=== PATIENT | male | born 1990 | race Caucasian/White ===

== ENCOUNTER 2016-12-05 10:37 | Inpatient (IN) | payer BC, MEDICAID ==
--- NOTE | 2016-12-05 11:00 | ED ---
General Adult HPI - General Chief complaint: Psychiatric Symptoms Stated complaint: Mental Health Time Seen by Provider: 12/05/16 10:57 Source: patient, RN notes reviewed, old records reviewed Mode of arrival: ambulatory Limitations: no limitations - History of Present Illness Initial comments: This is a 26-year-old male ER for evaluation. Patient's MCR for evaluation of psychiatric disease. Patient presents voluntarily as he was having some anger control issues at a snf earlier today. Patient states he's been having difficulty controlling his aggression, at times he does feel like he wants to fight he has a history of endometrial fighting. He is recently been trying to not go down that road. He felt like he needed to leave the situation. Patient had been off his medication as of late secondary to noncompliance - Related Data Home Medications Medication Instructions Recorded Confirmed Albuterol Inhaler [Ventolin Hfa 1 - 2 puff INHALATION RT-Q6H PRN 12/05/16 Inhaler] QUEtiapine XR [SEROquel XR] 200 mg PO HS 12/05/16 12/05/16 Allergies Allergy/AdvReac Type Severity Reaction Status Date / Time dextromethorphan AdvReac Hallucinati Verified 12/05/16 12:53 ons guaifenesin AdvReac Hallucinati Verified 12/05/16 12:53 ons lurasidone [From Latuda] AdvReac Suicidal Verified 12/05/16 12:53 Ideation Review of Systems ROS Statement: Those systems with pertinent positive or pertinent negative responses have been documented in the HPI. ROS Other: All systems not noted in ROS Statement are negative. Past Medical History Additional Past Medical History / Comment(s): aspergers, delusional disorder History of Any Multi-Drug Resistant Organisms: None Reported Past Surgical History: No Surgical Hx Reported Past Psychological History: Anxiety Smoking Status: Current every day smoker Past Alcohol Use History: None Reported Past Drug Use History: None Reported General Exam Limitations: no limitations General appearance: alert, in no apparent distress Head exam: Present: atraumatic, normocephalic, normal inspection Eye exam: Present: normal appearance, PERRL, EOMI. Absent: scleral icterus, conjunctival injection, periorbital swelling ENT exam: Present: normal exam, mucous membranes moist Neck exam: Present: normal inspection. Absent: tenderness, meningismus, lymphadenopathy Respiratory exam: Present: normal lung sounds bilaterally. Absent: respiratory distress, wheezes, rales, rhonchi, stridor Cardiovascular Exam: Present: regular rate, normal rhythm, normal heart sounds. Absent: systolic murmur, diastolic murmur, rubs, gallop, clicks GI/Abdominal exam: Present: soft, normal bowel sounds. Absent: distended, tenderness, guarding, rebound, rigid Extremities exam: Present: normal inspection, full ROM, normal capillary refill. Absent: tenderness, pedal edema, joint swelling, calf tenderness Back exam: Present: normal inspection Neurological exam: Present: alert, oriented X3, CN II-XII intact Psychiatric exam: Present: normal affect, normal mood Skin exam: Present: warm, dry, intact, normal color. Absent: rash Course Vital Signs 12/05/16 10:49 Temperature 98.1 F Pulse Rate 108 H Respiratory 20 Rate Blood Pressure 136/94 O2 Sat by Pulse 99 Oximetry - Reevaluation(s) Reevaluation #1: 12/05/16 14:43 Patient's medically clear for psychiatric evaluation Medical Decision Making - Medical Decision Making 26 male seen and evaluated with the [place], patient is needing psychiatric evaluation and treatment, patient will be admitted - Lab Data Lab Results 12/05/16 Range/Units 11:50 Urine Opiates Screen Not Detected (NotDetected) Ur Oxycodone Screen Not Detected (NotDetected) Urine Methadone Screen Not Detected (NotDetected) Ur Propoxyphene Screen Not Detected (NotDetected) Ur Barbiturates Screen Not Detected (NotDetected) U Tricyclic Antidepress Not Detected (NotDetected) Ur Phencyclidine Scrn Not Detected (NotDetected) Ur Amphetamines Screen Not Detected (NotDetected) U Methamphetamines Scrn Not Detected (NotDetected) U Benzodiazepines Scrn Not Detected (NotDetected) Urine Cocaine Screen Not Detected (NotDetected) U Marijuana (THC) Screen Not Detected (NotDetected) Disposition Clinical Impression: Acute psychosis Disposition: TRANSFER TO PSYCH HOSP/UNIT Condition: Fair Referrals: Linda Rogers MD [Primary Care Provider] - 1-2 days
[2016-12-05] MEDS ORDERED: ZIPRASIDONE 20 MG VIAL IM PRN (15:08)
[2016-12-05] MEDS ORDERED: ACETAMINOPHEN TAB 325 MG TAB PO PRN (15:08)
[2016-12-05] MEDS ORDERED: ALBUTEROL INHALER 60 PUFF/8 GM INHALER INHALATION PRN (15:21)
[2016-12-05] MEDS ORDERED: hydrOXYzine PAMOATE 25 MG CAP PO PRN (15:23)
[2016-12-05 15:40] LABS: Appearance,Urine Clear (Clear); Bilirubin,Urine Negative (Negative); Glucose,Urine (UA) Negative (Negative); Ketones,Urine Negative (Negative); Leukocyte Esterase,Urine Negative (Negative); Nitrite,Urine Negative (Negative); Protein,Urine Negative (Negative); Specific Gravity,Urine 1.006 (1.001-1.035); UA Billing (MACRO vs. MICRO) CHEM; Urobilinogen,Urine <2.0 mg/dL (<2.0)
[2016-12-05 16:08] VITALS: BMI 24.4
[2016-12-06 08:40] LABS: Basophils % (A) 1 %; CH 30.5; CHCM 36.9; Eosinophils # (A) 0.2 k/uL (0-0.7); Eosinophils % (A) 4 %; HCT 41.8 % (39.0-53.0); HGB 15.1 gm/dL (13.0-17.5); Luc # (Auto) 0.14; Luc % (Auto) 3; Lymphocytes # (A) 1.7 k/uL (1.0-4.8); Lymphocytes % (A) 35 %; MCH 29.9 pg (25.0-35.0); Mean Platelet Volume 7.7; Monocytes # (A) 0.4 k/uL (0-1.0); Monocytes % (A) 8 %; Neutrophils # (A) 2.4 k/uL (1.3-7.7); Neutrophils % (A) 49 %; RBC 5.04 m/uL (4.30-5.90); WBC 4.9 k/uL (3.8-10.6); WBC (Perox) 4.98
[2016-12-06 08:51] LABS: ALT 30 U/L (21-72); AST 28 U/L (17-59); Alkaline Phosphatase 56 U/L (38-126); Anion Gap 12 mmol/L; Blood Urea Nitrogen 15 mg/dL (9-20); Calcium 9.9 mg/dL (8.4-10.2); Carbon Dioxide 30 mmol/L (22-30); Chloride 105 mmol/L (98-107); Glucose 86 mg/dL (74-99); Non-African American GFR(MDRD) >60 (>60 ml/min/1.73 sqM); Potassium 4.6 mmol/L (3.5-5.1); Sodium 147 mmol/L (137-145); Total Bilirubin 2.7 mg/dL (0.2-1.3); Total Protein 7.6 g/dL (6.3-8.2)
--- NOTE | 2016-12-06 09:45 | P.HP ---
Psychiatric H&P - . H&P Date: 12/06/16 History & Physical: DATE OF SERVICE: 12/06/2016 IDENTIFYING DATA: This patient is a 26 a -year-old single male who was admitted to the mental health unit through . HISTORY OF PRESENT ILLNESS: The patient presents with report he his transitions from shelter is hard, happended before in [facility], went to a placement that was rough. Now at [facility] after 2 weeks in shelter, reports problems with authority , but coming out of shelter is rough. Says he went w/o his medication, did not sleep had lots of energy. Says he does not blame the people being "agitated spirits", says he does not do well leaving shelter, difficulty with teachers, says he was not not special ed, but always treated differently but did not realize until he knew his brother, and father all have autism spectrum disorder. Since 2010- he has gotten worse as have his brother and father. States he is with [facility]. Says he asked to come here, wants to complete his probation. Says he always just throws his hands up. 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 PAST PSYCHIATRIC HISTORY: says if he talks about it he feels like he is going to . PAST MEDICAL HISTORY: denies. ALLERGIES: per record dextromethorphan guaifenesin, lurasidone. CHEMICAL DEPENDENCY HISTORY: growing up using all drugs, never got in to one, now only marijuana, . FAMILY PSYCHIATRIC HISTORY: father and brother with autism spectrum disorder. FAMILY CHEMICAL DEPENDENCY HISTORY:both parents are etohic. LEGAL HISTORY: Just in shelter for 2 weeks for probation violation. No assault cases. SOCIAL HISTORY: [Born and raised in [place], mother raised from , parents since age 2. Brother raised by father. Had normal [employer] classes. Poor academic performance. GED. never, no children, no relationship, heterosexual. 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 MENTAL STATUS EXAM: Patient alert and oriented 3, poor eye contact, fair groomed in street clothing. Speech low volume, monotone increased rate and increased production. Coherent, logical and circumstantial tangential thought process. +IZA, no FOI. No TB/TW/TI Denied auditory and visual hallucinations. + paranoid ideation, + delusions and IOR.Religiously preoccupied Memory grossly intact Cognition below average Mood dysphoric, irritable, tearful, affect constricted, congruent with mood. Denies suicidal ideation, denies homicidal ideation. Insight and limited; Judgement plan intact for treatment purposes . STRENGTHS: Requesting help. WEAKNESSES: Poor coping skills. IMPRESSIONS: 26-year-old single male brought to the emergency room by police detention attendant who did not make a petition. Patient had been released from shelter and court ordered to the [facility], he did not receive his Seroquel meds did not sleep and had an altercation with one of the staff members who also did not write a petition. When assessed in the emergency room he was noted to have taoism preoccupation, but there was not a clear picture of psychosis. Today patient's thought process is rambling, disorganized,pressure to his speech , at times tangential, with occasional IZA. No auditory or visual hallucinations reported, delusional, paranoid . No evidence of suicidal ideation , but patient is irritable labile and angry with his sense of being a victim of the system. At the moment he is not reporting suicidal ideation but there is risk with his sense of hopelessness. Patient needs to remain inpatient for further assessment and treatment of his psychosis and mood. Psychosis, unspecified Rule out autism spectrum disorder Cannabis use disorder, in remission History of polysubstance use PLAN: Continue inpatient psychiatric admission, for safety purposes and diagnostic clarity and treatment. Will increase Seroquel to 300 mg at bedtime, and titrate up depending upon therapeutic/clinical response. Continue suicide precautions every 15 minutes. Treatment history from [facility] including medication trials. Need to have court consider a different placement then [facility] on discharge. Milieu therapy. Allergies Allergy/AdvReac Type Severity Reaction Status Date / Time dextromethorphan AdvReac Hallucinati Verified 12/05/16 15:41 ons guaifenesin AdvReac Hallucinati Verified 12/05/16 15:41 ons lurasidone From Latuda AdvReac Suicidal Verified 12/05/16 15:41 Ideation Vital Signs Temp 98.0 F 12/06/16 06:54 Pulse 73 12/06/16 06:54 Resp 16 12/06/16 06:54 BP 134/61 12/06/16 06:54 Pulse Ox 98 12/05/16 15:57 Intake & Output 12/05/16 12/06/16 12/06/16 18:59 06:59 18:59 Weight 79.5 kg Laboratory Last Values WBC 4.9 k/uL (3.8-10.6) 12/06/16 08:08 RBC 5.04 m/uL (4.30-5.90) 12/06/16 08:08 Hgb 15.1 gm/dL (13.0-17.5) 12/06/16 08:08 Hct 41.8 % (39.0-53.0) 12/06/16 08:08 MCV 83.0 fL (80.0-100.0) 12/06/16 08:08 MCH 29.9 pg (25.0-35.0) 12/06/16 08:08 MCHC 36.0 g/dL (31.0-37.0) 12/06/16 08:08 RDW 12.0 % (11.5-15.5) 12/06/16 08:08 Plt Count 149 k/uL (150-450) L 12/06/16 08:08 Neutrophils % 49 % 12/06/16 08:08 Lymphocytes % 35 % 12/06/16 08:08 Monocytes % 8 % 12/06/16 08:08 Eosinophils % 4 % 12/06/16 08:08 Basophils % 1 % 12/06/16 08:08 Neutrophils # 2.4 k/uL (1.3-7.7) 12/06/16 08:08 Lymphocytes # 1.7 k/uL (1.0-4.8) 12/06/16 08:08 Monocytes # 0.4 k/uL (0-1.0) 12/06/16 08:08 Eosinophils # 0.2 k/uL (0-0.7) 12/06/16 08:08 Basophils # 0.0 k/uL (0-0.2) 12/06/16 08:08 Urine Color Light Yellow 12/05/16 11:50 Urine Appearance Clear (Clear) 12/05/16 11:50 Urine pH 6.0 (5.0-8.0) 12/05/16 11:50 Ur Specific [place] 1.006 (1.001-1.035) 12/05/16 11:50 Urine Protein Negative (Negative) 12/05/16 11:50 Urine Glucose (UA) Negative (Negative) 12/05/16 11:50 Urine Ketones Negative (Negative) 12/05/16 11:50 Urine Blood Negative (Negative) 12/05/16 11:50 Urine Nitrite Negative (Negative) 12/05/16 11:50 Urine Bilirubin Negative (Negative) 12/05/16 11:50 Urine Urobilinogen <2.0 mg/dL (<2.0) 12/05/16 11:50 Ur Leukocyte Esterase Negative (Negative) 12/05/16 11:50 Urine Opiates Screen Not Detected (NotDetected) 12/05/16 11:50 Ur Oxycodone Screen Not Detected (NotDetected) 12/05/16 11:50 Urine Methadone Screen Not Detected (NotDetected) 12/05/16 11:50 Ur Propoxyphene Screen Not Detected (NotDetected) 12/05/16 11:50 Ur Barbiturates Screen Not Detected (NotDetected) 12/05/16 11:50 U Tricyclic Antidepress Not Detected (NotDetected) 12/05/16 11:50 Ur Phencyclidine Scrn Not Detected (NotDetected) 12/05/16 11:50 Ur Amphetamines Screen Not Detected (NotDetected) 12/05/16 11:50 U Methamphetamines Scrn Not Detected (NotDetected) 12/05/16 11:50 U Benzodiazepines Scrn Not Detected (NotDetected) 12/05/16 11:50 Urine Cocaine Screen Not Detected (NotDetected) 12/05/16 11:50 U Marijuana (THC) Screen Not Detected (NotDetected) 12/05/16 11:50 12/06/16 09:15
--- NOTE | 2016-12-07 05:39 | CONS ---
DATE OF CONSULTATION: REASON FOR CONSULTATION: Medical clearance. A 26-year-old admitted due to acute psychosis. Patient denied any fever, chills. Patient denied any nausea, vomiting, abdominal pain. Patient had history of IV drug abuse in the past. Patient was tested for hepatitis C, which was negative. Patient was not sexually active nor used any IV drugs since then. REVIEW OF SYSTEMS: CONSTITUTIONAL: No fever, no malaise, no fatigue. HEENT: No recent visual problems or hearing problems. Denied any sore throat. CARDIOVASCULAR: No chest pain, orthopnea, PND, no palpitations, no syncope. PULMONARY: No shortness of breath, no cough, no hemoptysis. GASTROINTESTINAL: No diarrhea, no nausea, no vomiting, no abdominal pain. Normoactive bowel sounds. NEUROLOGICAL: No headaches, no weakness, no numbness. HEMATOLOGICAL: Denies any bleeding or petechiae. GENITOURINARY: Denies any burning micturition, frequency, or urgency. MUSCULOSKELETAL/RHEUMATOLOGICAL: Denies any joint pain, swelling, or any muscle pain. ENDOCRINE: Denies any polyuria or polydipsia. The rest of the 14 point review of systems is negative. PAST MEDICAL HISTORY: None. Psychiatric history is significant for bipolar disorder. ALLERGIES: Allergic to ( ), GUAIFENESIN. LURASIDONE. SOCIAL HISTORY: The patient does smoke, trying to quit and trying to switch to E cigarettes. Denied any alcohol abuse or any drug abuse. FAMILY HISTORY: Both parents have alcohol abuse history and father and brother had autism spectrum disorder. PHYSICAL EXAMINATION: VITAL SIGNS: Temperature 98.0, pulse of 96, respiratory rate of 16, blood pressure is 144/86, saturating at 98% on room air. GENERAL: The patient is alert and oriented x3, not in any acute distress. Well developed, well nourished. HEENT: Pupils are round and equally reacting to light. EOMI. No scleral icterus. No conjunctival pallor. Normocephalic, atraumatic. No pharyngeal erythema. No thyromegaly. CARDIOVASCULAR: S1 and S2 present. No murmurs, rubs, or gallops. PULMONARY: Chest is clear to auscultation, no wheezing or crackles. ABDOMEN: Soft, nontender, nondistended, normoactive bowel sounds. No palpable organomegaly. MUSCULOSKELETAL: No joint swelling or deformity. EXTREMITIES: No cyanosis, clubbing, or pedal edema. NEUROLOGICAL: Gross neurological examination did not reveal any focal deficits. SKIN: No rashes. LABORATORY DATA: CBC, CMP no significant abnormality. ASSESSMENT AND PLAN: 1. Acute psychosis. Management as per primary service. 2. Ruled out hepatitis C in the past. No further intervention at this point of time. 3. Nicotine abuse counseling was provided. Will sign off at this point of time. Please call us back if needed. Patient does not have any significant medical needs.
--- NOTE | 2016-12-07 14:04 | P.PN ---
Progress Note - Text INTERVERAL HISTORY: Patient in the hallway and asked if we could meet came to office. Patient reports that he is feeling better he has adjusted to the medication, now recognizes that he was psychotic. Unable to give any examples of what he meant by psychotic. Patient states that he met with Shanel from the act team and that [facility] [place] [facility]. Patient requesting to be discharged tonight, this was not discussed in team meeting explained to him that the act team has not spoken with me. Informed him that I would talk with social media content manager Marielena and see if the plan is for him to be discharged tonight. Patient slightly irritable when discharged was not agreed to patient asked to sign out. MENTAL STATUS EXAM:Patient alert and oriented 3, fair eye contact, fair groomed in hospital street clothing. Speech normal volume, rate and production. Coherent, logical and goal directed thought process. No IZA, no FOI. [No TB/TW/ TI] Denied auditory and visual hallucinations. Denied paranoid ideation, delusions or IOR. Memory [grossly intact] Cognition average Mood irritable, affect constricted, congruent with mood. Denies suicidal ideation, denies homicidal ideation. Insight limited; Judgement grossly intact for treatment purposes Psychosis, R/O Schizoaffective DO R/O Autistic Spectrum DO PLAN: Continue psychiatric inpatient hospitalization for safety purposes and continued treatment of psychosis. Continue safety checks every 15 minutes. Continue Seroquel 300 mg daily at bedtime Have not been approached by the act team/[facility]. early childhood education worker contacted [facility] hospital liaison Drea who said there is been no contact with the patient from the act team, there is no plan for discharge and only the court can agree to that. Patient will remain hospitalized. Milieu therapy
--- NOTE | 2016-12-08 13:14 | P.PN ---
Progress Note - Text INTERVERAL HISTORY: Patient called to desk, followed me to office. Patient stated he is fine. Reviewed treatment planning with him, that he was seen by ACT team yesterday and discharge was not recommended by anyone. Informed SW spoke to and [facility] is the only option. Patient stated "I have to recognize I'm not in charge" Patient sullen, not wanting to participate, agreeing to anything recommended. Denies suicidal ideation. MENTAL STATUS EXAM:Patient alert and oriented 3, poor eye contact, fair groomed in hospital street clothing. Speech normal volume, rate, decreased production, yes no and one word answers. Coherent, logical and goal directed thought process. No IZA, no FOI. [No TB/TW/ TI] Denied auditory and visual hallucinations. Denied paranoid ideation, delusions or IOR. Memory [grossly intact] Cognition average Mood irritable, affect constricted, congruent with mood. Denies suicidal ideation, denies homicidal ideation. Insight limited; Judgement grossly intact for treatment purposes Psychosis, R/O Schizoaffective DO R/O Autistic Spectrum DO PLAN: Continue psychiatric inpatient hospitalization for safety purposes and continued treatment of psychosis. Continue safety checks every 15 minutes. Increase Seroquel 400 mg daily at bedtime residential worker contacted PO, patient had court date today but it can be rescheduled anytinme. Patient will be picked up by [facility] staff when discharged. Milieu therapy
[2016-12-08] MEDS: MAGNESIUM HYDROXIDE 2,400 MG/10 ML CUP PO PRN (14:30)
[2016-12-08] MEDS: QUEtiapine 400 MG TAB PO SCH (21:35)
[2016-12-09] MEDS ORDERED: MAGNESIUM CITRATE 296 ML BOTTLE PO ONE (16:00)
--- NOTE | 2016-12-09 16:09 | P.PN ---
Progress Note - Text INTERVERAL HISTORY: Patient discussed in treatment meeting, reviewed chart, met with patient. Patient called to office, he did not come instead he was found in hallway discussion with another patient. Patient stated he is fine. Asked about what happened yesterday, he did not know. REport of patient standing up in group, tearful stating "only God can save us" Patient asked what is wrong with that? Asked him about the emotional distress, "you want to get into that?" Patient reported his only reason for living is for [place], says he helps people by speaking about God, reports at [facility], he helped someone there but that he got "elevated" and he did not manage himself well. Asked if god speaks thru him, he did not answer, but then stated the computer flickered which was a sign from God. Patient asked about the medication i gave last night, told him no XR in 400mg dose and did not want to double his dose w/o speaking to him. Says the regular one wears off too soon, states he gets a lot of energy, says it feels good but knows he gets in trouble with it. Says his mother told he is sounding more like the real Clive. He is willing to take higher. C/O constipation, MOM not helping. Denies suicidal ideation. MENTAL STATUS EXAM:Patient alert and oriented 3, poor eye contact, fair groomed in hospital street clothing. Speech low volume, monotone, normal rate, decreased production. Coherent, logical and goal directed thought process. No IZA, no FOI. [No TB/TW/ TI] Denied auditory and visual hallucinations. Denied paranoid ideation, +delusions or IOR. Memory [grossly intact] Cognition average Mood irritable, affect constricted, congruent with mood. Denies suicidal ideation, denies homicidal ideation. Insight limited; Judgement grossly intact for treatment purposes Schizoaffective DO, bipolar type R/O Autistic Spectrum DO PLAN: Continue psychiatric inpatient hospitalization for safety purposes and continued treatment of psychosis. Continue safety checks every 15 minutes. Increase Seroquel XR 600 mg daily at bedtime utilities ground worker contacted PO, patient had court date today but it can be rescheduled anytinme. Patient will be picked up by [facility] staff when discharged. Milieu therapy
[2016-12-09] MEDS: MAG HYDROX/AL HYDROX/SIMETH 30 ML CUP PO PRN (16:26)
[2016-12-09] MEDS: DOCUSATE 100 MG CAP PO SCH (22:06)
[2016-12-09] MEDS: QUEtiapine 400 MG TAB PO SCH (22:08)
[2016-12-10] MEDS: DOCUSATE 100 MG CAP PO SCH ×2 (10:00→20:31)
--- NOTE | 2016-12-10 15:08 | P.PN ---
Progress Note - Text INTERVERAL HISTORY: Patient discussed in treatment meeting, reviewed chart, met with patient. Patient called to and came from his room. Reports he is more sedated with increase of medication. Initially seemed to be more open, with good eye contact but at some point became guarded, looking around office, stopped speaking. When asked if he was having any "psychotic" (his term) symptoms he said no, asked if he would tell us, he said no and he would tell others to not tell us what is really going on. Denies suicidal ideation. MENTAL STATUS EXAM:Patient alert and oriented 3, fair to poor eye contact, fair groomed in hospital street clothing. Speech low volume, monotone, normal rate, decreased production. Coherent, logical and goal directed thought process. No IZA, no FOI. +TB noTW/ TI] Denied auditory and visual hallucinations. +paranoid ideation, +delusions + guarded. Memory [grossly intact] Cognition average Mood irritable, affect constricted, congruent with mood. Denies suicidal ideation, denies homicidal ideation. Insight limited; Judgement grossly intact for treatment purposes Schizoaffective DO, bipolar type R/O Autistic Spectrum DO PLAN: Continue psychiatric inpatient hospitalization for safety purposes and continued treatment of psychosis. Continue safety checks every 15 minutes. Increase Seroquel XR 600 mg daily at bedtime Will see if he will allow me or SW to speak to mother. Milieu therapy
[2016-12-10] MEDS: MAGNESIUM HYDROXIDE 2,400 MG/10 ML CUP PO PRN (17:06)
[2016-12-10] MEDS: QUEtiapine 400 MG TAB PO SCH (20:30)
[2016-12-11] MEDS: DOCUSATE 100 MG CAP PO SCH ×2 (09:33→20:53)
--- NOTE | 2016-12-11 14:49 | P.PN ---
Progress Note - Text INTERVERAL HISTORY: Patient discussed in treatment meeting, reviewed chart, met with patient. Regular seroquel had not been d/c'd Patient in group but came out. Reports he is still sedated with increase of medication. He says he expects it to get better with time. Patient agreed that it is best to make sure he not having problems before going back to [facility]. Today not as guarded. Attending groups more often. Denies suicidal ideation. MENTAL STATUS EXAM:Patient alert and oriented 3, fair to poor eye contact, fair groomed in hospital street clothing. Speech low volume, monotone, normal rate, decreased production. Coherent, logical and goal directed thought process. No IZA, no FOI. +TB noTW/ TI] Denied auditory and visual hallucinations. +paranoid ideation, +delusions less guarded today. Memory grossly intact Cognition average Mood irritable, affect constricted, congruent with mood. Denies suicidal ideation, denies homicidal ideation. Insight limited; Judgment grossly intact for treatment purposes Schizoaffective DO, bipolar type R/O Autistic Spectrum DO PLAN: Continue psychiatric inpatient hospitalization for safety purposes and continued treatment of psychosis. Continue safety checks every 15 minutes. Continue Seroquel XR 600 mg daily at bedtime Will see if he will allow me or SW to speak to mother. Milieu therapy
[2016-12-11] MEDS: MAG HYDROX/AL HYDROX/SIMETH 30 ML CUP PO PRN (20:55)
[2016-12-12] MEDS: DOCUSATE 100 MG CAP PO SCH ×2 (08:48→21:18)
--- NOTE | 2016-12-12 15:48 | P.PN ---
Progress Note - Text Interval history: Patient seen in cross coverage today for Dr. Fuentes. He reports that he is doing well with the Seroquel XR. He seems to relay that with regular Seroquel he was having some issues with tachycardia. Over the last few days his pulse has been within normal range. His mood appears to be improved. He does not seem to voice any adverse psychotropic medication side effects. Mental status exam: He is alert and cooperative with the interview. His mood overall seems to be improved. He does not verbalize any thoughts of harm to self or others. He does not verbalize any hallucinations. He does not make any nagi delusional statements. Thought processes overall seem organized. Plan: Patient will be maintained on current dose of Seroquel XR. We will monitor for any medication side effects monitor his ongoing response. We'll continue to cover this patient for Dr. Fuentes through the weekend.
[2016-12-13] MEDS: DOCUSATE 100 MG CAP PO SCH ×2 (08:46→21:00)
--- NOTE | 2016-12-13 17:15 | P.PN ---
Progress Note - Text Interval history: Patient seen in cross coverage today for Dr. Fuentes. He reports that he does feel some tiredness in the morning which he thinks may be related to the Seroquel XR. We did discuss the potential for this to continue to get better as he adjusts to the medication. He feels like his mood has been pretty stable. Mental status exam: He is alert and cooperative with the interview. His speech is fluent, not rapid or pressured. Thought processes organized. His mood he describes his pretty stable. He denies any thoughts of harm to self or others. He does not verbalize any hallucinations or nagi delusions. He does not show any agitation. His affect overall is restricted. Plan: Patient will be maintained on current psychotropic medication regimen. Dr. Fuentes to resume care this patient starting tomorrow.
[2016-12-14] MEDS: DOCUSATE 100 MG CAP PO SCH ×2 (09:29→21:32)
--- NOTE | 2016-12-14 09:43 | P.PN ---
Progress Note - Text INTERVERAL HISTORY: Patient discussed in treatment meeting, reviewed chart, met with patient. Patient at [facility], came to office. REports feeling tired but knows it will get better. Discussed [facility], still anxious, worried about the people there. A bit more open about not trusting people in general. Continues to have yazidi themes, irritated when asked. Patient agreed that it is best to make sure he not having problems before going back to [facility], believes he can convince well tester to let him go to the mission. Today not as guarded. Attending groups more often. Denies suicidal ideation. MENTAL STATUS EXAM:Patient alert and oriented 3, better eye contact, fair groomed in hospital street clothing. Speech low volume, monotone, normal rate, decreased production. Coherent, logical and goal directed thought process. No IZA, no FOI. +TB noTW/ TI] Denied auditory and visual hallucinations. +paranoid ideation, +delusions less guarded today. Memory grossly intact Cognition average Mood neutral to irritable, affect constricted, congruent with mood. Denies suicidal ideation, denies homicidal ideation. Insight limited; Judgment grossly intact for treatment purposes Schizoaffective DO, bipolar type R/O Autistic Spectrum DO PLAN: Continue psychiatric inpatient hospitalization for safety purposes and continued treatment of psychosis. Continue safety checks every 15 minutes. Continue Seroquel XR 600 mg daily at bedtime Recommended mood stabilizer but patient declined Will see if he will allow me or SW to speak to mother. Milieu therapy
[2016-12-14] MEDS: MAG HYDROX/AL HYDROX/SIMETH 30 ML CUP PO PRN (12:34)
--- NOTE | 2016-12-14 15:52 | P.DS ---
Providers Date of admission: 12/05/16 14:51 Expected date of discharge: 12/15/16 Attending physician: Phyllis Fuentes MD Consults: 12/05/16 15:08 Consult Physician Routine Consulting Provider: Carmelina Kincaid Consult Reason/Comments: follow up H & P Do you want consulting provider notified?: Yes Primary care physician: Linda [facility] Hospital Course: HOSPITAL ADMISSION HISTORY: Patient was admitted to the unit after he had been at [facility] through the court system Patient reported that he always had a difficult time from senior care to outpatient. Patient had been at [facility] for one evening after 2 weeks in senior care. Although [facility] staff would not petition him, the police who brought him to the emergency room would also not, petition him. Patient has history of psychosis. Patient apparently had been angry and upset with the staff at [place] and it was not clear whether he was religiously preoccupied or not. On the unit patient was guarded avoided people, poor eye contact. In one group the patient stood up weeping saying only god saves. At that point patient was a bit more open with what was going on and that he has been religiously preoccupied. He accepted an increased dose of Seroquel. Patient reported that he also found that if he did not have X our that he frequently would find himself with increased energy. His dose of Seroquel XR was increased to 600 mg and he became less paranoid and less guarded. He is still religiously preoccupied but he does not preach. Patient is not suicidal patient is not homicidal Offered patient and mood stabilizer in addition to Seroquel he declined. MENTAL STATUS EXAM:Patient alert and oriented 3, better eye contact, fair groomed in hospital street clothing. Speech low volume, monotone, normal rate, decreased production. Coherent, logical and goal directed thought process. No IZA, no FOI. +TB noTW/ TI] Denied auditory and visual hallucinations. +paranoid ideation, +delusions less guarded today. Memory grossly intact Cognition average Mood neutral to irritable, affect constricted, congruent with mood. Denies suicidal ideation, denies homicidal ideation. Insight limited; Judgment grossly intact for treatment purposes Schizoaffective DO, bipolar type R/O Autistic Spectrum DO PLAN: Discharge tomorrow morning needs to get out early so that the [employer] people can take him to court. Continue psychiatric inpatient hospitalization for safety purposes and continued treatment of psychosis. Scrips written for Seroquel XR 600 mg daily at bedtime Recommended mood stabilizer but patient declined Patient Condition at Discharge: Fair Plan - Discharge Summary New Discharge Prescriptions: Continue Albuterol Inhaler [Ventolin Hfa Inhaler] 1 - 2 puff INHALATION RT-Q6H PRN PRN Reason: Shortness Of Breath Discontinued QUEtiapine XR [SEROquel XR] 200 mg PO HS Discharge Medication List Albuterol Inhaler [Ventolin Hfa Inhaler] 1 - 2 puff INHALATION RT-Q6H PRN [History] Follow up Appointment(s)/Referral(s): [facility] [Other] - 02/03/17 8:00 am (Trista Davis and on cancellation list for earlier appointment) [facility] [Outside] - 12/16/16 11:00 am ([facility] team to follow) Linda Rogers MD [Primary Care Provider] - 1-2 days Discharge Disposition: HOME SELF-CARE
[2016-12-14] MEDS: MAGNESIUM HYDROXIDE 2,400 MG/10 ML CUP PO PRN (21:32)
[2016-12-15 06:49] VITALS: BP 117/58; PULSE 69; RESP 16; TEMP 97.6
[2016-12-15] MEDS: DOCUSATE 100 MG CAP PO SCH (08:28)
== END 2016-12-15 14:03 | disposition home or self-care (01) | DRG 885 ==
LOC: EC 10:37 → 3MHU 14:51
PROVIDERS: ADMIT Psychiatry & Neurology Addiction Medicine; ATTEND Psychiatry & Neurology Addiction Medicine
DX: F25.0 Schizoaffective disorder, bipolar type (principal); F84.0 Autistic disorder; F17.200 Nicotine dependence, unspecified, uncomplicated; K59.00 Constipation, unspecified; Z81.1 Family history of alcohol abuse and dependence; F12.21 Cannabis dependence, in remission
CPT/HCPCS: 80053; 80306; 81003; 82075; 84443; 85025; 99285

== ENCOUNTER 2018-08-28 11:43 | Emergency (ER) | payer BC, MEDICAID, OTHER ==
[2018-08-28 12:39] VITALS: RESP 18
[2018-08-28] MEDS ORDERED: SODIUM CHLORIDE 0.9% 1,000 ML IV STA (12:39)
[2018-08-28] MEDS ORDERED: LORazepam 2 MG/ML INJ IV STA (12:41)
[2018-08-28 13:20] LABS: Basophils % (A) 0 %; Eosinophils # (A) 0.1 k/uL (0-0.7); Eosinophils % (A) 1 %; HCT 44.7 % (39.0-53.0); HGB 15.4 gm/dL (13.0-17.5); Lymphocytes # (A) 1.1 k/uL (1.0-4.8); Lymphocytes % (A) 13 %; MCH 29.6 pg (25.0-35.0); MCHC 34.5 g/dL (31.0-37.0); MCV 85.8 fL (80.0-100.0); Mean Platelet Volume 7.3; Monocytes # (A) 0.5 k/uL (0-1.0); Monocytes % (A) 6 %; Neutrophils # (A) 6.6 k/uL (1.3-7.7); Neutrophils % (A) 80 %; Platelet Count 210 k/uL (150-450); RBC 5.22 m/uL (4.30-5.90); RDW 12.2 % (11.5-15.5); WBC 8.3 k/uL (3.8-10.6)
--- NOTE | 2018-08-28 13:30 | ED ---
Psych HPI - General Chief Complaint: Psychiatric Symptoms Stated Complaint: Psych eval/halfway clearance Time Seen by Provider: 08/28/18 12:04 Source: patient, RN notes reviewed, old records reviewed Mode of arrival: ambulatory - History of Present Illness Initial Comments: This is a 20-year-old male to the ER for evaluation patient coming in for evaluation of altered mental status. Patient was found pickup by PD secondary to a standing weren't. Patient was brought to halfway was fitted to need medical clearance for halfway is patient is directable but having frequent questioning frequently talking. Patient's well-known to PD someone who did he is to have a history of going to [employer] is speaking in front of [employer] is speaking in front of the conversation and then skipping to a different uatsdin. Patient himself currently denies homicidal or suicidal thoughts, denies drug or alcohol abuse, is not taking any medication MD Complaint: altered mental status -: unknown Associated Psychiatric Symptoms: racing thoughts, auditory hallucinations History of same: Yes Quality: constant Improves With: none Worsens With: none Associated Symptoms: denies other symptoms Treatments Prior to Arrival: none - Related Data Home Medications Medication Instructions Recorded Confirmed Albuterol Inhaler [Ventolin Hfa 1 - 2 puff INHALATION RT-Q6H PRN 12/05/16 Inhaler] QUEtiapine XR [SEROquel XR] 600 mg PO HS 12/15/16 12/15/16 Allergies Allergy/AdvReac Type Severity Reaction Status Date / Time dextromethorphan AdvReac Hallucinati Verified 08/28/18 12:12 ons guaifenesin AdvReac Hallucinati Verified 08/28/18 12:12 ons lurasidone [From Latuda] AdvReac Suicidal Verified 08/28/18 12:12 Ideation Review of Systems ROS Statement: Those systems with pertinent positive or pertinent negative responses have been documented in the HPI. ROS Other: All systems not noted in ROS Statement are negative. Past Medical History Past Medical History: Asthma Additional Past Medical History / Comment(s): aspergers, delusional disorder History of Any Multi-Drug Resistant Organisms: None Reported Past Surgical History: No Surgical Hx Reported Past Anesthesia/Blood Transfusion Reactions: No Reported Reaction Past Psychological History: Anxiety Smoking Status: Light tobacco smoker Past Alcohol Use History: None Reported Past Drug Use History: None Reported General Exam Limitations: no limitations, altered mental status General appearance: alert, appears intoxicated, anxious, in distress Head exam: Present: atraumatic, normocephalic, normal inspection Eye exam: Present: normal appearance, PERRL, EOMI. Absent: scleral icterus, conjunctival injection, periorbital swelling ENT exam: Present: normal exam, mucous membranes moist Neck exam: Present: normal inspection. Absent: tenderness, meningismus, lymphadenopathy Respiratory exam: Present: normal lung sounds bilaterally. Absent: respiratory distress, wheezes, rales, rhonchi, stridor Cardiovascular Exam: Present: normal rhythm, tachycardia, normal heart sounds. Absent: systolic murmur, diastolic murmur, rubs, gallop, clicks GI/Abdominal exam: Present: soft, normal bowel sounds. Absent: distended, tenderness, guarding, rebound, rigid Extremities exam: Present: normal inspection, full ROM, normal capillary refill. Absent: tenderness, pedal edema, joint swelling, calf tenderness Back exam: Present: normal inspection Neurological exam: Present: alert, oriented X3, CN II-XII intact Psychiatric exam: Present: normal affect, normal mood Skin exam: Present: warm, dry, intact, normal color. Absent: rash Course Vital Signs 08/28/18 08/28/18 11:58 12:38 Temperature 99.2 F Pulse Rate 131 H 105 H Respiratory 20 18 Rate Blood Pressure 151/77 140/100 O2 Sat by Pulse 98 98 Oximetry - Reevaluation(s) Reevaluation #1: 08/28/18 13:30 Medical record is reviewed and noncontributory no prior ER visit here at this facility Reevaluation #2: 08/28/18 13:30 heart rate is improved, medical clear for halfway clearance 08/28/18 13:40 paytient with no compklaints Medical Decision Making - Medical Decision Making 28 male to ED for halfway clearance, ok for discharge. - Lab Data Result diagrams: 08/28/18 13:03 08/28/18 13:03 Lab Results 08/28/18 08/28/18 08/28/18 Range/Units 13:03 13:03 13:03 WBC 8.3 (3.8-10.6) k/uL RBC 5.22 (4.30-5.90) m/uL Hgb 15.4 (13.0-17.5) gm/dL Hct 44.7 (39.0-53.0) % MCV 85.8 (80.0-100.0) fL MCH 29.6 (25.0-35.0) pg MCHC 34.5 (31.0-37.0) g/dL RDW 12.2 (11.5-15.5) % Plt Count 210 (150-450) k/uL Neutrophils % 80 % Lymphocytes % 13 % Monocytes % 6 % Eosinophils % 1 % Basophils % 0 % Neutrophils # 6.6 (1.3-7.7) k/uL Lymphocytes # 1.1 (1.0-4.8) k/uL Monocytes # 0.5 (0-1.0) k/uL Eosinophils # 0.1 (0-0.7) k/uL Basophils # 0.0 (0-0.2) k/uL Sodium 143 (137-145) mmol/L Potassium 4.1 (3.5-5.1) mmol/L Chloride 110 H (98-107) mmol/L Carbon Dioxide 22 (22-30) mmol/L Anion Gap 11 mmol/L BUN 15 (9-20) mg/dL Creatinine 0.81 (0.66-1.25) mg/dL Est GFR (CKD-EPI)AfAm >90 (>60 ml/min/1.73 sqM) Est GFR (CKD-EPI)NonAf >90 (>60 ml/min/1.73 sqM) Glucose 97 (74-99) mg/dL Calcium 10.3 H (8.4-10.2) mg/dL Phosphorus 2.6 (2.5-4.5) mg/dL Magnesium 2.1 (1.6-2.3) mg/dL Total Bilirubin 2.2 H (0.2-1.3) mg/dL AST 40 (17-59) U/L ALT 39 (21-72) U/L Alkaline Phosphatase 59 (38-126) U/L Ammonia 17 (<30) umol/L Total Protein 7.8 (6.3-8.2) g/dL Albumin 5.1 H (3.5-5.0) g/dL Salicylates <1.0 mg/dL Acetaminophen <10.0 ug/mL Serum Alcohol <10 mg/dL - EKG Data -: EKG Interpreted by Me (EKG shows sinus rhythm rate of 96, NV 126, QRS 92, QTc 434) Disposition Clinical Impression: Acute psychosis, Medical clearance for incarceration Disposition: HOME SELF-CARE Condition: Good Instructions (If sedation given, give patient instructions): Psychotic Disorder (ED) Is patient prescribed a controlled substance at d/c from ED?: No Referrals: None,Stated [Primary Care Provider] - 1-2 days
[2018-08-28 13:32] LABS: ALT 39 U/L (21-72); AST 40 U/L (17-59); Acetaminophen <10.0 ug/mL; Albumin 5.1 g/dL (3.5-5.0); Alcohol <10 mg/dL; Alkaline Phosphatase 59 U/L (38-126); Anion Gap 11 mmol/L; Blood Urea Nitrogen 15 mg/dL (9-20); Calcium 10.3 mg/dL (8.4-10.2); Carbon Dioxide 22 mmol/L (22-30); Chloride 110 mmol/L (98-107); Glucose 97 mg/dL (74-99); Magnesium 2.1 mg/dL (1.6-2.3); Phosphorus 2.6 mg/dL (2.5-4.5); Potassium 4.1 mmol/L (3.5-5.1); Salicylate <1.0 mg/dL; Sodium 143 mmol/L (137-145); Total Bilirubin 2.2 mg/dL (0.2-1.3); Total Protein 7.8 g/dL (6.3-8.2)
[2018-08-28 13:57] LABS: Amphetamine Screen,Urine Not Detected (NotDetected); Barbiturate Screen,Urine Not Detected (NotDetected); Benzodiazepines Screen,Urine Not Detected (NotDetected); Cocaine Screen,Urine Not Detected (NotDetected); Methadone Screen, Urine Not Detected (NotDetected); Opiate Screen,Urine Not Detected (NotDetected); Oxycodone Screen, Urine Not Detected (NotDetected); Phencyclidine Screen,Urine Not Detected (NotDetected); Tricyclic Antidepressant,Urine Not Detected (NotDetected); Urn Cannabinoid Scrn Detected (NotDetected)
[2018-08-28 14:00] LABS: Appearance,Urine Clear (Clear); Bilirubin,Urine Negative (Negative); Blood,Urine Negative (Negative); Calcium Oxalate Crystals,Urine Occasional /hpf; Color,Urine Yellow; Glucose,Urine (UA) Negative (Negative); Hyaline Casts,Urine 23 /lpf (0-2); Ketones,Urine Trace (Negative); Leukocyte Esterase,Urine Negative (Negative); Mucus,Urine Many /hpf; Nitrite,Urine Negative (Negative); PH, Urine 6.5 (5.0-8.0); Protein,Urine 1+ (Negative); RBC,Urine 2 /hpf (0-5); Specific Gravity,Urine 1.025 (1.001-1.035)
[2018-08-28 14:54] VITALS: BP 118/87; PULSE 85; TEMP 98.1
== END 2018-08-28 15:02 | disposition home or self-care (01) ==
LOC: EC 11:43
DX: F23 Brief psychotic disorder (principal); F22 Delusional disorders; J45.909 Unspecified asthma, uncomplicated; F17.200 Nicotine dependence, unspecified, uncomplicated; Z79.899 Other long term (current) drug therapy; Z88.8 Allergy status to other drugs, medicaments and biological substances
CPT/HCPCS: 36415; 93005; 80053; 82140; 83735; 84100; 85025; 81001; 80306; 83520 ×2; 99284; 96374; 96361; G0480; J2060; 80320; 82075

== ENCOUNTER 2018-08-28 21:07 | Inpatient (IN) | payer MEDICAID, OTHER ==
--- NOTE | 2018-08-28 21:37 | ED ---
General Adult HPI - General Source: patient, police, RN notes reviewed, old records reviewed Mode of arrival: ambulatory Limitations: no limitations <David Ayala - Last Filed: 08/29/18 06:07> <Bandar San - Last Filed: 08/29/18 11:51> - General Chief complaint: Psychiatric Symptoms Stated complaint: Mental Health Time Seen by Provider: 08/28/18 21:22 - History of Present Illness Initial comments: 20-year-old male presents for psychiatric evaluation. Patient has history of schizophrenia, bipolar disorder. He was evaluated earlier today for correction clearance. He was taken to correction and is brought back by local police for psychiatric evaluation. Patient has no association, he is singing in the triage luev[place]. He refused to take his clothes off for further evaluation. Patient is not logical, not able to answer questions appropriately. Patient is hyperreligious. (David Ayala) - Related Data Home Medications Medication Instructions Recorded Confirmed No Known Home Medications 08/28/18 08/28/18 Allergies Allergy/AdvReac Type Severity Reaction Status Date / Time dextromethorphan AdvReac Hallucinati Verified 08/28/18 22:49 ons guaifenesin AdvReac Hallucinati Verified 08/28/18 22:49 ons lurasidone [From Latuda] AdvReac Suicidal Verified 08/28/18 22:49 Ideation Review of Systems ROS Other: All systems not noted in ROS Statement are negative. <David Ayala - Last Filed: 08/29/18 06:07> ROS Other: All systems not noted in ROS Statement are negative. <Bandar San - Last Filed: 08/29/18 11:51> ROS Statement: Those systems with pertinent positive or pertinent negative responses have been documented in the HPI. Past Medical History Past Medical History: Asthma Additional Past Medical History / Comment(s): aspergers, delusional disorder History of Any Multi-Drug Resistant Organisms: None Reported Past Surgical History: No Surgical Hx Reported Past Anesthesia/Blood Transfusion Reactions: No Reported Reaction Past Psychological History: Anxiety Smoking Status: Light tobacco smoker Past Alcohol Use History: None Reported Past Drug Use History: None Reported <David Ayala - Last Filed: 08/29/18 06:07> General Exam Limitations: no limitations General appearance: alert, anxious Head exam: Present: atraumatic, normocephalic Eye exam: Present: normal appearance, PERRL ENT exam: Present: normal exam Neck exam: Present: normal inspection. Absent: tenderness, meningismus Respiratory exam: Present: normal lung sounds bilaterally. Absent: respiratory distress, wheezes Cardiovascular Exam: Present: regular rate, normal rhythm GI/Abdominal exam: Present: soft. Absent: distended, tenderness Extremities exam: Present: normal inspection, normal capillary refill Neurological exam: Present: alert, CN II-XII intact, normal gait. Absent: oriented X3, motor sensory deficit Psychiatric exam: Present: agitated, manic Skin exam: Present: warm, dry, intact. Absent: cyanosis, diaphoretic <David Ayala - Last Filed: 08/29/18 06:07> Course <David Ayala - Last Filed: 08/29/18 06:07> <Bandar San - Last Filed: 08/29/18 11:51> Vital Signs 08/28/18 08/28/18 08/28/18 21:14 22:19 23:00 Temperature 98.1 F Pulse Rate 102 H Respiratory 18 16 16 Rate Blood Pressure 146/84 O2 Sat by Pulse 97 Oximetry 08/29/18 08/29/18 00:00 08:23 Temperature 98.2 F Pulse Rate 97 Respiratory 16 18 Rate Blood Pressure 148/88 O2 Sat by Pulse 98 Oximetry - Reevaluation(s) Reevaluation #1: 08/29/18 0700 Patient's care is signed out at shift change awaiting EPS disposition. ( David Ayala) Medical Decision Making <David Ayala - Last Filed: 08/29/18 06:07> <Bandar San - Last Filed: 08/29/18 11:51> - Medical Decision Making Patient was seen by mental health services with plan for psychiatric admission. Patient reevaluated by myself, Dr. San. Patient deeply sleeping but easily arousable. Patient does admit to having a lot of thoughts recently regarding his personal Civil War that he is trying to control. Patient refers to himself as "Avery" at this time. Patient does need to pray several times prior to being able to have a discussion. Positive clinical certificate completed. (Bandar San ) - Lab Data Lab Results 08/29/18 Range/Units 04:30 Urine Opiates Screen Not Detected (NotDetected) Ur Oxycodone Screen Not Detected (NotDetected) Urine Methadone Screen Not Detected (NotDetected) Ur Propoxyphene Screen Not Detected (NotDetected) Ur Barbiturates Screen Not Detected (NotDetected) U Tricyclic Antidepress Not Detected (NotDetected) Ur Phencyclidine Scrn Not Detected (NotDetected) Ur Amphetamines Screen Not Detected (NotDetected) U Methamphetamines Scrn Not Detected (NotDetected) U Benzodiazepines Scrn Detected H (NotDetected) Urine Cocaine Screen Not Detected (NotDetected) U Marijuana (THC) Screen Detected H (NotDetected) Disposition <David Ayala - Last Filed: 08/29/18 06:07> Is patient prescribed a controlled substance at d/c from ED?: No Decision Time: 11:51 <Bandar San - Last Filed: 08/29/18 11:51> Clinical Impression: Acute psychosis Disposition: TRANSFER TO PSYCH HOSP/UNIT Referrals: None,Stated [Primary Care Provider] - 1-2 days
[2018-08-29 04:56] LABS: Amphetamine Screen,Urine Not Detected (NotDetected); Barbiturate Screen,Urine Not Detected (NotDetected); Benzodiazepines Screen,Urine Detected (NotDetected); Cocaine Screen,Urine Not Detected (NotDetected); Methadone Screen, Urine Not Detected (NotDetected); Opiate Screen,Urine Not Detected (NotDetected); Oxycodone Screen, Urine Not Detected (NotDetected); Phencyclidine Screen,Urine Not Detected (NotDetected); Tricyclic Antidepressant,Urine Not Detected (NotDetected); Urn Cannabinoid Scrn Detected (NotDetected)
[2018-08-29] MEDS ORDERED: LORazepam 1 MG TAB PO STA (08:36)
[2018-08-29] MEDS ORDERED: MAGNESIUM HYDROXIDE 2,400 MG/10 ML CUP PO PRN (16:19)
[2018-08-29] MEDS ORDERED: LORazepam 2 MG/ML INJ IM PRN (16:24)
--- NOTE | 2018-08-29 18:42 | P.HPMEDMHU ---
History of Present Illness H&P Date: 08/29/18 (Requesting provider Dr. Keyes) Chief Complaint: Consult for MHU HPI The patient is a 28-year-old male with a past medical history of asthma and schizoaffective disorder that is admitted to the mental health unit after being petitioned by local Police Department. Apparently the patient had charges dropped against him for destruction of property at a local [facility]. 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 The patient reports that he has not used his asthma rescue inhaler for very long time, he denies any cough shortness of breath or wheezes. He denies any chest pain or any other physical complaints. Review of Systems Pertinent positives per HPI all other review of systems otherwise negative Past Medical History Past Medical History: Asthma Additional Past Medical History / Comment(s): aspergers, delusional disorder History of Any Multi-Drug Resistant Organisms: None Reported Past Surgical History: No Surgical Hx Reported Past Anesthesia/Blood Transfusion Reactions: No Reported Reaction Past Psychological History: Anxiety Smoking Status: Current some day smoker Past Alcohol Use History: None Reported Past Drug Use History: None Reported Medications and Allergies Home Medications Medication Instructions Recorded Confirmed Type No Known Home Medications 08/28/18 08/28/18 History Allergies Allergy/AdvReac Type Severity Reaction Status Date / Time dextromethorphan AdvReac Hallucinati Verified 08/28/18 22:49 ons guaifenesin AdvReac Hallucinati Verified 08/28/18 22:49 ons lurasidone [From Latuda] AdvReac Suicidal Verified 08/28/18 22:49 Ideation Physical Exam Vitals: Vital Signs Temp Pulse Resp BP Pulse Ox 08/29/18 08:23 98.2 F 97 18 148/88 98 08/29/18 00:00 16 08/28/18 23:00 16 08/28/18 22:19 16 08/28/18 21:14 98.1 F 102 H 18 146/84 97 Constitutional: No acute distress, conversant, pleasant Eyes: Anicteric sclerae, moist conjunctiva, no lid-lag, PERRLA ENMT: NC/AT,Oropharynx clear, no erythema, exudates Neck:Supple, FROM, no masses, or JVD, No carotid bruits; No thyromegaly Lungs: Clear to auscultation, Clear to percussion, Normal respiratory effort, no accessory muscle use Cardiovascular: Heart regular in rate and rhythm, No murmurs, gallops, or rubs no peripheral edema Abdominal: Soft Nontender, nom distended, no guarding, no rebound or rigidity, Normoactive bowel sounds No hepatomegaly, No splenomegaly, No palpable mass No abdominal wall hernia noted Skin: Normal temperature, tone, texture, turgor, No induration No subcutaneous nodules, No rash, lesions, No ulcers Extremities:No digital cyanosis No clubbing, Pedal pulses intact and symmetrical Radial pulses intact and symmetrical Normal gait and station, No calf tenderness Psychiatric: Alert and oriented to person, place and time, poor insight, delusions of grandeur/schizotypal tendendies Neuro: Muscles Strength 5/5 in all 4 extremities, Sensation to light touch grossly present throughout, Cranial nerves II-XII grossly intact. No focal sensory deficits Cranial Nerve Examination - Cranial Nerves Cranial Nerve II- Optic: Intact Cranial Nerve III- Oculomotor: Intact Cranial Nerve IV- Trochlear: Intact Cranial Nerve V- Trigeminal: Intact Cranial Nerve - Abducens: Intact Cranial Nerve VII- Facial: Intact Cranial Nerve VIII- Auditory: Intact Cranial Nerve IX- Glossopharyngeal: Intact Cranial Nerve X- Vagus: Intact Cranial Nerve XI- Accessory: Intact Cranial Nerve XII- Hypoglossal: Intact Results Labs: Abnormal Lab Results - Last 24 Hours (Table) 08/29/18 Range/Units 04:30 U Benzodiazepines Scrn Detected H (NotDetected) U Marijuana (THC) Screen Detected H (NotDetected) Assessment and Plan (1) Acute psychosis Current Visit: Yes Status: Acute Code(s): F23 - BRIEF PSYCHOTIC DISORDER SNOMED Code(s): 67109306 (2) Schizoaffective disorder Current Visit: Yes Status: Acute Code(s): F25.9 - SCHIZOAFFECTIVE DISORDER, UNSPECIFIED SNOMED Code(s): 85121037 (3) Asthma Current Visit: Yes Status: Acute Code(s): J45.909 - UNSPECIFIED ASTHMA, UNCOMPLICATED SNOMED Code(s): 396265673 Plan: The patient is noted to the acute inpatient psychiatric treatment with acute psychosis patient is a history of schizoaffective disorder and has schizotypal delusions, will defer to the acute inpatient psychiatry team regarding ongoing psychotropic therapy and coordination with cognitive behavioral therapy. Medically speaking the patient seen and medically stable and has no physical complaints, hence we'll plan to sign off on the patient pending his admission labs. I appreciate the opportunity to be involved in the ongoing care of this patient. For any further questions please not hesitate to contact the sound inpatient team Time with Patient: Less than 30
[2018-08-29] MEDS: MAG HYDROX/AL HYDROX/SIMETH 30 ML CUP PO PRN (21:25)
[2018-08-30] MEDS ORDERED: NICOTINE 7MG/24HR PATCH TRANSDERM SCH (09:00)
[2018-08-30 10:25] LABS: ALT 38 U/L (21-72); AST 27 U/L (17-59); Albumin 4.6 g/dL (3.5-5.0); Alkaline Phosphatase 46 U/L (38-126); Anion Gap 8 mmol/L; Blood Urea Nitrogen 19 mg/dL (9-20); Calcium 9.7 mg/dL (8.4-10.2); Carbon Dioxide 30 mmol/L (22-30); Chloride 105 mmol/L (98-107); Cholesterol 130 mg/dL (<200); Glucose 90 mg/dL (74-99); HDL Cholesterol 43 mg/dL (40-60); LDL Cholesterol,Calculated 73 mg/dL (0-99); Potassium 4.3 mmol/L (3.5-5.1); Sodium 143 mmol/L (137-145); Total Bilirubin 2.1 mg/dL (0.2-1.3); Total Protein 7.2 g/dL (6.3-8.2); Triglycerides 71 mg/dL (<150)
[2018-08-30 10:26] LABS: Basophils # (A) 0.1 k/uL (0-0.2); Basophils % (A) 1 %; Eosinophils # (A) 0.2 k/uL (0-0.7); Eosinophils % (A) 3 %; HCT 40.5 % (39.0-53.0); HGB 14.5 gm/dL (13.0-17.5); Lymphocytes # (A) 1.2 k/uL (1.0-4.8); Lymphocytes % (A) 24 %; MCH 30.9 pg (25.0-35.0); MCV 85.9 fL (80.0-100.0); Mean Platelet Volume 7.5; Monocytes # (A) 0.3 k/uL (0-1.0); Monocytes % (A) 7 %; Neutrophils # (A) 3.1 k/uL (1.3-7.7); Neutrophils % (A) 63 %; Platelet Count 184 k/uL (150-450); RBC 4.71 m/uL (4.30-5.90); RDW 12.3 % (11.5-15.5)
--- NOTE | 2018-08-30 11:34 | P.HP ---
Psychiatric H&P - . H&P Date: 08/30/18 History & Physical: Allergies Allergy/AdvReac Type Severity Reaction Status Date / Time dextromethorphan AdvReac Hallucinati Verified 08/28/18 22:49 ons guaifenesin AdvReac Hallucinati Verified 08/28/18 22:49 ons lurasidone [From Latuda] AdvReac Suicidal Verified 08/28/18 22:49 Ideation Vital Signs Temp 98.6 F 08/30/18 06:18 Pulse 88 08/30/18 06:18 Resp 14 08/30/18 06:18 BP 130/67 08/30/18 06:18 Pulse Ox 98 08/29/18 08:23 Laboratory Last Values Urine Opiates Screen Not Detected (NotDetected) 08/29/18 04:30 Ur Oxycodone Screen Not Detected (NotDetected) 08/29/18 04:30 Urine Methadone Screen Not Detected (NotDetected) 08/29/18 04:30 Ur Propoxyphene Screen Not Detected (NotDetected) 08/29/18 04:30 Ur Barbiturates Screen Not Detected (NotDetected) 08/29/18 04:30 U Tricyclic Antidepress Not Detected (NotDetected) 08/29/18 04:30 Ur Phencyclidine Scrn Not Detected (NotDetected) 08/29/18 04:30 Ur Amphetamines Screen Not Detected (NotDetected) 08/29/18 04:30 U Methamphetamines Scrn Not Detected (NotDetected) 08/29/18 04:30 U Benzodiazepines Scrn Detected (NotDetected) H 08/29/18 04:30 Urine Cocaine Screen Not Detected (NotDetected) 08/29/18 04:30 U Marijuana (THC) Screen Detected (NotDetected) H 08/29/18 04:30 Assessment and Plan Assessment: 28-year-old male presents for psychiatric evaluation. Patient has history of schizophrenia, bipolar disorder. He was evaluated earlier today for correction clearance. He was taken to correction and is brought back by local police for psychiatric evaluation. Patient has loose association, he is singing in the triage [place]. He refused to take his clothes off for further evaluation. Patient is not logical, not able to answer questions appropriately. Patient is hyperreligious. Pt. presents as alert and oriented to person, place, and time with clear speech. Pt. reports that the police brought him to the after releasing him from correction without being charged. Denies knowing why he was brought to the hospital. Pt. then started speaking about God and how he must have been sent here because he is the disciple of Daniel Zuluaga. Pt. then repeatly stated, "Satan, may the Lord rebuke you." Pt. referred to himself in the third person (Avery) when talking and refused to go by the name Clive. When questioned his he hears the voice of God he stated, "I will not answer that question, if you don't know what a disciple of Daniel Zuluaga is then go read it in the bible. There is an active war going on in hell right now." Per [facility] hospital liasion, the pt. is currently scheduled for a jury trial in December for non-compliance with his outpatient treatment. Lilo from mobile crisis returned this writers call. Over the weekend the pt. was assessed at the correction by ACT team supervisior Brook who petitioned him for hospitalization. - Related Data Home Medications Medication Instructions Recorded Confirmed No Known Home Medications 08/28/18 08/28/18 Allergies Allergy/AdvReac Type Severity Reaction Status Date / Time dextromethorphan AdvReac Hallucinati Verified 08/28/18 22:49 ons guaifenesin AdvReac Hallucinati Verified 08/28/18 22:49 ons lurasidone [From Latuda] AdvReac Suicidal Verified 08/28/18 22:49 Ideation Past Medical History Past Medical History: Asthma Additional Past Medical History / Comment(s): aspergers, delusional disorder History of Any Multi-Drug Resistant Organisms: None Reported Past Surgical History: No Surgical Hx Reported Past Anesthesia/Blood Transfusion Reactions: No Reported Reaction Past Psychological History: Anxiety Smoking Status: Light tobacco smoker Past Alcohol Use History: None Reported Past Drug Use History: None Reported CHEMICAL DEPENDENCY HISTORY: growing up using all drugs, never got in to one, now only marijuana, . FAMILY PSYCHIATRIC HISTORY: father and brother with autism spectrum disorder. FAMILY CHEMICAL DEPENDENCY HISTORY:both parents are alcoholic LEGAL HISTORY: Just in correction for 2 weeks for probation violation. He has a case coming up in December SOCIAL HISTORY: [Born and raised in [place], mother raised from , parents since age 2. Brother raised by father. Had normal main stream classes. Poor academic performance. GED. never, no children, states he was but now they're , heterosexual. 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 Musculoskeletal Examination - Abnormal/Involuntary Movements: [tics] Strength: [greater than antigravity (greater than/equal to 3/5) in all extremities] Muscle Tone: [no impairment Gait: [grossly normal Station: [grossly normal Mental Status Examination - General Appearance: [casual, bizarre, appears stated age, Speech/Language: [ rapid, rambled, hesitant, halting, expressive, soft, other utterances] Attitude/Behavior: [ guarded, irritable, withdrawn, indifferent, other] Mood: [ euphoric, anxious, elated, irritable Affect: [lively, incongruent, labile, Orientation: [time, person, place situation] Thought Content: [wnl, delusionsI am disciple of Daniel Zuluaga to do his preaching Risk Factors: [Denies suicidal (ideations, plan), and/or Homicidal (ideations, plan), other] Perception: [wnl, responding to hallucinations (auditory, visual, tactile) Thought Processes: [ concrete, circumstantial, tangential, other] Concentration/Attention Span: [ impaired] [Per observation and interview with the patient] Recent Memory: [ impaired] Remote Memory: [wnl] [past events, as related history] Intelligence: [average] [based on history, based on vocabulary, syntax, grammar , and content] Judgement: [ poor] [per patient's behavior/history of present illness] Insight: [poor] [understanding severity of illness/history of present illness] Admitting Diagnosis: [Bipolar affective disorder acute psychosis; marijuana use disorder Doubt Autistic Spectrum DO] Patient Strengths - Able to vocalize needs: [x] Values and traditions: [x] Patient Limitations: [medication, non-compliance, pathological/unsupported environment, no interests, intellectual impairment, legal issues, lack of social supports] Initial Plan of Care: [He is on a involuntary basis admitted to the hospital after he was picked up and assessed at the correction whereby the act team did a petition for involuntary stay in a psychiatric hospital. The first clinical certification for involuntary stay was done in the emergency room. I performed on second clinical certification for involuntary hospitalization [address] [facility] due to the fact that he is delusional psychotic and non- redirectable. He'll be placed on 15 minute checks for safety of himself and others usual protocol for the unit. He'll be evaluated by medicine, psychiatry , nursing staff, social work and occupational therapy for integration within the lundberg milieu therapeutic environment. This client is unwilling to take any medications and thinks he had a go home.] Estimated Length of Stay: [14 days] Initial Discharge Plan: [[place], [facility] Prognosis: [ guarded] Justification for Inpatient Hospitalization - [Hallucinations, delusions, agitation, anxiety, resulting in significant loss of functioning.] [Dangerous to self, others, or property with need for controlled environment.] [Emotional or behavioral conditions and complications requiring 24 hour medical and nursing care.] [Need for special drug therapy, or other therapeutic program requiring continuous hospitalization.] [Failure of social or occupational functioning.] [Inability to meet basic life and health needs.] [Legally mandated admission.] (1) Bipolar affective disorder, current episode manic with psychotic symptoms Current Visit: Yes Status: Acute Priority: High Code(s): F31.2 - BIPOLAR DISORD, CRNT EPISODE MANIC SEVERE W PSYCH FEATURES SNOMED Code(s): 961137650 Time with Patient: Less than 30
[2018-08-30 17:48] LABS: Hemoglobin A1C 5.3 % (4.0-6.0)
--- NOTE | 2018-08-31 11:45 | P.PN ---
Subjective Progress Note Date: 08/31/18 Principal diagnosis: Schizoaffective Chart reviewed, discussed with nursing staff and was discussed in team this morning regarding diagnosis and prognosis. Patient was interviewed and discussed the willingness to take medications for his hyperreligiosity he states that he's not that is just a disciple of Daniel Zan and magical and peace. He then gets up and walks away. Objective - Vital Signs Vital signs: Vital Signs Temp 97.7 F 08/31/18 04:38 Pulse 86 08/31/18 04:38 Resp 15 08/31/18 04:38 BP 102/57 08/31/18 04:38 Pulse Ox 98 08/29/18 08:23 - Labs CBC & Chem 7: 08/30/18 10:00 08/30/18 10:00 Assessment and Plan Assessment: 28-year-old male presents for psychiatric evaluation. Patient has history of schizophrenia, bipolar disorder. He was evaluated earlier today for prison clearance. He was taken to prison and is brought back by local police for psychiatric evaluation. Patient has loose association, he is singing in the triage [place]. He refused to take his clothes off for further evaluation. Patient is not logical, not able to answer questions appropriately. Patient is hyperreligious. Pt. presents as alert and oriented to person, place, and time with clear speech. Pt. reports that the police brought him to the after releasing him from prison without being charged. Denies knowing why he was brought to the hospital. Pt. then started speaking about God and how he must have been sent here because he is the disciple of Daniel Zan. Pt. then repeatly stated, "[place]ez, may the Lord rebuke you." Pt. referred to himself in the third person (Avery) when talking and refused to go by the name Clive. When questioned his he hears the voice of God he stated, "I will not answer that question, if you don't know what a disciple of Daniel Zan is then go read it in the bible. There is an active war going on in hell right now." Per [facility] hospital liasion, the pt. is currently scheduled for a jury trial in December for non-compliance with his outpatient treatment. Lilo from mobile crisis returned this writers call. Over the weekend the pt. was assessed at the prison by ACT team supervisior Brook who petitioned him for hospitalization. - Related Data Home Medications Medication Instructions Recorded Confirmed No Known Home Medications 08/28/18 08/28/18 Allergies Allergy/AdvReac Type Severity Reaction Status Date / Time dextromethorphan AdvReac Hallucinati Verified 08/28/18 22:49 ons guaifenesin AdvReac Hallucinati Verified 08/28/18 22:49 ons lurasidone [From Latuda] AdvReac Suicidal Verified 08/28/18 22:49 Ideation Past Medical History Past Medical History: Asthma Additional Past Medical History / Comment(s): aspergers, delusional disorder History of Any Multi-Drug Resistant Organisms: None Reported Past Surgical History: No Surgical Hx Reported Past Anesthesia/Blood Transfusion Reactions: No Reported Reaction Past Psychological History: Anxiety Smoking Status: Light tobacco smoker Past Alcohol Use History: None Reported Past Drug Use History: None Reported CHEMICAL DEPENDENCY HISTORY: growing up using all drugs, never got in to one, now only marijuana, . FAMILY PSYCHIATRIC HISTORY: father and brother with autism spectrum disorder. FAMILY CHEMICAL DEPENDENCY HISTORY:both parents are alcoholic LEGAL HISTORY: Just in prison for 2 weeks for probation violation. He has a case coming up in December SOCIAL HISTORY: [Born and raised in [place], mother raised from , parents since age 2. Brother raised by father. Had normal main stream classes. Poor academic performance. GED. never, no children, states he was but now they're , heterosexual. 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 Musculoskeletal Examination - Abnormal/Involuntary Movements: [tics] Strength: [greater than antigravity (greater than/equal to 3/5) in all extremities] Muscle Tone: [no impairment Gait: [grossly normal Station: [grossly normal Mental Status Examination - General Appearance: [casual, bizarre, appears stated age, Speech/Language: [ rapid, rambled, hesitant, halting, expressive, soft, other utterances] Attitude/Behavior: [ guarded, irritable, withdrawn, indifferent, other] Mood: [ euphoric, anxious, elated, irritable Affect: [lively, incongruent, labile, Orientation: [time, person, place situation] Thought Content: [wnl, delusionsI am disciple of Daniel Zuluaga to do his preaching Risk Factors: [Denies suicidal (ideations, plan), and/or Homicidal (ideations, plan), other] Perception: [wnl, responding to hallucinations (auditory, visual, tactile) Thought Processes: [ concrete, circumstantial, tangential, other] Concentration/Attention Span: [ impaired] [Per observation and interview with the patient] Recent Memory: [ impaired] Remote Memory: [wnl] [past events, as related history] Intelligence: [average] [based on history, based on vocabulary, syntax, grammar , and content] Judgement: [ poor] [per patient's behavior/history of present illness] Insight: [poor] [understanding severity of illness/history of present illness] Admitting Diagnosis: [Bipolar affective disorder acute psychosis; marijuana use disorder Doubt Autistic Spectrum DO] Patient Strengths - Able to vocalize needs: [x] Values and traditions: [x] Patient Limitations: [medication, non-compliance, pathological/unsupported environment, no interests, intellectual impairment, legal issues, lack of social supports] Initial Plan of Care: [He is on a involuntary basis admitted to the hospital after he was picked up and assessed at the prison whereby the act team did a petition for involuntary stay in a psychiatric hospital. The first clinical certification for involuntary stay was done in the emergency room. I performed on second clinical certification for involuntary hospitalization 3 to [facility] due to the fact that he is delusional psychotic and non- redirectable. He'll be placed on 15 minute checks for safety of himself and others usual protocol for the unit. He'll be evaluated by medicine, psychiatry , nursing staff, social work and occupational therapy for integration within the lundberg milieu therapeutic environment. This client is unwilling to take any medications and thinks he had a go home. 08/31/2018: He is refusing medication because he does not want to strengthen her case that he is abnormal. He says he'll wait for court hearing on the Bless the proctologist] (1) Bipolar affective disorder, current episode manic with psychotic symptoms Current Visit: Yes Status: Acute Priority: High Code(s): F31.2 - BIPOLAR DISORD, CRNT EPISODE MANIC SEVERE W PSYCH FEATURES SNOMED Code(s): 812408659 Time with Patient: Less than 30
--- NOTE | 2018-09-01 11:17 | P.PN ---
Subjective Progress Note Date: 09/01/18 Principal diagnosis: Schizoaffective Chart reviewed, discussed with nursing staff and was discussed in team this morning regarding diagnosis and prognosis. Patient was interviewed and discussed the willingness to take medications for his hyperreligiosity he states that he's not that is just a disciple of Daniel Zan and magical and peace. He then gets up and walks away. 09/01/2018: Chart reviewed and discussed with nursing staff reviewed vitals and interviewed patient. Discussed medication with him for his thought disorder and he is dates he'll wait until he goes to court. Objective - Vital Signs Vital signs: Vital Signs Temp 98 F 09/01/18 06:48 Pulse 100 09/01/18 06:48 Resp 18 09/01/18 06:48 BP 138/83 09/01/18 06:48 Pulse Ox 98 08/29/18 08:23 - Labs CBC & Chem 7: 08/30/18 10:00 08/30/18 10:00 Assessment and Plan Assessment: 28-year-old male presents for psychiatric evaluation. Patient has history of schizophrenia, bipolar disorder. He was evaluated earlier today for [facility] clearance. He was taken to [facility] and is brought back by local police for psychiatric evaluation. Patient has loose association, he is singing in the triage [place]. He refused to take his clothes off for further evaluation. Patient is not logical, not able to answer questions appropriately. Patient is hyperreligious. Pt. presents as alert and oriented to person, place, and time with clear speech. Pt. reports that the police brought him to the after releasing him from [facility] without being charged. Denies knowing why he was brought to the hospital. Pt. then started speaking about God and how he must have been sent here because he is the disciple of Daniel Zan. Pt. then repeatly stated, "Satan, may the Lord rebuke you." Pt. referred to himself in the third person (Avery) when talking and refused to go by the name Clive. When questioned his he hears the voice of God he stated, "I will not answer that question, if you don't know what a disciple of Daniel Zan is then go read it in the bible. There is an active war going on in hell right now." Per [facility] hospital liasion, the pt. is currently scheduled for a jury trial in December for non-compliance with his outpatient treatment. Lilo from mobile crisis returned this writers call. Over the weekend the pt. was assessed at the [facility] by ACT team supervisior Brook who petitioned him for hospitalization. CHEMICAL DEPENDENCY HISTORY: growing up using all drugs, never got in to one, now only marijuana, . FAMILY PSYCHIATRIC HISTORY: father and brother with autism spectrum disorder. FAMILY CHEMICAL DEPENDENCY HISTORY:both parents are alcoholic LEGAL HISTORY: Just in [facility] for 2 weeks for probation violation. He has a case coming up in December SOCIAL HISTORY: [Born and raised in [place], mother raised from , parents since age 2. Brother raised by father. Had normal main stream classes. Poor academic performance. GED. never, no children, states he was but now they're , heterosexual. 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 Mental Status Examination - General Appearance: [casual, bizarre, appears stated age, Speech/Language: [ rapid, rambled, hesitant, halting, expressive, soft, other utterances] Attitude/Behavior: [ guarded, irritable, withdrawn, indifferent, other] Mood: [ euphoric, anxious, elated, irritable Affect: [lively, incongruent, labile, Orientation: [time, person, place situation] Thought Content: [wnl, delusionsI am disciple of Danielsaundra Zuluaga to do his preaching Risk Factors: [Denies suicidal (ideations, plan), and/or Homicidal (ideations, plan), other] Perception: [wnl, responding to hallucinations (auditory, visual, tactile) Thought Processes: [ concrete, circumstantial, tangential, other] Concentration/Attention Span: [ impaired] [Per observation and interview with the patient] Recent Memory: [ impaired] Remote Memory: [wnl] [past events, as related history] Intelligence: [average] [based on history, based on vocabulary, syntax, grammar , and content] Judgement: [ poor] [per patient's behavior/history of present illness] Insight: [poor] [understanding severity of illness/history of present illness] Admitting Diagnosis: [Bipolar affective disorder acute psychosis; marijuana use disorder Doubt Autistic Spectrum DO] Initial Plan of Care: [He is on a involuntary basis admitted to the hospital after he was picked up and assessed at the [facility] whereby the act team did a petition for involuntary stay in a psychiatric hospital. The first clinical certification for involuntary stay was done in the emergency room. I performed on second clinical certification for involuntary hospitalization 3 to [facility] unit due to the fact that he is delusional psychotic and non- redirectable. He'll be placed on 15 minute checks for safety of himself and others usual protocol for the unit. He'll be evaluated by medicine, psychiatry , nursing staff, social work and occupational therapy for integration within the lundberg milieu therapeutic environment. This client is unwilling to take any medications and thinks he had a go home. 08/31/2018: He is refusing medication because he does not want to strengthen her case that he is abnormal. He says he'll wait for court hearing on the Bless the manufacturing engineer 09/01/2018: Discussed again medication of Seroquel and he states that he'll see after next Wednesday is waiting to see the manufacturing engineer because he is refusing any treatment. He occasionally goes to group but becomes hyper christian.] (1) Bipolar affective disorder, current episode manic with psychotic symptoms Current Visit: Yes Status: Acute Priority: High Code(s): F31.2 - BIPOLAR DISORD, CRNT EPISODE MANIC SEVERE W PSYCH FEATURES SNOMED Code(s): 768988774
--- NOTE | 2018-09-02 10:00 | P.PN ---
Subjective Progress Note Date: 09/02/18 Principal diagnosis: Schizoaffective Chart reviewed, discussed with nursing staff and was discussed in team this morning regarding diagnosis and prognosis. Patient was interviewed and discussed the willingness to take medications for his hyperreligiosity he states that he's not that is just a disciple of Daniel Zan and magical and peace. He then gets up and walks away. 09/01/2018: Chart reviewed and discussed with nursing staff reviewed vitals and interviewed patient. Discussed medication with him for his thought disorder and he is dates he'll wait until he goes to court. 09/02/2018: Chart reviewed and discussed with nursing staff. In interview patient and he wants a [employer]un Bible which we don't have. He is refusing any medication and awaiting court. He is attending groups on occasion. Objective - Vital Signs Vital signs: Vital Signs Temp 98 F 09/01/18 06:48 Pulse 100 09/01/18 06:48 Resp 18 09/01/18 06:48 BP 138/83 09/01/18 06:48 Pulse Ox 98 08/29/18 08:23 - Labs CBC & Chem 7: 08/30/18 10:00 08/30/18 10:00 Assessment and Plan Assessment: 28-year-old male presents for psychiatric evaluation. Patient has history of schizophrenia, bipolar disorder. He was evaluated earlier today for [facility]p clearance. He was taken to [facility]p and is brought back by local police for psychiatric evaluation. Patient has loose association, he is singing in the triage luevano. He refused to take his clothes off for further evaluation. Patient is not logical, not able to answer questions appropriately. Patient is hyperreligious. Pt. presents as alert and oriented to person, place, and time with clear speech. Pt. reports that the police brought him to the after releasing him from [facility]p without being charged. Denies knowing why he was brought to the hospital. Pt. then started speaking about God and how he must have been sent here because he is the disciple of Daniel Zan. Pt. then repeatly stated, "Cortez, may the Lord rebuke you." Pt. referred to himself in the third person (Avery) when talking and refused to go by the name Clive. When questioned his he hears the voice of God he stated, "I will not answer that question, if you don't know what a disciple of Daniel Zuluaga is then go read it in the bible. There is an active war going on in hell right now." Per Ian [facility] hospital liasion, the pt. is currently scheduled for a jury trial in December for non-compliance with his outpatient treatment. Lilo from [employer] returned this writers call. Over the weekend the pt. was assessed at the [facility]p by ACT team supervisior Brook who petitioned him for hospitalization. CHEMICAL DEPENDENCY HISTORY: growing up using all drugs, never got in to one, now only marijuana, . FAMILY PSYCHIATRIC HISTORY: father and brother with autism spectrum disorder. FAMILY CHEMICAL DEPENDENCY HISTORY:both parents are alcoholic LEGAL HISTORY: Just in [facility]p for 2 weeks for probation violation. He has a case coming up in December SOCIAL HISTORY: [Born and raised in [place], mother raised from , parents since age 2. Brother raised by father. Had normal main stream classes. Poor academic performance. GED. never, no children, states he was but now they're , heterosexual. 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 Mental Status Examination - General Appearance: [casual, bizarre, appears stated age, Speech/Language: [ rapid, rambled, hesitant, halting, expressive, soft, other utterances] Attitude/Behavior: [ guarded, irritable, withdrawn, indifferent, other] Mood: [ euphoric, anxious, elated, irritable Affect: [lively, incongruent, labile, Orientation: [time, person, place situation] Thought Content: [wnl, delusionsI am disciple of Daniel Zuluaga to do his preaching Risk Factors: [Denies suicidal (ideations, plan), and/or Homicidal (ideations, plan), other] Perception: [wnl, responding to hallucinations (auditory, visual, tactile) Thought Processes: [ concrete, circumstantial, tangential, other] Concentration/Attention Span: [ impaired] [Per observation and interview with the patient] Recent Memory: [ impaired] Remote Memory: [wnl] [past events, as related history] Intelligence: [average] [based on history, based on vocabulary, syntax, grammar , and content] Judgement: [ poor] [per patient's behavior/history of present illness] Insight: [poor] [understanding severity of illness/history of present illness] Admitting Diagnosis: [Bipolar affective disorder acute psychosis; marijuana use disorder Doubt Autistic Spectrum DO] Initial Plan of Care: [He is on a involuntary basis admitted to the hospital after he was picked up and assessed at the usp whereby the act team did a petition for involuntary stay in a psychiatric hospital. The first clinical certification for involuntary stay was done in the emergency room. I performed on second clinical certification for involuntary hospitalization 3 to [facility] due to the fact that he is delusional psychotic and non- redirectable. He'll be placed on 15 minute checks for safety of himself and others usual protocol for the unit. He'll be evaluated by medicine, psychiatry , nursing staff, social work and occupational therapy for integration within the [facility] milieu therapeutic environment. This client is unwilling to take any medications and thinks he had a go home. 08/31/2018: He is refusing medication because he does not want to strengthen her case that he is abnormal. He says he'll wait for court hearing on the Bless the lance crewmember 09/01/2018: Discussed again medication of Seroquel and he states that he'll see after next Wednesday is waiting to see the lance crewmember because he is refusing any treatment. He occasionally goes to group but becomes hyper bahai. 09/02/2018 discussed again with patient the use of medication and Seroquel which responded before to and again he is refusing until court date. He remains on 15 minute checks and usual protocol for the mental health] (1) Bipolar affective disorder, current episode manic with psychotic symptoms Current Visit: Yes Status: Acute Priority: High Code(s): F31.2 - BIPOLAR DISORD, CRNT EPISODE MANIC SEVERE W PSYCH FEATURES SNOMED Code(s): 533618624 Time with Patient: Less than 30
--- NOTE | 2018-09-03 09:15 | P.PN ---
Progress Note - Text Interval history: The patient is observed in the hallway walking throughout the morning. Upon approach and asking him to speak in an interview room he declines. He states he is waiting for the Christians to take away the cell phones so we will be saved. He then walks away. It appears he was admitted for bipolar jero with psychosis. He is not taking any medication at this time. Status exam: The patient is an alert male appearing his stated age. He is dressed in his own clothing. Eye contact is adequate but very brief. He refuses to meet with me in an interview room or answer any questions. He makes the statement noted above and walks away. He is observed throughout the morning demonstrating bizarre affect smiling laughing and then suddenly making random movements with his upper extremities. He was not observed demonstrating any aggressive behavior. Insight and judgment appear impaired. He appears to be in no physical distress. Plan: The patient is awaiting a court hearing. He appears to be experiencing symptoms of jero and psychosis. We will monitor him for safety. Vital signs reviewed. He requires continued psychiatric hospitalization.
--- NOTE | 2018-09-04 11:08 | P.PN ---
Progress Note - Text Interval history: The patient is found in the hallway again he was often opportunity to me in an interview room and he refuses. He states that he has court on Wednesday and will speak to me after then. Later in the hallway he approaches me and states he will not speak to me until I throw away my smart phone. Mental status exam: The patient is alert he appears his stated age she is dressed in the same clothing is yesterday. He continues to angrily the hallways throughout the morning. He is speaking out loud to himself he is demonstrative with arm gestures as he speaks. He demonstrates odd laughter and smiling. He did not comply with an interview. He appears to be in no physical distress. Insight and judgment are impaired. Objectively he appears to be experiencing symptoms of jero and psychosis. Plan: The patient's is refusing medication. He is awaiting his court date which he states is Wednesday. We will attempt to provide reality orientation when possible. We will continue to monitor him for safety.
--- NOTE | 2018-09-05 11:42 | P.PN ---
Subjective Progress Note Date: 09/05/18 Principal diagnosis: Schizoaffective Chart reviewed, discussed with nursing staff and was discussed in team this morning regarding diagnosis and prognosis. Patient was interviewed and discussed the willingness to take medications for his hyperreligiosity he states that he's not that is just a disciple of Daniel Zan and magical and peace. He then gets up and walks away. 09/01/2018: Chart reviewed and discussed with nursing staff reviewed vitals and interviewed patient. Discussed medication with him for his thought disorder and he is dates he'll wait until he goes to court. 09/02/2018: Chart reviewed and discussed with nursing staff. In interview patient and he wants a Ivan Shaun Bible which we don't have. He is refusing any medication and awaiting court. He is attending groups on occasion. 09/05/2018: Chart reviewed and discussed with nursing staff and discussed in team. In interviewing the patient he is not answering questions angrily looking at the interviewer and denies any suicidal homicidal threats however he does not answer these questions he just stares at. Objective - Vital Signs Vital signs: Vital Signs Temp 98 F 09/01/18 06:48 Pulse 100 09/01/18 06:48 Resp 18 09/01/18 06:48 BP 138/83 09/01/18 06:48 Pulse Ox 98 08/29/18 08:23 Intake & Output 09/04/18 09/05/18 09/05/18 18:59 06:59 18:59 Weight 75.1 kg - Labs CBC & Chem 7: 08/30/18 10:00 08/30/18 10:00 Assessment and Plan Assessment: 28-year-old male presents for psychiatric evaluation. Patient has history of schizophrenia, bipolar disorder. He was evaluated earlier today for correction clearance. He was taken to correction and is brought back by local police for psychiatric evaluation. Patient has loose association, he is singing in the triage luevano. He refused to take his clothes off for further evaluation. Patient is not logical, not able to answer questions appropriately. Patient is hyperreligious. Pt. presents as alert and oriented to person, place, and time with clear speech. Pt. reports that the police brought him to the after releasing him from correction without being charged. Denies knowing why he was brought to the hospital. Pt. then started speaking about God and how he must have been sent here because he is the disciple of Daniel Zuluaga. Pt. then repeatly stated, "Satan, may the Lord rebuke you." Pt. referred to himself in the third person (Avery) when talking and refused to go by the name Clive. When questioned his he hears the voice of God he stated, "I will not answer that question, if you don't know what a disciple of Daniel Zuluaga is then go read it in the bible. There is an active war going on in hell right now." Per Ian [facility] hospital liasion, the pt. is currently scheduled for a jury trial in December for non-compliance with his outpatient treatment. Lilo from mobile crisis returned this writers call. Over the weekend the pt. was assessed at the correction by ACT team supervisior Brook who petitioned him for hospitalization. CHEMICAL DEPENDENCY HISTORY: growing up using all drugs, never got in to one, now only marijuana, . FAMILY PSYCHIATRIC HISTORY: father and brother with autism spectrum disorder. FAMILY CHEMICAL DEPENDENCY HISTORY:both parents are alcoholic LEGAL HISTORY: Just in correction for 2 weeks for probation violation. He has a case coming up in December SOCIAL HISTORY: [Born and raised in [place], mother raised from , parents since age 2. Brother raised by father. Had normal main stream classes. Poor academic performance. GED. never, no children, states he was but now they're , heterosexual. 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 Mental Status Examination - General Appearance: [casual, bizarre, appears stated age, Speech/Language: [ rapid, rambled, hesitant, halting, expressive, soft, other utterances] Attitude/Behavior: [ guarded, irritable, withdrawn, indifferent, other] Mood: [ euphoric, anxious, elated, irritable Affect: [lively, incongruent, labile, Orientation: [time, person, place situation] Thought Content: [wnl, delusionsI am disciple of Daniel Zuluaga to do his preaching Risk Factors: [Denies suicidal (ideations, plan), and/or Homicidal (ideations, plan), other] Perception: [wnl, responding to hallucinations (auditory, visual, tactile) Thought Processes: [ concrete, circumstantial, tangential, other] Concentration/Attention Span: [ impaired] [Per observation and interview with the patient] Recent Memory: [ impaired] Remote Memory: [wnl] [past events, as related history] Intelligence: [average] [based on history, based on vocabulary, syntax, grammar , and content] Judgement: [ poor] [per patient's behavior/history of present illness] Insight: [poor] [understanding severity of illness/history of present illness] Admitting Diagnosis: [Bipolar affective disorder acute psychosis; marijuana use disorder Doubt Autistic Spectrum DO] Initial Plan of Care: [He is on a involuntary basis admitted to the hospital after he was picked up and assessed at the correction whereby the act team did a petition for involuntary stay in a psychiatric hospital. The first clinical certification for involuntary stay was done in the emergency room. I performed on second clinical certification for involuntary hospitalization 3 to [facility] due to the fact that he is delusional psychotic and non- redirectable. He'll be placed on 15 minute checks for safety of himself and others usual protocol for the unit. He'll be evaluated by medicine, psychiatry , nursing staff, social work and occupational therapy for integration within the [facility] milieu therapeutic environment. This client is unwilling to take any medications and thinks he had a go home. 08/31/2018: He is refusing medication because he does not want to strengthen her case that he is abnormal. He says he'll wait for court hearing on the Bless the scribing machine operator 09/01/2018: Discussed again medication of Seroquel and he states that he'll see after next Wednesday is waiting to see the scribing machine operator because he is refusing any treatment. He occasionally goes to group but becomes hyper sikhism. 09/02/2018 discussed again with patient the use of medication and Seroquel which responded before to and again he is refusing until court date. He remains on 15 minute checks and usual protocol for the mental health] 09/05/2018: Discussed again with the patient the use of medication Seroquel. He denies being any medications and he is waiting to go to court. He is not participating in any treatment and an denial of any mental illness. (1) Bipolar affective disorder, current episode manic with psychotic symptoms Current Visit: Yes Status: Acute Priority: High Code(s): F31.2 - BIPOLAR DISORD, CRNT EPISODE MANIC SEVERE W PSYCH FEATURES SNOMED Code(s): 856223424 Time with Patient: Less than 30
--- NOTE | 2018-09-06 11:26 | P.PN ---
Progress Note - Text Interval history: The patient is found in the hallway ambulating. An attempt was made to interview him but he refuses. He provided no verbal responses to my request. The patient has an irritable affect. He was observed ambulating throughout the unit throughout the morning. He was also heard speaking quite loudly to himself in his room for an extended period of time. He continues to refuse any medication. Vital signs reviewed. Mental status exam: The patient is alert he is uncooperative. Grossly he appears to be experiencing symptoms of jero and he is verbalizing content that appears to be psychotic in nature. He provides no verbal responses to questions asked. Insight and judgment appear to be impaired. Plan: The patient appears to be manic with psychosis he has been uncooperative with treatment and uncooperative with my efforts to interview him over the weekend and today. Vital signs reviewed. We will continue to monitor him for safety. He does have a court hearing scheduled for tomorrow.
--- NOTE | 2018-09-07 13:30 | P.PN ---
Progress Note - Text Interval history: The patient is found in the hallway. Again he refuses to speak with me. In an irritable tone he directs me not to talk to him again unless I have stopped using a smart phone. Staff report that he did attend group today but he made a statement that he was the antichrist. He continues to pace around the hallway. He is observed talking to himself and demonstrating odd gestures. Staff reported that he slept only 3 hours last night and appeared to be restless. Mental status exam: The patient is alert he is uncooperative. He is observed throughout the day ambulating in the hallway. He is making statements that are hyper mosque in nature. He continues to appear manic with symptoms of psychosis. Insight and judgment are poor. Plan: The patient refuses any medication intervention at this time. He does have a full court hearing scheduled for this afternoon. If we obtain a treatment order we will initiate an antipsychotic mood stabilizing medication. Vital signs reviewed. We will continue to monitor him for safety.
[2018-09-07] MEDS: PALIPERIDONE 6 MG TAB.ER.24 PO SCH (20:42)
[2018-09-07] MEDS: ZIPRASIDONE 20 MG VIAL IM PRN (21:58)
--- NOTE | 2018-09-08 12:57 | P.PN ---
Progress Note - Text Interval history: The patient is found in the hallway as he walks by me he states "do not talk to me". He is unwilling to meet with me for an interview. Staff report that last evening he did demonstrate some agitation and did receive an injection of Geodon. Mental status exam: The patient continues to ambulate in the hallway throughout the day. He makes no eye contact. He is unwilling to speak with me and an interview room. He continues to make statements that are bizarre nature and he continues to appear to be religiously preoccupied. His behavior overall continues to appear to be manic. Insight and judgment are poor. Plan: I have prescribed Invega 6 mg at bedtime. We now have a court order in place. If he refuses that medication he will receive an injection of Geodon. We will continue to monitor him for safety. We will encourage appropriate participation in the milieu. Vital signs reviewed.
[2018-09-08] MEDS: ZIPRASIDONE 20 MG VIAL IM PRN (20:38)
[2018-09-08] MEDS ORDERED: ZIPRASIDONE 20 MG VIAL IM ONE (20:38)
[2018-09-08] MEDS: PALIPERIDONE 6 MG TAB.ER.24 PO SCH (22:18)
--- NOTE | 2018-09-09 10:00 | P.PN ---
Progress Note - Text Interval history: The patient is found in the hallway. An attempt was made to interview him. Once again he refused. It appears he refused the oral invega last night but did receive another injection of Geodon as ordered if he refused oral medication. Mental status exam: The patient is alert he is ambulating in the hallway. He has a bizarre smiling affect. Earlier this morning he was observed talking to himself out loud while ambulating. He continues to demonstrate symptoms of jero and psychosis. He continues to demonstrate impaired insight and judgment. He appears to be in no physical distress. He is dressed in the same clothing that he is worn each day. He demonstrates no repetitive involuntary movements. Plan: The patient will continue being prescribed the oral invega. He will be given the Geodon injection if he refuses. We will monitor him for safety. Vital signs reviewed. The patient requires continued psychiatric treatment on the mental health unit.
[2018-09-09] MEDS ORDERED: WATER FOR INJECTION, STERILE 10 ML IV ONE (20:26)
[2018-09-09] MEDS: PALIPERIDONE 6 MG TAB.ER.24 PO SCH (20:27)
[2018-09-09] MEDS: ZIPRASIDONE 20 MG VIAL IM PRN (20:30)
[2018-09-09] MEDS: LORazepam 1 MG TAB PO PRN (21:29)
--- NOTE | 2018-09-09 21:33 | P.MHFACE ---
Face to Face Eval of Restraint - Evaluation Patient's Immediate Situation: Endangers others' safety, Endangers staff safety, Violent behavior Patient's Reaction to the Intervention: Uncooperative, Angry, Hostile, Belligerent, Anxious, Aggressive, Combative, Restless, Resistive to care Patient's Medical & Behavioral Condition: Awake, Alert, Anxious, Agitated Need to Continue or Terminate Restraint or Seclusion: Continue
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
[2018-09-10] MEDS ORDERED: PALIPERIDONE 6 MG TAB.ER.24 PO SCH (18:00)
--- NOTE | 2018-09-11 14:29 | P.PN ---
Progress Note - Text Progress Note Date: 09/11/18 Interval history: Patient is seen in the group session, when inquired with patient regarding coming to meet with me he does not come for the interview. He is noted to make a repetitive sound. Mental status exam: Patient is seen in the group room. He does not come to the interview room when inquired with patient regarding meeting with me. He is noted to make a repetitive type sound. Plan: Continue current psychotropic medication regimen and monitor regarding patient compliance and monitor regarding any side effects.
[2018-09-11] MEDS: PALIPERIDONE 6 MG TAB.ER.24 PO SCH ×2 (18:47→18:51)
[2018-09-12] MEDS ORDERED: PALIPERIDONE IM 234 MG/1.5 ML SYG IM STA (11:02)
--- NOTE | 2018-09-12 11:07 | P.PN ---
Subjective Progress Note Date: 09/12/18 Principal diagnosis: Schizoaffective Chart reviewed, discussed with nursing staff and was discussed in team this morning regarding diagnosis and prognosis. Patient was interviewed and discussed the willingness to take medications for his hyperreligiosity he states that he's not that is just a disciple of Daniel Zan and magical and peace. He then gets up and walks away. 09/01/2018: Chart reviewed and discussed with nursing staff reviewed vitals and interviewed patient. Discussed medication with him for his thought disorder and he is dates he'll wait until he goes to court. 09/02/2018: Chart reviewed and discussed with nursing staff. In interview patient and he wants a Ivan Shaun Bible which we don't have. He is refusing any medication and awaiting court. He is attending groups on occasion. 09/05/2018: Chart reviewed and discussed with nursing staff and discussed in team. In interviewing the patient he is not answering questions angrily looking at the interviewer and denies any suicidal homicidal threats however he does not answer these questions he just stares at. 09/12/2018: Chart reviewed and discussed with [facility] but is on a order for treatment, discussed with nursing staff and team this morning regarding long-term medication as an injectable form. Patient is very resistant to this and said that Jozef goes to sitting outside the door and when my goes to not get back together he'll my goes to Me That I Should Give Him Pills. Remains Delusional Psychotic Manipulative. Objective - Vital Signs Vital signs: Vital Signs Temp 97.4 F L 09/09/18 05:26 Pulse 90 09/09/18 20:50 Resp 16 09/09/18 20:50 BP 137/77 09/09/18 20:50 Pulse Ox 98 08/29/18 08:23 Intake & Output 09/11/18 09/12/18 09/12/18 18:59 06:59 18:59 Weight 74.8 kg - Labs CBC & Chem 7: 08/30/18 10:00 08/30/18 10:00 Assessment and Plan Assessment: 28-year-old male presents for psychiatric evaluation. Patient has history of schizophrenia, bipolar disorder. He was evaluated earlier today for long term clearance. He was taken to long term and is brought back by local police for psychiatric evaluation. Patient has loose association, he is singing in the triage [place]. He refused to take his clothes off for further evaluation. Patient is not logical, not able to answer questions appropriately. Patient is hyperreligious. Pt. presents as alert and oriented to person, place, and time with clear speech. Pt. reports that the police brought him to the after releasing him from long term without being charged. Denies knowing why he was brought to the hospital. Pt. then started speaking about God and how he must have been sent here because he is the disciple of Daniel Zuluaga. Pt. then repeatly stated, "Satan, may the Lord rebuke you." Pt. referred to himself in the third person (Avery) when talking and refused to go by the name Clive. When questioned his he hears the voice of God he stated, "I will not answer that question, if you don't know what a disciple of Daniel Zuluaga is then go read it in the bible. There is an active war going on in [place] right now." Per Ian [facility] hospital liasion, the pt. is currently scheduled for a jury trial in December for non-compliance with his outpatient treatment. Lilo from mobile crisis returned this writers call. Over the weekend the pt. was assessed at the long term by ACT team supervisior Brook who petitioned him for hospitalization. CHEMICAL DEPENDENCY HISTORY: growing up using all drugs, never got in to one, now only marijuana, . FAMILY PSYCHIATRIC HISTORY: father and brother with autism spectrum disorder. FAMILY CHEMICAL DEPENDENCY HISTORY:both parents are alcoholic LEGAL HISTORY: Just in long term for 2 weeks for probation violation. He has a case coming up in December SOCIAL HISTORY: [Born and raised in [place], mother raised from , parents since age 2. Brother raised by father. Had normal main stream classes. Poor academic performance. GED. never, no children, states he was but now they're , heterosexual. 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 Mental Status Examination - General Appearance: [casual, bizarre, appears stated age, Speech/Language: [ rapid, rambled, hesitant, halting, expressive, soft, other utterances] Attitude/Behavior: [ guarded, irritable, withdrawn, indifferent, other] Mood: [ euphoric, anxious, elated, irritable Affect: [lively, incongruent, labile, Orientation: [time, person, place situation] Thought Content: [wnl, delusionsI am disciple of Daniel Zuluaga to do his preaching Risk Factors: [Denies suicidal (ideations, plan), and/or Homicidal (ideations, plan), other] Perception: [wnl, responding to hallucinations (auditory, visual, tactile) Thought Processes: [ concrete, circumstantial, tangential, other] Concentration/Attention Span: [ impaired] [Per observation and interview with the patient] Recent Memory: [ impaired] Remote Memory: [wnl] [past events, as related history] Intelligence: [average] [based on history, based on vocabulary, syntax, grammar, and content] Judgement: [ poor] [per patient's behavior/history of present illness] Insight: [poor] [understanding severity of illness/history of present illness] Admitting Diagnosis: [Bipolar affective disorder acute psychosis; marijuana use disorder Doubt Autistic Spectrum DO] Initial Plan of Care: [He is on a involuntary basis admitted to the hospital after he was picked up and assessed at the long term whereby the act team did a petition for involuntary stay in a psychiatric hospital. The first clinical certification for involuntary stay was done in the emergency room. I performed on second clinical certification for involuntary hospitalization 3 to [facility] due to the fact that he is delusional psychotic and non- redirectable. He'll be placed on 15 minute checks for safety of himself and others usual protocol for the unit. He'll be evaluated by medicine, psychiatry, nursing staff, social work and occupational therapy for integration within the [facility] milieu therapeutic environment. This client is unwilling to take any medications and thinks he had a go home. 08/31/2018: He is refusing medication because he does not want to strengthen her case that he is abnormal. He says he'll wait for court hearing on the Bless the retail client manager 09/01/2018: Discussed again medication of Seroquel and he states that he'll see after next Wednesday is waiting to see the retail client manager because he is refusing any treatment. He occasionally goes to group but becomes hyper lutheran. 09/02/2018 discussed again with patient the use of medication and Seroquel which responded before to and again he is refusing until court date. He remains on 15 minute checks and usual protocol for the mental health] 09/05/2018: Discussed again with the patient the use of medication Seroquel. He denies being any medications and he is waiting to go to court. He is not participating in any treatment and an denial of any mental illness. 09/12/2018: Discussed with the patient the fact that he did not go to court it does not mean that he doesn't get treatment. He still has fair amount of psychotic behavior and fixed delusions don't call me Clive call Avery. Plan is today to give a Invega 234 mg injectable long-acting and watch for any major side effects. (1) Bipolar affective disorder, current episode manic with psychotic symptoms Current Visit: Yes Status: Acute Priority: High Code(s): F31.2 - BIPOLAR DISORD, CRNT EPISODE MANIC SEVERE W PSYCH FEATURES SNOMED Code(s): 964590238 Time with Patient: Less than 30
--- NOTE | 2018-09-13 11:08 | P.PN ---
Subjective Progress Note Date: 09/13/18 Principal diagnosis: Schizoaffective Chart reviewed, discussed with nursing staff and was discussed in team this morning regarding diagnosis and prognosis. Patient was interviewed and discussed the willingness to take medications for his hyperreligiosity he states that he's not that is just a disciple of Daniel Zan and magical and peace. He then gets up and walks away. 09/01/2018: Chart reviewed and discussed with nursing staff reviewed vitals and interviewed patient. Discussed medication with him for his thought disorder and he is dates he'll wait until he goes to court. 09/02/2018: Chart reviewed and discussed with nursing staff. In interview patient and he wants a Ivan Shaun Bible which we don't have. He is refusing any medication and awaiting court. He is attending groups on occasion. 09/05/2018: Chart reviewed and discussed with nursing staff and discussed in team. In interviewing the patient he is not answering questions angrily looking at the interviewer and denies any suicidal homicidal threats however he does not answer these questions he just stares at. 09/12/2018: Chart reviewed and discussed with [facility] but is on a order for treatment, discussed with nursing staff and team this morning regarding long-term medication as an injectable form. Patient is very resistant to this and said that Jozef goes to sitting outside the door and when my goes to not get back together he'll my goes to Me That I Should Give Him Pills. Remains Delusional Psychotic Manipulative. 09/13/2018 chart review and discussed with nursing staff, and treatment team including with [facility]. Patient is more pleasant today and ap pears that he is engaging not going to groups. He tends to walk the [place]. He is informed that he must go to groups before he can leave. No christian was mentioned today. Denies suicidal or homicidal ideation Objective - Vital Signs Vital signs: Vital Signs Temp 97.9 F 09/13/18 06:47 Pulse 85 09/13/18 06:47 Resp 18 09/13/18 06:47 BP 121/68 09/13/18 06:47 Pulse Ox 98 08/29/18 08:23 Intake & Output 09/12/18 09/13/18 09/13/18 18:59 06:59 18:59 Weight 74.8 kg - Labs CBC & Chem 7: 08/30/18 10:00 02/26/19 10:00 Assessment and Plan Assessment: 28-year-old male presents for psychiatric evaluation. Patient has history of schizophrenia, bipolar disorder. He was evaluated earlier today for fdc clearance. He was taken to fdc and is brought back by local police for psychiatric evaluation. Patient has loose association, he is singing in the triage [place]. He refused to take his clothes off for further evaluation. Patient is not logical, not able to answer questions appropriately. Patient is hyperreligious. Pt. presents as alert and oriented to person, place, and time with clear speech. Pt. reports that the police brought him to the after releasing him from fdc without being charged. Denies knowing why he was brought to the hospital. Pt. then started speaking about God and how he must have been sent here because he is the disciple of Daniel Zuluaga. Pt. then repeatly stated, "Satan, may the Lord rebuke you." Pt. referred to himself in the third person (Avery) when talking and refused to go by the name Clive. When questioned his he hears the voice of God he stated, "I will not answer that question, if you don't know what a disciple of Daniel Zuluaga is then go read it in the bible. There is an active war going on in [place] right now." Per Ian [facility] hospital liasion, the pt. is currently scheduled for a jury trial in December for non-compliance with his outpatient treatment. Lilo from mobile crisis returned this writers call. Over the weekend the pt. was assessed at the fdc by ACT team supervisior Brook who petitioned him for hospitalization. CHEMICAL DEPENDENCY HISTORY: growing up using all drugs, never got in to one, now only marijuana, . FAMILY PSYCHIATRIC HISTORY: father and brother with autism spectrum disorder. FAMILY CHEMICAL DEPENDENCY HISTORY:both parents are alcoholic LEGAL HISTORY: Just in fdc for 2 weeks for probation violation. He has a case coming up in December SOCIAL HISTORY: [Born and raised in [place], mother raised from , parents since age 2. Brother raised by father. Had normal main stream classes. Poor academic performance. GED. never, no children, states he was but now they're , heterosexual. 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 Mental Status Examination - General Appearance: [casual, bizarre, appears stated age, Speech/Language: [ rapid, rambled, hesitant, halting, expressive, soft, other utterances] Attitude/Behavior: [ guarded, irritable, withdrawn, indifferent, other] Mood: [ euphoric, anxious, elated, irritable Affect: [lively, incongruent, labile, Orientation: [time, person, place situation] Thought Content: [wnl, delusionsI am disciple of Daniel Zuluaga to do his preaching Risk Factors: [Denies suicidal (ideations, plan), and/or Homicidal (ideations, plan), other] Perception: [wnl, responding to hallucinations (auditory, visual, tactile) Thought Processes: [ concrete, circumstantial, tangential, other] Concentration/Attention Span: [ impaired] [Per observation and interview with the patient] Recent Memory: [ impaired] Remote Memory: [wnl] [past events, as related history] Intelligence: [average] [based on history, based on vocabulary, syntax, grammar, and content] Judgement: [ poor] [per patient's behavior/history of present illness] Insight: [poor] [understanding severity of illness/history of present illness] Admitting Diagnosis: [Bipolar affective disorder acute psychosis; marijuana use disorder Doubt Autistic Spectrum DO] Initial Plan of Care: [He is on a involuntary basis admitted to the hospital after he was picked up and assessed at the fdc whereby the act team did a petit ion for involuntary stay in a psychiatric hospital. The first clinical certification for involuntary stay was done in the emergency room. I performed on second clinical certification for involuntary hospitalization 3 to [facility] due to the fact that he is delusional psychotic and non- redirectable. He'll be placed on 15 minute checks for safety of himself and others usual protocol for the unit. He'll be evaluated by medicine, psychiatry, nursing staff, social work and occupational therapy for integration within the [facility] milieu therapeutic environment. This client is unwilling to take any medications and thinks he had a go home. 08/31/2018: He is refusing medication because he does not want to strengthen her case that he is abnormal. He says he'll wait for court hearing on the Bless the coiled tubing supervisor 09/01/2018: Discussed again medication of Seroquel and he states that he'll see after next Wednesday is waiting to see the coiled tubing supervisor because he is refusing any treatment. He occasionally goes to group but becomes hyper baptism. 09/02/2018 discussed again with patient the use of medication and Seroquel which responded before to and again he is refusing until court date. He remains on 15 minute checks and usual protocol for the mental health] 09/05/2018: Discussed again with the patient the use of medication Seroquel. He denies being any medications and he is waiting to go to court. He is not participating in any treatment and an denial of any mental illness. 09/12/2018: Discussed with the patient the fact that he did not go to court it does not mean that he doesn't get treatment. He still has fair amount of psychotic behavior and fixed delusions don't call me Clive call Avery. Plan is today to give a Invega 234 mg injectable long-acting and watch for any major side effects. 09/13/2018: Discussed with the patient about the Invega. Also discussed that he would like some vitamins which I wrote for a 6 B-12 vitamin A. Encouraged to participate in groups for side effects of requirement for him to leaving the hospital. (1) Bipolar affective disorder, current episode manic with psychotic symptoms Current Visit: Yes Status: Acute Priority: High Code(s): F31.2 - BIPOLAR DISORD, CRNT EPISODE MANIC SEVERE W PSYCH FEATURES SNOMED Code(s): 268469696 Time with Patient: Less than 30
[2018-09-13] MEDS: CYANOCOBALAMIN 500 MCG TAB PO SCH (11:53)
[2018-09-13] MEDS: CHOLECALCIFEROL 1,000 UNIT TAB PO SCH (11:53)
[2018-09-13] MEDS: PYRIDOXINE 50 MG TAB PO SCH (21:13)
[2018-09-13] MEDS: ASCORBIC ACID 500 MG TAB PO SCH (21:13)
[2018-09-14] MEDS: PYRIDOXINE 50 MG TAB PO SCH ×2 (08:20→21:41)
[2018-09-14] MEDS: ASCORBIC ACID 500 MG TAB PO SCH ×2 (08:20→21:40)
--- NOTE | 2018-09-14 11:50 | P.PN ---
Subjective Progress Note Date: 09/14/18 Principal diagnosis: Schizoaffective Chart reviewed, discussed with nursing staff and was discussed in team this morning regarding diagnosis and prognosis. Patient was interviewed and discussed the willingness to take medications for his hyperreligiosity he states that he's not that is just a disciple of Daniel Zan and magical and peace. He then gets up and walks away. 09/01/2018: Chart reviewed and discussed with nursing staff reviewed vitals and interviewed patient. Discussed medication with him for his thought disorder and he is dates he'll wait until he goes to court. 09/02/2018: Chart reviewed and discussed with nursing staff. In interview patient and he wants a Ivan Shaun Bible which we don't have. He is refusing any medication and awaiting court. He is attending groups on occasion. 09/05/2018: Chart reviewed and discussed with nursing staff and discussed in team. In interviewing the patient he is not answering questions angrily looking at the interviewer and denies any suicidal homicidal threats however he does not answer these questions he just stares at. 09/12/2018: Chart reviewed and discussed with [facility] but is on a order for treatment, discussed with nursing staff and team this morning regarding long-term medication as an injectable form. Patient is very resistant to this and said that Jozef goes to sitting outside the door and when my goes to not get back together he'll my goes to Me That I Should Give Him Pills. Remains Delusional Psychotic Manipulative. 09/13/2018 chart review and discussed with nursing staff, and treatment team including with [facility]. Patient is more pleasant today and ap pears that he is engaging not going to groups. He tends to walk the atkinson. He is informed that he must go to groups before he can leave. No congregation was mentioned today. Denies suicidal or homicidal ideation 09/14/2018 chart reviewed, discussed with nursing staff in detail, discussed with [facility] and meeting this morning for prognosis and current disposition. Patient still remains isolative wanted to have some vitamins which were written for him, otherwise he still remains distant is suggestive reactive affect and some manipulation. Objective - Vital Signs Vital signs: Vital Signs Temp 97.9 F 09/13/18 06:47 Pulse 85 09/13/18 06:47 Resp 18 09/13/18 06:47 BP 121/68 09/13/18 06:47 Pulse Ox 98 08/29/18 08:23 - Labs CBC & Chem 7: 08/30/18 10:00 08/30/18 10:00 Assessment and Plan Assessment: 28-year-old male presents for psychiatric evaluation. Patient has history of schizophrenia, bipolar disorder. He was evaluated earlier today for halfway clearance. He was taken to halfway and is brought back by local police for psychiatric evaluation. Patient has loose association, he is singing in the triage [place]. He refused to take his clothes off for further evaluation. Patient is not logical, not able to answer questions appropriately. Patient is hyperreligious. Pt. presents as alert and oriented to person, place, and time with clear speech. Pt. reports that the police brought him to the after releasing him from halfway without being charged. Denies knowing why he was brought to the hospital. Pt. then started speaking about God and how he must have been sent here because he is the disciple of Daniel Zuluaga. Pt. then repeatly stated, "Satan, may the Lord rebuke you." Pt. referred to himself in the third person (Avery) when talking and refused to go by the name Clive. When questioned his he hears the voice of God he stated, "I will not answer that question, if you don't know what a disciple of Daniel Zuluaga is then go read it in the bible. There is an active war going on in hell right now." Per [facility] hospital liasion, the pt. is currently scheduled for a jury trial in December for non-compliance with his outpatient treatment. Lilo from [employer] returned this writers call. Over the weekend the pt. was assessed at the halfway by ACT team supervisior Brook who petitioned him for hospitalization. CHEMICAL DEPENDENCY HISTORY: growing up using all drugs, never got in to one, now only marijuana, . FAMILY PSYCHIATRIC HISTORY: father and brother with autism spectrum disorder. FAMILY CHEMICAL DEPENDENCY HISTORY:both parents are alcoholic LEGAL HISTORY: Just in halfway for 2 weeks for probation violation. He has a case coming up in December SOCIAL HISTORY: [Born and raised in [place], mother raised from , parents since age 2. Brother raised by father. Had normal main stream classes. Poor academic performance. GED. never, no children, states he was but now they're , heterosexual. 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 Mental Status Examination - General Appearance: [casual, bizarre, appears stated age, Speech/Language: [ rapid, rambled, hesitant, halting, expressive, soft, other utterances] Attitude/Behavior: [ guarded, irritable, withdrawn, indifferent, other] Mood: [ euphoric, anxious, elated, irritable Affect: [lively, incongruent, labile, Orientation: [time, person, place situation] Thought Content: [wnl, delusionsI am disciple of Daniel Zuluaga to do his preaching Risk Factors: [Denies suicidal (ideations, plan), and/or Homicidal (ideations, plan), other] Perception: [wnl, responding to hallucinations (auditory, visual, tactile) Thought Processes: [ concrete, circumstantial, tangential, other] Concentration/Attention Span: [ impaired] [Per observation and interview with the patient] Recent Memory: [ impaired] Remote Memory: [wnl] [past events, as related history] Intelligence: [average] [based on history, based on vocabulary, syntax, grammar, and content] Judgement: [ poor] [per patient's behavior/history of present illness] Insight: [poor] [understanding severity of illness/history of present illness] Admitting Diagnosis: [Bipolar affective disorder acute psychosis; marijuana use disorder Doubt Autistic Spectrum DO] Initial Plan of Care: [He is on a involuntary basis admitted to the hospital after he was picked up and assessed at the halfway whereby the act team did a petition for involuntary stay in a psychiatric hospital. The first clinical certification for involuntary stay was done in the emergency room. I performed on second clinical certification for involuntary hospitalization 3 to [facility] due to the fact that he is delusional psychotic and non- redirectable. He'll be placed on 15 minute checks for safety of himself and others usual protocol for the unit. He'll be evaluated by medicine, psychiatry, nursing staff, social work and occupational therapy for integration within the [place] milieu therapeutic environment. This client is unwilling to take any medications and thinks he had a go home. 08/31/2018: He is refusing medication because he does not want to strengthen her case that he is abnormal. He says he'll wait for court hearing on the Bless the cold type composing machine operator 09/01/2018: Discussed again medication of Seroquel and he states that he'll see after next Wednesday is waiting to see the cold type composing machine operator because he is refusing any treatment. He occasionally goes to group but becomes hyper voodoo. 09/02/2018 discussed again with patient the use of medication and Seroquel which responded before to and again he is refusing until court date. He remains on 15 minute checks and usual protocol for the mental health] 09/05/2018: Discussed again with the patient the use of medication Seroquel. He denies being any medications and he is waiting to go to court. He is not part icipating in any treatment and an denial of any mental illness. 09/12/2018: Discussed with the patient the fact that he did not go to court it does not mean that he doesn't get treatment. He still has fair amount of psychotic behavior and fixed delusions don't call me Clive call Avery. Plan is today to give a Invega 234 mg injectable long-acting and watch for any major side effects. 09/13/2018: Discussed with the patient about the Invega. Also discussed that he would like some vitamins which I wrote for a 6 B-12 vitamin A. Encouraged to participate in groups for side effects of requirement for him to leaving the hospital. 09/14/2018: Patient states it is reported as and I am taking the medication. He still remains isolative and discuss that with him and he will attempt to make more groups for he needs to do that before he leaves the hospital. He will remain on 15 minute checks as usual and attempt to have them integrate into lundberg milieu and milieu therapeutic environment (1) Bipolar affective disorder, current episode manic with psychotic symptoms Current Visit: Yes Status: Acute Priority: High Code(s): F31.2 - BIPOLAR DISORD, CRNT EPISODE MANIC SEVERE W PSYCH FEATURES SNOMED Code(s): 457619694 Time with Patient: Less than 30
[2018-09-14] MEDS: CHOLECALCIFEROL 1,000 UNIT TAB PO SCH (12:06)
[2018-09-14] MEDS: CYANOCOBALAMIN 500 MCG TAB PO SCH (12:06)
[2018-09-15] MEDS: ASCORBIC ACID 500 MG TAB PO SCH ×2 (09:11→20:28)
[2018-09-15] MEDS: PYRIDOXINE 50 MG TAB PO SCH ×2 (09:11→20:28)
[2018-09-15] MEDS: CYANOCOBALAMIN 500 MCG TAB PO SCH (12:31)
[2018-09-15] MEDS: CHOLECALCIFEROL 1,000 UNIT TAB PO SCH (12:31)
--- NOTE | 2018-09-15 12:42 | P.PN ---
Subjective Progress Note Date: 09/15/18 Principal diagnosis: Schizoaffective Chart reviewed, discussed with nursing staff and was discussed in team this morning regarding diagnosis and prognosis. Patient was interviewed and discussed the willingness to take medications for his hyperreligiosity he states that he's not that is just a disciple of Daniel Zan and magical and peace. He then gets up and walks away. 09/01/2018: Chart reviewed and discussed with nursing staff reviewed vitals and interviewed patient. Discussed medication with him for his thought disorder and he is dates he'll wait until he goes to court. 09/02/2018: Chart reviewed and discussed with nursing staff. In interview patient and he wants a Ivan Shaun Bible which we don't have. He is refusing any medication and awaiting court. He is attending groups on occasion. 09/05/2018: Chart reviewed and discussed with nursing staff and discussed in team. In interviewing the patient he is not answering questions angrily looking at the interviewer and denies any suicidal homicidal threats however he does not answer these questions he just stares at. 09/12/2018: Chart reviewed and discussed with [facility] but is on a order for treatment, discussed with nursing staff and team this morning regarding long-term medication as an injectable form. Patient is very resistant to this and said that Jozef goes to sitting outside the door and when my goes to not get back together he'll my goes to Me That I Should Give Him Pills. Remains Delusional Psychotic Manipulative. 09/13/2018 chart review and discussed with nursing staff, and treatment team including with [facility]. Patient is more pleasant today and ap pears that he is engaging not going to groups. He tends to walk the [place]kinson. He is informed that he must go to groups before he can leave. No worship was mentioned today. Denies suicidal or homicidal ideation 09/14/2018 chart reviewed, discussed with nursing staff in detail, discussed with community mental health and team and meeting this morning for prognosis and current disposition. Patient still remains isolative wanted to have some vitamins which were written for him, otherwise he still remains distant is suggestive reactive affect and some manipulation. 09/15/2018: Chart reviewed and discussed with nursing staff and social work regarding his participation in groups. Patient is now starting to talk to peers and other and is able to come out of his room and communicate. He still states that there is nothing wrong with him and he is less sabianism in nature. He was grateful for the vitamins that was per provided to him yesterday on a daily basis. Discussed with him what he needs to do so that he may be released from the psychiatric unit. Objective - Vital Signs Vital signs: Vital Signs Temp 97.9 F 09/13/18 06:47 Pulse 85 09/13/18 06:47 Resp 18 09/13/18 06:47 BP 121/68 09/13/18 06:47 Pulse Ox 98 08/29/18 08:23 - Labs CBC & Chem 7: 08/30/18 10:00 08/30/18 10:00 Assessment and Plan Assessment: 28-year-old male presents for psychiatric evaluation. Patient has history of schizophrenia, bipolar disorder. He was evaluated earlier today for [facility] clearance. He was taken to [facility] and is brought back by local police for psychiatric evaluation. Patient has loose association, he is singing in the triage [place]. He refused to take his clothes off for further evaluation. Patient is not logical, not able to answer questions appropriately. Patient is hyperreligious. Pt. presents as alert and oriented to person, place, and time with clear speech. Pt. reports that the police brought him to the after releasing him from [facility] without being charged. Denies knowing why he was brought to the hospital. Pt. then started speaking about God and how he must have been sent here because he is the disciple of Daniel Zuluaga. Pt. then repeatly stated, "Satan, may the Lord rebuke you." Pt. referred to himself in the third person (Avery) when talking and refused to go by the name Clive. When questioned his he hears the voice of God he stated, "I will not answer that question, if you don't know what a disciple of Daniel Zan is then go read it in the bible. There is an active war going on in hell right now." Per [facility] hospital liasion, the pt. is currently scheduled for a jury trial in December for non-compliance with his outpatient treatment. Lilo from [employer] returned this writers call. Over the weekend the pt. was assessed at the [facility] by ACT team supervisior Brook who petitioned him for hospitalization. CHEMICAL DEPENDENCY HISTORY: growing up using all drugs, never got in to one, now only marijuana, . FAMILY PSYCHIATRIC HISTORY: father and brother with autism spectrum disorder. FAMILY CHEMICAL DEPENDENCY HISTORY:both parents are alcoholic LEGAL HISTORY: Just in [facility] for 2 weeks for probation violation. He has a case coming up in December SOCIAL HISTORY: [Born and raised in [place], mother raised from , parents since age 2. Brother raised by father. Had normal main stream classes. Poor academic performance. GED. never, no children, states he was but now they're , heterosexual. 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 Mental Status Examination - General Appearance: [casual, bizarre, appears stated age, Speech/Language: [ rapid, rambled, hesitant, halting, expressive, soft, other utterances] Attitude/Behavior: [ guarded, irritable, withdrawn, indifferent, other] Mood: [ euphoric, anxious, elated, irritable Affect: [lively, incongruent, labile, Orientation: [time, person, place situation] Thought Content: [wnl, delusionsI am disciple of Daniel Zuluaga to do his preaching Risk Factors: [Denies suicidal (ideations, plan), and/or Homicidal (ideations, plan), other] Perception: [wnl, responding to hallucinations (auditory, visual, tactile) Thought Processes: [ concrete, circumstantial, tangential, other] Concentration/Attention Span: [ impaired] [Per observation and interview with the patient] Recent Memory: [ impaired] Remote Memory: [wnl] [past events, as related history] Intelligence: [average] [based on history, based on vocabulary, syntax, grammar, and content] Judgement: [ poor] [per patient's behavior/history of present illness] Insight: [poor] [understanding severity of illness/history of present illness] Admitting Diagnosis: [Bipolar affective disorder acute psychosis; marijuana use disorder Doubt Autistic Spectrum DO] Initial Plan of Care: [He is on a involuntary basis admitted to the hospital after he was picked up and assessed at the [facility] whereby the act team did a petition for involuntary stay in a psychiatric hospital. The first clinical certification for involuntary stay was done in the emergency room. I performed on second clinical certification for involuntary hospitalization 3 to unit due to the fact that he is delusional psychotic and non- redirectable. He'll be placed on 15 minute checks for safety of himself and others usual protocol for the unit. He'll be evaluated by medicine, psychiatry, nursing staff, social work and occupational therapy for integration within the [place] milieu therapeutic environment. This client is unwilling to take any medications and thinks he had a go home. 08/31/2018: He is refusing medication because he does not want to strengthen her case that he is abnormal. He says he'll wait for court hearing on the Bless the candle wrapping machine operator 09/01/2018: Discussed again medication of Seroquel and he states that he'll see after next Wednesday is waiting to see the candle wrapping machine operator because he is refusing any treatment. He occasionally goes to group but becomes hyper sabianism. 09/02/2018 discussed again with patient the use of medication and Seroquel which responded before to and again he is refusing until court date. He remains on 15 minute checks and usual protocol for the mental health] 09/05/2018: Discussed again with the patient the use of medication Seroquel. He denies being any medications and he is waiting to go to court. He is not participating in any treatment and an denial of any mental illness. 09/12/2018: Discussed with the patient the fact that he did not go to court it does not mean that he doesn't get treatment. He still has fair amount of psychotic behavior and fixed delusions don't call me Clive call Avery. Plan is today to give a Invega 234 mg injectable long-acting and watch for any major side effects. 09/13/2018: Discussed with the patient about the Invega. Also discussed that he would like some vitamins which I wrote for a 6 B-12 vitamin A. Encouraged to participate in groups for side effects of requirement for him to leaving the hospital. 09/14/2018: Patient states it is reported as and I am taking the medication. He still remains isolative and discuss that with him and he will attempt to make more groups for he needs to do that before he leaves the hospital. He will remain on 15 minute checks as usual and attempt to have them integrate into [place] milieu and milieu therapeutic environment 09/15/2018: He will remain on 15 minute checks and encourage him to be integrated in the [place] milieu therapeutic environment. He had his Invega to 34 mg injection on 09/12/2018 and will have to have a again on 10/11/2018. (1) Bipolar affective disorder, current episode manic with psychotic symptoms Current Visit: Yes Status: Acute Priority: High Code(s): F31.2 - BIPOLAR DISORD, CRNT EPISODE MANIC SEVERE W PSYCH FEATURES SNOMED Code(s): 273199341
[2018-09-16] MEDS: ASCORBIC ACID 500 MG TAB PO SCH ×2 (09:12→20:45)
[2018-09-16] MEDS: PYRIDOXINE 50 MG TAB PO SCH ×2 (09:12→20:45)
[2018-09-16] MEDS: CHOLECALCIFEROL 1,000 UNIT TAB PO SCH (13:11)
[2018-09-16] MEDS: CYANOCOBALAMIN 500 MCG TAB PO SCH (13:11)
--- NOTE | 2018-09-16 14:12 | P.PN ---
Subjective Progress Note Date: 09/16/18 Principal diagnosis: Schizoaffective Chart reviewed, discussed with nursing staff and was discussed in team this morning regarding diagnosis and prognosis. Patient was interviewed and discussed the willingness to take medications for his hyperreligiosity he states that he's not that is just a disciple of Daniel Zan and magical and peace. He then gets up and walks away. 09/01/2018: Chart reviewed and discussed with nursing staff reviewed vitals and interviewed patient. Discussed medication with him for his thought disorder and he is dates he'll wait until he goes to court. 09/02/2018: Chart reviewed and discussed with nursing staff. In interview patient and he wants a Ivan Shaun Bible which we don't have. He is refusing any medication and awaiting court. He is attending groups on occasion. 09/05/2018: Chart reviewed and discussed with nursing staff and discussed in team. In interviewing the patient he is not answering questions angrily looking at the interviewer and denies any suicidal homicidal threats however he does not answer these questions he just stares at. 09/12/2018: Chart reviewed and discussed with [facility] mental health but is on a order for treatment, discussed with nursing staff and team this morning regarding long-term medication as an injectable form. Patient is very resistant to this and said that Jozef goes to sitting outside the door and when my goes to not get back together he'll my goes to Me That I Should Give Him Pills. Remains Delusional Psychotic Manipulative. 09/13/2018 chart review and discussed with nursing staff, and treatment team including with [facility] mental health. Patient is more pleasant today and ap pears that he is engaging not going to groups. He tends to walk the atkinson. He is informed that he must go to groups before he can leave. No scientologist was mentioned today. Denies suicidal or homicidal ideation 09/14/2018 chart reviewed, discussed with nursing staff in detail, discussed with community mental health and team and meeting this morning for prognosis and current disposition. Patient still remains isolative wanted to have some vitamins which were written for him, otherwise he still remains distant is suggestive reactive affect and some manipulation. 09/15/2018: Chart reviewed and discussed with nursing staff and social work regarding his participation in groups. Patient is now starting to talk to peers and other and is able to come out of his room and communicate. He still states that there is nothing wrong with him and he is less cheondoism in nature. He was grateful for the vitamins that was per provided to him yesterday on a daily basis. Discussed with him what he needs to do so that he may be released from the psychiatric unit. 09/16/2018: chart reviewed and discussed in team; inappropriate with another peer. Denies si/hi but states her is here by word of god to take cell phones away. Objective - Vital Signs Vital signs: Vital Signs Temp 98.3 F 09/16/18 06:53 Pulse 84 09/16/18 06:53 Resp 16 09/16/18 06:53 BP 129/68 09/16/18 06:53 Pulse Ox 98 08/29/18 08:23 - Labs CBC & Chem 7: 08/30/18 10:00 08/30/18 10:00 Assessment and Plan Assessment: 28-year-old male presents for psychiatric evaluation. Patient has history of schizophrenia, bipolar disorder. He was evaluated earlier today for [facility]p clearance. He was taken to [facility]p and is brought back by local police for psychiatric evaluation. Patient has loose association, he is singing in the triage luevano. He refused to take his clothes off for further evaluation. Patient is not logical, not able to answer questions appropriately. Patient is hyperreligious. Pt. presents as alert and oriented to person, place, and time with clear speech. Pt. reports that the police brought him to the after releasing him from usp without being charged. Denies knowing why he was brought to the hospital. Pt. then started speaking about God and how he must have been sent here because he is the disciple of Daniel Zuluaga. Pt. then repeatly stated, "Cortez, may the Lord rebuke you." Pt. referred to himself in the third person (Avery) when talking and refused to go by the name Clive. When questioned his he hears the voice of God he stated, "I will not answer that question, if you don't know what a disciple of Daniel Zan is then go read it in the bible. There is an active war going on in hell right now." Per [facility] hospital liasion, the pt. is currently scheduled for a jury trial in December for non-compliance with his outpatient treatment. Lilo from [employer] returned this writers call. Over the weekend the pt. was assessed at the usp by ACT team supervisior Brook who petitioned him for hospitalization. CHEMICAL DEPENDENCY HISTORY: growing up using all drugs, never got in to one, now only marijuana, . FAMILY PSYCHIATRIC HISTORY: father and brother with autism spectrum disorder. FAMILY CHEMICAL DEPENDENCY HISTORY:both parents are alcoholic LEGAL HISTORY: Just in [facility]p for 2 weeks for probation violation. He has a case coming up in December SOCIAL HISTORY: [Born and raised in [place], mother raised from , parents since age 2. Brother raised by father. Had normal main stream classes. Poor academic performance. GED. never, no children, states he was but now they're , h eterosexual. 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 Mental Status Examination - General Appearance: [casual, bizarre, appears stated age, Speech/Language: [ rapid, rambled, hesitant, halting, expressive, soft, other utterances] Attitude/Behavior: [ guarded, irritable, withdrawn, indifferent, other] Mood: [ euphoric, anxious, elated, irritable Affect: [lively, incongruent, labile, Orientation: [time, person, place situation] Thought Content: [wnl, delusionsI am disciple of Daniel Zuluaga to do his preaching Risk Factors: [Denies suicidal (ideations, plan), and/or Homicidal (ideations, plan), other] Perception: [wnl, responding to hallucinations (auditory, visual, tactile) Thought Processes: [ concrete, circumstantial, tangential, other] Concentration/Attention Span: [ impaired] [Per observation and interview with the patient] Recent Memory: [ impaired] Remote Memory: [wnl] [past events, as related history] Intelligence: [average] [based on history, based on vocabulary, syntax, grammar, and content] Judgement: [ poor] [per patient's behavior/history of present illness] Insight: [poor] [understanding severity of illness/history of present illness] Admitting Diagnosis: [Bipolar affective disorder acute psychosis; marijuana use disorder Doubt Autistic Spectrum DO] Initial Plan of Care: [He is on a involuntary basis admitted to the hospital after he was picked up and assessed at the usp whereby the act team did a petition for involuntary stay in a psychiatric hospital. The first clinical cer tification for involuntary stay was done in the emergency room. I performed on second clinical certification for involuntary hospitalization 3 to [facility] unit due to the fact that he is delusional psychotic and non- redirectable. He'll be placed on 15 minute checks for safety of himself and others usual protocol for the unit. He'll be evaluated by medicine, psychiatry, nursing staff, social work and occupational therapy for integration within the [place] milieu therapeutic environment. This client is unwilling to take any medications and thinks he had a go home. 08/31/2018: He is refusing medication because he does not want to strengthen her case that he is abnormal. He says he'll wait for court hearing on the Bless the manager process 09/01/2018: Discussed again medication of Seroquel and he states that he'll see after next Wednesday is waiting to see the manager process because he is refusing any treatment. He occasionally goes to group but becomes hyper cheondoism. 09/02/2018 discussed again with patient the use of medication and Seroquel which responded before to and again he is refusing until court date. He remains on 15 minute checks and usual protocol for the mental health] 09/05/2018: Discussed again with the patient the use of medication Seroquel. He denies being any medications and he is waiting to go to court. He is not participating in any treatment and an denial of any mental illness. 09/12/2018: Discussed with the patient the fact that he did not go to court it does not mean that he doesn't get treatment. He still has fair amount of psychotic behavior and fixed delusions don't call me Clive call Avery. Plan is today to give a Invega 234 mg injectable long-acting and watch for any major side effects. 09/13/2018: Discussed with the patient about the Invega. Also discussed that he would like some vitamins which I wrote for a 6 B-12 vitamin A. Encouraged to participate in groups for side effects of requirement for him to leaving the hospital. 09/14/2018: Patient states it is reported as and I am taking the medication. He still remains isolative and discuss that with him and he will attempt to make more groups for he needs to do that before he leaves the hospital. He will remain on 15 minute checks as usual and attempt to have them integrate into [facility] milieu and milieu therapeutic environment 09/15/2018: He will remain on 15 minute checks and encourage him to be integrated in the [place] milieu therapeutic environment. He had his Invega to 234 mg injection on 09/12/2018 and will have to have a again on 10/11/2018. 09/16/2018: He will remain on 15 minute checks and encourage him to be integrated in the [place] milieu therapeutic environment. He had his Invega to 234 mg injection on 09/12/2018 and will add 3 mg Invega tonight. (1) Bipolar affective disorder, current episode manic with psychotic symptoms Current Visit: Yes Status: Acute Priority: High Code(s): F31.2 - BIPOLAR DISORD, CRNT EPISODE MANIC SEVERE W PSYCH FEATURES SNOMED Code(s): 109090791 Time with Patient: Less than 30
[2018-09-16] MEDS: PALIPERIDONE 3 MG TAB.ER.24 PO SCH (20:44)
[2018-09-17] MEDS: ASCORBIC ACID 500 MG TAB PO SCH ×2 (08:21→21:17)
[2018-09-17] MEDS: PYRIDOXINE 50 MG TAB PO SCH ×2 (08:21→21:17)
[2018-09-17] MEDS: CYANOCOBALAMIN 500 MCG TAB PO SCH (12:05)
[2018-09-17] MEDS: CHOLECALCIFEROL 1,000 UNIT TAB PO SCH (12:05)
--- NOTE | 2018-09-17 15:46 | P.PN ---
Subjective Progress Note Date: 09/17/18 Principal diagnosis: Schizoaffective Chart reviewed, discussed with nursing staff and was discussed in team this morning regarding diagnosis and prognosis. Patient was interviewed and discussed the willingness to take medications for his hyperreligiosity he states that he's not that is just a disciple of Daniel Zan and magical and peace. He then gets up and walks away. 09/01/2018: Chart reviewed and discussed with nursing staff reviewed vitals and interviewed patient. Discussed medication with him for his thought disorder and he is dates he'll wait until he goes to court. 09/02/2018: Chart reviewed and discussed with nursing staff. In interview patient and he wants a Ivan Shaun Bible which we don't have. He is refusing any medication and awaiting court. He is attending groups on occasion. 09/05/2018: Chart reviewed and discussed with nursing staff and discussed in team. In interviewing the patient he is not answering questions angrily looking at the interviewer and denies any suicidal homicidal threats however he does not answer these questions he just stares at. 09/12/2018: Chart reviewed and discussed with [facility] mental health but is on a order for treatment, discussed with nursing staff and team this morning regarding long-term medication as an injectable form. Patient is very resistant to this and said that Jozef goes to sitting outside the door and when my goes to not get back together he'll my goes to Me That I Should Give Him Pills. Remains Delusional Psychotic Manipulative. 09/13/2018 chart review and discussed with nursing staff, and treatment team including with [facility] mental health. Patient is more pleasant today and ap pears that he is engaging not going to groups. He tends to walk the atkinson. He is informed that he must go to groups before he can leave. No rastafari was mentioned today. Denies suicidal or homicidal ideation 09/14/2018 chart reviewed, discussed with nursing staff in detail, discussed with community mental health and team and meeting this morning for prognosis and current disposition. Patient still remains isolative wanted to have some vitamins which were written for him, otherwise he still remains distant is suggestive reactive affect and some manipulation. 09/15/2018: Chart reviewed and discussed with nursing staff and social work regarding his participation in groups. Patient is now starting to talk to peers and other and is able to come out of his room and communicate. He still states that there is nothing wrong with him and he is less rastafarian in nature. He was grateful for the vitamins that was per provided to him yesterday on a daily basis. Discussed with him what he needs to do so that he may be released from the psychiatric unit. 09/16/2018: chart reviewed and discussed in team; inappropriate with another peer. Denies si/hi but states her is here by word of god to take cell phones away. 09/17/2018: Chart reviewed and discussed with nursing staff today. He has been hyperreligious with myself today and argumentative at times. He was redirectable. He asked about another patient that the peer should be transferred to another floor was inappropriate to be here and redirected him again. Objective - Vital Signs Vital signs: Vital Signs Temp 98.3 F 09/16/18 06:53 Pulse 84 09/16/18 06:53 Resp 16 09/16/18 06:53 BP 129/68 09/16/18 06:53 Pulse Ox 98 08/29/18 08:23 - Labs CBC & Chem 7: 08/30/18 10:00 08/30/18 10:00 Assessment and Plan Assessment: 28-year-old male presents for psychiatric evaluation. Patient has history of schizophrenia, bipolar disorder. He was evaluated earlier today for halfway clearance. He was taken to halfway and is brought back by local police for psychiatric evaluation. Patient has loose association, he is singing in the triage [place]. He refused to take his clothes off for further evaluation. Patient is not logical, not able to answer questions appropriately. Patient is hyperreligious. Pt. presents as alert and oriented to person, place, and time with clear speech. Pt. reports that the police brought him to the after releasing him from halfway without being charged. Denies knowing why he was brought to the hospital. Pt. then started speaking about God and how he must have been sent here because he is the disciple of Daniel Zuluaga. Pt. then repeatly stated, "marielos Toro the Lord rebuke you." Pt. referred to himself in the third person (Avery) when talking and refused to go by the name Clive. When questioned his he hears the voice of God he stated, "I will not answer that question, if you don't know what a disciple of Daniel Zan is then go read it in the bible. There is an active war going on in hell right now." Per [facility] hospital liasion, the pt. is currently scheduled for a jury trial in December for non-compliance with his outpatient treatment. Lilo from [employer] returned this writers call. Over the weekend the pt. was assessed at the halfway by ACT team supervisior Brook who petitioned him for hospitalization. CHEMICAL DEPENDENCY HISTORY: growing up using all drugs, never got in to one, now only marijuana, . FAMILY PSYCHIATRIC HISTORY: father and brother with autism spectrum disorder. FAMILY CHEMICAL DEPENDENCY HISTORY:both parents are alcoholic LEGAL HISTORY: Just in halfway for 2 weeks for probation violation. He has a case coming up in December SOCIAL HISTORY: [Born and raised in [place], mother raised from , parents since age 2. Brother raised by father. Had normal main stream classes. Poor academic performance. GED. never, no children, states he was but now they're , heterosexual. 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 Mental Status Examination - General Appearance: [casual, bizarre, appears stated age, Speech/Language: [ rapid, rambled, hesitant, halting, expressive, soft, other utterances] Attitude/Behavior: [ guarded, irritable, withdrawn, indifferent, other] Mood: [ euphoric, anxious, elated, irritable Affect: [lively, incongruent, labile, Orientation: [time, person, place situation] Thought Content: [wnl, delusionsI am disciple of Daniel Zuluaga to do his preaching Risk Factors: [Denies suicidal (ideations, plan), and/or Homicidal (ideations, plan), other] Perception: [wnl, responding to hallucinations (auditory, visual, tactile) Thought Processes: [ concrete, circumstantial, tangential, other] Concentration/Attention Span: [ impaired] [Per observation and interview with the patient] Recent Memory: [ impaired] Remote Memory: [wnl] [past events, as related history] Intelligence: [average] [based on history, based on vocabulary, syntax, grammar, and content] Judgement: [ poor] [per patient's behavior/history of present illness] Insight: [poor] [understanding severity of illness/history of present illness] Admitting Diagnosis: [Bipolar affective disorder acute psychosis; marijuana use disorder Doubt Autistic Spectrum DO] Initial Plan of Care: [He is on a involuntary basis admitted to the hospital after he was picked up and assessed at the halfway whereby the act team did a petition for involuntary stay in a psychiatric hospital. The first clinical certification for involuntary stay was done in the emergency room. I performed on second clinical certification for involuntary hospitalization 3 to [facility] due to the fact that he is delusional psychotic and non- redirectable. He'll be placed on 15 minute checks for safety of himself and others usual protocol for the unit. He'll be evaluated by medicine, psychiatry, nursing staff, social work and occupational therapy for integration within the [place] milieu therapeutic environment. This client is unwilling to take any medications and thinks he had a go home. 08/31/2018: He is refusing medication because he does not want to strengthen her case that he is abnormal. He says he'll wait for court hearing on the Bless the credit officer 09/01/2018: Discussed again medication of Seroquel and he states that he'll see after next Wednesday is waiting to see the credit officer because he is refusing any treatment. He occasionally goes to group but becomes hyper rastafarian. 09/02/2018 discussed again with patient the use of medication and Seroquel which responded before to and again he is refusing until court date. He remains on 15 minute checks and usual protocol for the mental health] 09/05/2018: Discussed again with the patient the use of medication Seroquel. He denies being any medications and he is waiting to go to court. He is not participating in any treatment and an denial of any mental illness. 09/12/2018: Discussed with the patient the fact that he did not go to court it does not mean that he doesn't get treatment. He still has fair amount of psychotic behavior and fixed delusions don't call me Clive call Avery. Plan is today to give a Invega 234 mg injectable long-acting and watch for any major side effects. 09/13/2018: Discussed with the patient about the Invega. Also discussed that he would like some vitamins which I wrote for a 6 B-12 vitamin A. Encouraged to participate in groups for side effects of requirement for him to leaving the hospital. 09/14/2018: Patient states it is reported as and I am taking the medication. He still remains isolative and discuss that with him and he will attempt to make more groups for he needs to do that before he leaves the hospital. He will remain on 15 minute checks as usual and attempt to have them integrate into [facility] milieu and milieu therapeutic environment 09/15/2018: He will remain on 15 minute checks and encourage him to be integrated in the [place] milieu therapeutic environment. He had his Invega to 234 mg injection on 09/12/2018 and will have to have a again on 10/11/2018. 09/16/2018: He will remain on 15 minute checks and encourage him to be integrated in the [place] milieu therapeutic environment. He had his Invega to 234 mg injection on 09/12/2018 and will add 3 mg Invega tonight. 09/17/2018: He will remain on 15 minute checks and encourage him to the integrated in [place] milieu therapeutic environment. He continues to be hyperreligious and intrusive at times. Will consider using a mood stabilizer next sentence he appears to be fluctuating and his mood. We'll continue his Invega 3 mg by mouth daily at bedtime as well as the injection that he received (1) Bipolar affective disorder, current episode manic with psychotic symptoms Current Visit: Yes Status: Acute Priority: High Code(s): F31.2 - BIPOLAR DISORD, CRNT EPISODE MANIC SEVERE W PSYCH FEATURES SNOMED Code(s): 840811689 Time with Patient: Less than 30
[2018-09-17] MEDS: ACETAMINOPHEN TAB 325 MG TAB PO PRN (21:15)
[2018-09-17] MEDS: PALIPERIDONE 3 MG TAB.ER.24 PO SCH (21:16)
[2018-09-18] MEDS: PYRIDOXINE 50 MG TAB PO SCH ×2 (08:04→21:30)
[2018-09-18] MEDS: ASCORBIC ACID 500 MG TAB PO SCH ×2 (08:04→21:30)
--- NOTE | 2018-09-18 12:04 | P.PN ---
Subjective Progress Note Date: 09/18/18 Principal diagnosis: Schizoaffective Chart reviewed, discussed with nursing staff and was discussed in team this morning regarding diagnosis and prognosis. Patient was interviewed and discussed the willingness to take medications for his hyperreligiosity he states that he's not that is just a disciple of Daniel Zan and magical and peace. He then gets up and walks away. 09/01/2018: Chart reviewed and discussed with nursing staff reviewed vitals and interviewed patient. Discussed medication with him for his thought disorder and he is dates he'll wait until he goes to court. 09/02/2018: Chart reviewed and discussed with nursing staff. In interview patient and he wants a Ivan Shaun Bible which we don't have. He is refusing any medication and awaiting court. He is attending groups on occasion. 09/05/2018: Chart reviewed and discussed with nursing staff and discussed in team. In interviewing the patient he is not answering questions angrily looking at the interviewer and denies any suicidal homicidal threats however he does not answer these questions he just stares at. 09/12/2018: Chart reviewed and discussed with [facility] but is on a order for treatment, discussed with nursing staff and team this morning regarding long-term medication as an injectable form. Patient is very resistant to this and said that Jozef goes to sitting outside the door and when my goes to not get back together he'll my goes to Me That I Should Give Him Pills. Remains Delusional Psychotic Manipulative. 09/13/2018 chart review and discussed with nursing staff, and treatment team including with [facility]. Patient is more pleasant today and ap pears that he is engaging not going to groups. He tends to walk the atkinson. He is informed that he must go to groups before he can leave. No restoration was mentioned today. Denies suicidal or homicidal ideation 09/14/2018 chart reviewed, discussed with nursing staff in detail, discussed with community mental health and team and meeting this morning for prognosis and current disposition. Patient still remains isolative wanted to have some vitamins which were written for him, otherwise he still remains distant is suggestive reactive affect and some manipulation. 09/15/2018: Chart reviewed and discussed with nursing staff and social work regarding his participation in groups. Patient is now starting to talk to peers and other and is able to come out of his room and communicate. He still states that there is nothing wrong with him and he is less oriental orthodox in nature. He was grateful for the vitamins that was per provided to him yesterday on a daily basis. Discussed with him what he needs to do so that he may be released from the psychiatric unit. 09/16/2018: chart reviewed and discussed in team; inappropriate with another peer. Denies si/hi but states her is here by word of god to take cell phones away. 09/17/2018: Chart reviewed and discussed with nursing staff today. He has been hyperreligious with myself today and argumentative at times. He was redirectable. He asked about another patient that the peer should be transferred to another floor was inappropriate to be here and redirected him again. 09/18/2018:Chart reviewed and discussed with nursing staff today. He has been hyperreligious with myself today and argumentative at times. He was redirectable. He asked about another patient that the peer should be transferred to another floor was inappropriate to be here and redirected him again. Objective - Vital Signs Vital signs: Vital Signs Temp 98.3 F 09/16/18 06:53 Pulse 84 09/16/18 06:53 Resp 16 09/16/18 06:53 BP 129/68 09/16/18 06:53 Pulse Ox 98 08/29/18 08:23 Intake & Output 09/17/18 09/18/18 09/18/18 18:59 06:59 18:59 Weight 77.136 kg - Labs CBC & Chem 7: 08/30/18 10:00 08/30/18 10:00 Assessment and Plan Assessment: 28-year-old male presents for psychiatric evaluation. Patient has history of schizophrenia, bipolar disorder. He was evaluated earlier today for senior care clearance. He was taken to senior care and is brought back by local police for psychiatric evaluation. Patient has loose association, he is singing in the triage luevano. He refused to take his clothes off for further evaluation. Patient is not logical, not able to answer questions appropriately. Patient is hyperreligious. Pt. presents as alert and oriented to person, place, and time with clear speech. Pt. reports that the police brought him to the after releasing him from senior care without being charged. Denies knowing why he was brought to the hospital. Pt. then started speaking about God and how he must have been sent here because he is the disciple of Daniel Zuluaga. Pt. then repeatly stated, "Satan, may the Lord rebuke you." Pt. referred to himself in the third person (Avery) when talking and refused to go by the name Clive. When questioned his he hears the voice of God he stated, "I will not answer that question, if you don't know what a disciple of Daniel Zuluaga is then go read it in the bible. There is an active war going on in hell right now." Per [facility] hospital liasion, the pt. is currently scheduled for a jury trial in December for non-compliance with his outpatient treatment. Lilo from [employer] returned this writers call. Over the weekend the pt. was assessed at the senior care by ACT team supervisior Brook who petitioned him for hospitalization. CHEMICAL DEPENDENCY HISTORY: growing up using all drugs, never got in to one, now only marijuana, . FAMILY PSYCHIATRIC HISTORY: father and brother with autism spectrum disorder. FAMILY CHEMICAL DEPENDENCY HISTORY:both parents are alcoholic LEGAL HISTORY: Just in senior care for 2 weeks for probation violation. He has a case coming up in December SOCIAL HISTORY: [Born and raised in [place], mother raised from , parents since age 2. Brother raised by father. Had normal main stream classes. Poor academic performance. GED. never, no children, states he was but now they're , heterosexual. 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 Mental Status Examination - General Appearance: [casual, bizarre, appears stated age, Speech/Language: [ rapid, rambled, hesitant, halting, expressive, soft, other utterances] Attitude/Behavior: [ guarded, irritable, withdrawn, indifferent, other] Mood: [ euphoric, anxious, elated, irritable Affect: [lively, incongruent, labile, Orientation: [time, person, place situation] Thought Content: [wnl, delusionsI am disciple of Daniel Zuluaga to do his preaching Risk Factors: [Denies suicidal (ideations, plan), and/or Homicidal (ideations, plan), other] Perception: [wnl, responding to hallucinations (auditory, visual, tactile) Thought Processes: [ concrete, circumstantial, tangential, other] Concentration/Attention Span: [ impaired] [Per observation and interview with the patient] Recent Memory: [ impaired] Remote Memory: [wnl] [past events, as related history] Intelligence: [average] [based on history, based on vocabulary, syntax, grammar, and content] Judgement: [ poor] [per patient's behavior/history of present illness] Insight: [poor] [understanding severity of illness/history of present illness] Admitting Diagnosis: [Bipolar affective disorder acute psychosis; marijuana use disorder Doubt Autistic Spectrum DO] Initial Plan of Care: [He is on a involuntary basis admitted to the hospital after he was picked up and assessed at the senior care whereby the act team did a petition for involuntary stay in a psychiatric hospital. The first clinical certification for involuntary stay was done in the emergency room. I performed on second clinical certification for involuntary hospitalization 3 to [facility] due to the fact that he is delusional psychotic and non- redirectable. He'll be placed on 15 minute checks for safety of himself and others usual protocol for the unit. He'll be evaluated by medicine, psychiatry, nursing staff, social work and occupational therapy for integration within the [place] milieu therapeutic environment. This client is unwilling to take any medications and thinks he had a go home. 08/31/2018: He is refusing medication because he does not want to strengthen her case that he is abnormal. He says he'll wait for court hearing on the Bless the machine operator 09/01/2018: Discussed again medication of Seroquel and he states that he'll see after next Wednesday is waiting to see the machine operator because he is refusing any treatment. He occasionally goes to group but becomes hyper oriental orthodox. 09/02/2018 discussed again with patient the use of medication and Seroquel which responded before to and again he is refusing until court date. He remains on 15 minute checks and usual protocol for the mental health] 09/05/2018: Discussed again with the patient the use of medication Seroquel. He denies being any medications and he is waiting to go to court. He is not participating in any treatment and an denial of any mental illness. 09/12/2018: Discussed with the patient the fact that he did not go to court it does not mean that he doesn't get treatment. He still has fair amount of psychotic behavior and fixed delusions don't call me Clive call Avery. Plan is today to give a Invega 234 mg injectable long-acting and watch for any major side effects. 09/13/2018: Discussed with the patient about the Invega. Also discussed that he would like some vitamins which I wrote for a 6 B-12 vitamin A. Encouraged to participate in groups for side effects of requirement for him to leaving the hospital. 09/14/2018: Patient states it is reported as and I am taking the medication. He still remains isolative and discuss that with him and he will attempt to make more groups for he needs to do that before he leaves the hospital. He will remain on 15 minute checks as usual and attempt to have them integrate into l[place] milieu and milieu therapeutic environment 09/15/2018: He will remain on 15 minute checks and encourage him to be integrated in the [place] milieu therapeutic environment. He had his Invega to 234 mg injection on 09/12/2018 and will have to have a again on 10/11/2018. 09/16/2018: He will remain on 15 minute checks and encourage him to be integrated in the [place] milieu therapeutic environment. He had his Invega to 234 mg injection on 09/12/2018 and will add 3 mg Invega tonight. 09/17/2018: He will remain on 15 minute checks and encourage him to the integrated in [place] milieu therapeutic environment. He continues to be hyperreligious and intrusive at times. Will consider using a mood stabilizer next sentence he appears to be fluctuating and his mood. We'll continue his Invega 3 mg by mouth daily at bedtime as well as the injection that he received (1) Bipolar affective disorder, current episode manic with psychotic symptoms Current Visit: Yes Status: Acute Priority: High Code(s): F31.2 - BIPOLAR DISORD, CRNT EPISODE MANIC SEVERE W PSYCH FEATURES SNOMED Code(s): 458589922 Time with Patient: Less than 30
[2018-09-18] MEDS: CHOLECALCIFEROL 1,000 UNIT TAB PO SCH (12:21)
[2018-09-18] MEDS: CYANOCOBALAMIN 500 MCG TAB PO SCH (12:22)
[2018-09-18 13:53] LABS: Appearance,Urine Clear (Clear); Bilirubin,Urine Negative (Negative); Blood,Urine Negative (Negative); Color,Urine Yellow; Glucose,Urine (UA) Negative (Negative); Ketones,Urine Negative (Negative); Leukocyte Esterase,Urine Negative (Negative); Nitrite,Urine Negative (Negative); Protein,Urine Negative (Negative); Specific Gravity,Urine 1.013 (1.001-1.035); Urobilinogen,Urine <2.0 mg/dL (<2.0)
[2018-09-18] MEDS: ACETAMINOPHEN TAB 325 MG TAB PO PRN (20:55)
[2018-09-18] MEDS: PALIPERIDONE 3 MG TAB.ER.24 PO SCH (20:56)
[2018-09-19] MEDS: PYRIDOXINE 50 MG TAB PO SCH ×2 (08:01→21:04)
[2018-09-19] MEDS: ASCORBIC ACID 500 MG TAB PO SCH ×2 (08:01→21:04)
[2018-09-19] MEDS: CHOLECALCIFEROL 1,000 UNIT TAB PO SCH (11:41)
[2018-09-19] MEDS: CYANOCOBALAMIN 500 MCG TAB PO SCH (11:42)
--- NOTE | 2018-09-19 14:05 | P.PN ---
Subjective Progress Note Date: 09/19/18 Principal diagnosis: Schizoaffective Chart reviewed, discussed with nursing staff and was discussed in team this morning regarding diagnosis and prognosis. Patient was interviewed and discussed the willingness to take medications for his hyperreligiosity he states that he's not that is just a disciple of Daniel Zan and magical and peace. He then gets up and walks away. 09/01/2018: Chart reviewed and discussed with nursing staff reviewed vitals and interviewed patient. Discussed medication with him for his thought disorder and he is dates he'll wait until he goes to court. 09/02/2018: Chart reviewed and discussed with nursing staff. In interview patient and he wants a Ivan Shaun Bible which we don't have. He is refusing any medication and awaiting court. He is attending groups on occasion. 09/05/2018: Chart reviewed and discussed with nursing staff and discussed in team. In interviewing the patient he is not answering questions angrily looking at the interviewer and denies any suicidal homicidal threats however he does not answer these questions he just stares at. 09/12/2018: Chart reviewed and discussed with [facility] but is on a order for treatment, discussed with nursing staff and team this morning regarding long-term medication as an injectable form. Patient is very resistant to this and said that Jozef goes to sitting outside the door and when my goes to not get back together he'll my goes to Me That I Should Give Him Pills. Remains Delusional Psychotic Manipulative. 09/13/2018 chart review and discussed with nursing staff, and treatment team including with [facility]. Patient is more pleasant today and ap pears that he is engaging not going to groups. He tends to walk the atkinson. He is informed that he must go to groups before he can leave. No oriental orthodox was mentioned today. Denies suicidal or homicidal ideation 09/14/2018 chart reviewed, discussed with nursing staff in detail, discussed with community mental health and team and meeting this morning for prognosis and current disposition. Patient still remains isolative wanted to have some vitamins which were written for him, otherwise he still remains distant is suggestive reactive affect and some manipulation. 09/15/2018: Chart reviewed and discussed with nursing staff and social work regarding his participation in groups. Patient is now starting to talk to peers and other and is able to come out of his room and communicate. He still states that there is nothing wrong with him and he is less baptist in nature. He was grateful for the vitamins that was per provided to him yesterday on a daily basis. Discussed with him what he needs to do so that he may be released from the psychiatric unit. 09/16/2018: chart reviewed and discussed in team; inappropriate with another peer. Denies si/hi but states her is here by word of god to take cell phones away. 09/17/2018: Chart reviewed and discussed with nursing staff today. He has been hyperreligious with myself today and argumentative at times. He was redirectable. He asked about another patient that the peer should be transferred to another floor was inappropriate to be here and redirected him again. 09/18/2018:Chart reviewed and discussed with nursing staff today. He has been hyperreligious with myself today and argumentative at times. He was redirectable. He asked about another patient that the peer should be transferred to another floor was inappropriate to be here and redirected him again. 09/19/2018 chart reviewed and discussed in detail with nursing staff, discussed in team meeting today and interviewed the patient. He and not mention any oriental orthodox today which is a first. He did not argue with me which is a first. We talked about discharge planning and how he'll have to stay on his medications or he'll be returned to the hospital for continued psychiatric treatment. Objective - Vital Signs Vital signs: Vital Signs Temp 98.3 F 09/16/18 06:53 Pulse 84 09/16/18 06:53 Resp 16 09/16/18 06:53 BP 129/68 09/16/18 06:53 Pulse Ox 98 08/29/18 08:23 Intake & Output 09/18/18 09/19/18 09/19/18 18:59 06:59 18:59 Weight 77.136 kg - Labs CBC & Chem 7: 08/30/18 10:00 08/30/18 10:00 Assessment and Plan Assessment: 28-year-old male presents for psychiatric evaluation. Patient has history of schizophrenia, bipolar disorder. He was evaluated earlier today for nursing home clearance. He was taken to nursing home and is brought back by local police for psychiatric evaluation. Patient has loose association, he is singing in the triage [place]. He refused to take his clothes off for further evaluation. Patient is not logical, not able to answer questions appropriately. Patient is hyperreligious. Pt. presents as alert and oriented to person, place, and time with clear speech. Pt. reports that the police brought him to the after releasing him from nursing home without being charged. Denies knowing why he was brought to the hospital. Pt. then started speaking about God and how he must have been sent here because he is the disciple of Danielsaundra Zuluaga. Pt. then repeatly stated, "Satan, may the Lord rebuke you." Pt. referred to himself in the third person (Avery) when talking and refused to go by the name Clive. When questioned his he hears the voice of God he stated, "I will not answer that question, if you don't know what a disciple of Daniel Zuluaga is then go read it in the bible. There is an active war going on in hell right now." Per [facility] hospital liasion, the pt. is currently scheduled for a jury trial in December for non-compliance with his outpatient treatment. Lilo from [employer] returned this writers call. Over the weekend the pt. was assessed at the nursing home by ACT team supervisior Brook who petitioned him for hospitalization. CHEMICAL DEPENDENCY HISTORY: growing up using all drugs, never got in to one, now only marijuana, . FAMILY PSYCHIATRIC HISTORY: father and brother with autism spectrum disorder. FAMILY CHEMICAL DEPENDENCY HISTORY:both parents are alcoholic LEGAL HISTORY: Just in nursing home for 2 weeks for probation violation. He has a case coming up in December SOCIAL HISTORY: [Born and raised in [place], mother raised from , parents since age 2. Brother raised by father. Had normal main stream classes. Poor academic performance. GED. never, no children, states he was but now they're , heterosexual. 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 Mental Status Examination - General Appearance: [casual, bizarre, appears stated age, Speech/Language: [ rapid, rambled, hesitant, halting, expressive, soft, other utterances] Attitude/Behavior: [ guarded, irritable, withdrawn, indifferent, other] Mood: [ euphoric, anxious, elated, irritable Affect: [lively, incongruent, labile, Orientation: [time, person, place situation] Thought Content: [wnl, delusionsI am disciple of Daniel Zuluaga to do his preaching Risk Factors: [Denies suicidal (ideations, plan), and/or Homicidal (ideations, plan), other] Perception: [wnl, responding to hallucinations (auditory, visual, tactile) Thought Processes: [ concrete, circumstantial, tangential, other] Concentration/Attention Span: [ impaired] [Per observation and interview with the patient] Recent Memory: [ impaired] Remote Memory: [wnl] [past events, as related history] Intelligence: [average] [based on history, based on vocabulary, syntax, grammar, and content] Judgement: [ poor] [per patient's behavior/history of present illness] Insight: [poor] [understanding severity of illness/history of present illness] Admitting Diagnosis: [Bipolar affective disorder acute psychosis; marijuana use disorder Doubt Autistic Spectrum DO] Initial Plan of Care: [He is on a involuntary basis admitted to the hospital after he was picked up and assessed at the nursing home whereby the act team did a petition for involuntary stay in a psychiatric hospital. The first clinical certification for involuntary stay was done in the emergency room. I performed on second clinical certification for involuntary hospitalization 3 to [facility] due to the fact that he is delusional psychotic and non- redirectable. He'll be placed on 15 minute checks for safety of himself and others usual protocol for the unit. He'll be evaluated by medicine, psychiatry, nursing staff, social work and occupational therapy for integration within the [place] milieu therapeutic environment. This client is unwilling to take any medications and thinks he had a go home. 08/31/2018: He is refusing medication because he does not want to strengthen her case that he is abnormal. He says he'll wait for court hearing on the Bless the central office technician 09/01/2018: Discussed again medication of Seroquel and he states that he'll see after next Wednesday is waiting to see the central office technician because he is refusing any pete atment. He occasionally goes to group but becomes hyper baptist. 09/02/2018 discussed again with patient the use of medication and Seroquel which responded before to and again he is refusing until court date. He remains on 15 minute checks and usual protocol for the mental health] 09/05/2018: Discussed again with the patient the use of medication Seroquel. He denies being any medications and he is waiting to go to court. He is not participating in any treatment and an denial of any mental illness. 09/12/2018: Discussed with the patient the fact that he did not go to court it does not mean that he doesn't get treatment. He still has fair amount of psychotic behavior and fixed delusions don't call me Clive call Avery. Plan is today to give a Invega 234 mg injectable long-acting and watch for any major side effects. 09/13/2018: Discussed with the patient about the Invega. Also discussed that he would like some vitamins which I wrote for a 6 B-12 vitamin A. Encouraged to participate in groups for side effects of requirement for him to leaving the hospital. 09/14/2018: Patient states it is reported as and I am taking the medication. He still remains isolative and discuss that with him and he will attempt to make more groups for he needs to do that before he leaves the hospital. He will remain on 15 minute checks as usual and attempt to have them integrate into [place] milieu and milieu therapeutic environment 09/15/2018: He will remain on 15 minute checks and encourage him to be integrated in the [place] milieu therapeutic environment. He had his Invega to 234 mg injection on 09/12/2018 and will have to have a again on 10/11/2018. 09/16/2018: He will remain on 15 minute checks and encourage him to be integrated in the [place] milieu therapeutic environment. He had his Invega to 234 mg injection on 09/12/2018 and will add 3 mg Invega tonight. 09/17/2018: He will remain on 15 minute checks and encourage him to the integrated in [place] milieu therapeutic environment. He continues to be hyperreligious and intrusive at times. Will consider using a mood stabilizer next sentence he appears to be fluctuating and his mood. We'll continue his Invega 3 mg by mouth daily at bedtime as well as the injection that he received 09/18/2018: Remains on 15 minute checks and usual work protocol. 09/19/2018: He remains on 15 minute checks, taking his Invega 3 mg at bedtime, interacting in [place] milieu therapeutic environment sometimes inappropriate with other patients. Discussing disposition at 09/20/2018 and his follow-up care after taking meeting. (1) Bipolar affective disorder, current episode manic with psychotic symptoms Current Visit: Yes Status: Acute Priority: High Code(s): F31.2 - BIPOLAR DISORD, CRNT EPISODE MANIC SEVERE W PSYCH FEATURES SNOMED Code(s): 049813979 Time with Patient: Less than 30
[2018-09-19] MEDS: PALIPERIDONE 3 MG TAB.ER.24 PO SCH (21:02)
[2018-09-19] MEDS: ACETAMINOPHEN TAB 325 MG TAB PO PRN (21:03)
[2018-09-20] MEDS: ACETAMINOPHEN TAB 325 MG TAB PO PRN ×2 (08:25→20:36)
[2018-09-20] MEDS: PYRIDOXINE 50 MG TAB PO SCH ×2 (08:27→20:37)
[2018-09-20] MEDS: ASCORBIC ACID 500 MG TAB PO SCH ×2 (08:27→20:37)
[2018-09-20] MEDS ORDERED: PALIPERIDONE IM 156 MG/ML SYG IM STA (11:11)
--- NOTE | 2018-09-20 11:30 | P.PN ---
Subjective Progress Note Date: 09/20/18 Principal diagnosis: Schizoaffective Chart reviewed, discussed with nursing staff and was discussed in team this morning regarding diagnosis and prognosis. Patient was interviewed and discussed the willingness to take medications for his hyperreligiosity he states that he's not that is just a disciple of Daniel Zan and magical and peace. He then gets up and walks away. 09/01/2018: Chart reviewed and discussed with nursing staff reviewed vitals and interviewed patient. Discussed medication with him for his thought disorder and he is dates he'll wait until he goes to court. 09/02/2018: Chart reviewed and discussed with nursing staff. In interview patient and he wants a Ivan Shaun Bible which we don't have. He is refusing any medication and awaiting court. He is attending groups on occasion. 09/05/2018: Chart reviewed and discussed with nursing staff and discussed in team. In interviewing the patient he is not answering questions angrily looking at the interviewer and denies any suicidal homicidal threats however he does not answer these questions he just stares at. 09/12/2018: Chart reviewed and discussed with [facility] but is on a order for treatment, discussed with nursing staff and team this morning regarding long-term medication as an injectable form. Patient is very resistant to this and said that Jozef goes to sitting outside the door and when my goes to not get back together he'll my goes to Me That I Should Give Him Pills. Remains Delusional Psychotic Manipulative. 09/13/2018 chart review and discussed with nursing staff, and treatment team including with [facility]. Patient is more pleasant today and ap pears that he is engaging not going to groups. He tends to walk the [place]. He is informed that he must go to groups before he can leave. No taoist was mentioned today. Denies suicidal or homicidal ideation 09/14/2018 chart reviewed, discussed with nursing staff in detail, discussed with community mental health and team and meeting this morning for prognosis and current disposition. Patient still remains isolative wanted to have some vitamins which were written for him, otherwise he still remains distant is suggestive reactive affect and some manipulation. 09/15/2018: Chart reviewed and discussed with nursing staff and social work regarding his participation in groups. Patient is now starting to talk to peers and other and is able to come out of his room and communicate. He still states that there is nothing wrong with him and he is less rastafarian in nature. He was grateful for the vitamins that was per provided to him yesterday on a daily basis. Discussed with him what he needs to do so that he may be released from the psychiatric unit. 09/16/2018: chart reviewed and discussed in team; inappropriate with another peer. Denies si/hi but states her is here by word of god to take cell phones away. 09/17/2018: Chart reviewed and discussed with nursing staff today. He has been hyperreligious with myself today and argumentative at times. He was redirectable. He asked about another patient that the peer should be transferred to another floor was inappropriate to be here and redirected him again. 09/18/2018:Chart reviewed and discussed with nursing staff today. He has been hyperreligious with myself today and argumentative at times. He was redirectable. He asked about another patient that the peer should be transferred to another floor was inappropriate to be here and redirected him again. 09/19/2018 chart reviewed and discussed in detail with nursing staff, discussed in team meeting today and interviewed the patient. He and not mention any taoist today which is a first. He did not argue with me which is a first. We talked about discharge planning and how he'll have to stay on his medications or he'll be returned to the hospital for continued psychiatric treatment. 09/20/2018: Chart reviewed and discussed with nursing staff and decided to bring patient into team meeting today to discuss his discharge and disposition placement and aftercare. He became irate isolative stating that if the physician does not call Avery that he will define me. He then curled up in a ball chanting and had to be taken out of the room by staff and security. Objective - Vital Signs Vital signs: Vital Signs Temp 98.5 F 09/20/18 06:40 Pulse 63 09/20/18 06:40 Resp 18 09/20/18 06:40 BP 116/62 09/20/18 06:40 Pulse Ox 98 08/29/18 08:23 - Labs CBC & Chem 7: 08/30/18 10:00 08/30/18 10:00 Assessment and Plan Assessment: 28-year-old male presents for psychiatric evaluation. Patient has history of schizophrenia, bipolar disorder. He was evaluated earlier today for retirement clearance. He was taken to retirement and is brought back by local police for psychiatric evaluation. Patient has loose association, he is singing in the triage l[place]. He refused to take his clothes off for further evaluation. Patient is not logical, not able to answer questions appropriately. Patient is hyperreligious. Pt. presents as alert and oriented to person, place, and time with clear speech. Pt. reports that the police brought him to the after releasing him from retirement without being charged. Denies knowing why he was brought to the hospital. Pt. then started speaking about God and how he must have been sent here because he is the disciple of Daniel Zan. Pt. then repeatly stated, "Satan, may the Lord rebuke you." Pt. referred to himself in the third person (Avery) when talking and refused to go by the name Clive. When questioned his he hears the voice of God he stated, "I will not answer that question, if you don't know what a disciple of Daniel Zuluaga is then go read it in the bible. There is an active war going on in hell right now." Per [facility] hospital liasion, the pt. is currently scheduled for a jury trial in December for non-compliance with his outpatient treatment. Lilo from [facility] returned this writers call. Over the weekend the pt. was assessed at the retirement by ACT team supervisior Brook who petitioned him for hospitalization. CHEMICAL DEPENDENCY HISTORY: growing up using all drugs, never got in to one, now only marijuana, . FAMILY PSYCHIATRIC HISTORY: father and brother with autism spectrum disorder. FAMILY CHEMICAL DEPENDENCY HISTORY:both parents are alcoholic LEGAL HISTORY: Just in retirement for 2 weeks for probation violation. He has a case coming up in December SOCIAL HISTORY: [Born and raised in [place], mother raised from , parents since age 2. Brother raised by father. Had normal main stream classes. Poor academic performance. GED. never, no children, states he was but now they're , heterosexual. 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 Mental Status Examination - General Appearance: [casual, bizarre, appears stated age, Speech/Language: [ rapid, rambled, hesitant, halting, expressive, soft, other utterances] Attitude/Behavior: [ guarded, irritable, withdrawn, indifferent, other] Mood: [ euphoric, anxious, elated, irritable Affect: [lively, incongruent, labile, Orientation: [time, person, place situation] Thought Content: [wnl, delusionsI am disciple of Daniel Zuluaga to do his preaching Risk Factors: [Denies suicidal (ideations, plan), and/or Homicidal (ideations, plan), other] Perception: [wnl, responding to hallucinations (auditory, visual, tactile) Thought Processes: [ concrete, circumstantial, tangential, other] Concentration/Attention Span: [ impaired] [Per observation and interview with the patient] Recent Memory: [ impaired] Remote Memory: [wnl] [past events, as related history] Intelligence: [average] [based on history, based on vocabulary, syntax, grammar, and content] Judgement: [ poor] [per patient's behavior/history of present illness] Insight: [poor] [understanding severity of illness/history of present illness] Admitting Diagnosis: [Bipolar affective disorder acute psychosis; marijuana use disorder Doubt Autistic Spectrum DO] Initial Plan of Care: [He is on a involuntary basis admitted to the hospital after he was picked up and assessed at the retirement whereby the act team did a pet ition for involuntary stay in a psychiatric hospital. The first clinical certification for involuntary stay was done in the emergency room. I performed on second clinical certification for involuntary hospitalization 3 to [facility] due to the fact that he is delusional psychotic and non- redirectable. He'll be placed on 15 minute checks for safety of himself and others usual protocol for the unit. He'll be evaluated by medicine, psychiatry, nursing staff, social work and occupational therapy for integration within the [facility] milieu therapeutic environment. This client is unwilling to take any medications and thinks he had a go home. 08/31/2018: He is refusing medication because he does not want to strengthen her case that he is abnormal. He says he'll wait for court hearing on the Bless the dope mixer 09/01/2018: Discussed again medication of Seroquel and he states that he'll see after next Wednesday is waiting to see the dope mixer because he is refusing any treatment. He occasionally goes to group but becomes hyper rastafarian. 09/02/2018 discussed again with patient the use of medication and Seroquel which responded before to and again he is refusing until court date. He remains on 15 minute checks and usual protocol for the mental health] 09/05/2018: Discussed again with the patient the use of medication Seroquel. He denies being any medications and he is waiting to go to court. He is not participating in any treatment and an denial of any mental illness. 09/12/2018: Discussed with the patient the fact that he did not go to court it does not mean that he doesn't get treatment. He still has fair amount of psychotic behavior and fixed delusions don't call me Clive call Avery. Plan is today to give a Invega 234 mg injectable long-acting and watch for any major side effects. 09/13/2018: Discussed with the patient about the Invega. Also discussed that he would like some vitamins which I wrote for a 6 B-12 vitamin A. Encouraged to participate in groups for side effects of requirement for him to leaving the hospital. 09/14/2018: Patient states it is reported as and I am taking the medication. He still remains isolative and discuss that with him and he will attempt to make more groups for he needs to do that before he leaves the hospital. He will remain on 15 minute checks as usual and attempt to have them integrate into [facility] milieu and milieu therapeutic environment 09/15/2018: He will remain on 15 minute checks and encourage him to be i ntegrated in the [facility] milieu therapeutic environment. He had his Invega to 234 mg injection on 09/12/2018 and will have to have a again on 10/11/2018. 09/16/2018: He will remain on 15 minute checks and encourage him to be integrated in the [facility] milieu therapeutic environment. He had his Invega to 234 mg injection on 09/12/2018 and will add 3 mg Invega tonight. 09/17/2018: He will remain on 15 minute checks and encourage him to the integrated in [facility] milieu therapeutic environment. He continues to be hyperreligious and intrusive at times. Will consider using a mood stabilizer next sentence he appears to be fluctuating and his mood. We'll continue his Invega 3 mg by mouth daily at bedtime as well as the injection that he received 09/18/2018: Remains on 15 minute checks and usual work protocol. 09/19/2018: He remains on 15 minute checks, taking his Invega 3 mg at bedtime, interacting in [facility] milieu therapeutic environment sometimes inappropriate with other patients. Discussing disposition at 09/20/2018 and his follow-up care after taking meeting. 09/20/2018: He remains on 15 minute checks, and additional 156 mg of Invega IM and add Depakote 250 mg extended release at bedtime. He has still delusional a nd agitated and demanding. He has been invasive to other peers projecting his religiosity. (1) Bipolar affective disorder, current episode manic with psychotic symptoms Current Visit: Yes Status: Acute Priority: High Code(s): F31.2 - BIPOLAR DISORD, CRNT EPISODE MANIC SEVERE W PSYCH FEATURES SNOMED Code(s): 921160881 Time with Patient: Less than 30
[2018-09-20] MEDS: CYANOCOBALAMIN 500 MCG TAB PO SCH (12:30)
[2018-09-20] MEDS: CHOLECALCIFEROL 1,000 UNIT TAB PO SCH (12:30)
[2018-09-20] MEDS: PALIPERIDONE 3 MG TAB.ER.24 PO SCH (20:36)
[2018-09-20] MEDS: DIVALPROEX ER 250 MG TAB.ER.24H PO SCH (20:36)
[2018-09-21] MEDS: PYRIDOXINE 50 MG TAB PO SCH (08:42)
[2018-09-21] MEDS: ASCORBIC ACID 500 MG TAB PO SCH (08:42)
--- NOTE | 2018-09-21 12:23 | P.PN ---
Subjective Progress Note Date: 09/21/18 Principal diagnosis: Schizoaffective Chart reviewed, discussed with nursing staff and was discussed in team this morning regarding diagnosis and prognosis. Patient was interviewed and discussed the willingness to take medications for his hyperreligiosity he states that he's not that is just a disciple of Daniel Zan and magical and peace. He then gets up and walks away. 09/01/2018: Chart reviewed and discussed with nursing staff reviewed vitals and interviewed patient. Discussed medication with him for his thought disorder and he is dates he'll wait until he goes to court. 09/02/2018: Chart reviewed and discussed with nursing staff. In interview patient and he wants a Ivan Shaun Bible which we don't have. He is refusing any medication and awaiting court. He is attending groups on occasion. 09/05/2018: Chart reviewed and discussed with nursing staff and discussed in team. In interviewing the patient he is not answering questions angrily looking at the interviewer and denies any suicidal homicidal threats however he does not answer these questions he just stares at. 09/12/2018: Chart reviewed and discussed with [facility] but is on a order for treatment, discussed with nursing staff and team this morning regarding long-term medication as an injectable form. Patient is very resistant to this and said that Jozef goes to sitting outside the door and when my goes to not get back together he'll my goes to Me That I Should Give Him Pills. Remains Delusional Psychotic Manipulative. 09/13/2018 chart review and discussed with nursing staff, and treatment team including with [facility]. Patient is more pleasant today and ap pears that he is engaging not going to groups. He tends to walk the [place]. He is informed that he must go to groups before he can leave. No rastafari was mentioned today. Denies suicidal or homicidal ideation 09/14/2018 chart reviewed, discussed with nursing staff in detail, discussed with community mental health and team and meeting this morning for prognosis and current disposition. Patient still remains isolative wanted to have some vitamins which were written for him, otherwise he still remains distant is suggestive reactive affect and some manipulation. 09/15/2018: Chart reviewed and discussed with nursing staff and social work regarding his participation in groups. Patient is now starting to talk to peers and other and is able to come out of his room and communicate. He still states that there is nothing wrong with him and he is less oriental orthodox in nature. He was grateful for the vitamins that was per provided to him yesterday on a daily basis. Discussed with him what he needs to do so that he may be released from the psychiatric unit. 09/16/2018: chart reviewed and discussed in team; inappropriate with another peer. Denies si/hi but states her is here by word of god to take cell phones away. 09/17/2018: Chart reviewed and discussed with nursing staff today. He has been hyperreligious with myself today and argumentative at times. He was redirectable. He asked about another patient that the peer should be transferred to another floor was inappropriate to be here and redirected him again. 09/18/2018:Chart reviewed and discussed with nursing staff today. He has been hyperreligious with myself today and argumentative at times. He was redirectable. He asked about another patient that the peer should be transferred to another floor was inappropriate to be here and redirected him again. 09/19/2018 chart reviewed and discussed in detail with nursing staff, discussed in team meeting today and interviewed the patient. He and not mention any rastafari today which is a first. He did not argue with me which is a first. We talked about discharge planning and how he'll have to stay on his medications or he'll be returned to the hospital for continued psychiatric treatment. 09/20/2018: Chart reviewed and discussed with nursing staff and decided to bring patient into team meeting today to discuss his discharge and disposition placement and aftercare. He became irate isolative stating that if the physician does not call Avery that he will define me. He then curled up in a ball chanting and had to be taken out of the room by staff and security. Objective - Vital Signs Vital signs: Vital Signs Temp 98.5 F 09/20/18 06:40 Pulse 63 09/20/18 06:40 Resp 18 09/20/18 06:40 BP 116/62 09/20/18 06:40 Pulse Ox 98 08/29/18 08:23 - Labs CBC & Chem 7: 08/30/18 10:00 08/30/18 10:00 Assessment and Plan Assessment: 28-year-old male presents for psychiatric evaluation. Patient has history of schizophrenia, bipolar disorder. He was evaluated earlier today for long-term clearance. He was taken to long-term and is brought back by local police for psychiatric evaluation. Patient has loose association, he is singing in the triage [place]. He refused to take his clothes off for further evaluation. Patient is not logical, not able to answer questions appropriately. Patient is hyperreligious. Pt. presents as alert and oriented to person, place, and time with clear speech. Pt. reports that the police brought him to the after releasing him from long-term without being charged. Denies knowing why he was brought to the hospital. Pt. then started speaking about God and how he must have been sent here because he is the disciple of Daniel Zan. Pt. then repeatly stated, "Satan, may the Lord rebuke you." Pt. referred to himself in the third person (Avery) when talking and refused to go by the name Clive. When questioned his he hears the voice of God he stated, "I will not answer that question, if you don't know what a disciple of Daniel Zuluaga is then go read it in the bible. There is an active war going on in hell right now." Per [facility] hospital liasion, the pt. is currently scheduled for a jury trial in December for non-compliance with his outpatient treatment. Lilo from [facility] returned this writers call. Over the weekend the pt. was assessed at the long-term by ACT team supervisior Brook who petitioned him for hospitalization. CHEMICAL DEPENDENCY HISTORY: growing up using all drugs, never got in to one, now only marijuana, . FAMILY PSYCHIATRIC HISTORY: father and brother with autism spectrum disorder. FAMILY CHEMICAL DEPENDENCY HISTORY:both parents are alcoholic LEGAL HISTORY: Just in long-term for 2 weeks for probation violation. He has a case coming up in December SOCIAL HISTORY: [Born and raised in [place], mother raised from , parents since age 2. Brother raised by father. Had normal main stream classes. Poor academic performance. GED. never, no children, states he was but now they're , heterosexual. 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 Mental Status Examination - General Appearance: [casual, bizarre, appears stated age, Speech/Language: [ rapid, rambled, hesitant, halting, expressive, soft, other utterances] Attitude/Behavior: [ guarded, irritable, withdrawn, indifferent, other] Mood: [ euphoric, anxious, elated, irritable Affect: [lively, incongruent, labile, Orientation: [time, person, place situation] Thought Content: [wnl, delusionsI am disciple of Daniel Zuluaga to do his preaching Risk Factors: [Denies suicidal (ideations, plan), and/or Homicidal (ideations, plan), other] Perception: [wnl, responding to hallucinations (auditory, visual, tactile) Thought Processes: [ concrete, circumstantial, tangential, other] Concentration/Attention Span: [ impaired] [Per observation and interview with the patient] Recent Memory: [ impaired] Remote Memory: [wnl] [past events, as related history] Intelligence: [average] [based on history, based on vocabulary, syntax, grammar, and content] Judgement: [ poor] [per patient's behavior/history of present illness] Insight: [poor] [understanding severity of illness/history of present illness] Admitting Diagnosis: [Bipolar affective disorder acute psychosis; marijuana use disorder Doubt Autistic Spectrum DO] Initial Plan of Care: [He is on a involuntary basis admitted to the hospital after he was picked up and assessed at the long-term whereby the act team did a pet ition for involuntary stay in a psychiatric hospital. The first clinical certification for involuntary stay was done in the emergency room. I performed on second clinical certification for involuntary hospitalization 3 to [facility] due to the fact that he is delusional psychotic and non- redirectable. He'll be placed on 15 minute checks for safety of himself and others usual protocol for the unit. He'll be evaluated by medicine, psychiatry, nursing staff, social work and occupational therapy for integration within the [facility] milieu therapeutic environment. This client is unwilling to take any medications and thinks he had a go home. 08/31/2018: He is refusing medication because he does not want to strengthen her case that he is abnormal. He says he'll wait for court hearing on the Bless the welcome wagon hostess 09/01/2018: Discussed again medication of Seroquel and he states that he'll see after next Wednesday is waiting to see the welcome wagon hostess because he is refusing any treatment. He occasionally goes to group but becomes hyper oriental orthodox. 09/02/2018 discussed again with patient the use of medication and Seroquel which responded before to and again he is refusing until court date. He remains on 15 minute checks and usual protocol for the mental health] 09/05/2018: Discussed again with the patient the use of medication Seroquel. He denies being any medications and he is waiting to go to court. He is not participating in any treatment and an denial of any mental illness. 09/12/2018: Discussed with the patient the fact that he did not go to court it does not mean that he doesn't get treatment. He still has fair amount of psychotic behavior and fixed delusions don't call me Clive call Avery. Plan is today to give a Invega 234 mg injectable long-acting and watch for any major side effects. 09/13/2018: Discussed with the patient about the Invega. Also discussed that he would like some vitamins which I wrote for a 6 B-12 vitamin A. Encouraged to participate in groups for side effects of requirement for him to leaving the hospital. 09/14/2018: Patient states it is reported as and I am taking the medication. He still remains isolative and discuss that with him and he will attempt to make more groups for he needs to do that before he leaves the hospital. He will remain on 15 minute checks as usual and attempt to have them integrate into [facility] milieu and milieu therapeutic environment 09/15/2018: He will remain on 15 minute checks and encourage him to be i ntegrated in the [place] milieu therapeutic environment. He had his Invega to 234 mg injection on 09/12/2018 and will have to have a again on 10/11/2018. 09/16/2018: He will remain on 15 minute checks and encourage him to be integrated in the [place] milieu therapeutic environment. He had his Invega to 234 mg injection on 09/12/2018 and will add 3 mg Invega tonight. 09/17/2018: He will remain on 15 minute checks and encourage him to the integrated in [place] milieu therapeutic environment. He continues to be hyperreligious and intrusive at times. Will consider using a mood stabilizer next sentence he appears to be fluctuating and his mood. We'll continue his Invega 3 mg by mouth daily at bedtime as well as the injection that he received 09/18/2018: Remains on 15 minute checks and usual work protocol. 09/19/2018: He remains on 15 minute checks, taking his Invega 3 mg at bedtime, interacting in [facility] milieu therapeutic environment sometimes inappropriate with other patients. Discussing disposition at 09/20/2018 and his follow-up care after taking meeting. 09/20/2018: He remains on 15 minute checks, and additional 156 mg of Invega IM and add Depakote 250 mg extended release at bedtime. He has still delusional a nd agitated and demanding. He has been invasive to other peers projecting his religiosity. (1) Bipolar affective disorder, current episode manic with psychotic symptoms Current Visit: Yes Status: Acute Priority: High Code(s): F31.2 - BIPOLAR DISORD, CRNT EPISODE MANIC SEVERE W PSYCH FEATURES SNOMED Code(s): 114851735 Time with Patient: Greater than 30
[2018-09-21] MEDS: CYANOCOBALAMIN 500 MCG TAB PO SCH (13:10)
[2018-09-21] MEDS: CHOLECALCIFEROL 1,000 UNIT TAB PO SCH (13:10)
[2018-09-21] MEDS: ACETAMINOPHEN TAB 325 MG TAB PO PRN ×2 (13:25→21:04)
[2018-09-21] MEDS: DIVALPROEX ER 250 MG TAB.ER.24H PO SCH (21:03)
[2018-09-21] MEDS: PALIPERIDONE 3 MG TAB.ER.24 PO SCH (21:03)
--- NOTE | 2018-09-22 10:18 | P.PN ---
Subjective Progress Note Date: 09/22/18 Principal diagnosis: Schizoaffective Chart reviewed, discussed with nursing staff and was discussed in team this morning regarding diagnosis and prognosis. Patient was interviewed and discussed the willingness to take medications for his hyperreligiosity he states that he's not that is just a disciple of Daniel Zan and magical and peace. He then gets up and walks away. 09/01/2018: Chart reviewed and discussed with nursing staff reviewed vitals and interviewed patient. Discussed medication with him for his thought disorder and he is dates he'll wait until he goes to court. 09/02/2018: Chart reviewed and discussed with nursing staff. In interview patient and he wants a Ivan Shaun Bible which we don't have. He is refusing any medication and awaiting court. He is attending groups on occasion. 09/05/2018: Chart reviewed and discussed with nursing staff and discussed in team. In interviewing the patient he is not answering questions angrily looking at the interviewer and denies any suicidal homicidal threats however he does not answer these questions he just stares at. 09/12/2018: Chart reviewed and discussed with [facility] mental health but is on a order for treatment, discussed with nursing staff and team this morning regarding long-term medication as an injectable form. Patient is very resistant to this and said that Jozef goes to sitting outside the door and when my goes to not get back together he'll my goes to Me That I Should Give Him Pills. Remains Delusional Psychotic Manipulative. 09/13/2018 chart review and discussed with nursing staff, and treatment team including with [facility] mental health. Patient is more pleasant today and ap pears that he is engaging not going to groups. He tends to walk the [place]. He is informed that he must go to groups before he can leave. No jewish was mentioned today. Denies suicidal or homicidal ideation 09/14/2018 chart reviewed, discussed with nursing staff in detail, discussed with community mental health and team and meeting this morning for prognosis and current disposition. Patient still remains isolative wanted to have some vitamins which were written for him, otherwise he still remains distant is suggestive reactive affect and some manipulation. 09/15/2018: Chart reviewed and discussed with nursing staff and social work regarding his participation in groups. Patient is now starting to talk to peers and other and is able to come out of his room and communicate. He still states that there is nothing wrong with him and he is less quaker in nature. He was grateful for the vitamins that was per provided to him yesterday on a daily basis. Discussed with him what he needs to do so that he may be released from the psychiatric unit. 09/16/2018: chart reviewed and discussed in team; inappropriate with another peer. Denies si/hi but states her is here by word of god to take cell phones away. 09/17/2018: Chart reviewed and discussed with nursing staff today. He has been hyperreligious with myself today and argumentative at times. He was redirectable. He asked about another patient that the peer should be transferred to another floor was inappropriate to be here and redirected him again. 09/18/2018:Chart reviewed and discussed with nursing staff today. He has been hyperreligious with myself today and argumentative at times. He was redirectable. He asked about another patient that the peer should be transferred to another floor was inappropriate to be here and redirected him again. 09/19/2018 chart reviewed and discussed in detail with nursing staff, discussed in team meeting today and interviewed the patient. He and not mention any jewish today which is a first. He did not argue with me which is a first. We talked about discharge planning and how he'll have to stay on his medications or he'll be returned to the hospital for continued psychiatric treatment. 09/20/2018: Chart reviewed and discussed with nursing staff and decided to bring patient into team meeting today to discuss his discharge and disposition placement and aftercare. He became irate isolative stating that if the physician does not call Avery that he will define me. He then curled up in a ball chanting and had to be taken out of the room by staff and security. Objective - Vital Signs Vital signs: Vital Signs Temp 98.5 F 09/20/18 06:40 Pulse 63 09/20/18 06:40 Resp 18 09/20/18 06:40 BP 116/62 09/20/18 06:40 Pulse Ox 98 08/29/18 08:23 - Labs CBC & Chem 7: 08/30/18 10:00 08/30/18 10:00 Assessment and Plan Assessment: 28-year-old male presents for psychiatric evaluation. Patient has history of schizophrenia, bipolar disorder. He was evaluated earlier today for intermediate clearance. He was taken to intermediate and is brought back by local police for psychiatric evaluation. Patient has loose association, he is singing in the triage [place]. He refused to take his clothes off for further evaluation. Patient is not logical, not able to answer questions appropriately. Patient is hyperreligious. Pt. presents as alert and oriented to person, place, and time with clear speech. Pt. reports that the police brought him to the after releasing him from intermediate without being charged. Denies knowing why he was brought to the hospital. Pt. then started speaking about God and how he must have been sent here because he is the disciple of Daniel Zan. Pt. then repeatly stated, "Satan, may the Lord rebuke you." Pt. referred to himself in the third person (Avery) when talking and refused to go by the name Clive. When questioned his he hears the voice of God he stated, "I will not answer that question, if you don't know what a disciple of Daniel Zuluaga is then go read it in the bible. There is an active war going on in hell right now." Per [facility] hospital liasion, the pt. is currently scheduled for a jury trial in December for non-compliance with his outpatient treatment. Lilo from [facility] returned this writers call. Over the weekend the pt. was assessed at the intermediate by ACT team supervisior Brook who petitioned him for hospitalization. CHEMICAL DEPENDENCY HISTORY: growing up using all drugs, never got in to one, now only marijuana, . FAMILY PSYCHIATRIC HISTORY: father and brother with autism spectrum disorder. FAMILY CHEMICAL DEPENDENCY HISTORY:both parents are alcoholic LEGAL HISTORY: Just in intermediate for 2 weeks for probation violation. He has a case coming up in December SOCIAL HISTORY: [Born and raised in [place], mother raised from , parents since age 2. Brother raised by father. Had normal main stream classes. Poor academic performance. GED. never, no children, states he was but now they're , heterosexual. 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 Mental Status Examination - General Appearance: [casual, bizarre, appears stated age, Speech/Language: [ rapid, rambled, hesitant, halting, expressive, soft, other utterances] Attitude/Behavior: [ guarded, irritable, withdrawn, indifferent, other] Mood: [ euphoric, anxious, elated, irritable Affect: [lively, incongruent, labile, Orientation: [time, person, place situation] Thought Content: [wnl, delusionsI am disciple of Daniel Zuluaga to do his preaching Risk Factors: [Denies suicidal (ideations, plan), and/or Homicidal (ideations, plan), other] Perception: [wnl, responding to hallucinations (auditory, visual, tactile) Thought Processes: [ concrete, circumstantial, tangential, other] Concentration/Attention Span: [ impaired] [Per observation and interview with the patient] Recent Memory: [ impaired] Remote Memory: [wnl] [past events, as related history] Intelligence: [average] [based on history, based on vocabulary, syntax, grammar, and content] Judgement: [ poor] [per patient's behavior/history of present illness] Insight: [poor] [understanding severity of illness/history of present illness] Admitting Diagnosis: [Bipolar affective disorder acute psychosis; marijuana use disorder Doubt Autistic Spectrum DO] Initial Plan of Care: [He is on a involuntary basis admitted to the hospital after he was picked up and assessed at the intermediate whereby the act team did a pet ition for involuntary stay in a psychiatric hospital. The first clinical certification for involuntary stay was done in the emergency room. I performed on second clinical certification for involuntary hospitalization 3 to [facility] due to the fact that he is delusional psychotic and non- redirectable. He'll be placed on 15 minute checks for safety of himself and others usual protocol for the unit. He'll be evaluated by medicine, psychiatry, nursing staff, social work and occupational therapy for integration within the [facility] milieu therapeutic environment. This client is unwilling to take any medications and thinks he had a go home. 08/31/2018: He is refusing medication because he does not want to strengthen her case that he is abnormal. He says he'll wait for court hearing on the Bless the kennel technician 09/01/2018: Discussed again medication of Seroquel and he states that he'll see after next Wednesday is waiting to see the kennel technician because he is refusing any treatment. He occasionally goes to group but becomes hyper quaker. 09/02/2018 discussed again with patient the use of medication and Seroquel which responded before to and again he is refusing until court date. He remains on 15 minute checks and usual protocol for the mental health] 09/05/2018: Discussed again with the patient the use of medication Seroquel. He denies being any medications and he is waiting to go to court. He is not participating in any treatment and an denial of any mental illness. 09/12/2018: Discussed with the patient the fact that he did not go to court it does not mean that he doesn't get treatment. He still has fair amount of psychotic behavior and fixed delusions don't call me Clive call Avery. Plan is today to give a Invega 234 mg injectable long-acting and watch for any major side effects. 09/13/2018: Discussed with the patient about the Invega. Also discussed that he would like some vitamins which I wrote for a 6 B-12 vitamin A. Encouraged to participate in groups for side effects of requirement for him to leaving the hospital. 09/14/2018: Patient states it is reported as and I am taking the medication. He still remains isolative and discuss that with him and he will attempt to make more groups for he needs to do that before he leaves the hospital. He will remain on 15 minute checks as usual and attempt to have them integrate into [facility] milieu and milieu therapeutic environment 09/15/2018: He will remain on 15 minute checks and encourage him to be i ntegrated in the [place] milieu therapeutic environment. He had his Invega to 234 mg injection on 09/12/2018 and will have to have a again on 10/11/2018. 09/16/2018: He will remain on 15 minute checks and encourage him to be integrated in the [place] milieu therapeutic environment. He had his Invega to 234 mg injection on 09/12/2018 and will add 3 mg Invega tonight. 09/17/2018: He will remain on 15 minute checks and encourage him to the integrated in [place] milieu therapeutic environment. He continues to be hyperreligious and intrusive at times. Will consider using a mood stabilizer next sentence he appears to be fluctuating and his mood. We'll continue his Invega 3 mg by mouth daily at bedtime as well as the injection that he received 09/18/2018: Remains on 15 minute checks and usual work protocol. 09/19/2018: He remains on 15 minute checks, taking his Invega 3 mg at bedtime, interacting in [facility] milieu therapeutic environment sometimes inappropriate with other patients. Discussing disposition at 09/20/2018 and his follow-up care after taking meeting. 09/20/2018: He remains on 15 minute checks, and additional 156 mg of Invega IM and add Depakote 250 mg extended release at bedtime. He has still delusional a nd agitated and demanding. He has been invasive to other peers projecting his religiosity. (1) Bipolar affective disorder, current episode manic with psychotic symptoms Current Visit: Yes Status: Acute Priority: High Code(s): F31.2 - BIPOLAR DISORD, CRNT EPISODE MANIC SEVERE W PSYCH FEATURES SNOMED Code(s): 830482573 Time with Patient: Less than 30
[2018-09-22] MEDS: LORazepam 1 MG TAB PO PRN (15:55)
[2018-09-22] MEDS: PALIPERIDONE 3 MG TAB.ER.24 PO SCH (21:58)
[2018-09-22] MEDS: DIVALPROEX ER 250 MG TAB.ER.24H PO SCH (21:58)
--- NOTE | 2018-09-23 09:05 | P.PN ---
Subjective Progress Note Date: 09/23/18 Principal diagnosis: Schizoaffective Chart reviewed, discussed with nursing staff and was discussed in team this morning regarding diagnosis and prognosis. Patient was interviewed and discussed the willingness to take medications for his hyperreligiosity he states that he's not that is just a disciple of Daniel Zan and magical and peace. He then gets up and walks away. 09/01/2018: Chart reviewed and discussed with nursing staff reviewed vitals and interviewed patient. Discussed medication with him for his thought disorder and he is dates he'll wait until he goes to court. 09/02/2018: Chart reviewed and discussed with nursing staff. In interview patient and he wants a Ivan Shaun Bible which we don't have. He is refusing any medication and awaiting court. He is attending groups on occasion. 09/05/2018: Chart reviewed and discussed with nursing staff and discussed in team. In interviewing the patient he is not answering questions angrily looking at the interviewer and denies any suicidal homicidal threats however he does not answer these questions he just stares at. 09/12/2018: Chart reviewed and discussed with [facility] but is on a order for treatment, discussed with nursing staff and team this morning regarding long-term medication as an injectable form. Patient is very resistant to this and said that Jozef goes to sitting outside the door and when my goes to not get back together he'll my goes to Me That I Should Give Him Pills. Remains Delusional Psychotic Manipulative. 09/13/2018 chart review and discussed with nursing staff, and treatment team including with [facility]. Patient is more pleasant today and ap pears that he is engaging not going to groups. He tends to walk the [place]. He is informed that he must go to groups before he can leave. No religious was mentioned today. Denies suicidal or homicidal ideation 09/14/2018 chart reviewed, discussed with nursing staff in detail, discussed with community mental [facility] and team and meeting this morning for prognosis and current disposition. Patient still remains isolative wanted to have some vitamins which were written for him, otherwise he still remains distant is suggestive reactive affect and some manipulation. 09/15/2018: Chart reviewed and discussed with nursing staff and social work regarding his participation in groups. Patient is now starting to talk to peers and other and is able to come out of his room and communicate. He still states that there is nothing wrong with him and he is less hinduism in nature. He was grateful for the vitamins that was per provided to him yesterday on a daily basis. Discussed with him what he needs to do so that he may be released from the psychiatric unit. 09/16/2018: chart reviewed and discussed in team; inappropriate with another peer. Denies si/hi but states her is here by word of god to take cell phones away. 09/17/2018: Chart reviewed and discussed with nursing staff today. He has been hyperreligious with myself today and argumentative at times. He was redirectable. He asked about another patient that the peer should be transferred to another floor was inappropriate to be here and redirected him again. 09/18/2018:Chart reviewed and discussed with nursing staff today. He has been hyperreligious with myself today and argumentative at times. He was redirectable. He asked about another patient that the peer should be transferred to another floor was inappropriate to be here and redirected him again. 09/19/2018 chart reviewed and discussed in detail with nursing staff, discussed in team meeting today and interviewed the patient. He and not mention any religious today which is a first. He did not argue with me which is a first. We talked about discharge planning and how he'll have to stay on his medications or he'll be returned to the hospital for continued psychiatric treatment. 09/20/2018: Chart reviewed and discussed with nursing staff and decided to bring patient into team meeting today to discuss his discharge and disposition placement and aftercare. He became irate isolative stating that if the physician does not call Avery that he will define me. He then curled up in a ball chanting and had to be taken out of the room by staff and security. 09/22/2018 chart reviewed and discussed the patient describes side effects from Invega. He is intermittently staying to himself and is not tense and irritable agitating denies any suicidal or homicidal ideation Objective - Vital Signs Vital signs: Vital Signs Temp 98.4 F 09/23/18 06:46 Pulse 70 09/23/18 06:46 Resp 18 09/23/18 06:46 BP 94/50 09/23/18 06:46 Pulse Ox 98 08/29/18 08:23 - Labs CBC & Chem 7: 08/30/18 10:00 08/30/18 10:00 Assessment and Plan Assessment: 28-year-old male presents for psychiatric evaluation. Patient has history of schizophrenia, bipolar disorder. He was evaluated earlier today for [facility]. [facility] was [facility] to [facility] and is brought back by local police for psychiatric evaluation. Patient has loose association, he is singing in the triage l[place]. He refused to take his clothes off for further evaluation. Patient is not logical, not able to answer questions appropriately. Patient is hyperreligious. Pt. presents as alert and oriented to person, place, and time with clear speech. Pt. reports that the police brought him to the after [facility] him from [facility] without being charged. Denies knowing why he was brought to the hospital. Pt. then started speaking about God and how he must have been sent here because he is the disciple of Daniel Zuluaga. Pt. then repeatly stated, "Satan, may the Lord rebuke you." Pt. referred to himself in the third person (Avery) when talking and refused to go by the name Clive. When questioned his he hears the voice of God he stated, "I will not answer that question, if you don't know what a disciple of Daniel Zuluaga is then go read it in the bible. There is an active war going on in hell right now." Per [facility] hospital liasion, the pt. is currently scheduled for a jury trial in December for non-compliance with his outpatient treatment. Lilo from [facility] returned this writers call. Over the weekend the pt. was assessed at the [facility] by ACT team supervisior Brook who petitioned him for hospitalization. CHEMICAL DEPENDENCY HISTORY: growing up using all drugs, never got in to one, now only marijuana, . FAMILY PSYCHIATRIC HISTORY: father and brother with autism spectrum disorder. FAMILY CHEMICAL DEPENDENCY HISTORY:both parents are alcoholic LEGAL HISTORY: Just in [facility] for 2 weeks for probation violation. He has a case coming up in December SOCIAL HISTORY: [Born and raised in [place], mother raised from , parents d ivorced since age 2. Brother raised by father. Had normal main stream classes. Poor academic performance. GED. never, no children, states he was but now they're , heterosexual. 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 Mental Status Examination - General Appearance: [casual, bizarre, appears stated age, Speech/Language: [ rapid, rambled, hesitant, halting, expressive, soft, other utterances] Attitude/Behavior: [ guarded, irritable, withdrawn, indifferent, other] Mood: [ euphoric, anxious, elated, irritable Affect: [lively, incongruent, labile, Orientation: [time, person, place situation] Thought Content: [wnl, delusionsI am disciple of Daniel Zuluaga to do his preaching Risk Factors: [Denies suicidal (ideations, plan), and/or Homicidal (ideations, plan), other] Perception: [wnl, responding to hallucinations (auditory, visual, tactile) Thought Processes: [ concrete, circumstantial, tangential, other] Concentration/Attention Span: [ impaired] [Per observation and interview with the patient] Recent Memory: [ impaired] Remote Memory: [wnl] [past events, as related history] Intelligence: [average] [based on history, based on vocabulary, syntax, grammar, and content] Judgement: [ poor] [per patient's behavior/history of present illness] Insight: [poor] [understanding severity of illness/history of present illness] Admitting Diagnosis: [Bipolar affective disorder acute psychosis; marijuana use disorder Doubt Autistic Spectrum DO] Initial Plan of Care: [He is on a involuntary basis admitted to the hospital after he was picked up and assessed at the [facility] whereby the act team did a petition for involuntary stay in a psychiatric hospital. The first clinical certification for involuntary stay was done in the emergency room. I performed on second clinical certification for involuntary hospitalization 3 to [facility] unit due to the fact that he is delusional psychotic and non- redirectable. He'll be placed on 15 minute checks for safety of himself and others usual protocol for the unit. He'll be evaluated by medicine, psychiatry, nursing staff, social work and occupational therapy for integration within the [facility] milieu therapeutic environment. This client is unwilling to take any medications and thinks he had a go home. 08/31/2018: He is refusing medication because he does not want to strengthen her case that he is abnormal. He says he'll wait for court hearing on the [facility] the business services tech 09/01/2018: Discussed again medication of Seroquel and he states that he'll see after next Wednesday is waiting to see the business services tech because he is refusing any treatment. He occasionally goes to group but becomes hyper hinduism. 09/02/2018 discussed again with patient the use of medication and Seroquel which responded before to and again he is refusing until court date. He remains on 15 minute checks and usual protocol for the mental health] 09/05/2018: Discussed again with the patient the use of medication Seroquel. He denies being any medications and he is waiting to go to court. He is not participating in any treatment and an denial of any mental illness. 09/12/2018: Discussed with the patient the fact that he did not go to court it does not mean that he doesn't get treatment. He still has fair amount of psychotic behavior and fixed delusions don't call me Clive call Avery. Plan is today to give a Invega 234 mg injectable long-acting and watch for any major side effects. 09/13/2018: Discussed with the patient about the Invega. Also discussed that he would like some vitamins which I wrote for a 6 B-12 vitamin A. Encouraged to participate in groups for side effects of requirement for him to leaving the hospital. 09/14/2018: Patient states it is reported as and I am taking the medication. He still remains isolative and discuss that with him and he will attempt to make more groups for he needs to do that before he leaves the hospital. He will remain on 15 minute checks as usual and attempt to have them integrate into [facility] milieu and milieu therapeutic environment 09/15/2018: He will remain on 15 minute checks and encourage him to be integrated in the [facility] milieu therapeutic environment. He had his Invega to 234 mg injection on 09/12/2018 and will have to have a again on 10/11/2018. 09/16/2018: He will remain on 15 minute checks and encourage him to be integrated in the [place] milieu therapeutic environment. He had his Invega to 234 mg injection on 09/12/2018 and will add 3 mg Invega tonight. 09/17/2018: He will remain on 15 minute checks and encourage him to the in tegrated in [facility] milieu therapeutic environment. He continues to be hyperreligious and intrusive at times. Will consider using a mood stabilizer next sentence he appears to be fluctuating and his mood. We'll continue his Invega 3 mg by mouth daily at bedtime as well as the injection that he received 09/18/2018: Remains on 15 minute checks and usual work protocol. 09/19/2018: He remains on 15 minute checks, taking his Invega 3 mg at bedtime, interacting in [facility] milieu therapeutic environment sometimes inappropriate with other patients. Discussing disposition at 09/20/2018 and his follow-up care after taking meeting. 09/20/2018: He remains on 15 minute checks, and additional 156 mg of Invega IM and add Depakote 250 mg extended release at bedtime. He has still delusional and agitated and demanding. He has been invasive to other peers projecting his religiosity. 09/22/2018 remains on 15 minute checks and he will be placed on Cogentin 2 mg by mouth twice a day and maintain a Invega 3 mg by mouth daily at bedtime and Depakote 250 mg (1) Bipolar affective disorder, current episode manic with psychotic symptoms Current Visit: Yes Status: Acute Priority: High Code(s): F31.2 - BIPOLAR DISORD, CRNT EPISODE MANIC SEVERE W PSYCH FEATURES SNOMED Code(s): 710246120 Time with Patient: Less than 30
[2018-09-23 11:02] LABS: Basophils % (A) 0 %; Eosinophils # (A) 0.1 k/uL (0-0.7); Eosinophils % (A) 1 %; HCT 44.2 % (39.0-53.0); HGB 14.6 gm/dL (13.0-17.5); Lymphocytes # (A) 0.8 k/uL (1.0-4.8); Lymphocytes % (A) 11 %; MCH 28.5 pg (25.0-35.0); MCHC 33.1 g/dL (31.0-37.0); MCV 86.2 fL (80.0-100.0); Monocytes # (A) 0.4 k/uL (0-1.0); Monocytes % (A) 5 %; Neutrophils # (A) 6.3 k/uL (1.3-7.7); Neutrophils % (A) 82 %; Platelet Count 182 k/uL (150-450); RBC 5.12 m/uL (4.30-5.90); RDW 12.8 % (11.5-15.5); WBC 7.7 k/uL (3.8-10.6)
[2018-09-23 11:10] LABS: ALT 43 U/L (21-72); AST 28 U/L (17-59); Albumin 4.7 g/dL (3.5-5.0); Alkaline Phosphatase 69 U/L (38-126); Anion Gap 9 mmol/L; Blood Urea Nitrogen 16 mg/dL (9-20); Carbon Dioxide 27 mmol/L (22-30); Chloride 106 mmol/L (98-107); Glucose 97 mg/dL (74-99); Potassium 4.3 mmol/L (3.5-5.1); Sodium 142 mmol/L (137-145); Total Bilirubin 1.2 mg/dL (0.2-1.3); Total Protein 7.3 g/dL (6.3-8.2)
[2018-09-23 11:16] LABS: Valproic Acid (Depakene) 20.7 ug/mL
[2018-09-23] MEDS: ACETAMINOPHEN TAB 325 MG TAB PO PRN (17:00)
[2018-09-23] MEDS: LORazepam 1 MG TAB PO PRN (20:26)
[2018-09-23] MEDS: DIVALPROEX ER 250 MG TAB.ER.24H PO SCH (20:26)
[2018-09-23] MEDS: BENZTROPINE MESYLATE 1 MG TAB PO SCH (20:26)
[2018-09-23] MEDS: PALIPERIDONE 3 MG TAB.ER.24 PO SCH (20:27)
[2018-09-24] MEDS: BENZTROPINE MESYLATE 1 MG TAB PO SCH ×2 (09:09→20:29)
--- NOTE | 2018-09-24 14:34 | P.PN ---
Progress Note - Text IDENTIFICATION DATA: 28-year-old male with history of schizophrenia, bipolar disorder ,petitioned by the ACT team due to being non compliant with treatment, religiously preoccupied, delusional with illogical thought process. INTERVAL HISTORY: He reports he was going through an internal cox, stopped taking his medications, his dad became concerned about him and needed to come to the hospital. Since being in here he reports taking all his medications. He claims being started on cogentin yesterday seems to have leveled off the effects of all other medications. He currently reports feeling better. He reports to have slept well yesterday after taking cogentin. He reports good appetite. He denies current symptoms of depression. he reports feeling protected being in the hospital. He claims he goes to the groups he likes. He reports getting along well with other patients. No violent or aggressive behaviors reported. MENTAL STATUS EXAMINATION: He APPEARED HIS STATED AGE IN FAIR GROOMING AND HYGINE. He is pleasant and cooperative. He maintains good eye contact. His speech and thought process are linear and goal directed. His mood is euthymic and affect appropriate. The patient is alert and oriented 4 and in no apparent distress. denies current auditory or visual halluciantions. denies suicidal or homicidal ideation. insight and judgment are are improving. He is alert and oriented X 4. ASSESSMENT AND PLAN Bipolar disorder Cannabis abuse Continue current treatment
[2018-09-24] MEDS: DIVALPROEX ER 250 MG TAB.ER.24H PO SCH (20:29)
[2018-09-24] MEDS: PALIPERIDONE 3 MG TAB.ER.24 PO SCH (20:29)
[2018-09-25] MEDS: MAG HYDROX/AL HYDROX/SIMETH 30 ML CUP PO PRN (01:18)
[2018-09-25] MEDS: BENZTROPINE MESYLATE 1 MG TAB PO SCH ×2 (09:10→20:18)
--- NOTE | 2018-09-25 18:28 | P.PN ---
Progress Note - Text IDENTIFICATION DATA: 28-year-old male with history of schizophrenia, bipolar disorder ,petitioned by the ACT team due to being non compliant with treatment, religiously preoccupied, delusional with illogical thought process. INTERVAL HISTORY: Reports being complaint with medications. No side effects He reports doing well . He reports good sleep and appetite. He denies current symptoms of depression. He is compliant with unit routine MENTAL STATUS EXAMINATION: 28 year old male in fair grooming and hygiene. He is pleasant and cooperative. He maintains good eye contact. His speech and thought process are linear and goal directed. His mood is euthymic and affect appropriate. The patient is alert and oriented 4 . denies current auditory or visual halluciantions. denies suicidal or homicidal ideation. insight and judgment are are improving. ASSESSMENT AND PLAN Bipolar disorder Cannabis abuse Continue current treatment
[2018-09-25] MEDS: DIVALPROEX ER 250 MG TAB.ER.24H PO SCH (20:18)
[2018-09-25] MEDS: PALIPERIDONE 3 MG TAB.ER.24 PO SCH (20:19)
[2018-09-25] MEDS: ACETAMINOPHEN TAB 325 MG TAB PO PRN (20:20)
[2018-09-26 08:44] VITALS: BMI 23.8
[2018-09-26] MEDS: BENZTROPINE MESYLATE 1 MG TAB PO SCH ×2 (10:51→20:27)
--- NOTE | 2018-09-26 11:51 | P.PN ---
Subjective Progress Note Date: 09/26/18 Principal diagnosis: Schizoaffective Chart reviewed, discussed with nursing staff and was discussed in team this morning regarding diagnosis and prognosis. Patient was interviewed and discussed the willingness to take medications for his hyperreligiosity he states that he's not that is just a disciple of Daniel Zan and magical and peace. He then gets up and walks away. 09/01/2018: Chart reviewed and discussed with nursing staff reviewed vitals and interviewed patient. Discussed medication with him for his thought disorder and he is dates he'll wait until he goes to court. 09/02/2018: Chart reviewed and discussed with nursing staff. In interview patient and he wants a Ivan Shaun Bible which we don't have. He is refusing any medication and awaiting court. He is attending groups on occasion. 09/05/2018: Chart reviewed and discussed with nursing staff and discussed in team. In interviewing the patient he is not answering questions angrily looking at the interviewer and denies any suicidal homicidal threats however he does not answer these questions he just stares at. 09/12/2018: Chart reviewed and discussed with [facility] but is on a order for treatment, discussed with nursing staff and team this morning regarding long-term medication as an injectable form. Patient is very resistant to this and said that Jozef goes to sitting outside the door and when my goes to not get back together he'll my goes to Me That I Should Give Him Pills. Remains Delusional Psychotic Manipulative. 09/13/2018 chart review and discussed with nursing staff, and treatment team including with [facility]. Patient is more pleasant today and ap pears that he is engaging not going to groups. He tends to walk the [place]. He is informed that he must go to groups before he can leave. No sabianist was mentioned today. Denies suicidal or homicidal ideation 09/14/2018 chart reviewed, discussed with nursing staff in detail, discussed with community mental health and team and meeting this morning for prognosis and current disposition. Patient still remains isolative wanted to have some vitamins which were written for him, otherwise he still remains distant is suggestive reactive affect and some manipulation. 09/15/2018: Chart reviewed and discussed with nursing staff and social work regarding his participation in groups. Patient is now starting to talk to peers and other and is able to come out of his room and communicate. He still states that there is nothing wrong with him and he is less judaism in nature. He was grateful for the vitamins that was per provided to him yesterday on a daily basis. Discussed with him what he needs to do so that he may be released from the psychiatric unit. 09/16/2018: chart reviewed and discussed in team; inappropriate with another peer. Denies si/hi but states her is here by word of god to take cell phones away. 09/17/2018: Chart reviewed and discussed with nursing staff today. He has been hyperreligious with myself today and argumentative at times. He was redirectable. He asked about another patient that the peer should be transferred to another floor was inappropriate to be here and redirected him again. 09/18/2018:Chart reviewed and discussed with nursing staff today. He has been hyperreligious with myself today and argumentative at times. He was redirectable. He asked about another patient that the peer should be transferred to another floor was inappropriate to be here and redirected him again. 09/19/2018 chart reviewed and discussed in detail with nursing staff, discussed in team meeting today and interviewed the patient. He and not mention any sabianist today which is a first. He did not argue with me which is a first. We talked about discharge planning and how he'll have to stay on his medications or he'll be returned to the hospital for continued psychiatric treatment. 09/20/2018: Chart reviewed and discussed with nursing staff and decided to bring patient into team meeting today to discuss his discharge and disposition placement and aftercare. He became irate isolative stating that if the physician does not call Avery that he will define me. He then curled up in a ball chanting and had to be taken out of the room by staff and security. 09/22/2018 chart reviewed and discussed the patient describes side effects from Invega. He is intermittently staying to himself and is not tense and irritable agitating denies any suicidal or homicidal ideation 09/26/2018: Awaiting placement in correction. He is adherent to his medications and does not describe any side effects today. He is intermittently staying to himself and at other times going to groups. He denies any suicidal homicidal or psychotic ideation. He does have an odd affect and found quite frequently praying to himself. Objective - Vital Signs Vital signs: Vital Signs Temp 97.4 F L 09/26/18 00:27 Pulse 65 09/26/18 00:27 Resp 14 09/26/18 00:27 BP 112/70 09/26/18 00:27 Pulse Ox 98 08/29/18 08:23 Intake & Output 09/25/18 09/26/18 09/26/18 18:59 06:59 18:59 Weight 79.8 kg 79.8 kg - Labs CBC & Chem 7: 09/23/18 10:48 09/23/18 10:48 Assessment and Plan Assessment: 28-year-old male presents for psychiatric evaluation. Patient has history of schizophrenia, bipolar disorder. He was evaluated earlier today for retirement clearance. He was taken to retirement and is brought back by local police for psychiatric evaluation. Patient has loose association, he is singing in the triage l[place]. He refused to take his clothes off for further evaluation. Patient is not logical, not able to answer questions appropriately. Patient is hyperreligious. Pt. presents as alert and oriented to person, place, and time with clear speech. Pt. reports that the police brought him to the after releasing him from retirement without being charged. Denies knowing why he was brought to the hospital. Pt. then started speaking about God and how he must have been sent here because he is the disciple of Daniel Zuluaga. Pt. then repeatly stated, "Cortez, may the Lord rebuke you." Pt. referred to himself in the third person (Avery) when talking and refused to go by the name Clive. When questioned his he hears the voice of God he stated, "I will not answer that question, if you don't know what a disciple of Daniel Zan is then go read it in the bible. There is an active war going on in hell right now." Per [facility] hospital liasion, the pt. is currently scheduled for a jury trial in December for non-compliance with his outpatient treatment. Lilo from [facility] returned this writers call. Over the weekend the pt. was assessed at the retirement by ACT team supervisior Brook who petitioned him for hospitalization. CHEMICAL DEPENDENCY HISTORY: growing up using all drugs, never got in to one, now only marijuana, . FAMILY PSYCHIATRIC HISTORY: father and brother with autism spectrum disorder. FAMILY CHEMICAL DEPENDENCY HISTORY:both parents are alcoholic LEGAL HISTORY: Just in retirement for 2 weeks for probation violation. He has a case coming up in December SOCIAL HISTORY: [Born and raised in [place], mother raised from , parents since age 2. Brother raised by father. Had normal main stream classes. Poor academic performance. GED. never, no children, states he was but now they're , heterosexual. 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 Mental Status Examination - General Appearance: [casual, bizarre, appears stated age, Speech/Language: [ rapid, rambled, hesitant, halting, expressive, soft, other utterances] Attitude/Behavior: [ guarded, irritable, withdrawn, indifferent, other] Mood: [ euphoric, anxious, elated, irritable Affect: [lively, incongruent, labile, Orientation: [time, person, place situation] Thought Content: [wnl, delusionsI am disciple of Daniel Zuluaga to do his preaching Risk Factors: [Denies suicidal (ideations, plan), and/or Homicidal (ideations, plan), other] Perception: [wnl, responding to hallucinations (auditory, visual, tactile) Thought Processes: [ concrete, circumstantial, tangential, other] Concentration/Attention Span: [ impaired] [Per observation and interview with the patient] Recent Memory: [ impaired] Remote Memory: [wnl] [past events, as related history] Intelligence: [average] [based on history, based on vocabulary, syntax, grammar, and content] Judgement: [ poor] [per patient's behavior/history of present illness] Insight: [poor] [understanding severity of illness/history of present illness] Admitting Diagnosis: [Bipolar affective disorder acute psychosis; marijuana use disorder Doubt Autistic Spectrum DO] Initial Plan of Care: [He is on a involuntary basis admitted to the hospital after he was picked up and assessed at the retirement whereby the act team did a petition for involuntary stay in a psychiatric hospital. The first clinical certification for involuntary stay was done in the emergency room. I performed on second clinical certification for involuntary hospitalization 3 to [facility] due to the fact that he is delusional psychotic and non- redirectable. He'll be placed on 15 minute checks for safety of himself and others usual protocol for the unit. He'll be evaluated by medicine, psychiatry, nursing staff, social work and occupational therapy for integration within the [facility] milieu therapeutic environment. This client is unwilling to take any medications and thinks he had a go home. 08/31/2018: He is refusing medication because he does not want to strengthen her case that he is abnormal. He says he'll wait for court hearing on the Bless the tobacco sweeper 09/01/2018: Discussed again medication of Seroquel and he states that he'll see after next Wednesday is waiting to see the tobacco sweeper because he is refusing any treatment. He occasionally goes to group but becomes hyper judaism. 09/02/2018 discussed again with patient the use of medication and Seroquel which responded before to and again he is refusing until court date. He remains on 15 minute checks and usual protocol for the mental health] 09/05/2018: Discussed again with the patient the use of medication Seroquel. He denies being any medications and he is waiting to go to court. He is not participating in any treatment and an denial of any mental illness. 09/12/2018: Discussed with the patient the fact that he did not go to court it does not mean that he doesn't get treatment. He still has fair amount of p sychotic behavior and fixed delusions don't call me Clive call Avery. Plan is today to give a Invega 234 mg injectable long-acting and watch for any major side effects. 09/13/2018: Discussed with the patient about the Invega. Also discussed that he would like some vitamins which I wrote for a 6 B-12 vitamin A. Encouraged to participate in groups for side effects of requirement for him to leaving the hospital. 09/14/2018: Patient states it is reported as and I am taking the medication. He still remains isolative and discuss that with him and he will attempt to make more groups for he needs to do that before he leaves the hospital. He will remain on 15 minute checks as usual and attempt to have them integrate into [facility] milieu and milieu therapeutic environment 09/15/2018: He will remain on 15 minute checks and encourage him to be integrated in the [facility] milieu therapeutic environment. He had his Invega to 234 mg injection on 09/12/2018 and will have to have a again on 10/11/2018. 09/16/2018: He will remain on 15 minute checks and encourage him to be integrated in the [facility] milieu therapeutic environment. He had his Invega to 234 mg injection on 09/12/2018 and will add 3 mg Invega tonight. 09/17/2018: He will remain on 15 minute checks and encourage him to the integrated in [facility] milieu therapeutic environment. He continues to be hyperreligious and intrusive at times. Will consider using a mood stabilizer next sentence he appears to be fluctuating and his mood. We'll continue his Invega 3 mg by mouth daily at bedtime as well as the injection that he received 09/18/2018: Remains on 15 minute checks and usual work protocol. 09/19/2018: He remains on 15 minute checks, taking his Invega 3 mg at bedtime, interacting in [facility] milieu therapeutic environment sometimes inappropriate with other patients. Discussing disposition at 09/20/2018 and his follow-up care after taking meeting. 09/20/2018: He remains on 15 minute checks, and additional 156 mg of Invega IM and add Depakote 250 mg extended release at bedtime. He has still delusional and agitated and demanding. He has been invasive to other peers projecting his religiosity. 09/22/2018 remains on 15 minute checks and he will be placed on Cogentin 2 mg by mouth twice a day and maintain a Invega 3 mg by mouth daily at bedtime and Depa kote 250 mg 09/26/2018: His Depakote is 20 and he has been refusing his twice a day dose of Cogentin usually only takes at bedtime. Maintain on Invega 3 mg by mouth daily at bedtime and Depakote 250 mg by mouth daily at bedtime disposition this current issue in finding him a correction. (1) Bipolar affective disorder, current episode manic with psychotic symptoms Current Visit: Yes Status: Acute Priority: High Code(s): F31.2 - BIPOLAR DISORD, CRNT EPISODE MANIC SEVERE W PSYCH FEATURES SNOMED Code(s): 923611476 Time with Patient: Less than 30
[2018-09-26] MEDS: MAG HYDROX/AL HYDROX/SIMETH 30 ML CUP PO PRN (17:01)
[2018-09-26] MEDS: DIVALPROEX ER 250 MG TAB.ER.24H PO SCH (20:27)
[2018-09-26] MEDS: PALIPERIDONE 3 MG TAB.ER.24 PO SCH (20:27)
[2018-09-27 06:29] VITALS: BP 111/65; PULSE 80; RESP 16; TEMP 97.7
[2018-09-27] MEDS: BENZTROPINE MESYLATE 1 MG TAB PO SCH (10:11)
--- NOTE | 2018-09-27 11:07 | P.DS ---
Providers Date of admission: 08/29/18 15:24 Expected date of discharge: 09/27/18 Attending physician: Erlin Keyes DO Consults: 08/29/18 16:19 Consult Physician Routine Consulting Provider: Sonido Paulson Consult Reason/Comments: H&P for mental health admission Do you want consulting provider notified?: Yes Primary care physician: Stated None - Discharge Diagnosis(es) (1) Bipolar affective disorder, current episode manic with psychotic symptoms Allergies Allergy/AdvReac Type Severity Reaction Status Date / Time dextromethorphan AdvReac Hallucinati Verified 08/28/18 22:49 ons guaifenesin AdvReac Hallucinati Verified 08/28/18 22:49 ons lurasidone [From Latuda] AdvReac Suicidal Verified 08/28/18 22:49 Ideation Vital Signs Temp 98.6 F 08/30/18 06:18 Pulse 88 08/30/18 06:18 Resp 14 08/30/18 06:18 BP 130/67 08/30/18 06:18 Pulse Ox 98 08/29/18 08:23 Laboratory Last Values Urine Opiates Screen Not Detected (NotDetected) 08/29/18 04:30 Ur Oxycodone Screen Not Detected (NotDetected) 08/29/18 04:30 Urine Methadone Screen Not Detected (NotDetected) 08/29/18 04:30 Ur Propoxyphene Screen Not Detected (NotDetected) 08/29/18 04:30 Ur Barbiturates Screen Not Detected (NotDetected) 08/29/18 04:30 U Tricyclic Antidepress Not Detected (NotDetected) 08/29/18 04:30 Ur Phencyclidine Scrn Not Detected (NotDetected) 08/29/18 04:30 Ur Amphetamines Screen Not Detected (NotDetected) 08/29/18 04:30 U Methamphetamines Scrn Not Detected (NotDetected) 08/29/18 04:30 U Benzodiazepines Scrn Detected (NotDetected) H 08/29/18 04:30 Urine Cocaine Screen Not Detected (NotDetected) 08/29/18 04:30 U Marijuana (THC) Screen Detected (NotDetected) H 08/29/18 04:30 Assessment and Plan Assessment: 28-year-old male presents for psychiatric evaluation. Patient has history of schizophrenia, bipolar disorder. He was evaluated earlier today for group home clearance. He was taken to group home and is brought back by local police for psychiatric evaluation. Patient has loose association, he is singing in the triage luevano. He refused to take his clothes off for further evaluation. Patient is not logical, not able to answer questions appropriately. Patient is hyperreligious. Pt. presents as alert and oriented to person, place, and time with clear speech. Pt. reports that the police brought him to the after releasing him from group home without being charged. Denies knowing why he was brought to the hospital. Pt. then started speaking about God and how he must have been sent here because he is the disciple of Daniel Zuluaga. Pt. then repeatly stated, "Satan, may the Lord rebuke you." Pt. referred to himself in the third person (Avery) when talking and refused to go by the name Clive. When questioned his he hears the voice of God he stated, "I will not answer that question, if you don't know what a disciple of Daniel Zuluaga is then go read it in the bible. There is an active war going on in hell right now." Per [facility] hospital liasion, the pt. is currently scheduled for a jury trial in December for non-compliance with his outpatient treatment. Lilo from mobile crisis returned this writers call. Over the weekend the pt. was assessed at the group home by ACT team supervisior Brook who petitioned him for hospitalization. - Related Data Home Medications Medication Instructions Recorded Confirmed No Known Home Medications 08/28/18 08/28/18 Allergies Allergy/AdvReac Type Severity Reaction Status Date / Time dextromethorphan AdvReac Hallucinati Verified 08/28/18 22:49 ons guaifenesin AdvReac Hallucinati Verified 08/28/18 22:49 ons lurasidone [From Latuda] AdvReac Suicidal Verified 08/28/18 22:49 Ideation Past Medical History Past Medical History: Asthma Additional Past Medical History / Comment(s): aspergers, delusional disorder History of Any Multi-Drug Resistant Organisms: None Reported Past Surgical History: No Surgical Hx Reported Past Anesthesia/Blood Transfusion Reactions: No Reported Reaction Past Psychological History: Anxiety Smoking Status: Light tobacco smoker Past Alcohol Use History: None Reported Past Drug Use History: None Reported CHEMICAL DEPENDENCY HISTORY: growing up using all drugs, never got in to one, now only marijuana, . FAMILY PSYCHIATRIC HISTORY: father and brother with autism spectrum disorder. FAMILY CHEMICAL DEPENDENCY HISTORY:both parents are alcoholic LEGAL HISTORY: Just in group home for 2 weeks for probation violation. He has a case coming up in December SOCIAL HISTORY: [Born and raised in [place], mother raised from , parents since age 2. Brother raised by father. Had normal main stream classes. Poor academic performance. GED. never, no children, states he was but now they're , heterosexual. 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 chizoaffective Chart reviewed, discussed with nursing staff and was discussed in team this morning regarding diagnosis and prognosis. Patient was interviewed and discussed the willingness to take medications for his hyperreligiosity he states that he's not that is just a disciple of [employer] and magical and peace. He then gets up and walks away. 09/01/2018: Chart reviewed and discussed with nursing staff reviewed vitals and interviewed patient. Discussed medication with him for his thought disorder and he is dates he'll wait until he goes to court. 09/02/2018: Chart reviewed and discussed with nursing staff. In interview patient and he wants a Ivan Shaun Bible which we don't have. He is refusing any medication and awaiting court. He is attending groups on occasion. 09/05/2018: Chart reviewed and discussed with nursing staff and discussed in team. In interviewing the patient he is not answering questions angrily looking at the interviewer and denies any suicidal homicidal threats however he does not answer these questions he just stares at. 09/12/2018: Chart reviewed and discussed with [facility] but is on a order for treatment, discussed with nursing staff and team this morning regarding long-term medication as an injectable form. Patient is very resistant to this and said that Jozef goes to sitting outside the door and when my goes to not get back together he'll my goes to Me That I Should Give Him Pills. Remains Delusional Psychotic Manipulative. 09/13/2018 chart review and discussed with nursing staff, and treatment team including with community mental health. Patient is more pleasant today and appears that he is engaging not going to groups. He tends to walk the [place]kinson. He is informed that he must go to groups before he can leave. No jain was mentioned today. Denies suicidal or homicidal ideation 09/14/2018 chart reviewed, discussed with nursing staff in detail, discussed with [facility] and team and meeting this morning for prognosis and current disposition. Patient still remains isolative wanted to have some vitamins which were written for him, otherwise he still remains distant is suggestive reactive affect and some manipulation. 09/15/2018: Chart reviewed and discussed with nursing staff and social work regarding his participation in groups. Patient is now starting to talk to peers and other and is able to come out of his room and communicate. He still states that there is nothing wrong with him and he is less restoration in nature. He was grateful for the vitamins that was per provided to him yesterday on a daily basis. Discussed with him what he needs to do so that he may be released from the psychiatric unit. 09/16/2018: chart reviewed and discussed in team; inappropriate with another peer. Denies si/hi but states her is here by word of god to take cell phones away. 09/17/2018: Chart reviewed and discussed with nursing staff today. He has been hyperreligious with myself today and argumentative at times. He was redirectable. He asked about another patient that the peer should be transferred to another floor was inappropriate to be here and redirected him again. 09/18/2018:Chart reviewed and discussed with nursing staff today. He has been hyperreligious with myself today and argumentative at times. He was redirectable. He asked about another patient that the peer should be transferred to another floor was inappropriate to be here and redirected him again. 09/19/2018 chart reviewed and discussed in detail with nursing staff, discussed in team meeting today and interviewed the patient. He and not mention any jain today which is a first. He did not argue with me which is a first. We talked about discharge planning and how he'll have to stay on his medications or he'll be returned to the hospital for continued psychiatric treatment. 09/20/2018: Chart reviewed and discussed with nursing staff and decided to bring patient into team meeting today to discuss his discharge and disposition placement and aftercare. He became irate isolative stating that if the physician does not call Avery that he will define me. He then curled up in a ball chanting and had to be taken out of the room by staff and security. 09/22/2018 chart reviewed and discussed the patient describes side effects from Invega. He is intermittently staying to himself and is not tense and irritable agitating denies any suicidal or homicidal ideation 09/26/2018: Awaiting placement in custodial. He is adherent to his medications and does not describe any side effects today. He is intermittently staying to himself and at other times going to groups. He denies any suicidal homicidal or psychotic ideation. He does have an odd affect and found quite frequently praying to himself. Current Visit: Yes Status: Acute Priority: Low Hospital Course: Plan of Care: [He is on a involuntary basis admitted to the hospital after he was picked up and assessed at the group home whereby the act team did a petition for involuntary stay in a psychiatric hospital. The first clinical certification for involuntary stay was done in the emergency room. I performed on second clinical certification for involuntary hospitalization 3 to [facility] due to the fact that he is delusional psychotic and non-redirectable. He'll be placed on 15 minute checks for safety of himself and others usual protocol for the unit. He'll be evaluated by medicine, psychiatry, nursing staff, social work and occupational therapy for integration within the [facility] milieu therapeutic environment. This client is unwilling to take any medications and thinks he had a go home. 08/31/2018: He is refusing medication because he does not want to strengthen her case that he is abnormal. He says he'll wait for court hearing on the Bless the paper sealer 09/01/2018: Discussed again medication of Seroquel and he states that he'll see after next Wednesday is waiting to see the paper sealer because he is refusing any treatment. He occasionally goes to group but becomes hyper restoration. 09/02/2018 discussed again with patient the use of medication and Seroquel which responded before to and again he is refusing until court date. He remains on 15 minute checks and usual protocol for the mental health] 09/05/2018: Discussed again with the patient the use of medication Seroquel. He denies being any medications and he is waiting to go to court. He is not participating in any treatment and an denial of any mental illness. 09/12/2018: Discussed with the patient the fact that he did not go to court it does not mean that he doesn't get treatment. He still has fair amount of psychotic behavior and fixed delusions don't call me Clive call Avery. Plan is today to give a Invega 234 mg injectable long-acting and watch for any major side effects. 09/13/2018: Discussed with the patient about the Invega. Also discussed that he would like some vitamins which I wrote for a 6 B-12 vitamin A. Encouraged to participate in groups for side effects of requirement for him to leaving the hospital. 09/14/2018: Patient states it is reported as and I am taking the medication. He still remains isolative and discuss that with him and he will attempt to make more groups for he needs to do that before he leaves the hospital. He will remain on 15 minute checks as usual and attempt to have them integrate into lund[facility] milieu and milieu therapeutic environment 09/15/2018: He will remain on 15 minute checks and encourage him to be integrated in the [facility] milieu therapeutic environment. He had his Invega to 234 mg injection on 09/12/2018 and will have to have a again on 10/11/2018. 09/16/2018: He will remain on 15 minute checks and encourage him to be integrated in the [facility] milieu therapeutic environment. He had his Invega to 234 mg injection on 09/12/2018 and will add 3 mg Invega tonight. 09/17/2018: He will remain on 15 minute checks and encourage him to the integrated in [facility] milieu therapeutic environment. He continues to be hyperreligious and intrusive at times. Will consider using a mood stabilizer next sentence he appears to be fluctuating and his mood. We'll continue his Invega 3 mg by mouth daily at bedtime as well as the injection that he received 09/18/2018: Remains on 15 minute checks and usual work protocol. 09/19/2018: He remains on 15 minute checks, taking his Invega 3 mg at bedtime, interacting in [facility] milieu therapeutic environment sometimes inappropriate with other patients. Discussing disposition at 09/20/2018 and his follow-up care after taking meeting. 09/20/2018: He remains on 15 minute checks, and additional 156 mg of Invega IM and add Depakote 250 mg extended release at bedtime. He has still delusional and agitated and demanding. He has been invasive to other peers projecting his religiosity. 09/22/2018 remains on 15 minute checks and he will be placed on Cogentin 2 mg by mouth twice a day and maintain a Invega 3 mg by mouth daily at bedtime and Depakote 250 mg 09/26/2018: His Depakote is 20 and he has been refusing his twice a day dose of Cogentin usually only takes at bedtime. Maintain on Invega 3 mg by mouth daily at bedtime and Depakote 250 mg by mouth daily at bedtime disposition this current issue in finding him a custodial. Mental status examination time of discharge: The patient presents alert, pleasant, and cooperative. There calmly seated without any agitated behavior. [he] reports that [his] mood is good. Affect is congruent and euthymic. [he] deny having any suicidal or homicidal ideation intent or plan. [he] denies any auditory or visual hallucinations. There is no evidence of any delusional thought content. [his] thought process is linear and goal-directed. [his] speech is fluent and nonpressured. [his] memory and concentration is grossly intact for the purposes of this session. Patient Condition at Discharge: Stable Plan - Discharge Summary Discharge Rx Participant: Yes New Discharge Prescriptions: New Benztropine Mesylate [Cogentin] 2 mg PO DAILY 30 Days #60 tab Divalproex ER [Depakote ER] 250 mg PO 2100 30 Days #30 tab.er.24h Paliperidone [Invega] 3 mg PO 2100 30 Days #30 tab.er.24 Paliperidone IM [Invega Sustenna] 234 mg IM ONCE 28 Days #1 syringe Acetaminophen Tab [Tylenol] 650 mg PO Q4HR PRN tab PRN Reason: Pain/Discomfort Discharge Medication List Acetaminophen Tab [Tylenol] 650 mg PO Q4HR PRN tab 09/27/18 [Rx] Benztropine Mesylate [Cogentin] 2 mg PO DAILY 30 Days #60 tab 09/27/18 [Rx] Divalproex ER [Depakote ER] 250 mg PO 2100 30 Days #30 tab.er.24h 09/27/18 [Rx] Paliperidone IM [Invega Sustenna] 234 mg IM ONCE 28 Days #1 syringe 09/27/18 [Rx] Paliperidone [Invega] 3 mg PO 2100 30 Days #30 tab.er.24 09/27/18 [Rx] Follow up Appointment(s)/Referral(s): None,Stated [Primary Care Provider] - 1-2 days Discharge Disposition: OTHER INSTITUTION NOT DEFINED
[2018-10-17] MEDS ORDERED: PALIPERIDONE IM 234 MG/1.5 ML SYG IM ONE (09:00)
== END 2018-09-27 16:29 | disposition home or self-care (01) | DRG 885 ==
LOC: EC 21:07 → 3MHU 08-29 15:24
PROVIDERS: ADMIT Psychiatry & Neurology Psychiatry; ATTEND Psychiatry & Neurology Psychiatry
DX: F31.2 Bipolar disorder, current episode manic severe with psychotic features (principal); F12.10 Cannabis abuse, uncomplicated; F84.5 Asperger's syndrome; F41.9 Anxiety disorder, unspecified; J45.909 Unspecified asthma, uncomplicated; Z78.1 Physical restraint status; F17.210 Nicotine dependence, cigarettes, uncomplicated; Z79.899 Other long term (current) drug therapy; Z81.1 Family history of alcohol abuse and dependence; Z91.19 Patient's noncompliance with other medical treatment and regimen; Z65.3 Problems related to other legal circumstances; Z56.0 Unemployment, unspecified; Z88.8 Allergy status to other drugs, medicaments and biological substances
CPT/HCPCS: 80053; 80061; 80164; 80306; 81003; 82075; 82140; 83036; 84443; 85025; 99285

== ENCOUNTER 2018-10-11 19:23 | Inpatient (IN) | payer MEDICAID, OTHER ==
[2018-10-11 19:30] VITALS: RESP 18
--- NOTE | 2018-10-11 19:42 | ED ---
General Adult HPI - General Chief complaint: Psychiatric Symptoms Stated complaint: superintendent sales order Time Seen by Provider: 10/11/18 19:36 Source: patient, police Mode of arrival: ambulatory Limitations: no limitations - History of Present Illness Initial comments: Dictation was produced using [employer] dictation software. please excuse any grammatical, word or spelling errors. Chief Complaint: 28-year-old male past medical history of Asperger's and delusional disorder presents with pickup order by law enforcement. History of Present Illness: he is a 28-year-old male. He is brought in by law enforcement. Currently patient had not been going to his appointments or take his medications. Law enforcement was contacted and patient was picked up and brought to the emergency department. Patient has no complaints at this time. Denies any suicidal or homicidal ideation. The ROS documented in this emergency department record has been reviewed and confirmed by me. Those systems with pertinent positive or negative responses have been documented in the HPI. All other systems are other negative and/or noncontributory. PHYSICAL EXAM: General Impression: Alert and oriented x3, not in acute distress HEENT: Normocephalic atraumatic, extra-ocular movements intact, pupils equal and reactive to light bilaterally, mucous membranes moist. Cardiovascular: Heart regular rate and rhythm, S1&S2 audible, no murmurs, rubs or gallops Chest: Lungs clear to auscultation bilaterally, no rhonchi, no wheeze, no rales Abdomen: Bowel sounds present, abdomen soft, non-tender, non-distended, no organomegaly Musculoskeletal: Pulses present and equal in all extremities, no peripheral edema Motor: no focal deficits noted Neurological: CN II-XII grossly intact, no focal motor or sensory deficits noted Skin: Intact with no visualized rashes Psych: Normal affect and mood ED course: 28 yo male presents with pickup order by law enforcement. Signs upon arrival are within acceptable limits. Patient denies any suicidal or homicidal ideation. Patient not showing any signs of acute psychosis. No visual or auditory hallucinations. Patient case was evaluated by EPS. Apparently patient had eloped from previous inpatient psychiatric unit. Patient be admitted to inpatient psychiatry. - Related Data Home Medications Medication Instructions Recorded Confirmed Benztropine Mesylate [Cogentin] 2 mg PO HS 10/11/18 10/11/18 Divalproex ER [Depakote ER] 250 mg PO HS 10/11/18 10/11/18 [place] Carbonate 600 mg PO HS 10/11/18 10/11/18 Paliperidone IM [Invega Sustenna] 234 mg IM QMONTH 10/11/18 10/11/18 Paliperidone [Invega] 3 mg PO HS 10/11/18 10/11/18 Allergies Allergy/AdvReac Type Severity Reaction Status Date / Time divalproex sodium Allergy Unknown Verified 10/11/18 20:16 [From Depakote] dextromethorphan AdvReac Hallucinati Verified 10/11/18 20:16 ons guaifenesin AdvReac Hallucinati Verified 10/11/18 20:16 ons lurasidone [From Latuda] AdvReac Suicidal Verified 10/11/18 20:16 Ideation Review of Systems ROS Statement: Those systems with pertinent positive or pertinent negative responses have been documented in the HPI. ROS Other: All systems not noted in ROS Statement are negative. Past Medical History Past Medical History: Asthma Additional Past Medical History / Comment(s): aspergers, delusional disorder History of Any Multi-Drug Resistant Organisms: None Reported Past Surgical History: No Surgical Hx Reported Past Anesthesia/Blood Transfusion Reactions: No Reported Reaction Past Psychological History: Anxiety Smoking Status: Current some day smoker Past Alcohol Use History: None Reported Past Drug Use History: Marijuana General Exam Limitations: no limitations Course Vital Signs 10/11/18 19:26 Temperature 97.7 F Pulse Rate 99 Respiratory 18 Rate Blood Pressure 150/94 O2 Sat by Pulse 100 Oximetry Medical Decision Making - Lab Data Lab Results 10/11/18 Range/Units 19:58 Urine Opiates Screen Not Detected (NotDetected) Ur Oxycodone Screen Not Detected (NotDetected) Urine Methadone Screen Not Detected (NotDetected) Ur Propoxyphene Screen Not Detected (NotDetected) Ur Barbiturates Screen Not Detected (NotDetected) U Tricyclic Antidepress Not Detected (NotDetected) Ur Phencyclidine Scrn Not Detected (NotDetected) Ur Amphetamines Screen Not Detected (NotDetected) U Methamphetamines Scrn Not Detected (NotDetected) U Benzodiazepines Scrn Not Detected (NotDetected) Urine Cocaine Screen Not Detected (NotDetected) U Marijuana (THC) Screen Detected H (NotDetected) Disposition Clinical Impression: Psychosis Disposition: ADMITTED IP TO THIS [facility] Condition: Fair Referrals: None,Stated [REFERRING] - 1-2 days Decision Time: 21:52
[2018-10-11 20:45] LABS: Amphetamine Screen,Urine Not Detected (NotDetected); Barbiturate Screen,Urine Not Detected (NotDetected); Benzodiazepines Screen,Urine Not Detected (NotDetected); Cocaine Screen,Urine Not Detected (NotDetected); Methadone Screen, Urine Not Detected (NotDetected); Opiate Screen,Urine Not Detected (NotDetected); Oxycodone Screen, Urine Not Detected (NotDetected); Phencyclidine Screen,Urine Not Detected (NotDetected); Tricyclic Antidepressant,Urine Not Detected (NotDetected); Urn Cannabinoid Scrn Detected (NotDetected)
[2018-10-12] MEDS ORDERED: ACETAMINOPHEN TAB 325 MG TAB PO PRN (00:38)
[2018-10-12] MEDS ORDERED: MAGNESIUM HYDROXIDE 2,400 MG/10 ML CUP PO PRN (00:38)
[2018-10-12] MEDS ORDERED: LORazepam 1 MG TAB PO PRN (00:38)
[2018-10-12] MEDS ORDERED: ZIPRASIDONE 20 MG VIAL IM PRN (00:38)
[2018-10-12] MEDS ORDERED: LORazepam 2 MG/ML INJ IM PRN (00:41)
[2018-10-12 00:43] VITALS: BP 112/72; PULSE 86; TEMP 97
[2018-10-12] MEDS: MAG HYDROX/AL HYDROX/SIMETH 30 ML CUP PO PRN (01:50)
[2018-10-12] MEDS: LITHIUM CARBONATE 300 MG CAP PO SCH ×2 (01:50→20:42)
[2018-10-12] MEDS: BENZTROPINE MESYLATE 1 MG TAB PO SCH ×2 (01:56→20:43)
[2018-10-12] MEDS ORDERED: PALIPERIDONE IM 234 MG/1.5 ML SYG IM STA (11:54)
--- NOTE | 2018-10-12 11:56 | P.HP ---
Psychiatric H&P - . H&P Date: 10/12/18 History & Physical: Allergies Allergy/AdvReac Type Severity Reaction Status Date / Time divalproex sodium Allergy Unknown Verified 10/12/18 03:09 [From Depakote] dextromethorphan AdvReac Hallucinati Verified 10/12/18 03:09 ons guaifenesin AdvReac Hallucinati Verified 10/12/18 03:09 ons lurasidone [From Latuda] AdvReac Suicidal Verified 10/12/18 03:09 Ideation Vital Signs Temp 97 F L 10/12/18 00:41 Pulse 86 10/12/18 00:41 Resp 18 10/12/18 00:41 BP 112/72 10/12/18 00:41 Pulse Ox 98 10/12/18 00:29 Intake & Output 10/11/18 10/12/18 10/12/18 18:59 06:59 18:59 Weight 79.379 kg Laboratory Last Values Urine Opiates Screen Not Detected (NotDetected) 10/11/18 19:58 Ur Oxycodone Screen Not Detected (NotDetected) 10/11/18 19:58 Urine Methadone Screen Not Detected (NotDetected) 10/11/18 19:58 Ur Propoxyphene Screen Not Detected (NotDetected) 10/11/18 19:58 Ur Barbiturates Screen Not Detected (NotDetected) 10/11/18 19:58 U Tricyclic Antidepress Not Detected (NotDetected) 10/11/18 19:58 Ur Phencyclidine Scrn Not Detected (NotDetected) 10/11/18 19:58 Ur Amphetamines Screen Not Detected (NotDetected) 10/11/18 19:58 U Methamphetamines Scrn Not Detected (NotDetected) 10/11/18 19:58 U Benzodiazepines Scrn Not Detected (NotDetected) 10/11/18 19:58 Urine Cocaine Screen Not Detected (NotDetected) 10/11/18 19:58 U Marijuana (THC) Screen Detected (NotDetected) H 10/11/18 19:58 Assessment and Plan (1) Delusional disorder Narrative/Plan: Chief Complaint: 28-year-old male past medical history of Asperger's and delusional disorder presents with pickup order by law enforcement. History of Present Illness: he is a 28-year-old male. He is brought in by law enforcement. Currently patient had not been going to his appointments or take his medications. Law enforcement was contacted and patient was picked up and brought to the emergency department. Patient has no complaints at this time. Denies any suicidal or homicidal ideation. Pt. then started speaking about God and how he must have been sent here because he is the disciple of Daniel Zuluaga. Pt. then repeatly stated, "Satan, may the Lord rebuke you." Pt. referred to himself in the third person (Avery) when talking and refused to go by the name Clive. When questioned his he hears the voice of God he stated, "I will not answer that question, if you don't know what a disciple of Daniel Zuluaga is then go read it in the bible. There is an active war going on in [place] right now." Per [facility] hospital liasion, the pt. is currently scheduled for a jury trial in December for non-compliance with his outpatient treatment. Lilo from [facility] returned this writers call. Over the weekend the pt. was assessed at the assisted by ACT team supervisior Brook who petitioned him for hospitalization. pt states "it was a bean picker order I really dont know why I havent done anything" pt denies any suicidal or homicidal ideation pt states that he is here because "I have court on Wednesday and I decided to make myself AWOL with [facility] and I stopped my meds." pt is on a treatment order from the court and was required to attend mental health services, comply with medication regimen, and maintain housing. pt reports that he has not taken his medications since leaving [facility]. pt states, "I was told I would be put in a long-term facility if I came back again, so I was hoping I wouldn't get Dr. Keyes again. We just didn't mesh well." pt also states, "I came here, got put on medications, and they got changed. [place] works better. Depakote felt too much like Latuda." pt presents with flat affect and makes poor eye contact. pt reports that "I would take the meds if I had them, but I didn't. I know I'm court ordered. But I left them at [facility] and I would have to turn myself in to get them." pt also states, "The lady at [facility] told me that I shouldn't leave [facility], but I did. She said it was part of the court order, but I didn't believe her." pt also elaborates, "I just don't like the power of the court to being in the hands of Dr. Keyes." pt states that this has occurred "all because I'm trying to warn people of the danger of cell phones and it's the end of times." pt also reports that a baptism that he attended occasionally attempted to exorcise a demon from him and it went wrong. pt states, "I feel like I am being persecuted for my faith by Dr. Keyes." pt states that he has court on Wednesday for trespassing on baptism property because "I forgot it was no trespassing." Cruise Coordinator spoke with Christiano from the ACT team regarding pt and was informed that admission to [facility]HU was acceptable. pt is fixated on faith. pt states that he has been told not to give people a hard time about his name and that he prefers to be called "Avery" because "They o nly read my legal name on the paper." When questioned about who told him not to give people a hard time about his name, pt begins to state that God gave him the name Avery. When asked about hallucinations, pt states, "I don't have hallucinations. I mean, I think I experience typical human things. Like I have that internal voice. But I think everyone sees, hears, tastes, and experiences everything the same way. Yep." pt demonstrates poor impulse control by eloping from [facility] "because I didn't have free time" despite being court ordered to maintain housing at [facility]. pt reports occasionally having a beer. pt denies other drug use. UDS was positive for THC. 09/27/18 16:42 - Nurse Note by Dorothy Bass Acct Num: [id number] : 1990 Patient Age: 28 Patient met with [place], [facility] and [facility]. Patient educated on transition to [facility] and follow up with [facility]. Patient given education on followup appointments with jenn Torres in 28 days, all medications that will be provided by [facility] at the [facility] staff with ACT. Patient verbalizes understanding. Patient educated on consistency of care including all appointments and medications. Patient educated on Crisis line as well as worsening s/s to report to [facility] staff or to if severe. Patient given copies of all RX that were escibed to [facility], as well as copies of all instructions. [facility] staff given the discharge packet folder with all copies. Patient ambulated off the unit with [facility] staff at 16:29. Patient was calm and cooperative at [facility]. Home Medications Medication Instructions Recorded Confirmed Benztropine Mesylate [Cogentin] 2 mg PO HS 10/11/18 10/11/18 Divalproex ER [Depakote ER] 250 mg PO HS 10/11/18 10/11/18 [place] Carbonate 600 mg PO HS 10/11/18 10/11/18 Paliperidone IM [Invega Sustenna] 234 mg IM QMONTH 10/11/18 10/11/18 Paliperidone [Invega] 3 mg PO HS 10/11/18 10/11/18 Allergies Allergy/AdvReac Type Severity Reaction Status Date / Time divalproex sodium Allergy Unknown Verified 10/11/18 20:16 [From Depakote] dextromethorphan AdvReac Hallucinati Verified 10/11/18 20:16 ons guaifenesin AdvReac Hallucinati Verified 10/11/18 20:16 ons lurasidone [From Latuda] AdvReac Suicidal Verified 10/11/18 20:16 Ideation Past Medical History Past Medical History: Asthma Additional Past Medical History / Comment(s): aspergers, delusional disorder History of Any Multi-Drug Resistant Organisms: None Reported Past Surgical History: No Surgical Hx Reported Past Anesthesia/Blood Transfusion Reactions: No Reported Reaction Past Psychological History: Anxiety Smoking Status: Current some day smoker Past Alcohol Use History: None Reported Past Drug Use History: Marijuana Lab Results 10/11/18 Range/Units 19:58 Urine Opiates Screen Not Detected (NotDetected) Ur Oxycodone Screen Not Detected (NotDetected) Urine Methadone Screen Not Detected (NotDetected) Ur Propoxyphene Screen Not Detected (NotDetected) Ur Barbiturates Screen Not Detected (NotDetected) U Tricyclic Antidepress Not Detected (NotDetected) Ur Phencyclidine Scrn Not Detected (NotDetected) Ur Amphetamines Screen Not Detected (NotDetected) U Methamphetamines Scrn Not Detected (NotDetected) U Benzodiazepines Scrn Not Detected (NotDetected) Urine Cocaine Screen Not Detected (NotDetected) U Marijuana (THC) Screen Detected H (NotDetected) Musculoskeletal Examination - Abnormal/Involuntary Movements: [tics] Strength: [greater than antigravity (greater than/equal to 3/5) in all extremities] Muscle Tone: [no impairment Gait: [grossly normal Station: [grossly normal Mental Status Examination - General Appearance: [casual, bizarre, appears stated age, Speech/Language: [ rapid, rambled, hesitant, halting, expressive, soft, other utterances] Attitude/Behavior: [ guarded, irritable, withdrawn, indifferent, other] Mood: [ euphoric, anxious, elated, irritable Affect: [lively, incongruent, labile, Orientation: [time, person, place situation] Thought Content: [wnl, delusionsI am disciple of Daniel Zuluaga to do his preaching Risk Factors: [Denies suicidal (ideations, plan), and/or Homicidal (ideations, plan), other] Perception: [wnl, responding to hallucinations (auditory, visual, tactile) Thought Processes: [ concrete, circumstantial, tangential, other] Concentration/Attention Span: [ impaired] [Per observation and interview with the patient] Recent Memory: [ impaired] Remote Memory: [wnl] [past events, as related history] Intelligence: [average] [based on history, based on vocabulary, syntax, grammar, and content] Judgement: [ poor] [per patient's behavior/history of present illness] Insight: [poor] [understanding severity of illness/history of present illness] Admitting Diagnosis: [Bipolar affective disorder acute psychosis; marijuana use disorder Doubt Autistic Spectrum DO] Patient Strengths - Able to vocalize needs: [x] Values and traditions: [x] Patient Limitations: [medication, non-compliance, pathological/unsupported environment, no interests, intellectual impairment, legal issues, lack of social supports] Initial Plan of Care: [He is on a involuntary basis admitted to the hospital after he was picked up and assessed at the assisted whereby the act team did a petition for involuntary stay in a psychiatric hospital. The first clinical certification for involuntary stay was done in the emergency room. I performed on second clinical certification for involuntary hospitalization 3 to [facility] due to the fact that he is delusional psychotic and non- redirectable. He'll be placed on 15 minute checks for safety of himself and others usual protocol for the unit. He'll be evaluated by medicine, psychiatry, nursing staff, social work and occupational therapy for integration within the [facility] therapeutic environment. This client is unwilling to take any medications and thinks he had a go home.] 10/12/2018: He will receive his Invega 234 mg intramuscular injection today. Estimated Length of Stay: [3 days] Initial Discharge Plan: [[place], [facility] Prognosis: [ guarded] Justification for Inpatient Hospitalization - [Hallucinations, delusions, agitation, anxiety, resulting in significant loss of functioning.] [Dangerous to self, others, or property with need for controlled environment.] [Emotional or behavioral conditions and complications requiring 24 hour medical and nursing care.] [Need for special drug therapy, or other therapeutic program requiring c ontinuous hospitalization.] [Failure of social or occupational functioning.] [Inability to meet basic life and health needs.] [Legally mandated admission.] Current Visit: Yes Status: Acute Code(s): F22 - DELUSIONAL DISORDERS SNOMED Code(s): 16851105 (2) Bipolar affective disorder, current episode manic with psychotic symptoms Current Visit: No Status: Acute Priority: Low Code(s): F31.2 - BIPOLAR DISORD, CRNT EPISODE MANIC SEVERE W PSYCH FEATURES SNOMED Code(s): 460271551
--- NOTE | 2018-10-12 23:42 | CONS ---
CONSULTATION DATE OF CONSULTATION: 10/12/2018 REASON FOR CONSULTATION: Medical management, including that for GERD, requested by Dr. Keyes. CONSULTATION: This is a 28-year-old patient who was admitted to the psychiatry unit from the ER. The patient is supposed to take medications, but he has not been taking them. The patient has been having psychotic symptoms. The patient has been speaking about God and being sent here as a disciple of Daniel Zuluaga. He called himself Avery. Patient is also supposed to be taking Adderall for ADD from his family doctor and does not take the same. The patient has been bothered by reflux symptoms. The patient does do marijuana occasionally. Patient used to do heavy drugs until about 2 years ago, then decided to stop the same. Now admitted to Psychiatry, Dr. Keyes. REVIEW OF SYSTEMS: CONSTITUTIONAL: None. HEENT: None. RESPIRATORY: None. CARDIOVASCULAR: None. GASTROINTESTINAL: Heartburn. GENITOURINARY: None. MUSCULOSKELETAL: None. DERMATOLOGICAL: None. HEMATOLOGICAL: None. LYMPHATICS: None. PSYCHIATRY: As above, including psychotic features. NEUROLOGICAL: None. PAST MEDICAL HISTORY: Asperger's delusional disorder. PAST SURGICAL HISTORY: None. SOCIAL HISTORY: Lives with his cousin. Has some outside construction work. Was doing heavy drugs, whatever he could get his hands on, until about 2 years ago. Does marijuana occasionally. Does smoke cigarettes. FAMILY HISTORY: Reviewed; noncontributory to presentation. HOME MEDICATIONS: The patient is supposed to be on Invega, lithium carbonate, Depakote ER, Cogentin. It is unclear if the patient is actually taking the same. ALLERGIES: 1. DEPAKOTE. 2. DEXTROMETHORPHAN. 3. GUAIFENESIN. 4. LATUDA. PHYSICAL EXAMINATION: Temperature 97, pulse 86, respiration 18, blood pressure 112/72. GENERAL APPEARANCE: Average build. Sitting up. Pleasant. EYES: Pupils equal. Conjunctivae normal. HEENT: External appearance of nose and ears normal. Oral cavity normal. NECK: JVD not raised. Mass not palpable. RESPIRATORY: Effort normal. LUNGS: Slightly decreased breath sounds. CARDIOVASCULAR: First and second sounds normal. No edema. ABDOMEN: Soft, non-tender. Liver and spleen not palpable. LYMPHATIC: No lymph node palpable in neck or axillae. PSYCHIATRY: More details in Dr. Keyes's notes. INVESTIGATIONS: Urine drug screen positive for marijuana. [place] 0.3. ASSESSMENT: 1. Gastroesophageal reflux disease. 2. Recreational marijuana use. 3. Noncompliance with medications, probably from underlying psychotic disorder. PLAN: Patient was told to avoid the use of marijuana. Other antipsychotics per Dr. Keyes. Will add Tums around the clock. Patient should follow up with Dr. Cade upon discharge. Thank you, Dr. Keyes. MMANNMARIE / MARIA DE JESUSN: [id number] /
[2018-10-13] MEDS ORDERED: PALIPERIDONE IM 234 MG/1.5 ML SYG IM STA (11:14)
--- NOTE | 2018-10-13 11:35 | P.DS ---
Providers Date of admission: 10/12/18 00:14 Expected date of discharge: 10/13/18 Attending physician: Erlin Keyes DO Consults: 10/12/18 00:38 Consult Physician Routine Consulting Provider: Michael Delarosa Consult Reason/Comments: H&P and medical Do you want consulting provider notified?: Yes Primary care physician: Paulie Cade - Discharge Diagnosis(es) (1) Delusional disorder Chief Complaint: 28-year-old male past medical history of Asperger's and delusional disorder presents with pickup order by law enforcement. History of Present Illness: he is a 28-year-old male. He is brought in by law enforcement. Currently patient had not been going to his appointments or take his medications. Law enforcement was contacted and patient was picked up and b rought to the emergency department. Patient has no complaints at this time. Denies any suicidal or homicidal ideation. Pt. then started speaking about God and how he must have been sent here because he is the disciple of Daniel Zuluaga. Pt. then repeatly stated, "Satan, may the Lord rebuke you." Pt. referred to himself in the third person (Avery) when talking and refused to go by the name Clive. When questioned his he hears the voice of God he stated, "I will not answer that question, if you don't know what a disciple of Daniel Zuluaga is then go read it in the bible. There is an active war going on in [place] right now." Per [facility] liasion, the pt. is currently scheduled for a jury trial in December for non-compliance with his outpatient treatment. Lilo from mobile crisis returned this writers call. Over the weekend the [facility]. [facility] by [facility] team supervisior [place] who petitioned him for hospitalization. pt states "it was a potato picker order I really dont know why I havent done anything" pt denies any suicidal or homicidal ideation pt states that he is here because "I have court on Wednesday and I decided to make myself AWOL with [facility] and I stopped my meds." pt is on a treatment order from the court and was required to attend mental health services, comply with medication regimen, and maintain housing. pt reports that he has not taken his medications since leaving [facility]. pt states, "I was told I would be put in a long-term facility if I came back again, so I was hoping I wouldn't get Dr. Keyes again. We just didn't mesh well." pt also states, "I came here, got put on medications, and they got changed. Harm[place] works better. Depakote felt too much like Latuda." pt presents with flat affect and makes poor eye contact. pt reports that "I would take the meds if I had them, but I didn't. I know I'm court ordered. But I left them at [facility] and I would have to turn myself in to get them." pt also states, "The lady at [facility] told me that I shouldn't leave [facility], but I did. She said it was part of the court order, but I didn't believe her." pt also elaborates, "I just don't like the power of the court to being in the hands of Dr. Keyes." pt states that this has occurred "all because I'm trying to warn people of the danger of cell phones and it's the end of times." pt also reports that a yarsani that he attended occasionally attempted to exorcise a demon from him and it went wrong. pt states, "I feel like I am being persecuted for my nondenominational by Dr. Keyes." pt states that he has court on Wednesday for trespassing on yarsani property because "I forgot it was no trespassing." [employer] spoke with Christiano from the ACT team regarding pt and was informed that admission to [facility] was acceptable. pt is fixated on nondenominational. pt states that he has been told not to give people a hard time about his name and that he prefers to be called "Avery" because "They only read my legal name on the paper." When questioned about who told him not to give people a hard time about his name, pt begins to state that God gave him the name Avery. When asked about hallucinations, pt states, "I don't have hallucinations. I mean, I think I experience typical human things. Like I have that internal voice. But I think everyone sees, hears, tastes, and experiences everything the same way. Yep." pt demonstrates poor impulse control by eloping from [facility] "because I didn't have free time" despite being court ordered to maintain housing at [facility]. pt reports occasionally having a beer. pt denies other drug use. UDS was positive for THC. 09/27/18 16:42 - Nurse Note by Dorothy Bass Acct Num: [id number] : 1990 Patient Age: 28 Patient met with [facility], [facility] and [facility]. Patient educated on transition to [facility] and follow up with [facility]. Patient given education on followup appointments with Dr. Lemon, jenn Rosenbaum in 28 days, all medications that will be provided by [facility] at the [facility] staff with [facility]. Patient verbalizes understanding. Patient educated on consistency of care including all appointments and medications. Patient educated on Crisis line as well as worsening s/s to report to [facility] staff or to if severe. Patient given copies of all RX that were escibed to [facility], as well as copies of all instructions. [facility] staff given the discharge packet folder with all copies. Patient ambulated off the unit with [facility] staff at 16:29. Patient was calm and cooperative at [facility]. Home Medications Medication Instructions Recorded Confirmed Benztropine Mesylate [Cogentin] 2 mg PO HS 10/11/18 10/11/18 Divalproex ER [Depakote ER] 250 mg PO HS 10/11/18 10/11/18 [place] Carbonate 600 mg PO 10/11/18 10/11/18 Paliperidone IM [Invega Sustenna] 234 mg IM QMONTH 10/11/18 10/11/18 Paliperidone [Invega] 3 mg PO HS 10/11/18 10/11/18 Allergies Allergy/AdvReac Type Severity Reaction Status Date / Time divalproex sodium Allergy Unknown Verified 10/11/18 20:16 [From Depakote] dextromethorphan AdvReac Hallucinati Verified 10/11/18 20:16 ons guaifenesin AdvReac Hallucinati Verified 10/11/18 20:16 ons lurasidone [From Latuda] AdvReac Suicidal Verified 10/11/18 20:16 Ideation Past Medical History Past Medical History: Asthma Additional Past Medical History / Comment(s): aspergers, delusional disorder History of Any Multi-Drug Resistant Organisms: None Reported Past Surgical History: No Surgical Hx Reported Past Anesthesia/Blood Transfusion Reactions: No Reported Reaction Past Psychological History: Anxiety Smoking Status: Current some day smoker Past Alcohol Use History: None Reported Past Drug Use History: Marijuana Lab Results 10/11/18 Range/Units 19:58 Urine Opiates Screen Not Detected (NotDetected) Ur Oxycodone Screen Not Detected (NotDetected) Urine Methadone Screen Not Detected (NotDetected) Ur Propoxyphene Screen Not Detected (NotDetected) Ur Barbiturates Screen Not Detected (NotDetected) U Tricyclic Antidepress Not Detected (NotDetected) Ur Phencyclidine Scrn Not Detected (NotDetected) Ur Amphetamines Screen Not Detected (NotDetected) U Methamphetamines Scrn Not Detected (NotDetected) U Benzodiazepines Scrn Not Detected (NotDetected) Urine Cocaine Screen Not Detected (NotDetected) U Marijuana (THC) Screen Detected H (NotDetected) Musculoskeletal Examination - Abnormal/Involuntary Movements: [tics] Strength: [greater than antigravity (greater than/equal to 3/5) in all extremities] Muscle Tone: [no impairment Gait: [grossly normal Station: [grossly normal Mental Status Examination - General Appearance: [casual, bizarre, appears stated age, Speech/Language: [ rapid, rambled, hesitant, halting, expressive, soft, other utterances] Attitude/Behavior: [ guarded, irritable, withdrawn, indifferent, other] Mood: [ euphoric, anxious, elated, irritable Affect: [lively, incongruent, labile, Orientation: [time, person, place situation] Thought Content: [wnl, delusionsI am disciple of Danielwhit Zuluaga to do his preaching Risk Factors: [Denies suicidal (ideations, plan), and/or Homicidal (ideations, plan), other] Perception: [wnl, responding to hallucinations (auditory, visual, tactile) Thought Processes: [ concrete, circumstantial, tangential, other] Concentration/Attention Span: [ impaired] [Per observation and interview with the patient] Recent Memory: [ impaired] Remote Memory: [wnl] [past events, as related history] Intelligence: [average] [based on history, based on vocabulary, syntax, grammar, and content] Judgement: [ poor] [per patient's behavior/history of present illness] Insight: [poor] [understanding severity of illness/history of present illness] Admitting Diagnosis: [Bipolar affective disorder acute psychosis; marijuana use disorder Doubt Autistic Spectrum DO] Current Visit: Yes Status: Acute (2) Bipolar affective disorder, current episode manic with psychotic symptoms Current Visit: No Status: Acute Priority: Low Hospital Course: Plan of Care: [He is on a involuntary basis admitted to the hospital after he was [facility] whereby the act team did a petition for involuntary stay in a psychiatric hospital. The first clinical certification for involuntary stay was done in the emergency room. I performed on second clinical certification for involuntary hospitalization 3 to [facility] due to the fact that he is delusional psychotic and non-redirectable. He'll be placed on 15 minute checks for safety of himself and others usual protocol for the unit. He'll be evaluated by medicine, psychiatry, nursing staff, social work and occupational therapy for integration within the [facility] milieu therapeutic environment. This client is unwilling to take any medications and thinks he had a go home.] 10/12/2018: He will receive his Invega 234 mg intramuscular injection today Mental status examination date discharge: The patient presents alert, pleasant, and cooperative. There calmly seated without any agitated behavior. [He] reports that [his] mood is good. Affect is congruent and euthymic. [He] deny having any suicidal or homicidal ideation intent or plan. [He] denies any auditory or visual hallucinations. There is no evidence of any delusional thought content. [His] thought process is linear and goal-directed. [His] speech is fluent and nonpressured. [His] memory and concentration is grossly intact for the purposes of this session. After discharge she is being taken to court to face charges. Follow-up should be through [facility]. Patient Condition at Discharge: Stable Plan - Discharge Summary Discharge Rx Participant: Yes New Discharge Prescriptions: Continue Benztropine Mesylate [Cogentin] 2 mg PO HS 30 Days #60 tab Paliperidone IM [Invega Sustenna] 234 mg IM QMONTH 28 Days #1 syringe [place] Carbonate 600 mg PO HS 30 Days #60 cap Discontinued Paliperidone [Invega] 3 mg PO HS Divalproex ER [Depakote ER] 250 mg PO HS Discharge Medication List Benztropine Mesylate [Cogentin] 2 mg PO HS 30 Days #60 tab 10/13/18 [Rx] [place] Carbonate 600 mg PO HS 30 Days #60 cap 10/13/18 [Rx] Paliperidone IM [Invega Sustenna] 234 mg IM QMONTH 28 Days #1 syringe 10/13/18 [Rx] Follow up Appointment(s)/Referral(s): None,Stated [REFERRING] - 1-2 days Discharge Disposition: DC/TRANSFER COURT/LAW
[2018-10-13 12:01] LABS: Basophils % (A) 0 %; Eosinophils # (A) 0.3 k/uL (0-0.7); Eosinophils % (A) 4 %; HCT 43.8 % (39.0-53.0); HGB 14.7 gm/dL (13.0-17.5); Lymphocytes % (A) 13 %; MCH 28.9 pg (25.0-35.0); MCHC 33.5 g/dL (31.0-37.0); MCV 86.3 fL (80.0-100.0); Mean Platelet Volume 7.6; Monocytes # (A) 0.5 k/uL (0-1.0); Monocytes % (A) 6 %; Neutrophils # (A) 6.1 k/uL (1.3-7.7); Neutrophils % (A) 76 %; Platelet Count 157 k/uL (150-450); RBC 5.08 m/uL (4.30-5.90); RDW 13.5 % (11.5-15.5)
[2018-10-13 12:09] LABS: Albumin 4.6 g/dL (3.5-5.0); Chloride 106 mmol/L (98-107); Cholesterol 181 mg/dL (<200); Glucose 77 mg/dL (74-99); Potassium 4.6 mmol/L (3.5-5.1); Sodium 143 mmol/L (137-145); Total Protein 7.1 g/dL (6.3-8.2); Triglycerides 59 mg/dL (<150)
[2018-10-13 12:10] LABS: ALT 30 U/L (21-72); AST 19 U/L (17-59); Alkaline Phosphatase 49 U/L (38-126); Anion Gap 8 mmol/L; Blood Urea Nitrogen 16 mg/dL (9-20); Calcium 9.6 mg/dL (8.4-10.2); Carbon Dioxide 29 mmol/L (22-30); HDL Cholesterol 47 mg/dL (40-60); LDL Cholesterol,Calculated 122 mg/dL (0-99); Total Bilirubin 1.4 mg/dL (0.2-1.3)
[2018-10-13] MEDS: CALCIUM CARBONATE LIQUID 500 MG/5 ML CUP PO SCH ×2 (15:41→18:21)
[2018-10-13] MEDS: MAG HYDROX/AL HYDROX/SIMETH 30 ML CUP PO PRN (20:32)
[2018-10-13] MEDS: LITHIUM CARBONATE 300 MG CAP PO SCH (20:32)
[2018-10-13] MEDS: BENZTROPINE MESYLATE 1 MG TAB PO SCH (21:07)
[2018-10-13 21:16] LABS: Hemoglobin A1C 5.2 % (4.0-6.0)
== END 2018-10-14 08:35 | DRG 885 ==
LOC: EC 19:23 → 3MHU 10-12 00:14
PROVIDERS: ADMIT Psychiatry & Neurology Psychiatry; ATTEND Psychiatry & Neurology Psychiatry
DX: F31.2 Bipolar disorder, current episode manic severe with psychotic features (principal); F12.90 Cannabis use, unspecified, uncomplicated; F17.210 Nicotine dependence, cigarettes, uncomplicated; F41.9 Anxiety disorder, unspecified; F84.5 Asperger's syndrome; J45.909 Unspecified asthma, uncomplicated; K21.9 Gastro-esophageal reflux disease without esophagitis; Z79.899 Other long term (current) drug therapy; Z88.8 Allergy status to other drugs, medicaments and biological substances; Z91.14 Patient's other noncompliance with medication regimen
CPT/HCPCS: 80053; 80061; 80178; 80306; 82075; 83036; 84443; 85025; 99285

== ENCOUNTER → 2019-02-14 | Outpatient (CLI) | payer OTHER ==
[2019-02-14 16:41] LABS: African American GFR (CKD) 134.2 (60.0-200.0); Chol/HDL Ratio 4.22; LDL Cholesterol,Calculated 119.2 mg/dL (0.0-131.0); Lithium 0.2 mmol/L (0.5-1.2); Non-African American GFR(CKD) 115.8 (60.0-200.0); VLDL Calculation 12.8 mg/dL (5.00-40.00)
[2019-02-14 18:05] LABS: Hemoglobin A1C 4.8 % (4.0-6.0)
== END | disposition home or self-care (01) ==
LOC: LABWHC1 09:36
PROVIDERS: ATTEND Psychiatry & Neurology Psychiatry
DX: Z51.81 Encounter for therapeutic drug level monitoring (principal); Z79.899 Other long term (current) drug therapy
CPT/HCPCS: 36415; 80061; 80178; 82565; 82947; 83036; 84439; 84443; 84520

== ENCOUNTER → 2019-04-04 | Outpatient (CLI) | payer OTHER | END | disposition home or self-care (01) | LOC: LABWHC1 11:30 | PROVIDERS: ATTEND Psychiatry & Neurology Psychiatry | DX: Z51.81 Encounter for therapeutic drug level monitoring (principal); Z79.899 Other long term (current) drug therapy | CPT/HCPCS: 36415; 80178 ==

== ENCOUNTER 2019-09-14 09:05 | Inpatient (IN) | payer MEDICAID, OTHER ==
--- NOTE | 2019-09-14 09:57 | ED ---
Psych HPI - General Chief Complaint: Psychiatric Symptoms Stated Complaint: mental health Time Seen by Provider: 09/14/19 09:19 Source: patient, police, RN notes reviewed Mode of arrival: ambulatory Limitations: no limitations - History of Present Illness Initial Comments: This a 29-year-old male presents emergency Department for psychiatric evaluation. Patient was being released from shelter though he had picked up order for psychiatric evaluation so was brought to emergency department. Patient does have a history of psychosis, bipolar disorder. Patient is not forthcoming with information this time. He will not clearly answer is suicidal homicidal. He is very agitated with police officers here. He does admit to marijuana use in the past. - Related Data Home Medications Medication Instructions Recorded Confirmed OLANZapine [ZyPREXA] 20 mg PO HS 09/14/19 09/14/19 QUEtiapine FUMARATE [SEROquel] 300 mg PO HS 09/14/19 09/14/19 RX: Abiquiu Carbonate 900 mg PO HS 09/14/19 09/14/19 RX: Propranolol HCl 60 mg PO DAILY 09/14/19 09/14/19 Allergies Allergy/AdvReac Type Severity Reaction Status Date / Time divalproex sodium Allergy Unknown Verified 09/14/19 12:29 [From Depakote] dextromethorphan AdvReac Hallucinati Verified 09/14/19 12:29 ons guaifenesin AdvReac Hallucinati Verified 09/14/19 12:29 ons lurasidone [From Latuda] AdvReac Suicidal Verified 09/14/19 12:29 Ideation Review of Systems ROS Statement: Those systems with pertinent positive or pertinent negative responses have been documented in the HPI. ROS Other: All systems not noted in ROS Statement are negative. Past Medical History Past Medical History: Asthma Additional Past Medical History / Comment(s): aspergers, delusional disorder History of Any Multi-Drug Resistant Organisms: None Reported Past Surgical History: No Surgical Hx Reported Past Anesthesia/Blood Transfusion Reactions: No Reported Reaction Past Psychological History: Anxiety Smoking Status: Current some day smoker Past Alcohol Use History: None Reported Past Drug Use History: Marijuana General Exam Limitations: no limitations General appearance: alert, in no apparent distress Head exam: Present: atraumatic, normocephalic, normal inspection Eye exam: Present: normal appearance, PERRL, EOMI. Absent: scleral icterus, conjunctival injection, periorbital swelling ENT exam: Present: normal exam, normal oropharynx, mucous membranes moist, TM's normal bilaterally, normal external ear exam Neck exam: Present: normal inspection. Absent: tenderness, meningismus, lymphadenopathy Respiratory exam: Present: normal lung sounds bilaterally. Absent: respiratory distress, wheezes, rales, rhonchi, stridor Cardiovascular Exam: Present: regular rate, normal rhythm, normal heart sounds. Absent: systolic murmur, diastolic murmur, rubs, gallop, clicks Neurological exam: Present: alert, oriented X3 Psychiatric exam: Present: agitated Skin exam: Present: warm, dry, intact, normal color. Absent: rash Course Vital Signs 09/14/19 09:45 Temperature 98.0 F Pulse Rate 86 Respiratory 16 Rate Blood Pressure 132/74 O2 Sat by Pulse 99 Oximetry Medical Decision Making - Medical Decision Making Patient was evaluated by EPS case discussed with psychiatrist recommends inpatient treatment clinical CERT filled out by Dr. Valente - Lab Data Lab Results 09/14/19 Range/Units 09:53 Urine Opiates Screen Not Detected (NotDetected) Ur Oxycodone Screen Not Detected (NotDetected) Urine Methadone Screen Not Detected (NotDetected) Ur Propoxyphene Screen Not Detected (NotDetected) Ur Barbiturates Screen Not Detected (NotDetected) U Tricyclic Antidepress Not Detected (NotDetected) Ur Phencyclidine Scrn Not Detected (NotDetected) Ur Amphetamines Screen Not Detected (NotDetected) U Methamphetamines Scrn Not Detected (NotDetected) U Benzodiazepines Scrn Not Detected (NotDetected) Urine Cocaine Screen Not Detected (NotDetected) U Marijuana (THC) Screen Detected H (NotDetected) Disposition Clinical Impression: Acute psychosis, Bipolar disorder Disposition: TRANSFER TO PSYCH HOSP/UNIT Referrals: None,Stated [Primary Care Provider] - 1-2 days
[2019-09-14 10:36] LABS: Amphetamine Screen,Urine Not Detected (NotDetected); Barbiturate Screen,Urine Not Detected (NotDetected); Benzodiazepines Screen,Urine Not Detected (NotDetected); Cocaine Screen,Urine Not Detected (NotDetected); Methadone Screen, Urine Not Detected (NotDetected); Opiate Screen,Urine Not Detected (NotDetected); Oxycodone Screen, Urine Not Detected (NotDetected); Phencyclidine Screen,Urine Not Detected (NotDetected); Tricyclic Antidepressant,Urine Not Detected (NotDetected); Urn Cannabinoid Scrn Detected (NotDetected)
[2019-09-14] MEDS ORDERED: HALOPERIDOL LACTATE 5 MG/ML 1 ML VIAL IM STA (13:13)
[2019-09-14] MEDS ORDERED: LORazepam 2 MG/ML INJ IM STA (13:13)
[2019-09-14] MEDS ORDERED: diphenhydrAMINE 50 MG/ML 1 ML VIAL IM STA (13:14)
[2019-09-14] MEDS ORDERED: ACETAMINOPHEN TAB 325 MG TAB PO PRN (13:16)
[2019-09-14] MEDS ORDERED: MAGNESIUM HYDROXIDE 2,400 MG/10 ML CUP PO PRN (13:16)
[2019-09-14] MEDS ORDERED: MAG HYDROX/AL HYDROX/SIMETH 30 ML CUP PO PRN (13:16)
[2019-09-14] MEDS: LITHIUM CARBONATE 300 MG CAP PO SCH (20:48)
[2019-09-14] MEDS ORDERED: QUEtiapine 100 MG TAB PO SCH (21:00)
[2019-09-15] MEDS: PROPRANOLOL LA 60 MG CAP.SA.24H PO SCH (09:39)
[2019-09-15] MEDS: NICOTINE 14MG/24HR PATCH TRANSDERM SCH (09:39)
--- NOTE | 2019-09-15 10:12 | P.HP ---
Psychiatric H&P - . History & Physical: Allergies Allergy/AdvReac Type Severity Reaction Status Date / Time divalproex sodium Allergy Unknown Verified 09/14/19 16:09 [From Depakote] dextromethorphan AdvReac Hallucinati Verified 09/14/19 16:09 ons guaifenesin AdvReac Hallucinati Verified 09/14/19 16:09 ons lurasidone [From Latuda] AdvReac Suicidal Verified 09/14/19 16:09 Ideation Vital Signs Temp 97.0 F L 09/14/19 16:10 Pulse 110 H 09/14/19 16:10 Resp 16 09/14/19 16:10 BP 103/80 09/14/19 16:10 Pulse Ox 99 09/14/19 16:10 Intake & Output 09/14/19 09/15/19 09/15/19 18:59 06:59 18:59 Weight 79.2 kg Laboratory Last Values Urine Opiates Screen Not Detected (NotDetected) 09/14/19 09:53 Ur Oxycodone Screen Not Detected (NotDetected) 09/14/19 09:53 Urine Methadone Screen Not Detected (NotDetected) 09/14/19 09:53 Ur Propoxyphene Screen Not Detected (NotDetected) 09/14/19 09:53 Ur Barbiturates Screen Not Detected (NotDetected) 09/14/19 09:53 U Tricyclic Antidepress Not Detected (NotDetected) 09/14/19 09:53 Ur Phencyclidine Scrn Not Detected (NotDetected) 09/14/19 09:53 Ur Amphetamines Screen Not Detected (NotDetected) 09/14/19 09:53 U Methamphetamines Scrn Not Detected (NotDetected) 09/14/19 09:53 U Benzodiazepines Scrn Not Detected (NotDetected) 09/14/19 09:53 Urine Cocaine Screen Not Detected (NotDetected) 09/14/19 09:53 U Marijuana (THC) Screen Detected (NotDetected) H 09/14/19 09:53 09/15/19 10:01 IDENTIFYING DATA: This patient is a 29-year-old single male who was admitted to the mental health unit through the emergency room for acute symptoms of psychosis. HPI: The patient presents with a petition stating "seen by video 09/12/2019 agitated requiring restraints, chanting amish preoccupations, responding to internal cues, stating he is avery and the voice of a yessica.. Off medications very symptomatic. Diagnosis bipolar disorder with increased psychosis. [facility] staff report writing is up screaming in the night cannot be engage in reasonable conversation and is not attending to basic personal needs." The patient is found in his room he is quickly agitated he demands to be addressed as Avery. He follows me to the self lounge to speak he will not sit he paces in the room. He demonstrates a labile affect his voice becomes loud. He states that he is an apostle and makes other grandiose amish statements. He indicates that he is not involved in mental health treatment he states he's angry with [facility] the court and this hospital. He states when he was here last he was given invega and that him from God. He described that the medication reduce the percentage of God in him an increase the percentage of Satan. He states it made him feel like a "empty vessel". The patient refuses to engage in a conversation regarding medication options. He does not acknowledge having a mental illness diagnosis. Due to his agitation the session was terminated early. PAST PSYCHIATRIC HISTORY: A she has had numerous inpatient psychiatric hospitalizations, the last 3 on this unit were in October 1999 08/23/2018 in December 2016. During now stays he was treated with Seroquel and later Invega Sustenna. Reportedly he was last prescribed Seroquel 300 mg at bedtime lithium carbonate 900 mg at bedtime propranolol 60 mg daily. At some point he was also prescribed Zyprexa but he was refusing that medication. It is unclear if he has had any suicidal attempts. PMH: None reported ALLERGIES: Depakote, dextromethorphan, guaifenesin, Latuda MEDICATIONS: As above CHEMICAL DEPENDENCY HISTORY: He reports using alcohol 1-2, 24 ounce beers 3 times a week, marijuana daily. He states that he used to use "hard drugs" but discontinued that 3-1/2 years ago. FAMILY PSYCHIATRIC HISTORY: Documentation reports that his father and brother have autism spectrum disorder FAMILY CHEMICAL DEPENDENCY HISTORY: Both parents have alcohol use disorders SOCIAL HISTORY: The patient is 29 years old she single he reports having no children he was born and raised in [place]. His parents were when he was 2 years old. He is vague with his education but states he earned his GED. No service. He is unemployed at this time. Legal history includes recent incarceration for disturbing the peace and resisting arrest he has had other arrest for probation violations, abuse history unknown. MENTAL STATUS EXAM: The patient is a male appearing his stated age he has poor hygiene grooming his beards overgrown. He is dressed in his own clothing, he is overtly agitated he raises his voice several times. He demands to be called now and demands an apology for being addressed by his legal name. He spontaneously describes amish type grandiose delusions. He refers to himself as an apostle. He refers to a certain percentage of him as being God. He paces the room. He is not easily directed. He indicates his mood is "great" despite his incongruent irritable affect. Insight and judgment are poor. He refuses any medication changes. He describes paranoid and persecutory thoughts. He accuses me of playing games with him and holding him in the hospital for no legitimate reason. STRENGTHS/WEAKNESSES: Strengths: [facility] support available weaknesses: Acute psychosis history of noncompliance INTELLECTUAL FUNCTIONING: Average IMPRESSIONS: [] 1. Psychosis unspecified, rule out bipolar 1 disorder manic with psychosis versus schizoaffective disorder bipolar type, cannabis use disorder, rule out alcohol use disorder PLAN: The patient has been admitted to the mental health unit in voluntarily. I will complete a second clinical certificate. We will attempt to titrate the Seroquel further as that is the only antipsychotic he will comply with at this time. He is agreeable to continuing the lithium 900 mg at bedtime. We will titrate Seroquel to 400 mg at bedtime. We will ask for information from [facility] regarding previous medication management. We will monitor him for safety and encourage appropriate participation in the milieu. He will be seen by internal medicine for routine history and physical exam. We will review laboratory data as it becomes available. We will involve family or other support in treatment and discharge planning as he will allow.
--- NOTE | 2019-09-15 13:18 | P.PN ---
Progress Note - Text Progress Note Date: 09/14/19 Went to the unit to see patient but he states that he doesn't want to be seen by the doctor.
[2019-09-15] MEDS: LITHIUM CARBONATE 300 MG CAP PO SCH (20:27)
[2019-09-15] MEDS: QUEtiapine 400 MG TAB PO SCH (20:27)
[2019-09-15] MEDS: ZIPRASIDONE 20 MG VIAL IM PRN (23:38)
[2019-09-16] MEDS: NICOTINE 14MG/24HR PATCH TRANSDERM SCH (09:01)
[2019-09-16] MEDS: PROPRANOLOL LA 60 MG CAP.SA.24H PO SCH (09:01)
--- NOTE | 2019-09-16 14:23 | P.PN ---
Progress Note - Text Progress Note Date: 09/16/19 Interval history: Patient was seen pacing the hallways and was directable initially however dec lined to speak to sql report writer. Patient was noted to be talking to himself and yelling intermittently. Patient was paranoid and suspicious of sql report writer and states that he only wants to speak to Dr. Ledbetter. He states that he does not want to speak to sql report writer as "you're not my doctor". Patient denied any overnight complaints to sql report writer and terminated the interview by walking away and continuing to speak to himself. Mental status exam: General Appearance: Patient appears to be stated age is alert, paranoid, uncooperative. Wearing street clothing. Responding to internal stimuli. Behavior: Responding to internal stimuli, uncooperative. Speech: Patient's speech is fluent and nonpressured. Loud at times. Mood/Affect: Unable to assess Suicidality/Homicidality: Unable to assess Perceptions: Unable to assess Though content/process: [place], goal oriented. Significant paranoia. Memory and concentration: Unable to assess Judgment and insight: Poor Assessment/Plan: Continue with current diagnosis. Patient continues to meet criteria for inpatient psychiatric admission for symptom stabilization and safety.Patient will be maintained on current psychotropic medication regimen. Monitor for medication compliance and for any psychotropic medication side effects. Will continue to monitor ongoing response to treatment. Encouraged participation in milieu.
[2019-09-16] MEDS: QUEtiapine 400 MG TAB PO SCH (20:27)
[2019-09-16] MEDS: LITHIUM CARBONATE 300 MG CAP PO SCH (20:28)
[2019-09-17] MEDS: NICOTINE 14MG/24HR PATCH TRANSDERM SCH (10:08)
[2019-09-17] MEDS: PROPRANOLOL LA 60 MG CAP.SA.24H PO SCH (10:08)
--- NOTE | 2019-09-17 10:24 | P.PN ---
Progress Note - Text Progress Note Date: 09/17/19 Interval history: Patient was seen pacing the hallways and spoke very briefly to magnetic tape typewriter operator in the hallway. Patient continues to have a loud tone of voice and is paranoid. He states that he would not like to talk to magnetic tape typewriter operator today in the office and also stated that he is not a citizen of the [place] and he is not my patient or Dr. Luna patient. He also states that he does not need to take medications because he is doing "just fine". Patient was noted to be talking to himself and yelling intermittently once again. Patient denied any overnight complaints to magnetic tape typewriter operator and terminated the interview by walking away and continuing to speak to himself. Mental status exam: General Appearance: Patient appears to be stated age is alert, paranoid, uncooperative. Wearing street clothing. Behavior: Responding to internal stimuli, uncooperative. Speech: Patient's speech is fluent and nonpressured. Loud at times, demanding. Mood/Affect: Unable to assess Suicidality/Homicidality: Unable to assess Perceptions: Unable to assess Though content/process: [place], goal oriented, bizarre. Significant paranoia. Memory and concentration: Unable to assess Judgment and insight: Poor Assessment/Plan: Continue with current diagnosis. Patient continues to meet criteria for inpatient psychiatric admission for symptom stabilization and safety.Patient will be maintained on current psychotropic medication regimen. Monitor for medication compliance and for any psychotropic medication side effects. Will continue to monitor ongoing response to treatment. Encouraged participation in milieu.
[2019-09-17] MEDS: QUEtiapine 400 MG TAB PO SCH (20:56)
[2019-09-17] MEDS: LITHIUM CARBONATE 300 MG CAP PO SCH (20:56)
[2019-09-18] MEDS: PROPRANOLOL LA 60 MG CAP.SA.24H PO SCH (09:49)
[2019-09-18] MEDS: NICOTINE 14MG/24HR PATCH TRANSDERM SCH (09:49)
--- NOTE | 2019-09-18 10:05 | P.PN ---
Progress Note - Text Interval history: The patient's found in his room upon approach she jumps out of bed quickly and approaches me. He is stands for the entire interaction. He indicates that he does not require hospitalization and is very frustrated by this whole process. He indicates that only Dr. Lemon can address his medication. It appears that he did take his last dose of lithium and Seroquel. He refuses any other intervention at this time. He states that he does not invite me to return in try to speak with him again. Staff report that the p atcarrie has been acutely psychotic he has been yelling in his room and banging on his simmons. Mental status exam: The patient is alert he has poor hygiene grooming he is intrusive in terms of personal space. At times he speaks with a loud tone. He remains grossly psychotic demonstrating mu-ism type and paranoid delusions. He does not tolerate a lengthy interview. The discussion was concluded as his level of agitation Komal. Insight and judgment are poor. He demonstrated no physical aggressiveness however he is intrusive in terms of personal space. He reports no thoughts of self-harm or harm to others. There is no evidence of repetitive involuntary movements. Plan: The patient is offered lithium and Seroquel as written. He refuses any other medication intervention at this time. He is acutely psychotic. He requires continued psychiatric hospitalization. We are awaiting his court hearing. Vital signs reviewed.
[2019-09-18] MEDS: QUEtiapine 400 MG TAB PO SCH (21:21)
[2019-09-18] MEDS: LITHIUM CARBONATE 300 MG CAP PO SCH (21:22)
[2019-09-19] MEDS: NICOTINE 14MG/24HR PATCH TRANSDERM SCH (09:40)
[2019-09-19] MEDS: PROPRANOLOL LA 60 MG CAP.SA.24H PO SCH (09:40)
--- NOTE | 2019-09-19 10:05 | P.PN ---
Progress Note - Text Interval history: The patient is found in his room he refuses to speak in an interview room. He indicates that I was not invited to speak with him today. He states that he has sold a murder in [facility] and he is now involving me in the case. He states he will take the 2 medications that are prescribed to him now he emily not allow us to change the medication to an injectable form. He states he will not meet with a sludge filtration operator when asked about his deferral conference. He again was agitated during our interaction which truncated the length of the session. Mental status exam: The patient is alert he has impaired hygiene grooming he is dressed in his own clothing. He was found in his room sitting upright staring at the wall upon opening the door he abruptly stands up and walks toward me. Again he invades personal space. He is agitated he demonstrates disorganization of thought. He describes a samaritan type paranoid and persecutory delusions. He did not tolerate several questions during this interaction. He demonstrated no physical aggressiveness he demonstrated no involuntary repetitive movements. Insight and judgment remain poor. Plan: The patient will continue on his current psychotropic medications. We are monitoring his compliance with the lithium and Seroquel. I will titrate the Seroquel to 600 mg at bedtime in an effort to reduce his psychosis while we are awaiting the court hearing. He will not allow us to use any medication that comes in injectable form as far as an antipsychotic. Vital signs reviewed. We will monitor him for safety. Reality orientation is provided when possible.
[2019-09-19] MEDS: LITHIUM CARBONATE 300 MG CAP PO SCH (20:34)
[2019-09-19] MEDS: QUEtiapine 200 MG TAB PO SCH (20:34)
[2019-09-20] MEDS: NICOTINE 14MG/24HR PATCH TRANSDERM SCH (08:07)
[2019-09-20] MEDS: PROPRANOLOL LA 60 MG CAP.SA.24H PO SCH (08:07)
--- NOTE | 2019-09-20 16:16 | PN ---
PROGRESS NOTE DATE OF SERVICE/DICTATION: 09/20/2019. INTERVAL HISTORY: The patient is found in his room. He is lying in bed. Upon approach, he gets out of his bed quickly and approaches me. He invades my personal space. He is directed to back up. He indicates that I am involved in a criminal murder case, as he informed me of details yesterday. He states that he is an tito and has not bathed in over 80 days, as he does not need to. He describes himself as an apostle. He becomes loud and agitated when trying to discuss his current treatment plan. He states that he will not participate in court, as it is "one of your rituals." He refuses to discuss any medication alternatives. Our session was terminated and staff had to intervene due to his level of agitation directed toward me. MENTAL STATUS EXAMINATION: The patient is alert. He has poor hygiene and grooming. Eye contact is staring in nature. He has an irritable, aggressive affect. Twice he had to be redirected to maintain an appropriate distance from myself. He clearly is acutely psychotic with muslim type and grandiose delusions. He spontaneously describes persecutory thoughts. Insight and judgment are poor. The session was terminated out of necessity prior to completing any other questioning. PLAN: The patient will continue on the medications. We are offering the Seroquel and the lithium carbonate. He has demonstrated no clinical improvement so far. He does not have a court hearing until 09/27/2019, I believe. We will monitor him for safety, monitor his aggressiveness towards others. Vital signs reviewed when available. He requires continued psychiatric hospitalization. MMODL / IJN: [id number] /
[2019-09-20] MEDS: QUEtiapine 200 MG TAB PO SCH (20:40)
[2019-09-20] MEDS: LITHIUM CARBONATE 300 MG CAP PO SCH (20:40)
[2019-09-21] MEDS: PROPRANOLOL LA 60 MG CAP.SA.24H PO SCH (09:21)
[2019-09-21] MEDS: NICOTINE 14MG/24HR PATCH TRANSDERM SCH (09:21)
--- NOTE | 2019-09-21 11:36 | P.PN ---
Progress Note - Text Interval history: The patient's found in his room sleeping upon approach in the room he is verbally arousable. He jumps out of bed fairly quickly and begins walking towards me. He states "you are not invited to speak with me". Mental status exam: The patient is alert he standing in his room he has poor hygiene and poor grooming is dressed in his own clothing. Eye contact is staring in nature. He indicates that he will not speak with me today. Staff report that he continues to be agitated throughout the day. For the most part he is isolating in his room. From my observation he appears to be in no physical distress he is demonstrating no repetitive involuntary movements. He is ambulating without difficulty. He continues to remain acutely psychotic with poor insight and judgment. Plan: The patient will be offered his current medications. We are reaching out any mental health to see what medication they feel is a good choice to treat his psychosis. We are awaiting his court hearing date. We will monitor him for safety. When possible we will provide reality orientation. He is refusing vital signs.
[2019-09-21] MEDS: LITHIUM CARBONATE 300 MG CAP PO SCH (21:08)
[2019-09-21] MEDS: QUEtiapine 200 MG TAB PO SCH (21:09)
[2019-09-22] MEDS: PROPRANOLOL LA 60 MG CAP.SA.24H PO SCH (08:40)
[2019-09-22] MEDS: NICOTINE 14MG/24HR PATCH TRANSDERM SCH (08:40)
--- NOTE | 2019-09-22 11:10 | P.PN ---
Progress Note - Text Interval history: The patient is found in his room he does not wish to speak with me and an interview room. He indicates he does not wish to speak with me at all. Staff reported the patient has been agitated lately he's been yelling more verbally aggressive. He did not require any injections for behavior however. It appears that he is taking the lithium and Seroquel however there has been no clinical improvement. We will monitor for cheeking behavior. His court date is not scheduled until the of this month. We are reaching out to [facility] to discuss the best antipsychotic medication for him. He indicates he ate breakfast. He is refusing vital signs. Mental status exam: The patient is lying in bed awake looking up at the ceiling. He has poor hygiene grooming eye contact is poor he is irritable and dismissive. He does not wish to participate in the mental status exam questioning. He appears to be in no acute distress. He is demonstrating no repetitive involuntary movements. Insight and judgment remain poor. With the few statements that he makes he continues to demonstrate a delusional thought content that his synagogue in nature as well as paranoid. Plan: The patient will continue to be offered the lithium and the Seroquel as those are the only psychotropic medications he will accept. There has been no clinical improvement at all despite him taking these medications. We'll monitor for cheeking behavior. He remains acutely psychotic he requires continued psychiatric hospitalization. We will monitor him for safety. We will look for opportunities to provide reality orientation.
[2019-09-22 14:03] VITALS: BMI 24.3
[2019-09-22] MEDS: QUEtiapine 200 MG TAB PO SCH (20:33)
[2019-09-22] MEDS: LITHIUM CARBONATE 300 MG CAP PO SCH (20:33)
[2019-09-23] MEDS: NICOTINE 14MG/24HR PATCH TRANSDERM SCH (08:26)
[2019-09-23] MEDS: PROPRANOLOL LA 60 MG CAP.SA.24H PO SCH (08:26)
--- NOTE | 2019-09-23 12:42 | P.PN ---
Progress Note - Text Interval history: The patient is found in his room upon approach to the room he immediately jumps up he is agitated he expresses feelings of anger towards me specifically. He accuses me of holding him here unjustly and that this is a " trap". Staff report that the patient remains agitated he has been isolating in his room except for meals. He demands that I contact the police regarding the murder case he discussed earlier in the week. It's documented that he is complying with lithium and Seroquel again there's been no clinical improvement despite those medications being taken. Mental status exam: The patient is alert he demonstrates continued poor hygiene grooming. He is agitated. He has to be directed to keep his distance and an attempt is made to direct him to lower his voice. He does not follow that direction. The session was terminated early. He continues to describe jew type and persecutory delusions. He demonstrates poor insight and judgment. He appears to be in no physical distress. He demonstrates no evidence of any involuntary repetitive movements. Plan: The patient will continue on his current psychotropic medications as he refuses to allow me to change those. We will attempt to draw a lithium level tomorrow. He is encouraged to participate in the milieu we will look for opportunities to provide reality orientation when possible. He is refusing vital signs as of the 12th of this month. He requires continued psychiatric hospitalization.
[2019-09-23] MEDS: QUEtiapine 200 MG TAB PO SCH (21:14)
[2019-09-23] MEDS: LITHIUM CARBONATE 300 MG CAP PO SCH (21:14)
[2019-09-24] MEDS: NICOTINE 14MG/24HR PATCH TRANSDERM SCH (09:24)
[2019-09-24] MEDS: PROPRANOLOL LA 60 MG CAP.SA.24H PO SCH (09:24)
--- NOTE | 2019-09-24 11:50 | P.PN ---
Progress Note - Text Interval history: The patient is found in his room upon approach he jumps out of bed again he becomes verbally agitated. He spontaneously states that I am not welcome to speak with him and I'm not able to change his medications. He states that he is no he states that he knows Josh and is angry with me as I would refer to this as delusional. He indicates he does not wish to participate in a court hearing on the . Mental status exam: The patient is alert he is agitated he is verbally aggressive. He has a staring eye contact hygiene and grooming are poor. He spontaneously describes a variety of bahai and persecutory type delusions. He feels persecuted specifically by me. Insight and judgment are poor. Due to his level of agitation once again the conversation was truncated. He refuses vital signs. No lithium level was drawn as I assume he refused that as well. Plan: The patient will continue on his current psychotropic medication. We are awaiting a court date. I will make an effort to speak with his outpatient psychiatrist to collaborate on a choice of medication once a court order is o btained. He requires continued psychiatric hospitalization.
[2019-09-24] MEDS: LITHIUM CARBONATE 300 MG CAP PO SCH (20:52)
[2019-09-24] MEDS: QUEtiapine 200 MG TAB PO SCH (20:52)
[2019-09-25] MEDS: PROPRANOLOL LA 60 MG CAP.SA.24H PO SCH (09:16)
[2019-09-25] MEDS: NICOTINE 14MG/24HR PATCH TRANSDERM SCH (09:16)
--- NOTE | 2019-09-25 11:00 | P.PN ---
Progress Note - Text Interval history: The patient is found in his room. Again he refuses to participate in an interview. There were no reports of any agitation over the night hours. He has received no injections for behavior. He continues to spontaneously describe advent type and persecutory delusions. He has been refusing vital signs, measurement of his weight and also refused a lithium level lab draw. He has been complying apparently with the lithium and Seroquel currently prescribed. Mental status exam: The patient is alert he is agitated he has poor hygiene and poor grooming. The interaction was quite brief today. As noted he continues to remain acutely psychotic. He is agitated is thoughts are disorganized. Eye contact is staring in nature. He will raise the tone of his voice and is difficult to redirect. Insight and judgment are poor. He is in no physical distress. Plan: The patient will continue the medications as written. We are awaiting his court hearing on Wednesday. I will confer with his outpatient psychiatrist if possible regarding medication changes that we will make assuming we get a court order for treatment. We will continue to monitor him for safety. He requires continued psychiatric hospitalization.
[2019-09-25] MEDS: LITHIUM CARBONATE 300 MG CAP PO SCH (20:40)
[2019-09-25] MEDS: QUEtiapine 200 MG TAB PO SCH (20:41)
[2019-09-26] MEDS: NICOTINE 14MG/24HR PATCH TRANSDERM SCH (08:20)
[2019-09-26] MEDS: PROPRANOLOL LA 60 MG CAP.SA.24H PO SCH (08:20)
--- NOTE | 2019-09-26 10:05 | P.PN ---
Progress Note - Text Interval history: The patient is found in his room upon approach in the room he sits up but stays on the bed. He was more willing to participate in a conversation this morning. He spent several minutes describing his recent behavior and as part of his amish beliefs. He ventilates frustration that we are not taking his concerns regarding a murder case he discussed, seriously enough. He continues to spontaneously describe grandiose amish type and persecutory delusions. He continues to not want to have his medications toney ged. I was able to speak with the patient's outpatient psychiatrist Dr. Lemon yesterday. Dr. Lemon indicated that the patient had done very well on an invega but he seemed to have significant extraparametal symptoms with it. He states that the patient has not been on Abilify maintena to his knowledge. We agreed that the patient is unlikely to stay on the lithium and Seroquel. Mental status exam: The patient is alert he seated upright in his bed. Eye contact is staring in nature. Hygiene and grooming are poor his room is malodorous. He does not answer questions asked of him but does speak for several minutes regarding his delusional construct. He continues to have poor insight and judgment into the dysfunction his symptoms of psychosis are causing. He demonstrated no verbal or physical aggressiveness today. He demonstrates no involuntary repetitive movements. He indicates that he is trying to exercise some restraints and he was able to maintain a more normal tone of voice during this discussion. Plan: The patient will continue on his current psychotropic medications he does have his court hearing scheduled for tomorrow. We will monitor him for safety. He continues to refuse the blood draw for the lithium level. We will monitor him for safety he requires continued psychiatric hospitalization due to the level of his dysfunction.
[2019-09-26] MEDS: LITHIUM CARBONATE 300 MG CAP PO SCH (20:33)
[2019-09-26] MEDS: QUEtiapine 200 MG TAB PO SCH (20:33)
[2019-09-27] MEDS: NICOTINE 14MG/24HR PATCH TRANSDERM SCH (08:13)
[2019-09-27] MEDS: PROPRANOLOL LA 60 MG CAP.SA.24H PO SCH (08:13)
--- NOTE | 2019-09-27 10:36 | P.PN ---
Progress Note - Text Interval history: The patient is found in his room. He speaks with me briefly as he stands at the entrance of his door. He indicated that he would not be participating in his court hearing this morning. The court hearing did take place and day treatment order was issued. As noted I did discuss his care with Dr. Lemon his outpatient psychiatrist we will initiate Abilify 10 mg daily and the oral form to be sure there is no ALLERGY or significant adverse reaction. Our plan is to then transition to the [facility] prior to discharge. 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 He continues to describe several different types of delusions. We are not able to effectively discuss his medication. He did refuse his lithium and Seroquel when offered last. He continues to refuse vital signs he has refused blood work. He continues to not bathe. Mental status exam: The patient is alert he has poor hygiene grooming he is malodorous. He is standing at the entrance of his doorway. He does not wish to speak in another room. He continues to demonstrate mandaen type grandiose and persecutory delusions. Affect is quickly irritable. He demonstrates no verbal or physical aggressiveness during our brief interaction. He has poor insight into his current symptoms and need for medication treatment. He is in no physical distress. He demonstrates no involuntary repetitive movements. Plan: The court has issued an order for treatment. We will initiate Abilify 10 mg daily starting this afternoon. He will receive Geodon 20 mg IM if he refuses the oral Abilify. We will continue the lithium and Seroquel at this time. We will monitor him for safety. We will provide reality orientation when possible.
[2019-09-27] MEDS: ARIPiprazole 10 MG TAB PO SCH (13:29)
[2019-09-27] MEDS: LORazepam 1 MG TAB PO PRN (20:15)
[2019-09-27] MEDS: QUEtiapine 200 MG TAB PO SCH (20:42)
[2019-09-27] MEDS: LITHIUM CARBONATE 300 MG CAP PO SCH (20:42)
--- NOTE | 2019-09-28 10:02 | P.PN ---
Progress Note - Text Interval history: The patient is found in his room. He indicates he is willing to talk but refuses to speak anywhere but in the hallway. He indicated he does not care about his confidentiality. He did comply with the oral Abilify yesterday but has been refusing this morning until we spoke. I informed him that I did communicate with his outpatient psychiatrist Dr. Lemon and we developed this plan together. He expressed concerns that the Seroquel dose is higher than it was previously. Discussed that I could reduce the dose of the Seroquel but would be used in conjunction with the Abilify at least on the mental health unit. He was informed that we would want to continue the lithium as well. He states that he took the Abilify yesterday and he felt sad and therefore feels he had an adverse reaction. He is encouraged to give the medication more time. After approximately 2 minutes the patient became agitated he started raising his voice. I was not able to verbally redirect him. He made a derogatory comment and went back into his room. Mental status exam: The patient is alert initially he was approachable he was engaging conversation more appropriately. However after 2 minutes that regressed. He continues to demonstrate poor hygiene grooming. Eye contact is staring in nature. He continues to spontaneously describe grandiose advent type and persecutory delusions. He states "I am a lion, why would you give a lion medication?" He quickly became agitated and the session was terminated. Insight and judgment are poor. He is in no physical distress. Plan: The patient will continue on the Abilify is written we will titrate the oral dose further during the course of his stay. I will reduce the Seroquel to 400 mg at bedtime. We will continue the lithium as written. I will amend the order written yesterday so that if he refuses the Abilify Seroquel or lithium he is to receive a Geodon IM injection. He requires continued psychiatric hospitalization.
[2019-09-28] MEDS: ARIPiprazole 10 MG TAB PO SCH ×2 (10:13→10:52)
[2019-09-28] MEDS: NICOTINE 14MG/24HR PATCH TRANSDERM SCH (10:13)
[2019-09-28] MEDS: PROPRANOLOL LA 60 MG CAP.SA.24H PO SCH (10:14)
[2019-09-28] MEDS: QUEtiapine 200 MG TAB PO SCH (17:14)
[2019-09-28] MEDS: QUEtiapine 400 MG TAB PO SCH (20:52)
[2019-09-28] MEDS: LITHIUM CARBONATE 300 MG CAP PO SCH (20:52)
[2019-09-29] MEDS: ARIPiprazole 10 MG TAB PO SCH (08:42)
[2019-09-29] MEDS: NICOTINE 14MG/24HR PATCH TRANSDERM SCH (08:48)
[2019-09-29] MEDS: PROPRANOLOL LA 60 MG CAP.SA.24H PO SCH (08:48)
--- NOTE | 2019-09-29 09:56 | P.PN ---
Progress Note - Text Interval history: The patient is found in the hallway attempts were made to interview him in a conference room but he refused to go into a room he stayed in the hallway as I sat in a conference room. He indicates that he feels his emotions are going up and down with the Abilify. He states he is going to try to "keep it down today". Yesterday he induce vomiting after receiving the Abilify the first time and it had to be reoffered. The MAR indicates the patient complied with the lithium and Seroquel. He continues to refuse vital signs he refuses the lithium level. He continues to explain that he does not shower because of his tito status. He states he only needs to shower if he talks to people who have different beliefs than he does. Mental status exam: The patient is alert he is observed ambulating the hallways this morning. He followed me to the entrance of a conference room but would not enter or sit down for the interview. He indicates that he is going to try to tolerate the Abilify. He continues to describe spontaneously jewish grandiose and persecutory type delusions. Thought process is not well organized he demonstrates disorganization of thought it is tangential and loose at times. Insight and judgment remain poor. He reports no suicidal or homicidal ideation. He demonstrates no abnormal involuntary movements. For our brief interaction he demonstrated no agitation today. He made no derogatory statements during our interaction. Our interaction was brief and only lasted a few minutes. Plan: The patient will continue on his current medication. We will monitor his compliance with the medication be sure he is not cheeking or inducing vomiting right after taking the medication. We will titrate the Abilify as needed, our plan is to transition to the Abilify [facility]. He remains acutely psychotic he requires inpatient psychiatric hospitalization. He is refusing vital signs. He is encouraged to participate in the milieu appropriately we will provide reality orientation when possible.
[2019-09-29] MEDS: LITHIUM CARBONATE 300 MG CAP PO SCH (22:24)
[2019-09-29] MEDS: QUEtiapine 400 MG TAB PO SCH (22:25)
[2019-09-30] MEDS: ARIPiprazole 10 MG TAB PO SCH (08:15)
[2019-09-30] MEDS: NICOTINE 14MG/24HR PATCH TRANSDERM SCH (08:29)
[2019-09-30] MEDS: PROPRANOLOL LA 60 MG CAP.SA.24H PO SCH (08:29)
--- NOTE | 2019-09-30 12:25 | P.PN ---
Subjective Progress Note Date: 09/30/19 Principal diagnosis: Schizophrenia, rule out bipolar 1 disorder manic with psychotic features versus schizoaffective disorder bipolar type, cannabis use disorder, rule out all call use disorder I reviewed the medical record and interviewed the patient. He would only respond to name "Avery". He alleged that he is the Avery from the Bible who built "the arc". He got out of bed but would not leave his room for the interview. His speech was disorganized and littered with disjointed biblical and temple references. He has been taking the prescribed dose of Abilify and Seroquel (10 mg and 400 mg respectively). He denied experiencing side effects to the medication. Nursing staff reported improvement in his psychosocial functioning. In the past, he would sit by himself in the cafeteria and would laughing and talking to himself as though she were responding to internal stimuli. Over the last 2 days he is been sitting with other patients and staff have not observed him talking to himself. Objective - Vital Signs Vital signs: Vital Signs Temp 97.0 F L 09/14/19 16:10 Pulse 110 H 09/14/19 16:10 Resp 16 09/14/19 16:10 BP 103/80 09/14/19 16:10 Pulse Ox 99 09/14/19 16:10 - Exam He presented as a casually groomed 29-year-old male who was guarded and suspicious. He did not make eye contact but appeared to attend to the interview. He had a blunted facial expression. He was restless but not agitated. His speech was spontaneous with normal rate and volume. His affect was blunted but stable and appropriate. He did not express suicidal ideation, wishes or homicidal ideation. He denied feeling hopeless, helpless or worthless. He ruminated over temple ideation and expressed clear delusional thoughts. His thinking was concrete and his associations were not coherent, logical and goal directed. He denied hallucinations and did not appear to be responding to internal stimuli. Assessment and Plan Assessment: He is severely mentally ill moderately improve from admission. He is now compliant with prescribed status antipsychotic medications Plan: Continue psychiatric hospitalization due to severity of his psychiatric symptoms. Continue Abilify 10 mg daily and Seroquel 400 mg at bedtime. Monitor compliance with medications closely. He may be a candidate for a long acting injectable antipsychotic medications. Encourage participation in therapeutic groups and activities as tolerated. Evaluate clinical status response to treatment daily basis.
[2019-09-30] MEDS: QUEtiapine 400 MG TAB PO SCH (22:36)
[2019-09-30] MEDS: LITHIUM CARBONATE 300 MG CAP PO SCH (22:36)
[2019-10-01] MEDS: ARIPiprazole 10 MG TAB PO SCH (08:12)
[2019-10-01] MEDS: PROPRANOLOL LA 60 MG CAP.SA.24H PO SCH (08:13)
[2019-10-01] MEDS: NICOTINE 14MG/24HR PATCH TRANSDERM SCH (08:13)
--- NOTE | 2019-10-01 13:50 | P.PN ---
Subjective Progress Note Date: 10/01/19 Principal diagnosis: Schizophrenia, rule out bipolar 1 disorder manic with psychotic features versus schizoaffective disorder bipolar type, cannabis use disorder, rule out all call use disorder I reviewed the medical record and interviewed the patient. Again, he would only respond to the name "Avery". He was pleasant on approach but his speech was disorganized and illogical. He perseverated on zoroastrianism themes. Objective - Vital Signs Vital signs: Vital Signs Temp 97.0 F L 09/14/19 16:10 Pulse 110 H 09/14/19 16:10 Resp 16 09/14/19 16:10 BP 103/80 09/14/19 16:10 Pulse Ox 99 09/14/19 16:10 - Exam He presented as a casually groomed 29-year-old male who was guarded and suspicious. He did not make eye contact but appeared to attend to the i nterview. He had a blunted facial expression. He was restless or agitated. His speech was spontaneous with normal rate and volume. His affect was blunted but stable and appropriate. He did not express suicidal ideation, wishes or homicidal ideation. He denied feeling hopeless, helpless or worthless. He ruminated over zoroastrianism themes and expressed delusional thoughts. His thinking was concrete and his associations were incoherent, illogical and not goal directed. He denied hallucinations and did not appear to be responding to internal stimuli. Assessment and Plan Assessment: He is severely mentally ill moderately improve from admission. He is now compliant with prescribed status antipsychotic medications Plan: Continue psychiatric hospitalization due to severity of his psychiatric symptoms. Continue Abilify 10 mg daily and Seroquel 400 mg at bedtime. Monitor compliance with medications closely. He may be a candidate for a long acting injectable antipsychotic medications. Encourage participation in therapeutic groups and activities as tolerated. Evaluate clinical status response to treatment daily basis.
[2019-10-01] MEDS: QUEtiapine 400 MG TAB PO SCH (22:33)
[2019-10-01] MEDS: LITHIUM CARBONATE 300 MG CAP PO SCH (22:34)
[2019-10-02] MEDS: ARIPiprazole 10 MG TAB PO SCH (08:21)
[2019-10-02] MEDS: PROPRANOLOL LA 60 MG CAP.SA.24H PO SCH (08:22)
[2019-10-02] MEDS: NICOTINE 14MG/24HR PATCH TRANSDERM SCH (08:22)
--- NOTE | 2019-10-02 10:55 | P.PN ---
Progress Note - Text Interval history: The patient is found in his room he does not wish to follow me to an interview room. He was found lying in bed upon approach he gets up and walks towards me. He states that he feels that the side effects from the new medication seem to be improving. Staff report that over the weekend he tended to isolate in his room he demonstrated no aggressive behavior. Weekend progress notes were reviewed. He continues to spontaneously describe a delusional thought content. He states that Daniel has chosen his body to walk . He states that other biblical figures are here on the mental health unit some here to persecute him. He states that if the court push his probation on him he will further his case against the [place] police. He feels that a precinct police lieutenant murdered and it is an individual and he will make this more public. He states he does not wish to have [facility] meet with him on the mental health unit as part of the discharge process. He states he wants to be discharged today. The patient has been sleeping in his room throughout the day. I have not observed him ambulating in the hallway today. He is eating. He refuses vital signs. Mental status exam: The patient is alert he is a disheveled appearance his room is malodorous upon approach. He maintains a blunted affect. He has spontaneous speech thoughts or not well-organized he spontaneously describes evangelical type grandiose and persecutory delusions. Insight and judgment remain poor. He demonstrated no verbal or physical aggressiveness during this interaction which is a sign of improvement. He demonstrates no involuntary repetitive movements. He denies having any thoughts of self-harm or harm to others. He is endorsing no auditory or visual hallucinations. Plan: The patient remains acutely psychotic. During this interaction there is noted improvement in his behavior overall. His thought content remains remarkably delusional and this impacts his ability to make appropriate choices. We will continue to monitor him. He requires inpatient psychiatric hospitalization until there is some appropriate attenuation of his psychosis. We will continue to provide reality orientation when possible.
[2019-10-02] MEDS: QUEtiapine 400 MG TAB PO SCH (22:32)
[2019-10-02] MEDS: LITHIUM CARBONATE 300 MG CAP PO SCH (22:32)
[2019-10-03] MEDS: NICOTINE 14MG/24HR PATCH TRANSDERM SCH (08:22)
[2019-10-03] MEDS: PROPRANOLOL LA 60 MG CAP.SA.24H PO SCH (08:22)
[2019-10-03] MEDS: ARIPiprazole 15 MG TAB PO SCH (08:22)
--- NOTE | 2019-10-03 10:47 | P.PN ---
Progress Note - Text Interval history: The patient is found in his room. He remains seated on his bed he participates in a brief discussion. He indicates that this place is a trap for people like him. He states that Daniel is wanting him to communicate his will through the patient's body. The patient's began discussing his medications as questions were answered. Staff report no behavioral disturbances since yesterday. They indicate that he does continue to talk to himself. He was observed ambulating the hallways later in the morning. He indicates that he is eating he is sleeping at night and sometimes during the day. Mental status exam: The patient is alert he continues to have poor hygiene grooming his room is malodorous. He continues to spontaneously describe grandiose, congregation type, persecutory delusions. He demonstrates no verbal or physical aggressiveness. Eye contact is staring in nature. He does have spontaneous speech. He demonstrates tangential thinking loose associations with spontaneous speech. Insight and judgment are poor. He reports no thoughts of self-harm or harm to others. He maintains a blunted affect throughout our conversation. Plan: The patient will continue on his current psychotropic medication. We will continue to titrate the Abilify further during the course of his hospitalization. Our plan is to transition him to the Abilify maintena injection once we feel the Abilify is demonstrating efficacy. He is refusing vital signs. He continues to refuse lab draw. He requires continued psychiat ani hospitalization.
[2019-10-03] MEDS: QUEtiapine 400 MG TAB PO SCH (22:23)
[2019-10-03] MEDS: LITHIUM CARBONATE 300 MG CAP PO SCH (22:23)
[2019-10-04] MEDS: ARIPiprazole 15 MG TAB PO SCH (08:46)
[2019-10-04] MEDS: NICOTINE 14MG/24HR PATCH TRANSDERM SCH (08:52)
[2019-10-04] MEDS: PROPRANOLOL LA 60 MG CAP.SA.24H PO SCH (08:52)
--- NOTE | 2019-10-04 11:00 | P.PN ---
Progress Note - Text Interval history: The patient is found in his room. He indicates that he went down for breakfast. He continues to abstain from groups. He is observed ambulating in the hallway. Staff report no behavioral disturbances in the last 24 hours. He did answer more of my questions calmly. He does continue to spontaneously describe some of his delusional thoughts. He has no questions about his medications. He indicates that at times he feels tired. Mental status exam: The patient is alert he has poor hygiene grooming. He seated at the edge of his bed he remains calm throughout our discussion. He continues to spontaneously describe scientology type grandiose and persecutory delusions. He demonstrated no verbal or physical aggressiveness he demonstrates no involuntary repetitive movements. He reports no thoughts of harming himself or others. He maintains a bland affect throughout our discussion. He continues to have poor insight into his symptoms. His judgment is subsequently affected. He terminates the session by indicating he has nothing more to say. Plan: The patient will continue his current psychotropic medications. We will consider initiating the Abilify maintena. He is refusing vital signs. He is in no physical distress. We will continue monitor him for safety.
[2019-10-04] MEDS: LITHIUM CARBONATE 300 MG CAP PO SCH (22:23)
[2019-10-04] MEDS: QUEtiapine 400 MG TAB PO SCH (22:23)
[2019-10-05] MEDS: ARIPiprazole 15 MG TAB PO SCH (08:23)
[2019-10-05] MEDS: NICOTINE 14MG/24HR PATCH TRANSDERM SCH (08:23)
[2019-10-05] MEDS: PROPRANOLOL LA 60 MG CAP.SA.24H PO SCH (08:24)
--- NOTE | 2019-10-05 11:11 | P.PN ---
Progress Note - Text Interval history: The patient is found in his room. Upon approach she jumps out of bed and approaches me. He is reminded to maintain appropriate distance while we speak. Attempt was made to discuss his psychotropic medication. We discussed that during the hospitalization we would need to transition him to the Abilify maintena. He became agitated and then ultimately closed his door ending the conversation. Staff report no behavioral disturbances last evening. They report that he is making some more effort to socialize with peers although the content of that conversation remains delusional. He has been eating. He has been ambulating in the hallway. No group participation. Mental status exam: The patient continues to demonstrate poor hygiene grooming he is malodorous. He has a staring eye contact. Fairly quickly into the session he becomes agitated as noted above and terminates the session. He continues to have poor insight and judgment regarding his symptoms and proposed treatment. The session was truncated not allowing me to review routine mental status exam questions. He is in no physical distress he demonstrates no involuntary repetitive movements. Affect was blunted. Plan: We will titrate the Abilify to 20 mg daily. An attempt was made to hold a discussion regarding the need for the long-term injectable antipsychotic medication. We will give him some time to give this some consideration. I feel that if we gave this today it would precipitate a physical violent response on his part. We do have the court order so we are able to provide the medication forcibly if necessary. He is refusing vital signs he refuses the lithium lab draw. We will try to encourage improved hygiene grooming. He is not appropriate for discharge at this time.
[2019-10-05] MEDS: ZIPRASIDONE 20 MG VIAL IM PRN (22:36)
[2019-10-05] MEDS: QUEtiapine 400 MG TAB PO SCH (22:44)
[2019-10-05] MEDS: LITHIUM CARBONATE 300 MG CAP PO SCH (22:44)
[2019-10-06] MEDS: NICOTINE 14MG/24HR PATCH TRANSDERM SCH (09:05)
[2019-10-06] MEDS: PROPRANOLOL LA 60 MG CAP.SA.24H PO SCH (09:05)
--- NOTE | 2019-10-06 11:02 | P.PN ---
Progress Note - Text Interval history: The patient is found in his room he is lying in bed awake. Upon approach he gets up and approaches me. He does maintain appropriate distance between us today. He indicates his frustration that we are proposing to use the Abilify maintena. He states the last time he received a long-term injectable antipsychotic he could not hear the voice of God for 7 months. He states this caused him great distress. Staff reported that he refuse some of his medication last evening he did receive an injection of Geodon as a result. He continues to isolate in his room he has been eating. He has not been attending to his hygiene or grooming. Mental status exam: The patient is alert he has poor hygiene grooming stress in the same clothing. Eye contact is staring in nature. He reports a mood that is angry. He reports an auditory hallucination of God's voice and he is fearful that the medicine will take that away. He continues to describe grandiose and latter-day type delusions as well as persecutory delusions. He demonstrates poor insight and judgment. He demonstrated no verbal or physical aggressiveness today he demonstrates no involuntary repetitive movements area he reports no suicidal or homicidal ideation. Plan: The patient remains acutely psychotic. There has been some improvement in behavior overall. We will go ahead and proceed with giving the Abilify maintena 400 mg today. At his request the oral Abilify will be switched to bedtime using a 20 mg dose. We continue to requests a lab draw that he will not allow that. He is allowing no vital signs to be taken. Were encouraging attention to his hygiene and grooming. He requires continued psychiatric hospitalization.
[2019-10-06] MEDS ORDERED: ARIPiprazole IM SYRINGE 400 MG (NO CHARGE) IM ONE (11:30)
[2019-10-06] MEDS: LITHIUM CARBONATE 300 MG CAP PO SCH (22:21)
[2019-10-06] MEDS: QUEtiapine 400 MG TAB PO SCH (22:22)
[2019-10-07] MEDS: PROPRANOLOL LA 60 MG CAP.SA.24H PO SCH (08:02)
[2019-10-07] MEDS: NICOTINE 14MG/24HR PATCH TRANSDERM SCH (08:02)
--- NOTE | 2019-10-07 11:32 | P.PN ---
Progress Note - Text Progress Note Date: 10/07/19 Interval history: Patient seen in cross coverage today. He is found in his room. He is not agreeable to meeting with me today. He asks to be approached as "Avery." Mental status exam: Patient is found in his room. He is not agreeable to meeting with me today. His affect overall is restricted. He does not show any agitation. He asks to be approached as"Avery." He does not make any statements regarding thoughts of harm to self or others. Plan: Patient will be maintained on current psychotropic medication regimen. Continue to monitor for any medication side effects and monitor his ongoing response to treatment. We'll reattempt tomorrow to meet with the patient.
[2019-10-07] MEDS: LITHIUM CARBONATE 300 MG CAP PO SCH (22:25)
[2019-10-07] MEDS: QUEtiapine 400 MG TAB PO SCH (22:25)
[2019-10-08] MEDS: NICOTINE 14MG/24HR PATCH TRANSDERM SCH (11:02)
[2019-10-08] MEDS: PROPRANOLOL LA 60 MG CAP.SA.24H PO SCH (11:02)
--- NOTE | 2019-10-08 12:55 | P.PN ---
Progress Note - Text Progress Note Date: 10/08/19 Interval history: Patient is seen in [facility] today. He is seen in the hallway after having his name called, patient refuses to meet with me today. Mental status exam: He is seen in the hallway after his name was called to come for the meeting, he refuses to meet with me today. He does not show any agitation. His affect is restricted. Plan: Patient will be maintained with current treatment regimen. Continue to monitor his ongoing response to treatment monitor for any medication side effects.
[2019-10-08] MEDS: LITHIUM CARBONATE 300 MG CAP PO SCH (22:26)
[2019-10-08] MEDS: QUEtiapine 400 MG TAB PO SCH (22:26)
[2019-10-09] MEDS: NICOTINE 14MG/24HR PATCH TRANSDERM SCH (08:21)
[2019-10-09] MEDS: PROPRANOLOL LA 60 MG CAP.SA.24H PO SCH (08:21)
--- NOTE | 2019-10-09 09:53 | P.PN ---
Progress Note - Text Interval history: The patient is found in his room he refuses to go to an interview room. Upon me approaching his door he jumps out of bed. He states he is upset that he received the Abilify maintena. He states that he felt incapacitated on Invega Sustenna. We discussed the differences between Invega Sustenna and Abilify maintena. He states that he couldn't talk after receiving the Abilify maintena and couldn't ambulate. He states that this medicine is going to separate him from Daniel like the invega did. The session was brief he was agitated he concluded the session by stating "get the fuck out" Mental status exam: The patient is alert he has poor hygiene grooming he is agitated verbally. He does approach me once almost invading personal space causing me to back up. He demonstrates an agitated tone he appears irritable. He spontaneously continues to describe spiritism type grandiose and persecutory delusions. He is in no physical distress. He is clearly talking without difficulty he ambulated in his room without difficulty. There is no evidence of extrapyramidal symptoms at this time. He demonstrates no involuntary repetitive movements. He demonstrates poor insight and judgment. He continues to refuse vital signs he continues to refuse the lithium laboratory draw. He reports no suicidal or homicidal ideation. He abruptly concludes the interview as noted above. Plan: The patient will be continued on his current psychotropic medication. We will monitor him for safety efforts are made to provide reality orientation. He is refusing vital signs. We will encourage him to address his hygiene grooming. He requires continued psychiatric hospitalization.
[2019-10-09] MEDS: QUEtiapine 400 MG TAB PO SCH (22:26)
[2019-10-09] MEDS: LITHIUM CARBONATE 300 MG CAP PO SCH (22:26)
[2019-10-10] MEDS: PROPRANOLOL LA 60 MG CAP.SA.24H PO SCH (08:13)
[2019-10-10] MEDS: NICOTINE 14MG/24HR PATCH TRANSDERM SCH (08:13)
--- NOTE | 2019-10-10 11:08 | P.PN ---
Progress Note - Text Interval history: The patient is found in his room he refuses to speak in an interview room. He indicates his mood is "terrible". He states what happened here is terrible, referring to him receiving the Abilify maintena. Staff report that he is sleeping at night he has demonstrated no agitated behavior spontaneously. He continues to poorly attends to his hygiene and grooming. He is attending now groups. An effort was made to direct him to shower, permit the lithium level draw, and engage in a conversation with social work regarding his disposition upon discharge. He becomes agitated and obstinate during that conversation and demands that I leave his room. Mental status exam: The patient is alert he is irritable he becomes verbally agitated and loud during our discussion which truncated the session. He describes feelings of victimization and that he is being treated for his mental illness. Insight and judgment remain impaired. He demonstrated no physical aggressiveness he did remain in bed during our interaction. He is in no physical distress. He demonstrates no involuntary repetitive movements. Plan: The patient will continue on his current psychotropic medication. We will continue discussing goals that he will need to accomplish prior to discharge. He is not yet ready for discharge. We will monitor him for safety. He continues to refuse vital signs.
[2019-10-10] MEDS: LITHIUM CARBONATE 300 MG CAP PO SCH (22:22)
[2019-10-10] MEDS: QUEtiapine 400 MG TAB PO SCH (22:22)
[2019-10-11] MEDS: NICOTINE 14MG/24HR PATCH TRANSDERM SCH (09:02)
[2019-10-11] MEDS: PROPRANOLOL LA 60 MG CAP.SA.24H PO SCH (09:02)
--- NOTE | 2019-10-11 11:16 | P.PN ---
Progress Note - Text Interval history: The patient is found in the back hallway he refused to speak in an interview room and insisted that we speak in the hallway. Again we discussed goals that we have for him prior to discharge. These include continued efforts to control his behavior, allowing lab work, and showering. Additionally he needs to participate in planning for his disposition upon discharge as that is still unknown. He continues to refuse the suggestions and demands to be discharged today. The conversation initially is calm but as we continue the conversation verbally he becomes more irritable. At that point the session is ended. Mental status exam: The patient is alert he is observed ambulating in the hallways. He is dressed in his own clothing he has poor hygiene grooming his hair is noticeably dirty. Eye contact is staring in nature. He continues to demonstrate delusional thinking especially as the session progresses. He reports no thoughts of self-harm or harm to others. He demonstrates no verbal or physical aggressiveness although his tone becomes more irritable during the session. He demonstrates no signs of physical distress he demonstrates no signs of involuntary repetitive movements. Insight and judgment remain impaired. Plan: The patient will continue on his current medication. We will continue to encourage his efforts in participating in discharge planning tasks as noted above. Efforts will be made to provide reality orientation when possible. We will continue to monitor him for safety. He continues to refuse vital signs lab work and participation in groups.
[2019-10-11] MEDS: LITHIUM CARBONATE 300 MG CAP PO SCH (22:19)
[2019-10-11] MEDS: QUEtiapine 400 MG TAB PO SCH (22:19)
[2019-10-12] MEDS: PROPRANOLOL LA 60 MG CAP.SA.24H PO SCH (08:49)
[2019-10-12] MEDS: NICOTINE 14MG/24HR PATCH TRANSDERM SCH (08:49)
--- NOTE | 2019-10-12 10:59 | P.PN ---
Progress Note - Text Interval history: The patient is found in his room. He does not wish to speak in an interview room. He states that he spoke to social work about returning to his father's house upon discharge however he is refusing to allow us to confirm that with his father. The patient continues to refuse vital signs and he continues to refuse the blood draw for the lithium. He has been compliant with the oral medication on the mental health unit. He had questions regarding his treatment order which were addressed. He continues to state that he has been unjustly admitted to the mental health unit and he demands to be discharged immediately. He continues to abstain from any groups. He has been eating meals she is observed ambulating in the hallways. Mental status exam: The patient is alert he is dressed in his own clothing which is the same as yesterday hygiene grooming impaired. Eye contact is staring in nature. For several minutes of our interaction he spoke in a normal tone and kept is calm but this did eventually transition to him becoming more irritable and demanding to be discharged. Insight and judgment remain impaired. He reports no suicidal or homicidal ideation. He endorses no symptoms of psychosis but he clearly continues to demonstrate grandiose paranoid and hoahaoism type delusions. He demonstrates no signs of physical distress he demonstrates no involuntary repetitive movements. Plan: The patient will continue on his current psychotropic medication. We continued to encourage him to cooperate with social work and getting his lithium level drawn. We need to determine an appropriate placement for him upon discharge. We will monitor him for safety. We will provide reality orientation when possible. He requires continued psychiatric hospitalization.
[2019-10-12] MEDS: LITHIUM CARBONATE 300 MG CAP PO SCH (20:40)
[2019-10-12] MEDS: QUEtiapine 400 MG TAB PO SCH (20:41)
[2019-10-13] MEDS: NICOTINE 14MG/24HR PATCH TRANSDERM SCH (08:22)
[2019-10-13] MEDS: PROPRANOLOL LA 60 MG CAP.SA.24H PO SCH (08:22)
--- NOTE | 2019-10-13 11:33 | P.PN ---
Progress Note - Text Interval history: The patient is found at his room he refuses to speak with me and an interview room. He tolerated a very brief conversation at his doorway before he disengaged. He states that there is nothing more to discuss. He states that he expects to be discharged Wednesday. Again we reviewed tasks that we need to accomplish prior to discharge. He states that I want his blood work because he is born again. Again attempts were made to provide reality orientation. He continues to refuse permission to speak with his father so that we can discuss appropriate placement. Mental status exam: The patient is alert he demonstrates poor hygiene grooming he is dressed in his own clothing he is observed ambulating in the hallway wi thout difficulty. He is in no physical distress. He describes a frustrated mood. He demands to be discharged this coming Wednesday. He continues to have grandiose and denominational type delusions as well as persecutory delusions. He does raise his voice and anger but was redirected. Insight and judgment remain significantly impaired. He demonstrates no involuntary repetitive movements. Plan: The patient will continue on his current psychotropic medication we will titrate the oral Abilify to 30 mg at bedtime. We will monitor him for safety. His symptoms of psychosis continue to cause dysfunction and impair his insight and judgment to the point of him requiring continued inpatient psychiatric hospitalization. He is refusing vital signs. He continues to abstain from groups although he is encouraged to participate appropriately in the milieu.
[2019-10-13] MEDS: LITHIUM CARBONATE 300 MG CAP PO SCH (22:19)
[2019-10-13] MEDS: QUEtiapine 400 MG TAB PO SCH (22:19)
[2019-10-13] MEDS: ARIPiprazole 15 MG TAB PO SCH (22:19)
[2019-10-14] MEDS: PROPRANOLOL LA 60 MG CAP.SA.24H PO SCH (08:41)
[2019-10-14] MEDS: NICOTINE 14MG/24HR PATCH TRANSDERM SCH (08:41)
--- NOTE | 2019-10-14 10:21 | P.PN ---
Progress Note - Text Progress Note Date: 10/14/19 Interval history: Patient was seen in his room and was directable and agreeable to speak with quyen lara. Patient claimed that "I don't like the way that utilizes a running her business here". Patient endorsed other paranoia about other staff members however appeared to be directable and calmer during conversation. Patient was focused on discharge and stated that his court order is "up tomorrow and I want to get out of here". He spoke about being placed on the wrong medications and states that the Abilify is "the same as Risperdal now to 1 take it". He claims that his mood is "fine". He states that he slept last night throughout the night. At this time patient denies any suicidal or homicidal ideations intent or plan. Denies any Auditory or visual hallucinations. Mental status exam: General Appearance: Patient appears to be stated age, has long hair is alert, directable, however is paranoid and uncooperative at times. Fair hygiene. Behavior: No agitated behavior. Patient is calm and directable uncooperative at times. Speech: Patient's speech is fluent and nonpressured. Mood/Affect: Mood is improving mildly, affect is congruent and constricted. Suicidality/Homicidality: Patient denies having any suicidal or homicidal ideation intent or plan. Perceptions: Patient denies any auditory or visual hallucinations. Though content/process: Patient did mention some delusions and paranoia however is linear and goal oriented. Focused on discharge. Memory and concentration: AOX3, grossly intact for the purposes of this session Judgment and insight: improving mildly Assessment/Plan: Continue with current diagnosis. Patient continues to meet criteria for inpatient psychiatric admission for symptom stabilization and safety.Patient will be maintained on current psychotropic medication regimen. Monitor for medication compliance and for any psychotropic medication side effects. Will continue to monitor ongoing response to treatment. Encouraged participation in milieu.
[2019-10-14] MEDS: LITHIUM CARBONATE 300 MG CAP PO SCH (22:16)
[2019-10-14] MEDS: ARIPiprazole 15 MG TAB PO SCH (22:16)
[2019-10-14] MEDS: QUEtiapine 400 MG TAB PO SCH (22:17)
[2019-10-15] MEDS: PROPRANOLOL LA 60 MG CAP.SA.24H PO SCH (08:20)
[2019-10-15] MEDS: NICOTINE 14MG/24HR PATCH TRANSDERM SCH (08:20)
--- NOTE | 2019-10-15 08:50 | P.PN ---
Progress Note - Text Progress Note Date: 10/15/19 Interval history: Patient was seen wandering the hallways and was directable and agreeable to s peak with conventional mortgage underwriter outside in the hallway and did not want to speak in the office. Patient continues to be focused on discharge and was demanding. Patient claims that "my court orders up-to-date he'll be breaking the law if he don't discharge me". Patient endorsed other paranoia about other staff members. He states that his mood has been improving and he denied any other complaints. He continues to dislike taking his medications. He claims that his mood is "fine". He states that he slept last night throughout the night. At this time patient denies any suicidal or homicidal ideations intent or plan. Denies any Auditory or visual hallucinations. Mental status exam: General Appearance: Patient appears to be stated age, has long hair is alert, directable, however is paranoid and uncooperative at times. Fair hygiene. Behavior: No agitated behavior. Patient is calm and directable uncooperative at times. Demanding. Speech: Patient's speech is fluent and nonpressured. Mood/Affect: Mood is improving mildly, affect is congruent and constricted. Suicidality/Homicidality: Patient denies having any suicidal or homicidal ideation intent or plan. Perceptions: Patient denies any auditory or visual hallucinations. Though content/process: Patient did mention some delusions and paranoia however is linear and goal oriented. Focused and demanding discharge. Memory and concentration: AOX3, grossly intact for the purposes of this session Judgment and insight: improving mildly Assessment/Plan: Continue with current diagnosis. Patient continues to meet criteria for inpatient psychiatric admission for symptom stabilization and safety.Patient will be maintained on current psychotropic medication regimen. Monitor for medication compliance and for any psychotropic medication side effects. Will continue to monitor ongoing response to treatment. Encouraged participation in milieu.
[2019-10-15] MEDS: ARIPiprazole 15 MG TAB PO SCH (20:55)
[2019-10-15] MEDS: QUEtiapine 400 MG TAB PO SCH (20:55)
[2019-10-15] MEDS: LITHIUM CARBONATE 300 MG CAP PO SCH (20:55)
[2019-10-16] MEDS: PROPRANOLOL LA 60 MG CAP.SA.24H PO SCH (08:34)
[2019-10-16] MEDS: NICOTINE 14MG/24HR PATCH TRANSDERM SCH (08:34)
--- NOTE | 2019-10-16 11:28 | P.PN ---
Progress Note - Text Interval history: The patient is found at his doorway he does not wish to speak in an interview room. He indicates he is now willing to allow the lithium level blood draw he also states he is now willing to allow social work to speak with his father regarding his disposition upon discharge. The patient has been compliant with his medication. Staff reported he slept 6 hours last evening. He is eating. He reports that he has been keeping himself clean in his room he reports using shampoo and washed his hair recently. Mental status exam: The patient is alert he was calm during our interaction today. His hygiene does appear improved. Eye contact was improved speech is fluent spontaneous nonpressured. He reports no suicidal or homicidal ideation intent or plan. He does continue to have grandiose and muslim type delusions. He demonstrated no irritability during our interaction. He demonstrates no verbal or physical aggressiveness he demonstrates no involuntary repetitive movements. There are no signs of physical distress. He is oriented to person place day of the week. Plan: The patient was more amenable to recommendations today. I will order the lithium level again for tomorrow morning social work will attempt to get the patient's permission to speak with the patient's father. If we are able to accomplish our discharge planning tasks he may be appropriate for discharge sometime this week. We will continue to monitor him for safety. Efforts are made to provide reality orientation. He does not attend groups but is encouraged to attend and participate in the milieu.
[2019-10-16] MEDS: ARIPiprazole 15 MG TAB PO SCH (22:22)
[2019-10-16] MEDS: QUEtiapine 400 MG TAB PO SCH (22:22)
[2019-10-16] MEDS: LITHIUM CARBONATE 300 MG CAP PO SCH (22:22)
[2019-10-17 07:47] LABS: African American GFR (CKD) >90 (>60 ml/min/1.73 sqM); Blood Urea Nitrogen 14 mg/dL (9-20); Non-African American GFR(CKD) >90 (>60 ml/min/1.73 sqM)
[2019-10-17 08:07] LABS: Lithium 0.7 mmol/L
[2019-10-17] MEDS: PROPRANOLOL LA 60 MG CAP.SA.24H PO SCH (08:25)
[2019-10-17] MEDS: NICOTINE 14MG/24HR PATCH TRANSDERM SCH (08:25)
--- NOTE | 2019-10-17 11:07 | P.PN ---
Progress Note - Text Interval history: The patient's found in his room he prefers to speak in his room. He did allow the blood draw his lithium level 0.7 BUN/creatinine were within normal limits. He did attempt to speak with his father yesterday. Social work notes were reviewed. He is not able to stay with his father but the patient suspects that he will be able to stay with his cousin Alex again. He will attempt the same type of phone call with social work present is afternoon. Staff reported the patient was frustrated with that phone call but to control his behavior. No report of any behavioral disturbances in the last 24 hours. He remains compliant with his medication. Mental status exam: The patient's alert he is dressed in his own clothing he has a disheveled appearance hygiene is mildly improved. Eye contact is appropriate. He soft-spoken. He reports feelings of frustration that he still in the hospital. He reports no suicidal ideation intent or plan he demonstrates no verbal or physical aggressiveness during our interaction. He demonstrates no signs of involuntary repetitive movements. He does continue to be religiously preoccupied he is grandiose and paranoid thoughts. He is speaking of those less spontaneously. Plan: The patient is slowly clinically stabilizing. We continued to explore appropriate placement for him upon discharge. He suspects that he will be able to stay with his cousin Alex. We will continue his medication as written. We will monitor him for safety. Efforts are made to provide reality orientation when possible.
[2019-10-17] MEDS: LORazepam 1 MG TAB PO PRN (21:52)
[2019-10-17] MEDS: QUEtiapine 400 MG TAB PO SCH (21:52)
[2019-10-17] MEDS: ARIPiprazole 15 MG TAB PO SCH (21:52)
[2019-10-17] MEDS: LITHIUM CARBONATE 300 MG CAP PO SCH (21:52)
[2019-10-17 21:57] VITALS: BP 135/87; PULSE 92; RESP 18; TEMP 98.6
[2019-10-18] MEDS: PROPRANOLOL LA 60 MG CAP.SA.24H PO SCH (09:11)
[2019-10-18] MEDS: NICOTINE 14MG/24HR PATCH TRANSDERM SCH (09:11)
--- NOTE | 2019-10-18 10:43 | P.DS ---
Providers Date of admission: 09/14/19 12:54 Expected date of discharge: 10/18/19 Attending physician: Trevor Ledbetter Consults: 09/14/19 13:16 Consult Physician Routine Consulting Provider: Sonido Paulson Consult Reason/Comments: H & P and medical care Do you want consulting provider notified?: Yes Primary care physician: Stated None - Discharge Diagnosis(es) (1) Schizoaffective disorder, bipolar type Current Visit: Yes Status: Acute Priority: High (2) Cannabis use disorder, moderate, dependence Current Visit: Yes Status: Acute Priority: Medium Hospital Course: Brief summary of admission note: This patient is a 29-year-old single male who was admitted to the mental health unit through the emergency room for acute symptoms of psychosis. The patient was petitioned due to acute symptoms of psychosis and agitated behavior. He was religiously preoccupied insists that his name is no and refuses to respond to the name Clive. Upon admission the pat ient was isolating in his room he was easily agitated he demonstrated lability of affect he described persecutory delusions. Insight into symptoms was quite poor. He does have a history of manic episodes and psychosis he is managed by Dr. Lemon with [facility]. For full details please refer to my psychiatric evaluation dated 09/15/2019. Summary hospital course. The patient was admitted to the mental health unit involuntarily. An attempt was made to discuss his presenting symptoms and reviewed treatment options however he was quite agitated during numerous visits. He was agreeable to continuing the Seroquel and the lithium started by Dr. Lemon. [place] was prescribed at 900 mg at bedtime area we did titrate the Seroquel during the hospitalization. The patient was previously on an invega but he states that it caused intolerable side effect. I was able to speak with Dr. Lemon via phone regarding Clive's care. Dr. Lemon felt that the invega did work very well but it did cause significant symptoms of akathisia. We reviewed remaining options and decided that Abilify would be a reasonable choice and we could still provide that is a long-term injection. The patient refused this option we did ultimately hold a court hearing which he refused to attend. The court issued a treatment order which allowed us to proceed with using oral Abilify which was eventually transitioned to Abilify maintena. He received the Abilify maintena of 400 mg on 10/06/2019. Seroquel was titrated to 600 mg during the course of the hospitalization but it was reduced back down to 400 mg at bedtime. Abilify was titrated to 30 mg at bedtime for the oral dose. The patient has had an extended stay here in the hospital and it has taken that long for him to begin to reconstitute. He does still have symptoms of psychosis in terms of buddhist preoccupation and some persecutory thoughts however they are much less acute. His behavior has significantly improved. He is now able to e ngage in conversations more calmly and he is demonstrating no behavioral disturbance. He is demonstrating no signs of akathisia or other extrapyramidal symptoms. He has been refusing vital signs. Just this week he allowed us to draw the lithium level which was 0.7. BUN and creatinine were well within normal limits. At this point the patient appears to be approaching baseline he is able to reside with his cousin social work was able to contact his cousin please refer to those notes for detail. Mental status exam: The patient is alert he stressors unclothing there is some improvement of hygiene grooming is fair. Eye contact is appropriate. Speech is fluent and spontaneous nonpressured he is much calmer at this time. He demonstrates no agitated behavior. He continues to endorse auditory hallucinations in hearing the voice of God. He continues to describe himself as a disciple. I suspect that these thoughts are part of his baseline function. He demonstrates no verbal or physical aggressiveness. He demonstrates no pressured speech thought process is becoming more organized each day. He reports no suicidal or homicidal ideation intent or plan. He endorses no command auditory hallucinations directing self-harm or harm to others. He is oriented to person place and date. He describes future oriented thinking. Impressions 1. Schizoaffective disorder bipolar type most recent manic, cannabis use disorder moderate, rule out alcohol use disorder Plan: The patient will be discharged mental health unit today he will reside with his cousin upon discharge. The patient will follow up with [facility] for outpatient psychiatric services. He is on a treatment order that was issued during this hospitalization. The patient will continue on Abilify 30 mg at bedtime for 14 more days Seroquel 400 mg at bedtime and lithium 900 mg at bedtime. He was given Abilify maintena 400 mg IM on 10/06/2019, his next dose is due 11/03/2019. Ideally we would have managed his symptoms of psychosis with one antipsychotic medication but this was not possible during this hospitalization. After more time the Abilify maintena may demonstrate enough efficacy so that the Seroquel can be tapered off and this will be addressed further in the outpatient setting. The patient has failed monotherapy with Abilify and invega in the past. He is instructed to abstain from any use of alcohol and marijuana or illicit drugs. He does not wish to participate in inpatient chemical dependency treatment. He does not require use of a medication for substance use at this time this may be addressed further in the outpatient setting. At this time there is no imminent safety risk he is appropriate for transition outpatient care. He is instructed to return to the hospital any acute safety concerns. Patient Condition at Discharge: Stable Plan - Discharge Summary Discharge Rx Participant: No New Discharge Prescriptions: New ARIPiprazole [Abilify] 30 mg PO DAILY #14 tab ARIPiprazole IM [Abilify Maintena] 400 mg IM QMONTH #1 vial Nicotine 14Mg/24Hr Patch [Habitrol] 1 patch TRANSDERM DAILY #14 patch QUEtiapine [SEROquel] 400 mg PO HS #30 tab Continue Propranolol HCl 60 mg PO DAILY [place] Carbonate 900 mg PO HS #45 cap Discontinued QUEtiapine FUMARATE [SEROquel] 300 mg PO HS OLANZapine [ZyPREXA] 20 mg PO HS Discharge Medication List Propranolol HCl 60 mg PO DAILY 09/14/19 [History] ARIPiprazole IM [Abilify Maintena] 400 mg IM QMONTH #1 vial 10/18/19 [Rx] ARIPiprazole [Abilify] 30 mg PO DAILY #14 tab 10/18/19 [Rx] [place] Carbonate 900 mg PO HS #45 cap 10/18/19 [Rx] Nicotine 14Mg/24Hr Patch [Habitrol] 1 patch TRANSDERM DAILY #14 patch 10/18/19 [Rx] QUEtiapine [SEROquel] 400 mg PO HS #30 tab 10/18/19 [Rx] Follow up Appointment(s)/Referral(s): [facility] [Outside] - 10/20/19 1:00 pm (10-20-19 @ 1:[address] Lemon in the office) [facility] [NON-STAFF] - 1 Week Patient Instructions/Handouts: Suicide Prevention (DC) Activity/Diet/Wound Care/Special Instructions: Activity and diet as tolerated. Avoid the use of street drugs and alcohol. Take all medications as prescribed. When you are in need of refills on your medications please contact your medical provider and/or outpatient psychiatrist to have this done. Please go to scheduled outpatient appointment for aftercare treatment. If symptoms return or become worse, call the crisis line at and/or go to the nearest emergency room for evaluation.
== END 2019-10-18 11:47 | disposition home or self-care (01) | DRG 885 ==
LOC: EC 09:05 → 3MHU 12:54
PROVIDERS: ADMIT Psychiatry & Neurology Psychiatry; ATTEND Psychiatry & Neurology Psychiatry
DX: F25.0 Schizoaffective disorder, bipolar type (principal); F84.5 Asperger's syndrome; J45.909 Unspecified asthma, uncomplicated; F12.20 Cannabis dependence, uncomplicated; F17.210 Nicotine dependence, cigarettes, uncomplicated; Z79.899 Other long term (current) drug therapy; Z81.1 Family history of alcohol abuse and dependence; Z65.3 Problems related to other legal circumstances; Z56.0 Unemployment, unspecified; R45.1 Restlessness and agitation
CPT/HCPCS: 80178; 80306; 82075; 82565; 84520; 99285

== ENCOUNTER 2020-06-11 13:06 | Inpatient (IN) | payer MEDICAID, OTHER ==
[2020-06-11] MEDS ORDERED: ZIPRASIDONE 20 MG VIAL IM STA (13:13)
--- NOTE | 2020-06-11 13:21 | ED ---
General Adult HPI - General Stated complaint: Mental Health Time Seen by Provider: 06/11/20 13:06 Source: patient, police, EMS, RN notes reviewed, old records reviewed - History of Present Illness Initial comments: This is a 29-year-old male who has a past medical history significant for mental health problems. Patient had a court order to be brought in police attempted to and patient came at the booking police officer with a hammer so state police were called and he again came after the police with a hammer and the police used being bagged to help subdue the patient. Patient was talking about angels and witches. Patient was also telling the police all electronic devices are again God. Patient is very uncooperative and anytime because she starts screaming at you and swearing at you. Police stated that the mother was contacted and she also agreed that the patient needed to be brought in. - Related Data Home Medications Medication Instructions Recorded Confirmed Propranolol HCl 60 mg PO DAILY 09/14/19 06/11/20 LORazepam [Ativan] 2 mg PO HS 06/11/20 06/11/20 Previous Rx's Medication Instructions Recorded [place] Carbonate 900 mg PO HS #45 cap 10/18/19 QUEtiapine [SEROquel] 400 mg PO HS #30 tab 10/18/19 Allergies Allergy/AdvReac Type Severity Reaction Status Date / Time aripiprazole [From Abilify] Allergy Unknown Verified 06/11/20 13:40 divalproex sodium Allergy Unknown Verified 06/11/20 13:40 [From Depakote] paliperidone [From Invega] Allergy Unknown Verified 06/11/20 13:40 dextromethorphan AdvReac Hallucinati Verified 06/11/20 13:40 ons guaifenesin AdvReac Hallucinati Verified 06/11/20 13:40 ons lurasidone [From Latuda] AdvReac Suicidal Verified 06/11/20 13:40 Ideation Review of Systems ROS Statement: Those systems with pertinent positive or pertinent negative responses have been documented in the HPI. ROS Other: All systems not noted in ROS Statement are negative. Past Medical History Past Medical History: Asthma Additional Past Medical History / Comment(s): aspergers, delusional disorder History of Any Multi-Drug Resistant Organisms: None Reported Past Surgical History: No Surgical Hx Reported Past Anesthesia/Blood Transfusion Reactions: No Reported Reaction Past Psychological History: Anxiety, Bipolar Past Alcohol Use History: None Reported Past Drug Use History: Marijuana General Exam - General Exam Comments Initial Comments: GENERAL: Patient is well-developed and well-nourished. Patient is nontoxic and well- hydrated and is in no acute distress. ENT: Neck is soft and supple. No significant lymphadenopathy is noted. Oropharynx is clear. Moist mucous membranes. Neck has full range of motion without eliciting any pain. EYES: The sclera were anicteric and conjunctiva were pink and moist. Extraocular movements were intact and pupils were equal round and reactive to light. Eyelids were unremarkable. PULMONARY: Unlabored respirations. Good breath sounds bilaterally. No audible rales rhonchi or wheezing was noted. CARDIOVASCULAR: There is a regular rate and rhythm without any murmurs gallops or rubs. Patient has a bruise Is a left nipple where it appears he being bagged him. ABDOMEN: Soft and nontender with normal bowel sounds. SKIN: Skin is clear with no lesions or rashes and otherwise unremarkable. NEUROLOGIC: Patient is alert and oriented unable to assess because the patient is uncooperative. Cranial nerves II through XII are grossly intact. Motor and sensory are also intact. Normal speech, volume and content. Symmetrical smile. MUSCULOSKELETAL: Normal extremities with adequate strength and full range of motion. Patient has a swollen left elbow. Patient has full range of motion of the elbow LYMPHATICS: No significant lymphadenopathy is noted PSYCHIATRIC: Patient is extremely uncooperative and acting extremely psychotic making claims that electronic devices are against his hoahaoism. Patient is also stating at one point that everybody are lizards and there are witches and angels that are after him Course Vital Signs 06/11/20 06/11/20 13:32 18:31 Temperature 98.2 F Pulse Rate 122 H 94 Respiratory 18 18 Rate Blood Pressure 160/81 147/79 O2 Sat by Pulse 98 97 Oximetry Procedures - Restraint - Face to Face Restraint Occurrence 1 Patient's Immediate Situation: Endangers self safety, Endangers others' safety, Endangers staff safety, Violent behavior Patient's Reaction to the Intervention: Uncooperative, Belligerent, Aggressive, Combative Patient's Medical & Behavioral Condition: Awake, Alert, Paranoid, Bizarre behavior Need to Continue or Terminate Restraint or Seclusion: Continue Face to Face Eval of Restraint Date: 06/11/20 Face to Face Eval of Restraint Time: 13:31 Medical Decision Making - Medical Decision Making Patient was initially evaluated by EPS and because the patient was while she was restrained with leather restraints and then chemically restrained with Geodon. EPS recommended admission. I did a clinical certification on the patient - Lab Data Result diagrams: 06/11/20 14:32 06/11/20 14:32 Lab Results 06/11/20 06/11/20 06/11/20 Range/Units 14:32 14:32 15:54 WBC 9.6 (3.8-10.6) k/uL RBC 4.95 (4.30-5.90) m/uL Hgb 14.7 (13.0-17.5) gm/dL Hct 42.5 (39.0-53.0) % MCV 85.8 (80.0-100.0) fL MCH 29.7 (25.0-35.0) pg MCHC 34.6 (31.0-37.0) g/dL RDW 12.7 (11.5-15.5) % Plt Count 164 (150-450) k/uL MPV 8.0 Neutrophils % 85 % Lymphocytes % 8 % Monocytes % 5 % Eosinophils % 1 % Basophils % 0 % Neutrophils # 8.2 H (1.3-7.7) k/uL Lymphocytes # 0.8 L (1.0-4.8) k/uL Monocytes # 0.5 (0-1.0) k/uL Eosinophils # 0.1 (0-0.7) k/uL Basophils # 0.0 (0-0.2) k/uL Sodium 141 (137-145) mmol/L Potassium 3.3 L (3.5-5.1) mmol/L Chloride 110 H (98-107) mmol/L Carbon Dioxide 23 (22-30) mmol/L Anion Gap 8 mmol/L BUN 16 (9-20) mg/dL Creatinine 0.67 (0.66-1.25) mg/dL Est GFR (CKD-EPI)AfAm >90 (>60 ml/min/1.73 sqM) Est GFR (CKD-EPI)NonAf >90 (>60 ml/min/1.73 sqM) Glucose 107 H (74-99) mg/dL Calcium 9.0 (8.4-10.2) mg/dL Total Bilirubin 1.0 (0.2-1.3) mg/dL AST 31 (17-59) U/L ALT 28 (4-49) U/L Alkaline Phosphatase 59 (38-126) U/L Total Protein 6.7 (6.3-8.2) g/dL Albumin 4.3 (3.5-5.0) g/dL Urine Opiates Screen Not Detected (NotDetected) Ur Oxycodone Screen Not Detected (NotDetected) Urine Methadone Screen Not Detected (NotDetected) Ur Propoxyphene Screen Not Detected (NotDetected) Ur Barbiturates Screen Not Detected (NotDetected) U Tricyclic Antidepress Not Detected (NotDetected) Ur Phencyclidine Scrn Not Detected (NotDetected) Ur Amphetamines Screen Not Detected (NotDetected) U Methamphetamines Scrn Not Detected (NotDetected) U Benzodiazepines Scrn Not Detected (NotDetected) Urine Cocaine Screen Not Detected (NotDetected) U Marijuana (THC) Screen Detected H (NotDetected) Serum Alcohol <10 mg/dL Disposition Clinical Impression: Acute psychosis Disposition: ADMITTED IP TO THIS HOSP Referrals: None,Stated [Primary Care Provider] - 1-2 days Time of Disposition: 19:28
[2020-06-11 14:47] LABS: Basophils % (A) 0 %; Eosinophils # (A) 0.1 k/uL (0-0.7); Eosinophils % (A) 1 %; HCT 42.5 % (39.0-53.0); HGB 14.7 gm/dL (13.0-17.5); Lymphocytes # (A) 0.8 k/uL (1.0-4.8); Lymphocytes % (A) 8 %; MCH 29.7 pg (25.0-35.0); MCHC 34.6 g/dL (31.0-37.0); MCV 85.8 fL (80.0-100.0); Monocytes # (A) 0.5 k/uL (0-1.0); Monocytes % (A) 5 %; Neutrophils # (A) 8.2 k/uL (1.3-7.7); Neutrophils % (A) 85 %; Platelet Count 164 k/uL (150-450); RBC 4.95 m/uL (4.30-5.90); RDW 12.7 % (11.5-15.5); WBC 9.6 k/uL (3.8-10.6)
[2020-06-11 15:08] LABS: ALT 28 U/L (4-49); AST 31 U/L (17-59); African American GFR (CKD) >90 (>60 ml/min/1.73 sqM); Albumin 4.3 g/dL (3.5-5.0); Alcohol <10 mg/dL; Alkaline Phosphatase 59 U/L (38-126); Anion Gap 8 mmol/L; Blood Urea Nitrogen 16 mg/dL (9-20); Carbon Dioxide 23 mmol/L (22-30); Chloride 110 mmol/L (98-107); Glucose 107 mg/dL (74-99); Non-African American GFR(CKD) >90 (>60 ml/min/1.73 sqM); Potassium 3.3 mmol/L (3.5-5.1); Sodium 141 mmol/L (137-145); Total Protein 6.7 g/dL (6.3-8.2)
[2020-06-11 16:14] LABS: Urn Cannabinoid Scrn Detected (NotDetected)
[2020-06-11 16:15] LABS: Amphetamine Screen,Urine Not Detected (NotDetected); Barbiturate Screen,Urine Not Detected (NotDetected); Benzodiazepines Screen,Urine Not Detected (NotDetected); Cocaine Screen,Urine Not Detected (NotDetected); Methadone Screen, Urine Not Detected (NotDetected); Opiate Screen,Urine Not Detected (NotDetected); Oxycodone Screen, Urine Not Detected (NotDetected); Phencyclidine Screen,Urine Not Detected (NotDetected); Tricyclic Antidepressant,Urine Not Detected (NotDetected)
--- NOTE | 2020-06-11 16:32 | XR ---
EXAMINATION TYPE: XR elbow complete LT DATE OF EXAM: 06/11/2020 CLINICAL HISTORY: Pain and swelling, injury and inflammation. TECHNIQUE: Frontal, lateral and oblique images of the left elbow are obtained. COMPARISON: None FINDINGS: There is no acute fracture/dislocation evident in the left elbow. No abnormal fat pad sig ns are seen. Mild to moderate subcutaneous edema over the radial aspect of the joint noted. No suspic ious radiodense soft tissue foreign body. IMPRESSION: As above.
[2020-06-11] MEDS: QUEtiapine 100 MG TAB PO SCH (22:46)
[2020-06-11] MEDS: NICOTINE 14MG/24HR PATCH TRANSDERM SCH (22:46)
[2020-06-12] MEDS ORDERED: ACETAMINOPHEN TAB 325 MG TAB PO PRN
[2020-06-12] MEDS ORDERED: MAGNESIUM HYDROXIDE 2,400 MG/10 ML CUP PO PRN (09:00)
[2020-06-12] MEDS: QUEtiapine 100 MG TAB PO SCH ×2 (09:16→21:57)
[2020-06-12] MEDS: NICOTINE 14MG/24HR PATCH TRANSDERM SCH (09:16)
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
[2020-06-12 16:44] LABS: Hemoglobin A1C 5.2 % (4.0-6.0)
[2020-06-12] MEDS: LORazepam 1 MG TAB PO PRN (17:40)
[2020-06-13] MEDS: LORazepam 1 MG TAB PO PRN (01:49)
[2020-06-13] MEDS: MAG HYDROX/AL HYDROX/SIMETH 30 ML CUP PO PRN ×2 (01:49→22:37)
[2020-06-13] MEDS ORDERED: POTASSIUM CHLORIDE ER 20 MEQ TAB.ER PO STA (03:59)
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
[2020-06-13] MEDS: QUEtiapine 100 MG TAB PO SCH ×2 (09:47→09:53)
[2020-06-13] MEDS: NICOTINE 14MG/24HR PATCH TRANSDERM SCH (09:47)
[2020-06-13] MEDS ORDERED: QUEtiapine 100 MG TAB PO SCH (12:30)
[2020-06-13] MEDS ORDERED: QUEtiapine 100 MG TAB PO ONE (12:30)
--- NOTE | 2020-06-13 15:44 | PN ---
PROGRESS NOTE DATE OF SERVICE: 06/13/2020. CHIEF COMPLAINT: The patient was delusional. He was presented by police with a pick-up order and became aggressive towards the police. INTERVAL HISTORY: Patient has had a number of past psychiatric hospitalizations. His last was here hospitalized on 09/14/2019. The diagnosis on a consideration was bipolar disorder with psychosis. He had been in long term and had become agitated and psychotic. When I talked to the patient today he was vague about circumstances of his being in long term in the spring, though says he was in long term for 60 days. He stated that he had past stints in long term as well, though did not give details. He continued to show symptoms of thought disorder yesterday. Staff noted that he had orthodoxy preoccupation. They observed him at different times with self talk and at times he could present in a confrontational manner. He attended one group yesterday. Descriptors included "bizarre sharing orthodoxy preoccupation, appropriate, arrived late, left and returned and left early." Patient was vague about sleep issues last night. Today he has been up. Nursing noted in the morning that he was resistant to medications and declined taking his a.m. Seroquel, stating he would rather take it at nighttime. He comes out in the day area and wanders about. He keeps to himself and does not pay too much attention to things going on around him. He continues showing self talk. He attended one group today and it was noted that he was "disruptive and inappropriate during the group." Descriptors included bazaar, dramatic, combative, obsession, intrusive and agitated. When I talked to the patient, he was in the atkinson, when I asked him to come in the office, he declined to do that. He said he did not want to go into a doctor's office as he feels uncomfortable in that setting, but was willing to talk in the atkinson. He talked about willingness to take oral medications which he has taken in the past. He said he is comfortable with Haldol and Seroquel as two medicines he has been on before. He acknowledged that he had been on Haldol Decanoate a few years back when he was living in [place]. He said that he did not have any problems with either Haldol or Seroquel. He said he would also be excepting of Thorazine, though said he was not too sure about the nature of Thorazine. He did not want to take Prolixin, though did not offer an explanation for that. He said he was accepting of increasing the dose of Seroquel. [facility] records going back to 2014 notes that he had been on Seroquel for most of the time since then. He had a trial of Abilify Maintena. The patient said he was not comfortable accepting that medication. He had also been on lithium, though did not provide any details on that use. He was last seen by Dr. Baird on 10/20/2019. At that time, he was continued on Seroquel with the dose increased to 400 mg a day. He was also on lithium 900 mg a day and Inderal 60 mg a day. He also had been on Abilify 30 mg a day and Abilify Maintena 400 mg IM, though Abilify doses were discontinued. The patient was assessed as having severe akathisia. Since October, the patient has not been seen through mental health and the patient himself states that he now [place] different [place] and would not have followup with Dr. Baird. MENTAL STATUS: Patient stood in a somewhat rigid posture, he did move a little bit one way or another, though not to a significant degree. His arms were mostly down to his side. He stood facing down the long atkinson while I stood next to him. Occasionally, he would move his glance toward me, though he never really gave me much eye contact. It was noted; however, by the end of the interview that he did seem more relaxed. He almost broke out in a slight smile at one point. He had a calmer manner by the end of the interview. His affect was constricted. His mood dysphoric. For the most part, he seemed significantly distressed. He continues to show delusional thinking in response to internal stimuli. It was difficult to assess for thoughts of harm to self or others. He was oriented to circumstances and surroundings. ASSESSMENT: I will continue the current diagnosis and general treatment plan. I discussed medication issues at length with the patient, he was willing to continue with a therapeutic dose of Seroquel. I will start him on Seroquel 600 mg at bedtime. He was willing to take a 300 mg dose in the afternoon as an initiation to the increased dosage. I will discontinue Prolixin. Noteworthy that during my interview, he did not show signs of severe akathisia that Dr. Baird documented in the spring. I had discussed that there might be considered the option for Haldol Decanoate potentially as part of outpatient followup. The patient stated that he was willing to continue on oral medications and follow through with [facility]. We will continue to focus on stabilization and discharge planning. ERIKA / VÍCTOR: [id number] /
[2020-06-13] MEDS: QUEtiapine 200 MG TAB PO SCH (21:28)
[2020-06-14] MEDS: NICOTINE 14MG/24HR PATCH TRANSDERM SCH (08:30)
[2020-06-14] MEDS ORDERED: QUEtiapine 100 MG TAB PO SCH (09:00)
[2020-06-14] MEDS: diphenhydrAMINE 50 MG/ML 1 ML VIAL IM PRN (10:30)
[2020-06-14] MEDS: HALOPERIDOL LACTATE 5 MG/ML 1 ML VIAL IM PRN (10:30)
[2020-06-14] MEDS: LORazepam 2 MG/ML INJ IM PRN (10:31)
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
[2020-06-14] MEDS: QUEtiapine 200 MG TAB PO SCH ×3 (12:03→22:28)
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
[2020-06-15] MEDS: QUEtiapine 200 MG TAB PO SCH ×2 (08:09→20:18)
[2020-06-15] MEDS: NICOTINE 14MG/24HR PATCH TRANSDERM SCH (08:10)
--- NOTE | 2020-06-15 11:08 | P.PN ---
Progress Note - Text Progress Note Date: 06/15/20 Interval history: Patient was seen wandering the hallways and was directable and refused to speak with leader writer. The patient expresses that he is upset with this leader writer after the leader writer addressed him by his name "Clive" twice rather than stating his name "Avery." The patient expresses that this leader writer is a liar. He states that God will continue to recycler forklift driver truck driver everyone and that everyone will be going to hell. When he was informed that "God's love" the patient becomes very upset stating that God will kill all those were marked with the beast. He has been adherent to his medications. He appears to be wandering the hallways and does not express any significant issues regarding side effects or medical palms. Mental status exam: General Appearance: Patient appears to be stated age, has long hair, and is uncooperative. Behavior: Agitated and difficult to approach. Speech: Patient's speech is loud in volume but nonpressured. Mood/Affect: Mood is irritable, affect is intense and irate. Suicidality/Homicidality: Patient denies having any suicidal or homicidal ideation intent or plan. Perceptions: Patient denies any auditory or visual hallucinations. Though content/process: Rastafari preoccupation. Grandiose delusions. Memory and concentration: AOX3, grossly intact for the purposes of this session Judgment and insight: Very poor Assessment/Plan: Continue with current diagnosis. Patient continues to meet criteria for inpatient psychiatric admission for symptom stabilization and safety. Patient will be maintained on current psychotropic medication regimen. Prolixin was discontinued by Dr. Trammell review Dr. Johnson's notes which stated he experienced akasthisia from the medication in the past. Monitor for medication compliance and for any psychotropic medication side effects. Will continue to monitor ongoing response to treatment. Encouraged participation in milieu.
[2020-06-15] MEDS: LORazepam 1 MG TAB PO PRN ×2 (12:29→17:30)
[2020-06-15 13:57] LABS: Appearance,Urine Clear (Clear); Bilirubin,Urine Negative (Negative); Blood,Urine Negative (Negative); Color,Urine Colorless; Glucose,Urine (UA) Negative (Negative); Ketones,Urine Negative (Negative); Leukocyte Esterase,Urine Negative (Negative); Nitrite,Urine Negative (Negative); PH, Urine 6.5 (5.0-8.0); Protein,Urine Negative (Negative); Specific Gravity,Urine 1.002 (1.001-1.035); Urobilinogen,Urine <2.0 mg/dL (<2.0)
[2020-06-15] MEDS: MAG HYDROX/AL HYDROX/SIMETH 30 ML CUP PO PRN ×2 (14:08→17:11)
[2020-06-16] MEDS: QUEtiapine 200 MG TAB PO SCH ×2 (08:28→20:29)
[2020-06-16] MEDS: NICOTINE 14MG/24HR PATCH TRANSDERM SCH (08:29)
--- NOTE | 2020-06-16 12:29 | P.PN ---
Progress Note - Text Progress Note Date: 06/16/20 Interval history: Patient was seen wandering the hallways and was directable and refused to speak with proposal writer. The patient reports that he does well today. He endorsed significant adventist preoccupation believing that judgment days, and that God will kill those who don't follow him. He has been adherent with his medications and is not reporting only dry mouth as a side effect this time. He is not reporting any suicidal or homicidal ideation, intention, and/or plan. He denies any auditory or visual hallucinations. He states that he just likes to one of the hallways so that he can get some exercise. Mental status exam: General Appearance: Patient appears to be stated age, has long hair, and is more cooperative today. Behavior: Approachable today. Psychomotor activity appears slightly elevated. Speech: Patient's speech is normal in volume, nonpressured, and spontaneous. Mood/Affect: Mood is irritable, affect is intense and irate. Suicidality/Homicidality: Patient denies having any suicidal or homicidal ideation intent or plan. Perceptions: Patient denies any auditory or visual hallucinations. Though content/process: Amish preoccupation. Grandiose delusions. Memory and concentration: AOX3, grossly intact for the purposes of this session Judgment and insight: Very poor Assessment/Plan: Continue with current diagnosis. Patient continues to meet criteria for inpatient psychiatric admission for symptom stabilization and safety. Patient will be maintained on current psychotropic medication regimen. Prolixin was discontinued by Dr. Trammell review Dr. Johnson's notes which stated he experienced akasthisia from the medication in the past. Monitor for medication compliance and for any psychotropic medication side effects. Will continue to monitor ongoing response to treatment. Encouraged participation in milieu.
[2020-06-16] MEDS: LORazepam 2 MG/ML INJ IM PRN (15:30)
[2020-06-16] MEDS: HALOPERIDOL LACTATE 5 MG/ML 1 ML VIAL IM PRN (15:30)
[2020-06-16] MEDS: diphenhydrAMINE 50 MG/ML 1 ML VIAL IM PRN (15:31)
[2020-06-16] MEDS: MAG HYDROX/AL HYDROX/SIMETH 30 ML CUP PO PRN (20:30)
[2020-06-16] MEDS: LORazepam 1 MG TAB PO PRN (20:30)
[2020-06-17] MEDS: NICOTINE 14MG/24HR PATCH TRANSDERM SCH (08:49)
[2020-06-17] MEDS: LORazepam 1 MG TAB PO PRN ×2 (08:49→16:18)
[2020-06-17] MEDS: QUEtiapine 200 MG TAB PO SCH ×2 (08:50→20:45)
--- NOTE | 2020-06-17 10:43 | P.PN ---
Progress Note - Text Progress Note Date: 06/17/20 Interval History: Patient was seen wandering the hallways and was directable and agreeable to sp eak with caption writer. Patient claimed that he did not feel comfortable going into the office with the caption writer and wanted to speak in hallway. He states that he has been doing well over the weekend and states that he is feeling "calmer" on the medications and feels less impulsive. He also claims that he feels less "anger". He states that he has been started on Seroquel since he last talked to caption writer and states that he would be willing to take oral medications instead of getting the injection. He also claimed that he met with the admitted attorneys and stated that "she didn't put my proper name down on the paperwork side in signed anything". He continues to refer to himself as "Avery". Patient had improvement in his impulsivity and improvement in his thought process and content. He continues to be mildly religiously preoccupied and have a mild improvement in his insight and judgment. He denied any depression today or anxiety. He states that he isn't sleeping throughout the night. At this time patient denies any suicidal or homical ideations, intent or plan. Patient denies any auditory, visual hallucinations. Patient denies any side effects from the medications and has been compliant with meds. Mental Status Exam: General Appearance: Patient appears to be well-built, stated age is alert, appears to be calmer today and more cooperative. Patient appears to have improving hygiene and grooming. Long hair. Behavior: Patient is seated without any agitated behavior. threatening, improving mildly Speech: Patient's speech is fluent and nonpressured. Mood/Affect: Patient reports their mood is "ok", affect is congruent Suicidality/Homicidality: Patient denies having any homicidal ideation intent or plan. Denies any suicidal ideations intent or plan Perceptions: Patient denies any visual hallucinations and denies any auditory hallucinations Though content/process: Religiously preoccupied, improving mildly. Endorsing mild paranoia at this time. More logical and goal oriented. Memory and concentration: AOX3, grossly intact for the purposes of this session Judgment and insight: poor, improving mildly Assessment Schizoaffective disorder unspecified Cannabis use disorder Nicotine dependence Plan: -Patient continues to meet criteria for inpatient psychiatric admission for symptom stabilization and safety. Patient has not signed adult voluntary form and medication consent and was placed in patient's chart. Currently awaiting patient's full court hearing set for 06/19/2020 as patient did not defer. -Medications: Prolixin was discontinued 3 days ago and patient was started on Seroquel, continue Seroquel at 200 mg daily +600 mg daily at bedtime for psychosis/mood stabilization. -When necessary Ativan and Haldol for agitation/aggression. -NRT - nicotine patch -SW on board for discharge planning. Encouraged the patient to participate in milieu. Will await court date on wednesday. patient will likely need placement in snf. Sw to reach out to [facility] to gather further information and continue with discharge planning. likely patient will need ACT services upon discharge
[2020-06-17] MEDS: MAG HYDROX/AL HYDROX/SIMETH 30 ML CUP PO PRN ×3 (11:39→20:45)
[2020-06-18] MEDS: NICOTINE 14MG/24HR PATCH TRANSDERM SCH (08:15)
[2020-06-18] MEDS: QUEtiapine 200 MG TAB PO SCH ×2 (08:18→19:30)
--- NOTE | 2020-06-18 14:05 | P.PN ---
Progress Note - Text Progress Note Date: 06/18/20 Interval History: Patient was seen wandering the hallways and was directable and agreeable to sp eak with policy writer sales. Patient once again wanted to speak to policy writer sales in the hallway. She appeared to be mildly more irritable this morning and accused the nurses of lying to him about his medications. He states that he does not want to take "medications don't have to". He ended up taking a Ativan by mouth and agreed to speak to policy writer sales later on in the afternoon. He was concerned about his medications and spoke about the different interactions that he has had an bad experiences with Abilify and Invega Sustenna. Patient claims that he is agreeable to try Haldol as he has been on that before. He continues to be delusional and religiously preoccupied and spoke about demons and being cursed. He continues to refer to himself as "Avery". Patient had mild improvement in his impulsivity and improvement in his thought process and content. He denied any depression today or anxiety. He states that he was able to sleep better last night. At this time patient denies any suicidal or homical ideations, intent or plan. Patient denies any auditory, visual hallucinations. Patient denies any side effects from the medications and has been compliant with meds. Mental Status Exam: General Appearance: Patient appears to be well-built, stated age is alert, appears to be calmer today and more cooperative. Patient appears to have improving hygiene and grooming. Long hair. Behavior: Patient is seated without any agitated behavior. threatening, improving mildly Speech: Patient's speech is fluent and nonpressured. Mood/Affect: Patient reports their mood is "fine", affect is congruent and irritable at times. Suicidality/Homicidality: Patient denies having any homicidal ideation intent or plan. Denies any suicidal ideations intent or plan Perceptions: Patient denies any visual hallucinations and denies any auditory hallucinations Though content/process: Religiously preoccupied, improving mildly. Endorsing mild paranoia at this time. More logical and goal oriented. Memory and concentration: AOX3, grossly intact for the purposes of this session Judgment and insight: poor, improving mildly Assessment Schizoaffective disorder unspecified Cannabis use disorder Nicotine dependence Plan: -Patient continues to meet criteria for inpatient psychiatric admission for symptom stabilization and safety. Patient has not signed adult voluntary form and medication consent and was placed in patient's chart. Currently awaiting patient's full court hearing set for 06/19/2020 as patient did not defer. -Medications: Continue Seroquel at 200 mg daily +600 mg daily at bedtime for psychosis/mood stabilization. Will attempt to cross titrate onto Haldol to eventually transition patient onto Haldol-D. Start Haldol 2.5mg BID for psychosis today -When necessary Ativan and Haldol for agitation/aggression. -NRT - nicotine patch - on board for discharge planning. Encouraged the patient to participate in milieu. Will await court date on wednesday. patient will likely need placement. likely patient will need ACT services upon discharge
[2020-06-18] MEDS: MAG HYDROX/AL HYDROX/SIMETH 30 ML CUP PO PRN ×2 (16:00→19:30)
[2020-06-18] MEDS: haloperidoL 5 MG TAB PO SCH (19:30)
[2020-06-19] MEDS: QUEtiapine 200 MG TAB PO SCH (09:21)
[2020-06-19] MEDS: NICOTINE 14MG/24HR PATCH TRANSDERM SCH (09:21)
[2020-06-19] MEDS: haloperidoL 5 MG TAB PO SCH (09:21)
[2020-06-19] MEDS: LORazepam 1 MG TAB PO PRN ×3 (09:24→20:50)
--- NOTE | 2020-06-19 10:02 | P.PN ---
Progress Note - Text Progress Note Date: 06/19/20 Interval History: Patient was seen laying in his bed this morning and was directable and agreeable to speak with tech writer. Patient once again wanted to speak to tech writer in the hallway. Patient continues to have a threatening stance and tone with tech writer at times. He claims that he has been taking his medications and "going along with everything". He continues to state that his name is not Clive and claims that he should be called Aveyr. He stated that his name was not on the paperwork therefo re does not need to attend court this morning. He denies any depression or anxiety today. He does claim that he feels agitated because of his circumstances. He continues to be religiously preoccupied and spoke about the "loree of the beast" and asked tech writer if he believes in it. Patient had mild improvement in his impulsivity and improvement in his thought process and content. He states that he was able to sleep better last night. At this time patient denies any suicidal or homical ideations, intent or plan. Patient denies any auditory, visual hallucinations. Patient denies any side effects from the medications and has been compliant with meds. Mental Status Exam: General Appearance: Patient appears to be well-built, stated age is alert, appears to be irritable at times. Patient appears to have improving hygiene and grooming. Long hair. Behavior: Patient is seated without any agitated behavior. threatening, improving mildly Speech: Patient's speech is fluent and nonpressured. Threatening. Mood/Affect: Patient reports their mood is "ok", affect is congruent and irritable at times. Suicidality/Homicidality: Patient denies having any homicidal ideation intent or plan. Denies any suicidal ideations intent or plan Perceptions: Patient denies any visual hallucinations and denies any auditory hallucinations Though content/process: Religiously preoccupied, improving mildly. Endorsing mild paranoia at this time. More logical and goal oriented. Memory and concentration: AOX3, grossly intact for the purposes of this session Judgment and insight: poor, improving mildly Assessment Schizoaffective disorder unspecified Cannabis use disorder Nicotine dependence Plan: -Patient continues to meet criteria for inpatient psychiatric admission for symptom stabilization and safety. Patient has not signed adult voluntary form and medication consent and was placed in patient's chart. Currently awaiting patient's full court hearing set for today and awaiting treatment order. -Medications: Decreased Seroquel at 100 mg daily + 500 mg daily at bedtime for psychosis/mood stabilization. Will attempt to cross titrate onto Haldol to eventually transition patient onto Haldol-D. increased Haldol 4 mg BID for psychosis. -When necessary Ativan and Haldol for agitation/aggression. -NRT - nicotine patch -SW on board for discharge planning. Encouraged the patient to participate in milieu. Will await court date and treatment order today. likely patient will need ACT services upon discharge
[2020-06-19] MEDS ORDERED: QUEtiapine 200 MG TAB PO SCH (21:00)
[2020-06-20] MEDS: NICOTINE 14MG/24HR PATCH TRANSDERM SCH (07:51)
[2020-06-20] MEDS: LORazepam 1 MG TAB PO PRN (07:53)
[2020-06-20] MEDS ORDERED: QUEtiapine 100 MG TAB PO SCH (09:00)
[2020-06-20] MEDS ORDERED: HALOPERIDOL LACTATE 5 MG/ML 1 ML VIAL IM PRN (09:59)
--- NOTE | 2020-06-20 10:06 | P.PN ---
Progress Note - Text Progress Note Date: 06/20/20 Interval History: Patient was seen laying in his bed this morning and was directable and agreeable to speak with securities underwriter. Patient continues to want to speak to securities underwriter in the hallway. He states that he slept better last night was able to sleep throughout the night. He appears to be calmer this morning and more appropriately with securities underwriter during the interview. He continues to ramble and was tangential about his home situation and his medications. He appears to have mild improvement in his insight towards his meds and claims that he is agreeable to continue taking his Haldol. He states that he is feeling hungrier lately since being on the Seroquel. He continues to state that his name is not Clive and claims that he should be called Avery. He denies any depression or anxiety today. He continues to be religiously preoccupied, however this has been improving mildly. At this time patient denies any suicidal or homical ideations, intent or plan. Patient denies any auditory, visual hallucinations. Patient denies any side effects from the medications and has been compliant with meds. Mental Status Exam: General Appearance: Patient appears to be well-built, stated age is alert, appears to be irritable at times, improving mildly. Patient appears to have improving hygiene and grooming. Long hair. Behavior: Patient is seated without any agitated behavior. Calmer today. Speech: Patient's speech is fluent and nonpressured. Mood/Affect: Patient reports their mood is "fine", affect is congruent and irritable at times. Suicidality/Homicidality: Patient denies having any homicidal ideation intent or plan. Denies any suicidal ideations intent or plan Perceptions: Patient denies any visual hallucinations and denies any auditory hallucinations Though content/process: Religiously preoccupied, improving mildly. More logical and goal oriented. Memory and concentration: AOX3, grossly intact for the purposes of this session Judgment and insight: poor, improving mildly Assessment Schizoaffective disorder unspecified Cannabis use disorder Nicotine dependence Plan: -Patient continues to meet criteria for inpatient psychiatric admission for symptom stabilization and safety. Patient received a treatment order on 06/19/2020. -Medications: Decreased Seroquel at 50 mg daily + 400 mg daily at bedtime for psychosis/mood stabilization. Will attempt to cross titrate onto Haldol to eventually transition patient onto Haldol-D. increased Haldol 5 mg BID for psychosis. -When necessary Ativan and Haldol for agitation/aggression. -NRT - nicotine patch -SW on board for discharge planning. Encouraged the patient to participate in milieu. Patient received a treatment order on 06/19/2020. likely patient will need ACT services upon discharge. likely discharge early next week once patient is transitioned onto Haldol PEREIRA.
[2020-06-20 13:52] VITALS: BMI 25.7
[2020-06-20] MEDS: MAG HYDROX/AL HYDROX/SIMETH 30 ML CUP PO PRN (17:15)
[2020-06-20] MEDS: PANTOPRAZOLE 40 MG TABLET PO SCH (18:56)
[2020-06-20] MEDS ORDERED: HALOPERIDOL LACTATE 5 MG/ML 1 ML VIAL IM STA (19:00)
[2020-06-20] MEDS: diphenhydrAMINE 50 MG/ML 1 ML VIAL IM PRN (19:07)
[2020-06-20] MEDS: LORazepam 2 MG/ML INJ IM PRN (19:09)
[2020-06-20] MEDS: haloperidoL 5 MG TAB PO SCH (20:33)
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
[2020-06-20] MEDS ORDERED: QUEtiapine 400 MG TAB PO SCH (21:00)
[2020-06-21] MEDS: CALCIUM CARBONATE 500 MG CHEWABLE PO PRN (00:01)
[2020-06-21] MEDS: haloperidoL 5 MG TAB PO SCH ×2 (08:16→20:24)
[2020-06-21] MEDS: QUEtiapine 50 MG TAB PO SCH (08:16)
[2020-06-21] MEDS: PANTOPRAZOLE 40 MG TABLET PO SCH (08:18)
[2020-06-21] MEDS: NICOTINE 14MG/24HR PATCH TRANSDERM SCH (08:18)
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
[2020-06-21] MEDS: LORazepam 1 MG TAB PO PRN ×2 (10:04→20:26)
[2020-06-21] MEDS: PROPRANOLOL 20 MG TAB PO SCH ×2 (11:36→20:24)
[2020-06-21] MEDS: haloperidoL 0.5 MG TAB PO SCH (20:24)
[2020-06-21] MEDS: QUEtiapine 100 MG TAB PO SCH (20:25)
[2020-06-22] MEDS: QUEtiapine 50 MG TAB PO SCH (07:53)
[2020-06-22] MEDS: LORazepam 1 MG TAB PO PRN ×3 (07:53→20:19)
[2020-06-22] MEDS: haloperidoL 5 MG TAB PO SCH ×2 (07:54→20:18)
[2020-06-22] MEDS: haloperidoL 0.5 MG TAB PO SCH ×2 (07:54→20:18)
[2020-06-22] MEDS: PANTOPRAZOLE 40 MG TABLET PO SCH (07:54)
[2020-06-22] MEDS: PROPRANOLOL 20 MG TAB PO SCH ×2 (07:59→20:18)
[2020-06-22] MEDS: NICOTINE 14MG/24HR PATCH TRANSDERM SCH (07:59)
--- NOTE | 2020-06-22 16:55 | PN ---
PROGRESS NOTE DATE OF SERVICE: 06/22/2020. CHIEF COMPLAINT: The patient was delusional. He was presented by police with a pick-up order and became aggressive towards police. INTERVAL HISTORY: The patient has been doing fair. He continues with significant regressions in thought. He had an episode of aggression on the requiring seclusion and restraints. Yesterday things were quieter for him. He tends to wander the unit. He does not interact too much with others. He did not attend groups yesterday. He reports that he slept fairly well last night. Today he has been up. He continues to wander about. He walks with a very narrow focus and does not pay too much attention to things around him. Today, he said that he feels the Haldol may be causing him to have suicide thoughts and he wants to switch to Prolixin. He said that when he was hospitalized in [place] for about 30 days, he had been tried on Haldol and that he believed the Haldol caused him to develop suicidal thoughts. He could not give any details as to what the dosing was or what the other circumstances were. Also, he was not able to identify the specific places where he was at so that we could obtain medical records. He says that he is having some thoughts that today around suicide, though he cannot really identify what factors may be precipitating these kind of thoughts. I discussed with the patient that psychiatric medications do not cause the patient's to have suicidal thinking or significant regression in thoughts. I reviewed the typical side effects related to Haldol. The patient was not identifying any side effects in that regard. Overall, the patient appears to tolerate his psychotropic medications. MENTAL STATUS: Patient was seen in the [place]. It was noteworthy that he presented in a slightly more conversational manner than when I had seen him previously. He had a little more relaxation in his body whereas previously he had a very stiff manner and mostly would look off in a distance. He was able to give fairly good eye contact and express himself in a reasonable way. His affect was constricted. His mood was depressed. He had an anxious manner. It was difficult to assess for thought disorder and thoughts of harm. He was oriented and alert. ASSESSMENT: I will continue the current diagnosis and treatment plan. We will continue to make efforts to engage the patient in individual and group therapeutic activities. Psychotropic medications will continue the same including Seroquel 50 mg in the morning, 300 mg at bedtime and Haldol 6.5 mg twice a day. I discussed with the patient that the medications are not likely to cause the concerns he is describing, though if anything, he may be under treated with medications as the reason some of these thoughts may be surfacing. I had contact with Dr. Gonsales who indicated that he would choose to continue medications the same through the weekend and that he would review medications further on Wednesday. We will focus on stabilization and discharge planning. ERIKA / MARIA DE JESUSN: [id number] /
[2020-06-22] MEDS: QUEtiapine 100 MG TAB PO SCH (20:18)
[2020-06-23] MEDS: haloperidoL 5 MG TAB PO SCH ×2 (08:02→20:38)
[2020-06-23] MEDS: haloperidoL 0.5 MG TAB PO SCH ×2 (08:03→20:38)
[2020-06-23] MEDS: PANTOPRAZOLE 40 MG TABLET PO SCH (08:03)
[2020-06-23] MEDS: NICOTINE 14MG/24HR PATCH TRANSDERM SCH ×2 (08:04→12:28)
[2020-06-23] MEDS: QUEtiapine 50 MG TAB PO SCH (08:04)
[2020-06-23] MEDS: PROPRANOLOL 20 MG TAB PO SCH ×2 (08:04→20:39)
[2020-06-23] MEDS: LORazepam 1 MG TAB PO PRN ×3 (08:05→20:38)
[2020-06-23 08:08] VITALS: RESP 20
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
[2020-06-23] MEDS: QUEtiapine 100 MG TAB PO SCH (20:39)
[2020-06-24] MEDS: NICOTINE 14MG/24HR PATCH TRANSDERM SCH (08:05)
[2020-06-24] MEDS: LORazepam 1 MG TAB PO PRN ×2 (08:07→15:05)
[2020-06-24] MEDS: haloperidoL 5 MG TAB PO SCH (08:07)
[2020-06-24] MEDS: QUEtiapine 50 MG TAB PO SCH (08:07)
[2020-06-24] MEDS: PROPRANOLOL 20 MG TAB PO SCH (08:07)
[2020-06-24] MEDS: PANTOPRAZOLE 40 MG TABLET PO SCH (08:07)
[2020-06-24] MEDS: haloperidoL 0.5 MG TAB PO SCH (08:07)
[2020-06-24] MEDS ORDERED: HALOPERIDOL DECANOATE 100 MG/ML 1 ML VIAL IM STA (11:42)
--- NOTE | 2020-06-24 12:01 | P.PN ---
Progress Note - Text Progress Note Date: 06/24/20 Interval History: Patient was seen lying in his bed this morning and was directable and agreeable to speak with insurance underwriter. Patient was agreeable to speak with insurance underwriter inside the office. Patient appeared to be more polite and cooperative during conversation today. He continues to claim that he does feel some anxiety and restlessness and was agreeable to have his propranolol adjusted. He does claim that the propranolol has been helping and also requested to have a standing dose of Ativan to help with the restlessness. He states that he was able to sleep throughout the night. Patient was less religiously preoccupied today however did claim that he is "a prophet" however soon went back to talking about his medications. Patient appears to be less irritable and did not get any IM injections over the weekend. He claims that he has been taking his Haldol however was asking if he could be switched on to Prolixin. Patient was however agreeable to take Haldol Decanoate shot today. He appears to have mild improvement in his insight. He denies any depression or anxiety today. At this time patient denies any suicidal or homical ideations, intent or plan. Patient denies any auditory, visual hallucinations. Mental Status Exam: General Appearance: Patient appears to be well-built, stated age is alert, appears to be calmer today, improving mildly. Patient appears to have improving hygiene and grooming. Long hair. Behavior: Patient is seated without any agitated behavior. Calmer today. Speech: Patient's speech is fluent and nonpressured. Mood/Affect: Patient reports their mood is "fine", affect is congruent and states that he feels anxious. Suicidality/Homicidality: Patient denies having any homicidal ideation intent or plan. Denies any suicidal ideations intent or plan Perceptions: Patient denies any visual hallucinations and denies any auditory hallucinations Though content/process: Religiously preoccupied, improving. More logical and goal oriented. Memory and concentration: AOX3, grossly intact for the purposes of this session Judgment and insight: Chronically poor, improving mildly Assessment Schizoaffective disorder unspecified Cannabis use disorder Nicotine dependence Plan: -Patient continues to meet criteria for inpatient psychiatric admission for symptom stabilization and safety. Patient received a treatment order on 06/19/2020. -Medications: Decreased Seroquel 300 mg daily at bedtime for psychosis/mood stabilization. Decreased Haldol 6 mg BID for psychosis. Switched propranolol 10 mg three times a day for akathisia. Added standing dose of Ativan 1 mg scheduled twice a day for anxiety/restlessness. Patient to receive Haldol-D 100 mg IM today and second dose of 50 mg IM on Wednesday prior to discharge. -When necessary Ativan and Haldol for agitation/aggression. -NRT - nicotine patch -SW on board for discharge planning. Encouraged the patient to participate in milieu. Patient received a treatment order on 06/19/2020. likely patient will need ACT services upon discharge. Likely discharge in 2 days, patient will be discharged to police custody as he has a warrant.
[2020-06-24] MEDS: PROPRANOLOL 10 MG TAB PO SCH ×2 (15:03→21:03)
[2020-06-24] MEDS: QUEtiapine 100 MG TAB PO SCH (20:17)
[2020-06-24] MEDS: LORazepam 1 MG TAB PO SCH (20:20)
[2020-06-24] MEDS: CALCIUM CARBONATE 500 MG CHEWABLE PO PRN (21:04)
[2020-06-25] MEDS: PROPRANOLOL 10 MG TAB PO SCH ×3 (08:22→20:07)
[2020-06-25] MEDS: LORazepam 1 MG TAB PO SCH ×2 (08:22→20:05)
[2020-06-25] MEDS: PANTOPRAZOLE 40 MG TABLET PO SCH (08:24)
[2020-06-25] MEDS: NICOTINE 14MG/24HR PATCH TRANSDERM SCH (08:24)
--- NOTE | 2020-06-25 10:15 | P.PN ---
Progress Note - Text Progress Note Date: 06/25/20 Interval History: Patient was seen lying in his bed this morning and was directable and agreeable to speak with commercial lines underwriter. Patient wanted to speak with commercial lines underwriter in his room today. He states that he had "a lot of dreams last night" however did state that he managed to sleep throughout the whole night. He does not endorse any issues or problems with his medications at this time. He states that he has been taking them as prescribed with no problems. He was asking if she could have his propranolol moved back to 20 mg twice a day however due to his blood pressure this will not be possible at this time. He denies having any restlessness today or akathisia. Patient appeared to be more polite and cooperative during conversation today. He denies any depression or anxiety today. Patient was not endorsing any adventist delusions or preoccupations today and did not endorse any paranoia. He states that he feels he is doing better this admission than his previous admissions with regards to his medications. Patient appears to be less irritable today. He states that he tolerated the Haldol D injection well yesterday. He appears to have mild improvement in his insight. At this time patient denies any suicidal or homical ideations, intent or plan. Patient denies any auditory, visual hallucinations. Mental Status Exam: General Appearance: Patient appears to be well-built, stated age is alert, appears to be calmer today, improving mildly. Patient appears to have improving hygiene and grooming. Long hair. Behavior: Patient is seated without any agitated behavior. Calmer today. Speech: Patient's speech is fluent and nonpressured. Mood/Affect: Patient reports their mood is "alright", affect is congruent Suicidality/Homicidality: Patient denies having any homicidal ideation intent or plan. Denies any suicidal ideations intent or plan Perceptions: Patient denies any visual hallucinations and denies any auditory hallucinations Though content/process: Is not endorsing any delusions or paranoia today. More logical and goal oriented. Memory and concentration: AOX3, grossly intact for the purposes of this session Judgment and insight: Chronically poor, improving mildly Assessment Schizoaffective disorder unspecified Cannabis use disorder Nicotine dependence Plan: -Patient continues to meet criteria for inpatient psychiatric admission for symptom stabilization and safety. Patient received a treatment order on 06/19/2020. -Medications: Continue with Seroquel 300 mg daily at bedtime for psychosis/mood stabilization. Decreased Haldol 4.5 mg BID for psychosis. Continue with propranolol 10 mg three times a day for akathisia. Continue with Ativan 1 mg scheduled twice a day for anxiety/restlessness. Patient received Haldol-D 100 mg IM on 06/24 and second dose of 50 mg IM tomorrow prior to discharge. -When necessary Ativan and Haldol for agitation/aggression. -NRT - nicotine patch -SW on board for discharge planning. Encouraged the patient to participate in milieu. Patient received a treatment order on 06/19/2020. likely patient will need ACT services upon discharge. Likely discharge tomorrow, patient will be discharged to police custody as he has a warrant.
[2020-06-25] MEDS: LORazepam 1 MG TAB PO PRN (14:07)
[2020-06-25 15:36] VITALS: BP 113/59; PULSE 111
[2020-06-25] MEDS: QUEtiapine 100 MG TAB PO SCH (20:06)
[2020-06-25 20:32] VITALS: TEMP 97.7
[2020-06-26] MEDS: PANTOPRAZOLE 40 MG TABLET PO SCH (08:13)
[2020-06-26] MEDS: PROPRANOLOL 10 MG TAB PO SCH (08:14)
[2020-06-26] MEDS: NICOTINE 14MG/24HR PATCH TRANSDERM SCH (08:14)
[2020-06-26] MEDS: LORazepam 1 MG TAB PO SCH (08:14)
[2020-06-26] MEDS ORDERED: HALOPERIDOL DECANOATE 50 MG/ML 1 ML VIAL IM ONE (10:00)
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
[2020-06-26] MEDS: LORazepam 1 MG TAB PO PRN (13:20)
== END 2020-06-26 15:00 | disposition home or self-care (01) | DRG 885 ==
LOC: EC 13:06 → EEVIPCON 13:06 → 3MHU 21:52
PROVIDERS: ADMIT Psychiatry & Neurology Psychiatry; ATTEND Psychiatry & Neurology Psychiatry
DX: F25.9 Schizoaffective disorder, unspecified (principal); F23 Brief psychotic disorder; Z91.128 Patient's intentional underdosing of medication regimen for other reason; F12.10 Cannabis abuse, uncomplicated; F17.200 Nicotine dependence, unspecified, uncomplicated; F41.9 Anxiety disorder, unspecified; F84.5 Asperger's syndrome; J45.909 Unspecified asthma, uncomplicated; E87.6 Hypokalemia; R45.1 Restlessness and agitation; Z20.828 Contact with and (suspected) exposure to other viral communicable diseases; T50.916A Underdosing of multiple unspecified drugs, medicaments and biological substances, initial encounter; Z79.899 Other long term (current) drug therapy; Z88.8 Allergy status to other drugs, medicaments and biological substances; Z56.0 Unemployment, unspecified; Z78.1 Physical restraint status; Z81.8 Family history of other mental and behavioral disorders
CPT/HCPCS: 36415; 80053; 80061; 80306; 80320; 81003; 83036; 84443; 85025; 87635; 96372; 99285

== ENCOUNTER 2020-07-01 17:16 | Inpatient (IN) | payer MEDICARE, MEDICAID ==
[2020-07-01] MEDS ORDERED: TOPICAL SKIN ADHESIVE 1 EACH AMP TOPICAL ONE (17:32)
--- NOTE | 2020-07-01 17:35 | ED ---
General Adult HPI - General Chief complaint: Psychiatric Symptoms Stated complaint: Head injury Time Seen by Provider: 07/01/20 17:26 Source: patient, police, RN notes reviewed Mode of arrival: wheelchair Limitations: no limitations - History of Present Illness Initial comments: Patient is a 29-year-old male presenting to the emergency Department with c orrectional officer with complaints of suicidal thoughts. Patient states he struck his head on a sink several times in order to kill himself. Patient states he is not sure why didn't work. Patient does have history of previous depression and suicidal thoughts. Patient states only mild headache. Patient did not lose consciousness. This was witnessed by officers. Last tetanus immunization was less than 5 years ago. Patient hears voices that are aggravating to him. Patient states the voices talk to him about the end of the world and this is his main concern at this time. Patient was recently in the hospital for psychiatric problems and feels the medications made him worse. - Related Data Home Medications Medication Instructions Recorded Confirmed QUEtiapine FUMARATE [SEROquel] 300 mg PO HS 07/01/20 07/01/20 haloperidoL [Haldol] 3 mg PO BID 07/01/20 07/01/20 Previous Rx's Medication Instructions Recorded Haloperidol Decanoate [Haldol D] 150 mg IM [id number] #1 vial 06/26/20 Propranolol [Inderal] 10 mg PO TID 30 Days tab 06/26/20 Allergies Allergy/AdvReac Type Severity Reaction Status Date / Time aripiprazole [From Abilify] Allergy Unknown Verified 07/01/20 18:27 divalproex sodium Allergy Unknown Verified 07/01/20 18:27 [From Depakote] paliperidone [From Invega] Allergy Unknown Verified 07/01/20 18:27 dextromethorphan AdvReac Hallucinati Verified 07/01/20 18:27 ons guaifenesin AdvReac Hallucinati Verified 07/01/20 18:27 ons lurasidone [From Latuda] AdvReac Suicidal Verified 07/01/20 18:27 Ideation Review of Systems ROS Statement: Those systems with pertinent positive or pertinent negative responses have been documented in the HPI. ROS Other: All systems not noted in ROS Statement are negative. Constitutional: Denies: fever Eyes: Denies: eye pain ENT: Denies: ear pain Respiratory: Denies: cough Cardiovascular: Denies: chest pain Endocrine: Denies: fatigue Gastrointestinal: Denies: abdominal pain Genitourinary: Denies: dysuria Musculoskeletal: Denies: back pain Skin: Denies: rash Neurological: Reports: as per HPI Past Medical History Past Medical History: Asthma Additional Past Medical History / Comment(s): aspergers, delusional disorder History of Any Multi-Drug Resistant Organisms: None Reported Past Surgical History: No Surgical Hx Reported Past Anesthesia/Blood Transfusion Reactions: No Reported Reaction Past Psychological History: Anxiety, Bipolar Smoking Status: Current every day smoker Past Alcohol Use History: Occasional Past Drug Use History: Marijuana General Exam Limitations: no limitations General appearance: alert Head exam: Present: other (Forehead lacerations) Eye exam: Present: normal appearance, EOMI ENT exam: Present: normal oropharynx Neck exam: Present: normal inspection. Absent: tenderness Respiratory exam: Present: normal lung sounds bilaterally Cardiovascular Exam: Present: regular rate, normal rhythm GI/Abdominal exam: Present: soft. Absent: tenderness Extremities exam: Present: normal inspection, full ROM. Absent: tenderness Neurological exam: Present: alert, CN II-XII intact. Absent: motor sensory deficit Expanded Neurological exam: Present: protecting the airway Speech: Present: fluid speech Cranial nerves: EOM's Intact: Normal Motor strength exam: RUE: 5, LUE: 5, RLE: 5, LLE: 5 Eye Response: (4) open spontaneously Motor Response: (6) obeys commands Verbal Response: (5) oriented Psychiatric exam: Present: normal affect, normal mood Skin exam: Present: other (Forehead lacerations) Course Vital Signs 07/01/20 17:17 Temperature 98.8 F Pulse Rate 79 Respiratory 18 Rate Blood Pressure 130/86 O2 Sat by Pulse 98 Oximetry Procedures - Laceration Laceration #1 Consent Obtained: verbal consent Indication: laceration Site: face Size (cm): 6 Description: stellate (Multiple small lacerations of different shapes some confluent.) Depth: simple, single layer Pre-repair: wound explored, irrigated extensively Type of Sutures: other (Closed with exofen skin adhesive) Patient Tolerated Procedure: well, no complications Medical Decision Making - Medical Decision Making Patient was seen by mental health services with plans for admission. Disposition Clinical Impression: Acute psychosis Disposition: TRANSFER TO PSYCH HOSP/UNIT Is patient prescribed a controlled substance at d/c from ED?: No Referrals: Paulie Cade MD [Primary Care Provider] - 1-2 days Decision Time: 19:13
--- NOTE | 2020-07-01 18:27 | CT ---
EXAMINATION TYPE: CT brain wo con DATE OF EXAM: 07/01/2020 COMPARISON: None HISTORY: Forehead abrasions after injury CT DLP: 1119.4 mGycm Automated exposure control for dose reduction was used. Ventricles and sulci appear normal. There is no mass effect nor midline shift. There is no sign of in tracranial hemorrhage. There is frontal scalp hematoma. There is no evidence of a fracture. Calvarium is intact. IMPRESSION: Frontal scalp hematoma. Negative CT scan of the brain.
[2020-07-01] MEDS ORDERED: LORazepam 1 MG TAB PO STA (21:29)
[2020-07-01 21:46] LABS: Appearance,Urine Clear (Clear); Bilirubin,Urine Negative (Negative); Blood,Urine Negative (Negative); Color,Urine Light Yellow; Glucose,Urine (UA) Negative (Negative); Ketones,Urine Negative (Negative); Leukocyte Esterase,Urine Negative (Negative); Nitrite,Urine Negative (Negative); Protein,Urine Negative (Negative); Specific Gravity,Urine 1.009 (1.001-1.035); Urobilinogen,Urine <2.0 mg/dL (<2.0)
[2020-07-01 21:59] LABS: Amphetamine Screen,Urine Not Detected (NotDetected); Barbiturate Screen,Urine Not Detected (NotDetected); Benzodiazepines Screen,Urine Not Detected (NotDetected); Cocaine Screen,Urine Not Detected (NotDetected); Methadone Screen, Urine Not Detected (NotDetected); Opiate Screen,Urine Not Detected (NotDetected); Oxycodone Screen, Urine Not Detected (NotDetected); Phencyclidine Screen,Urine Not Detected (NotDetected); Tricyclic Antidepressant,Urine Detected (NotDetected); Urn Cannabinoid Scrn Detected (NotDetected)
[2020-07-02] MEDS ORDERED: LORazepam 1 MG TAB PO STA (08:20)
[2020-07-02] MEDS ORDERED: MAG HYDROX/AL HYDROX/SIMETH 30 ML CUP PO PRN (11:09)
[2020-07-02] MEDS ORDERED: MAGNESIUM HYDROXIDE 2,400 MG/10 ML CUP PO PRN (11:09)
[2020-07-02] MEDS ORDERED: ACETAMINOPHEN TAB 325 MG TAB PO PRN (11:09)
[2020-07-02] MEDS ORDERED: flUPHENAZine 2.5 MG/ML (MDV) 10 ML VIAL IM PRN (11:14)
[2020-07-02] MEDS ORDERED: LORazepam 2 MG/ML INJ IM PRN (11:14)
--- NOTE | 2020-07-02 13:12 | P.HP ---
Psychiatric H&P - . H&P Date: 07/02/20 History & Physical: Allergies Allergy/AdvReac Type Severity Reaction Status Date / Time aripiprazole From Abilify Allergy Unknown Verified 07/01/20 18:27 divalproex sodium Allergy Unknown Verified 07/01/20 18:27 From Depakote paliperidone From Invega Allergy Unknown Verified 07/01/20 18:27 dextromethorphan AdvReac Hallucinati Verified 07/01/20 18:27 ons guaifenesin AdvReac Hallucinati Verified 07/01/20 18:27 ons lurasidone From Latuda AdvReac Suicidal Verified 07/01/20 18:27 Ideation Vital Signs Temp 98.2 F 07/02/20 10:30 Pulse 105 H 07/02/20 10:30 Resp 14 07/02/20 10:30 BP 133/81 07/02/20 10:30 Pulse Ox 98 07/02/20 10:30 Intake & Output 07/01/20 07/02/20 07/02/20 18:59 06:59 18:59 Weight 79.379 kg Laboratory Last Values Urine Color Light Yellow 07/01/20 21:36 Urine Appearance Clear (Clear) 07/01/20 21:36 Urine pH 6.0 (5.0-8.0) 07/01/20 21:36 Ur Specific [place] 1.009 (1.001-1.035) 07/01/20 21:36 Urine Protein Negative (Negative) 07/01/20 21:36 Urine Glucose (UA) Negative (Negative) 07/01/20 21:36 Urine Ketones Negative (Negative) 07/01/20 21:36 Urine Blood Negative (Negative) 07/01/20 21:36 Urine Nitrite Negative (Negative) 07/01/20 21:36 Urine Bilirubin Negative (Negative) 07/01/20 21:36 Urine Urobilinogen <2.0 mg/dL (<2.0) 07/01/20 21:36 Ur Leukocyte Esterase Negative (Negative) 07/01/20 21:36 Urine Opiates Screen Not Detected (NotDetected) 07/01/20 21:36 Ur Oxycodone Screen Not Detected (NotDetected) 07/01/20 21:36 Urine Methadone Screen Not Detected (NotDetected) 07/01/20 21:36 Ur Propoxyphene Screen Not Detected (NotDetected) 07/01/20 21:36 Ur Barbiturates Screen Not Detected (NotDetected) 07/01/20 21:36 U Tricyclic Antidepress Detected (NotDetected) H 07/01/20 21:36 Ur Phencyclidine Scrn Not Detected (NotDetected) 07/01/20 21:36 Ur Amphetamines Screen Not Detected (NotDetected) 07/01/20 21:36 U Methamphetamines Scrn Not Detected (NotDetected) 07/01/20 21:36 U Benzodiazepines Scrn Not Detected (NotDetected) 07/01/20 21:36 Urine Cocaine Screen Not Detected (NotDetected) 07/01/20 21:36 U Marijuana (THC) Screen Detected (NotDetected) H 07/01/20 21:36 Coronavirus (PCR) Not Detected (Not Detectd) 07/01/20 19:21 07/02/20 13:02 IDENTIFYING DATA: Patient is a 29-year-old male who currently lives alone, presented to the ER [facility], has a chronic history of schizoaffective disorder. HPI: Patient presented to the hospital today accompanied by a campus security officer for suicidal thoughts and self-harm. Patient apparently was at the penitentiary and struck his head repeatedly on the sink in an effort to kill himself. Patient claimed in the ER that he did not have any loss of consciousness or no headaches. Patient did complain of hearing auditory hallucinations which were aggravating him and had a computed tomography scan of his brain which showed a frontal scalp hematoma. Patient's UDS was positive for TCAs and THC. Patient was seen at the bedside and appeared to have a significant abrasion and wound over his forehead. Patient claims that she was not being given his Ativan in the penitentiary and states that it was making him feel very anxious. He states that he was having suicidal thoughts because his anxiety was so extreme. He mentioned also hearing voices however did not describe what they were telling him. He continues to state that he is a "prophet that hears things". He was fairly religiously preoccupied. He was not responding to internal stimuli today and not endorsing any paranoia. He has poor insight and judgment is impulsive. He claims that his mood is "not good" and referred to depression and was fairly focused on his medications. He states that he does not want to be on Haldol any longer as he feels that it is making him suicidal. He claims that he's been having poor sleep at night however has a fair appetite. Patient admits to using marijuana and cigarettes. PAST PSYCHIATRIC HISTORY: Patient has had several admissions in the past for acute psychosis and has a history of schizoaffective. Patient was previously on Abilify, Invega, Seroquel and lithium, and also Haldol D. Patient was last given Haldol D1 150 mg IM injection on 06/26/2020 prior to his previous discharge from the mental health unit. Patient was previously admitted to the mental health unit one week ago and was placed on a court order at that time and was discharged to penitentiary. Patient used to follow up at [facility] PMH: Asthma ALLERGIES: as per EMR CHEMICAL DEPENDENCY HISTORY: as per HPI FAMILY PSYCHIATRIC/SUBSTANCE USE HISTORY: Previous documentation reports that his father and brother who have autism. SOCIAL HISTORY: Patient apparently has no children born and raised in [facility] and according to previous documentation patient apparently earned his GED has no service history and is currently unemployed. Patient has had several incarcerations in the past and charges for probation violations and abuse. MENTAL STATUS EXAM: General Appearance: Patient appears to be well-built, stated age is alert, unpredictable, attempts to cooperate. Patient appears to have poor hygiene and grooming. Significant forehead wound. Behavior: Patient is seated without any agitated behavior. threatening Speech: Patient's speech is fluent and nonpressured. Mood/Affect: Patient reports their mood is "not good", affect is congruent and labile Suicidality/Homicidality: Patient denies having any homicidal ideation intent or plan. Denies any suicidal ideations intent or plan Perceptions: Patient denies any visual hallucinations and denies any auditory hallucinations Though content/process: Religiously preoccupied, poor insight. Logical. Memory and concentration: AOX3, grossly intact for the purposes of this session Judgment and insight: poor, impulsive STRENGTHS/WEAKNESSES: strength is that patient is resilient. Weakness is that patient has poor judgment and is impulsive INTELLECT: average IMPRESSIONS: Schizoaffective disorder, bipolar type. Cannabis use disorder Nicotine dependence PLAN: -Patient is admitted under court order to MHU for stabilization of psychiatric symptoms and safety. Patient has not signed adult voluntary form or medication consent and is placed in patient's chart. Patient has an active court order signed on 06/19/2020 -Medications : Will start patient on Prolixin 2.5 mg twice a day for psychosis/mood stabilization. Due to patients non compliance with meds, he will need to be transitioned onto a long acting injection prior to discharge. Continue with Seroquel 300 mg nightly for mood stabilization/psychosis. Added lithium 300 mg twice a day for suicidal thoughts/mood stabilization. Continue propranolol 10 mg 3 times a day for restlessness/akathisia. -Ativan and Prolixin PRN for agitation/aggression -Patient was counselled on substance abuse -Patient was informed of the risks, benefits and side effects of the medication and patient verbally consented however did not want to sign for medications today. -Internal Medicine consult to perform medical evaluation and physical. -NRT - nicotine patch -SW on board for discharge planning. Encourage patient to participate in groups to work on coping skills. Patient will likely need to be transitioned onto long-acting injection of Prolixin prior to discharge. Patient will likely be going back to penitentiary upon discharge. 07/02/20 13:10
[2020-07-02] MEDS: LITHIUM CARBONATE 300 MG CAP PO SCH ×2 (14:58→19:57)
[2020-07-02] MEDS: PROPRANOLOL 10 MG TAB PO SCH ×2 (14:58→19:58)
[2020-07-02] MEDS: LORazepam 1 MG TAB PO PRN ×2 (15:00→20:49)
[2020-07-02] MEDS ORDERED: QUEtiapine 100 MG TAB PO SCH (21:00)
[2020-07-03] MEDS: PROPRANOLOL 10 MG TAB PO SCH ×3 (08:17→21:44)
[2020-07-03] MEDS: LORazepam 1 MG TAB PO PRN (08:17)
[2020-07-03] MEDS: LITHIUM CARBONATE 300 MG CAP PO SCH ×2 (08:17→20:10)
[2020-07-03 08:53] LABS: Basophils % (A) 1 %; Eosinophils # (A) 0.3 k/uL (0-0.7); Eosinophils % (A) 4 %; HCT 44.2 % (39.0-53.0); HGB 14.7 gm/dL (13.0-17.5); Lymphocytes # (A) 1.4 k/uL (1.0-4.8); Lymphocytes % (A) 21 %; MCH 29.8 pg (25.0-35.0); MCHC 33.3 g/dL (31.0-37.0); MCV 89.3 fL (80.0-100.0); Mean Platelet Volume 7.3; Monocytes # (A) 0.6 k/uL (0-1.0); Monocytes % (A) 8 %; Neutrophils # (A) 4.5 k/uL (1.3-7.7); Neutrophils % (A) 65 %; Platelet Count 177 k/uL (150-450); RBC 4.95 m/uL (4.30-5.90); RDW 12.7 % (11.5-15.5); WBC 6.9 k/uL (3.8-10.6)
--- NOTE | 2020-07-03 09:01 | P.PN ---
Progress Note - Text Progress Note Date: 07/03/20 Interval History: Patient was seen lying in his bed this morning with a sitter at his side and was directable and agreeable to speak with field underwriter. Patient appeared to be calmer this morning with the field underwriter and states that he is feeling "sleepy". He states that he was able to sleep throughout the night with no problems. He states that he needed to ask for an Ativan last night to sleep. He continues to be preoccupied with Ativan and Seroquel. She however was agreeable to continue on with medication regimen and being transitioned onto Prolixin. He states that overall he is feeling mildly better however continues to reflect back on the way she was feeling in custodial when he was on "Haldol and wasn't getting my Ativan". He claims to have gone to 1 group yesterday however was not able to sit in group for very long. He states that his anxiety and restlessness have improved mildly. At this time patient denies any suicidal or homical ideations, intent or plan. Patient denies any auditory, visual hallucinations. He continues to give anabaptism references at times. Mental Status Exam: General Appearance: Patient appears to be well-built, stated age is alert, appears to be tired, attempts to cooperate. Patient appears to have improving hygiene and grooming. Significant forehead wound. Behavior: Patient is seated without any agitated behavior. Speech: Patient's speech is fluent and nonpressured. Mood/Affect: Patient reports their mood is "a little better", affect is congruen t and calmer today Suicidality/Homicidality: Patient denies having any homicidal ideation intent or plan. Denies any suicidal ideations intent or plan Perceptions: Patient denies any visual hallucinations and denies any auditory hallucinations Though content/process: Religiously preoccupied, mildly improving, poor insight. Logical. Memory and concentration: AOX3, grossly intact for the purposes of this session Judgment and insight: poor, impulsive Assessment Schizoaffective disorder, bipolar type. Cannabis use disorder Nicotine dependence Plan: -Patient continues to meet criteria for inpatient psychiatric admission for symptom stabilization and safety. Patient has not signed medication consent and was placed in patient's chart. Patient is currently on an active court order which was signed on 06/19/2020. -Medications: Increased Prolixin to 3.5 mg twice a day for psychosis/mood stabilization. Patient will need to be transitioned onto Prolixin D prior to discharge. Decreased Seroquel to 250 mg daily at bedtime for mood stabilization/psychosis. Continue lithium 300 mg twice a day for suicidal thoughts/mood stabilization. Continue with propranolol 10 mg 3 times a day for restlessness/akathisia. -When necessary Ativan and Prolixin for agitation/aggression. -NRT - nicotine patch -SW on board for discharge planning. Encouraged the patient to participate in milieu. Patient will likely need to be transitioned onto long-acting injection of Prolixin prior to discharge. Patient will likely be going back to custodial upon discharge. Patient states that he has a court hearing date on July 10.
[2020-07-03 09:03] LABS: ALT 25 U/L (4-49); AST 22 U/L (17-59); African American GFR (CKD) >90 (>60 ml/min/1.73 sqM); Albumin 4.6 g/dL (3.5-5.0); Alkaline Phosphatase 52 U/L (38-126); Anion Gap 8 mmol/L; Blood Urea Nitrogen 12 mg/dL (9-20); Calcium 9.7 mg/dL (8.4-10.2); Carbon Dioxide 29 mmol/L (22-30); Chloride 104 mmol/L (98-107); Cholesterol 176 mg/dL (<200); Glucose 118 mg/dL (74-99); HDL Cholesterol 40 mg/dL (40-60); LDL Cholesterol,Calculated 125 mg/dL (0-99); Non-African American GFR(CKD) >90 (>60 ml/min/1.73 sqM); Potassium 4.2 mmol/L (3.5-5.1); Sodium 141 mmol/L (137-145); Total Protein 7.2 g/dL (6.3-8.2); Triglycerides 54 mg/dL (<150)
[2020-07-03 16:45] LABS: Hemoglobin A1C 4.9 % (4.0-6.0)
[2020-07-03] MEDS ORDERED: QUEtiapine 100 MG TAB PO SCH (21:00)
[2020-07-04] MEDS: PROPRANOLOL 10 MG TAB PO SCH ×3 (08:22→20:22)
[2020-07-04] MEDS: LITHIUM CARBONATE 300 MG CAP PO SCH ×2 (08:22→20:22)
--- NOTE | 2020-07-04 11:30 | P.PN ---
Progress Note - Text Progress Note Date: 07/04/20 Interval History: Patient was seen lying in his bed this morning and was directable and agreeable to speak with short story writer. Patient appeared to be calmer this morning with short story writer during conversation. He appeared to be more appropriate during the interview today. He claims that the swelling on his had has improved mildly and he is denying any headaches or any vision changes at this time. He states that he was able to sleep fairly last night. He continues to be preoccupied with his Ativan and Seroquel dosing. He states that "these are the only medications that work for me". He was agreeable to continue on with the Prolixin and lithium as well. He states that with the Haldol if she gets into his "dark place" and is worried that he will feel suicidal if he is back on the wrong medications. He states that he was able to sleep throughout the night with no problems. He states that overall he is feeling mildly better. He claims to have gone to 1 group yesterday. He states that his energy level has been poor. He states that his anxiety and restlessness have improved mildly. At this time patient denies any suicidal or homical ideations, intent or plan. Patient denies any visual hallucinations. He is endorsing chronic auditory hallucinations. He continues to give orthodox references at times. Mental Status Exam: General Appearance: Patient appears to be well-built, stated age is alert, appears to be lethargic, attempts to cooperate. Patient appears to have improving hygiene and grooming. Significant forehead wound and swelling. Behavior: Patient is seated without any agitated behavior. Calmer today. Speech: Patient's speech is fluent and nonpressured. Mood/Affect: Patient reports their mood is "ok", affect is congruent and calmer today Suicidality/Homicidality: Patient denies having any homicidal ideation intent or plan. Denies any suicidal ideations intent or plan Perceptions: Patient denies any visual hallucinations, she admits to ongoing auditory hallucinations. Though content/process: Religiously preoccupied, mildly improving, poor insight. Logical. Memory and concentration: AOX3, grossly intact for the purposes of this session Judgment and insight: poor, impulsive, mildly improving. Assessment Schizoaffective disorder, bipolar type. Cannabis use disorder Nicotine dependence Plan: -Patient continues to meet criteria for inpatient psychiatric admission for symptom stabilization and safety. Patient has not signed medication consent and was placed in patient's chart. Patient is currently on an active court order which was signed on 06/19/2020. -Medications: Increased Prolixin to 4 mg twice a day for psychosis/mood stabilization. Patient will need to be transitioned onto Prolixin D prior to discharge. Decreased Seroquel to 200 mg daily at bedtime for mood stabilization/psychosis. Continue lithium 300 mg twice a day for suicidal thoughts/mood stabilization. Continue with propranolol 10 mg 3 times a day for restlessness/akathisia. -When necessary Ativan and Prolixin for agitation/aggression. -NRT - nicotine patch -SW on board for discharge planning. Encouraged the patient to participate in milieu. Patient will likely need to be transitioned onto long-acting injection of Prolixin prior to discharge. Patient will likely be going back to custodial upon discharge. Patient states that he has a court hearing date on July 10. Likely discharge early next week.
[2020-07-04] MEDS: LORazepam 1 MG TAB PO PRN ×2 (12:10→20:22)
[2020-07-04] MEDS: QUEtiapine 200 MG TAB PO SCH (20:22)
[2020-07-05] MEDS: LITHIUM CARBONATE 300 MG CAP PO SCH ×2 (08:17→21:40)
[2020-07-05] MEDS: PROPRANOLOL 10 MG TAB PO SCH ×3 (08:18→21:40)
[2020-07-05] MEDS: LORazepam 1 MG TAB PO PRN ×3 (08:19→21:41)
--- NOTE | 2020-07-05 11:45 | P.PN ---
Progress Note - Text Progress Note Date: 07/05/20 Interval History: Patient was seen lying in his bed this morning and was directable and agreeable to speak with medical underwriter and wanted to speak with him in the hallway. Patient appeared to be calmer this morning with medical underwriter during conversation. He states that he does not have any headache today or any vision changes or other neurological symptoms and states that he does notice some swelling around his eyes and bruising from his head injury. He states that he was able to sleep fairly last night and offered no overnight complaints. He continues to be preoccupied with his Ativan and Seroquel dosing. He requested to have his Seroquel left at 200 mg at nighttime. Patient claims that he is willing to take the Prolixin D injection today. He states that his mood has been improving and his anxiety is also but improving while in the hospital. He states that his energy level is fair at this time however claims that he is "bored" and mainly isolated to his room. He claims that he did make an effort to go to some groups yesterday. At this time patient denies any suicidal or homical ideations, intent or plan. Patient denies any visual hallucinations. He is endorsing chronic auditory hallucinations, which have been improving significantly. Patient showed significant improvement in his yazidi preoccupation. Mental Status Exam: General Appearance: Patient appears to be well-built, stated age is alert, appears to be more awake, attempts to cooperate. Directable. Patient appears to have improving hygiene and grooming. Significant forehead wound and swelling. Behavior: Patient is seated without any agitated behavior. Calmer today. Speech: Patient's speech is fluent and nonpressured. Mood/Affect: Patient reports their mood is "better", affect is congruent and calmer today Suicidality/Homicidality: Patient denies having any homicidal ideation intent or plan. Denies any suicidal ideations intent or plan Perceptions: Patient denies any visual hallucinations, she admits to ongoing auditory hallucinations. Though content/process: Religiously preoccupied, mildly improving, poor insight. Logical. Memory and concentration: AOX3, grossly intact for the purposes of this session Judgment and insight: poor, impulsive, mildly improving. Assessment Schizoaffective disorder, bipolar type. Cannabis use disorder Nicotine dependence Plan: -Patient continues to meet criteria for inpatient psychiatric admission for symptom stabilization and safety. Patient has not signed medication consent and was placed in patient's chart. Patient is currently on an active court order which was signed on 06/19/2020. -Medications: Patient will be given Prolixin D 37.5 mg IM long-acting dose today. Will gradually titrate down Prolixin by mouth. Decreased Prolixin to 4 mg qhs + 3mg daily for psychosis/mood stabilization. Decrease by mouth Prolixin further over the weekend according to patient's symptoms and tolerability. Continue with Seroquel to 200 mg daily at bedtime for mood stabilization/psychosis. Continue lithium 300 mg twice a day for suicidal thoughts/mood stabilization. Continue with propranolol 10 mg 3 times a day for restlessness/akathisia. -When necessary Ativan and Prolixin for agitation/aggression. -NRT - nicotine patch -SW on board for discharge planning. Encouraged the patient to participate in milieu. Patient will likely be going back to halfway upon discharge. Patient states that he has a court hearing date on July 10. Likely discharge early next week.
[2020-07-05] MEDS ORDERED: fluPHENAZine DECANOATE 25 MG/ML 5ML MDV IM ONE (12:00)
[2020-07-05] MEDS: QUEtiapine 200 MG TAB PO SCH (21:40)
[2020-07-06] MEDS: LITHIUM CARBONATE 300 MG CAP PO SCH ×2 (08:23→20:23)
[2020-07-06] MEDS: PROPRANOLOL 10 MG TAB PO SCH ×3 (08:23→20:23)
[2020-07-06] MEDS: LORazepam 1 MG TAB PO PRN ×2 (08:23→20:24)
--- NOTE | 2020-07-06 12:54 | P.PN ---
Progress Note - Text Progress Note Date: 07/06/20 Clinical Problems: Schizoaffective disorder bipolar type, cannabis use disorder, poor compliance with psychiatric treatment, tobacco use Interim history: I reviewed the medical record and attempted to interview the patient. He was guarded, suspicious and provided little information. His answers to questions were unintelligible. He spends his time in bed or pacing the hallways. He is had no recent episodes behavior dyscontrol. He does not attend therapeutic groups and activities. He does not interact with staff or other peers. He slept 6 hours last night. Mental status exam: He presented as a disheveled appearing 29-year-old male who goes by the name of "Avery." He made eye contact but did not appear to attend to the interview. He has healing lacerations and abrasions on his face. He had a flat facial expression. He is intermittently restless and pacing the unit. He had paranoid his speech and poverty of content. His affect was flat. He appears paranoid and suspicious. His thinking was concrete and associations did not appear organized, coherent and goal directed. He appears to be responding to internal stimuli. Assessment: He is severely persistently mentally ill. Plan: Continue inpatient treatment. Continue Prolixin 3 mg daily and 4 mg at bedtime, lithium 300 mg twice a day, Inderal 10 mg 3 times a day and Seroquel 200 mg at bedtime. Continue Prolixin 5 mg IM every 6 when necessary for agitation and Ativan 1 mg 3 times a day when necessary or 2 mg IM every 6 hours when necessary for agitation or aggression. Encourage participation in therapeutic groups and activities. Evaluate clinical status response to treatment daily basis.
[2020-07-06] MEDS: QUEtiapine 200 MG TAB PO SCH (20:23)
[2020-07-07] MEDS: PROPRANOLOL 10 MG TAB PO SCH ×3 (08:16→19:43)
[2020-07-07] MEDS: LITHIUM CARBONATE 300 MG CAP PO SCH ×2 (08:16→19:43)
[2020-07-07] MEDS: LORazepam 1 MG TAB PO PRN ×2 (08:17→20:15)
--- NOTE | 2020-07-07 13:22 | P.PN ---
Progress Note - Text Progress Note Date: 07/07/20 Clinical Problems: Schizoaffective disorder bipolar type, cannabis use disorder, poor compliance with psychiatric treatment, tobacco use Interim history: I reviewed the medical record and attempted to interview the patient. He was pleasant on approach and came in my office to talk about his concerns. He asked if he be able to get Ativan at discharge. He alleged that without Ativan she has suicidal thoughts and thoughts of self-harm. He alleged that if he had Ativan he would not have struck his head against a sink. He also complained of side effects from the Prolixin. He feels that he is "restraining", slow and "stiff." I explained that we will bring his request to his psychiatrist. He is had no episodes of behavioral dyscontrol. He does not attend therapeutic groups and activities. He does not interact with staff or other peers. He slept 6 hours last night. Mental status exam: He presented as a disheveled appearing 29-year-old male who goes by the name of "Avery." He made eye contact and appeared to attend to the interview. He has healing lacerations and abrasions on his face. He had a blunted facial expression. He is intermittently restless and pacing the unit. Speech was spontaneous with decreased rate and rhythm. His affect was blunted. He did not appear guarded or suspicious. He stated that God talked to him and told him that he was Avery. His thinking was concrete and associations appeared organized, coherent and goal directed. He appears to be responding to internal stimuli. Assessment: He is severely persistently mentally ill and moderately improved from admission. Plan: Continue inpatient treatment. Continue Prolixin 3 mg daily and 4 mg at bedtime, lithium 300 mg twice a day, Inderal 10 mg 3 times a day and Seroquel 200 mg at bedtime. Continue Prolixin 5 mg IM every 6 when necessary for agitation and Ativan 1 mg 3 times a day when necessary or 2 mg IM every 6 hours when necessary for agitation or aggression. Encourage participation in therapeutic groups and activities. Evaluate clinical status response to treatment daily basis.
[2020-07-07] MEDS: QUEtiapine 200 MG TAB PO SCH (19:43)
[2020-07-08] MEDS: LORazepam 1 MG TAB PO PRN ×2 (08:14→15:22)
[2020-07-08] MEDS: PROPRANOLOL 10 MG TAB PO SCH ×3 (08:14→20:30)
[2020-07-08] MEDS: LITHIUM CARBONATE 300 MG CAP PO SCH ×2 (08:14→20:20)
--- NOTE | 2020-07-08 10:44 | P.PN ---
Progress Note - Text Progress Note Date: 07/08/20 Interval History: Patient was seen lying in his bed this morning and was directable and agreeable to speak with typewriters functional tester. Patient appeared to be calmer this morning with typewriters functional tester during conversation. He claims that today he feels fairly uncomfortable and expressed concern about having the Haldol injection given to him previously and is afraid that he is on "too much medicine". She claims that he is feeling like he is still in a "dark place" however is denying any suicidal thoughts at this time. He states that he feels the Ativan is the only thing that is helping him stay calmer when he is on the medications. He is agreeable to continue on with taking his medications as prescribed. He appeared to be more appropriate during the interview today and had improvement in his frustration tolerance and irritability. He claims that he is able to sleep throughout the night with no problems. He states that his anxiety and restlessness have improved mildly. At this time patient denies any suicidal or homical ideations, intent or plan. Patient denies any visual hallucinations. He is endorsing chronic auditory hallucinations however claims that these have not worsened and are not very distressing to him at this time. He continues to give cheondoism references at times. Mental Status Exam: General Appearance: Patient appears to be well-built, stated age is alert, appears to be alert, attempts to cooperate. Patient appears to have improving hygiene and grooming. Significant forehead wound and swelling. Behavior: Patient is seated without any agitated behavior. Calmer today. Speech: Patient's speech is fluent and nonpressured. Mood/Affect: Patient reports their mood is "alright", affect is congruent and calmer today Suicidality/Homicidality: Patient denies having any homicidal ideation intent or plan. Denies any suicidal ideations intent or plan Perceptions: Patient denies any visual hallucinations, she admits to ongoing auditory hallucinations Though content/process: Religiously preoccupied, mildly improving, poor insight. Logical. Memory and concentration: AOX3, grossly intact for the purposes of this session Judgment and insight: poor, impulsive, mildly improving. Assessment Schizoaffective disorder, bipolar type. Cannabis use disorder Nicotine dependence Plan: -Patient continues to meet criteria for inpatient psychiatric admission for symptom stabilization and safety. Patient has not signed medication consent and was placed in patient's chart. Patient is currently on an active court order which was signed on 06/19/2020. -Medications: Decreased Prolixin to 3 mg hs + 2mg daily for psychosis/mood stabilization. Patient received Prolixin D 37.5 mg IM on 07/05/2020 and will be due for his next injection on 07/19/2020. Continue with Seroquel to 200 mg daily at bedtime for mood stabilization/psychosis. Continue lithium 300 mg twice a day for suicidal thoughts/mood stabilization. Continue with propranolol 10 mg 3 times a day for restlessness/akathisia. -When necessary Ativan and Prolixin for agitation/aggression. -NRT - nicotine patch -SW on board for discharge planning. Encouraged the patient to participate in milieu. Patient will likely be going back to group home upon discharge. Patient states that he has a court hearing date on July 10. Likely discharge in 2-3 days once patient is more psychiatrically stable.
[2020-07-08] MEDS: QUEtiapine 200 MG TAB PO SCH (20:20)
[2020-07-09] MEDS: LITHIUM CARBONATE 300 MG CAP PO SCH ×2 (08:12→20:17)
[2020-07-09] MEDS: PROPRANOLOL 10 MG TAB PO SCH ×3 (08:12→20:18)
[2020-07-09] MEDS: LORazepam 1 MG TAB PO PRN ×2 (08:21→18:46)
--- NOTE | 2020-07-09 09:27 | P.PN ---
Progress Note - Text Progress Note Date: 07/09/20 Interval History: Patient was seen lying in his bed this morning and was directable and agreeable to speak with typewriter tester. Patient did not want to leave his room today. He continues to be cooperative and calm with typewriter tester in the morning. She was not endorsing any delusions and was not religiously preoccupied. He states that he is still anxious about not being able to do his court via zoom tomorrow as he feels that he may be discharged to early. He claims that the voices have been gradually improving. He continues to speak about his Haldol injection and his Prolixin injection and how he feels that they may be interacting. He denies any headaches at this time or any vision changes. He states that he will be showering later on today. He states that he has not been going to many groups. He states that he feels the Ativan is the only thing that is helping him stay calmer when he is on the medications. He is agreeable to continue on with taking his medications as prescribed. He appeared to be more appropriate during the interview today and had improvement in his frustration tolerance and irritability. He claims that he is able to sleep throughout the night with no problems. He states that his anxiety and restlessness have improved mildly. At this time patient denies any suicidal or homical ideations, intent or plan. Patient denies any visual hallucinations. He is endorsing chronic auditory hallucinations which have been improving. Mental Status Exam: General Appearance: Patient appears to be well-built, stated age is alert, appears to be alert, attempts to cooperate. Patient appears to have improving hygiene and grooming. Significant forehead wound and swelling. Behavior: Patient is seated without any agitated behavior. Calmer today. Speech: Patient's speech is fluent and nonpressured. Mood/Affect: Patient reports their mood is "ok", affect is congruent and calmer today Suicidality/Homicidality: Patient denies having any homicidal ideation intent or plan. Denies any suicidal ideations intent or plan Perceptions: Patient denies any visual hallucinations, he admits to ongoing auditory hallucinations which have been improving Though content/process: Patient is focused on his court date in discharge. Preoccupied with Ativan. Logical. Memory and concentration: AOX3, grossly intact for the purposes of this session Judgment and insight: poor, impulsive, mildly improving. Assessment Schizoaffective disorder, bipolar type. Cannabis use disorder Nicotine dependence Plan: -Patient continues to meet criteria for inpatient psychiatric admission for symptom stabilization and safety. Patient has not signed medication consent and was placed in patient's chart. Patient is currently on an active court order which was signed on 06/19/2020. -Medications: Decreased Prolixin to 2mg bid for psychosis/mood stabilization. Patient received Prolixin D 37.5 mg IM on 07/05/2020 and will be due for his next injection on 07/19/2020 which will be increased to 50 mg IM. Continue with Seroquel to 200 mg daily at bedtime for mood stabilization/psychosis. Continue lithium 300 mg twice a day for suicidal thoughts/mood stabilization. Continue with propranolol 10 mg 3 times a day for restlessness/akathisia. -Patient will likely need a prescription for Ativan likely 1 mg daily when necessary or 1 mg twice a day when necessary for anxiety/agitation once he is discharged as patient has failed most other antipsychotics and anxiolytics. -Will check lithium level tomorrow morning. -When necessary Ativan and Prolixin for agitation/aggression. -NRT - nicotine patch -SW on board for discharge planning. Encouraged the patient to participate in milieu. Patient will likely be going back to long term upon discharge. Patient has a court hearing on July 10. Likely discharge tomorrow or day after once he is done with the court hearing.
[2020-07-09] MEDS: QUEtiapine 200 MG TAB PO SCH (20:17)
[2020-07-10] MEDS: LITHIUM CARBONATE 300 MG CAP PO SCH ×2 (08:16→21:13)
[2020-07-10] MEDS: PROPRANOLOL 10 MG TAB PO SCH ×3 (08:16→21:14)
[2020-07-10] MEDS: LORazepam 1 MG TAB PO PRN ×2 (08:17→18:08)
--- NOTE | 2020-07-10 14:11 | PN ---
PROGRESS NOTE DATE OF SERVICE: 07/10/2020. CHIEF COMPLAINT: The patient was admitted from long-term after becoming suicidal and repeatedly hitting his head against a sink to cause bruising. INTERVAL HISTORY: Patient has been doing fair. He had a quiet day yesterday. He comes out on the unit some. He does not interact too much with others. He attended one group briefly. The note from the group is as follows "patient participated minimally. The patient entered room and wrote down anabaptism comments on a page of the handout gave the handout to a magnetic tape typewriter operator and left early." The patient reports that he has been sleeping well at night. Today he has been up. He chooses not to attend groups. It is noted that he had been scheduled for a court hearing apparently related to his probation violation. The hearing was postponed for one week. According to the patient, he actually needs to be in long-term at the time of the hearing rather than on the psychiatric unit. I have no further information on that. The patient states that overall his medicines are doing fair. He says he has some anxiety and restlessness though he feels it is less. He is very focused on the idea that he needs Ativan which he describes as the only medication that helps calm his restlessness and anxiety down. He has not had any problems with Prolixin. He made the statement that he believed the Haldol was part of the reason why he abused himself in long-term. He seems to minimize any problems with Prolixin in spite of its likely similarity to Haldol. He had no specific complaints related to his medications. [place] level this morning was 0.4. MENTAL STATUS: Patient was in his room lying down. He got up and came to the office. He sat in a rather stiff manner. He gave fair eye contact. He answered questions with brief responses. He did not say much. He was not spontaneous or interactive. His affect was constricted. He had a somewhat tense manner. His mood was dysphoric. He seemed moderately distressed. He seems to continue with some degree of disordered thinking and anabaptism preoccupation that is on the psychotic scale. He voiced no immediate thoughts of harm to self or others. He was oriented and alert. ASSESSMENT: I will continue the current diagnosis and treatment plan. I will continue psychotropic medications the same. I reviewed his medications in regards to indications, potential side effects, risks related to metabolics and movement disorder relating to Prolixin. I will check a lithium level on Wednesday. I reviewed issues of lithium toxicity. I anticipate the patient being here through the weekend and possibly will look towards discharge back to long-term on Wednesday. ERIKA / VÍCTOR: [id number] /
[2020-07-10] MEDS: QUEtiapine 200 MG TAB PO SCH (21:13)
[2020-07-11] MEDS: LITHIUM CARBONATE 300 MG CAP PO SCH ×2 (08:12→20:18)
[2020-07-11] MEDS: PROPRANOLOL 10 MG TAB PO SCH ×3 (08:12→21:01)
[2020-07-11] MEDS: LORazepam 1 MG TAB PO PRN ×2 (08:14→20:19)
[2020-07-11 08:28] VITALS: RESP 16; TEMP 98.2
--- NOTE | 2020-07-11 12:39 | PN ---
PROGRESS NOTE DATE OF SERVICE: 07/11/2020. CHIEF COMPLAINT: The patient was admitted from detention after becoming suicidal and reportedly hitting his head against a sink to cause bruising. INTERVAL HISTORY: Patient has been doing fair. He had a quiet day yesterday. He comes out on the unit. He wanders about. He tends to keep to himself. He did attend groups yesterday. He slept well last night. Today he has been up. He did attend one group this morning. He continues to be focused on the idea that he needs Ativan and is worried that when he goes to detention if he does not have Ativan he may have another spell of abusive behavior. He said that it is his understanding that he has a court hearing on Wednesday and will likely be released from detention after that to [facility]. He asked questions about who would be prescribing medications and whether or not he would be receiving Ativan after that. I discussed detention issues with the patient and also longer-term followup issues. Patient tolerates his psychotropic medications. MENTAL STATUS: Patient stood throughout the interview. He had a rigid posture. He rocked back and forth on his legs in a slow, rhythmic manner. He answered questions with brief responses. He had a monotone voice with very little intonation in his voice. He had almost a staring gaze. His affect was flat. His mood depressed. He was somewhat distressed. It is noteworthy, however, that I saw him in the group just prior to our interview and he moved in a much more fluid manner in the group session. He voiced no thoughts of harm. He was oriented and alert. ASSESSMENT: I will continue the current diagnosis and general treatment plan. I discussed with the patient the option of his returning to detention today or tomorrow. I discussed that we cannot continue hospitalization beyond tomorrow. The patient asked for a medication substitute for Ativan when he is in detention. I discussed options. He was an in agreement with taking Seroquel 100 mg in the morning in addition to his nighttime Seroquel and his other medications. We discussed his likely followup with [facility] if he is released from detention next week. I discussed with the patient that some of the problems situations he has had on the unit where he would get out of control with his behaviors when he is in a distressed state, I strongly encouraged him to get in touch with staff if he is starting to have a rise in anxiety so that we can assist him ahead of time before things get to the point of his being in an agitated state. I discussed that we have the options of his using the quiet room and receiving p.r.n. medications if necessary. The patient was in agreement with the plan of discharge tomorrow to detention. ERIKA / VÍCTOR: [id number] /
[2020-07-11] MEDS: BENZTROPINE MESYLATE 1 MG TAB PO SCH ×2 (12:40→20:18)
[2020-07-11 15:12] VITALS: BMI 25.9
[2020-07-11] MEDS: QUEtiapine 200 MG TAB PO SCH (20:18)
[2020-07-12] MEDS: PROPRANOLOL 10 MG TAB PO SCH (08:21)
[2020-07-12] MEDS: BENZTROPINE MESYLATE 1 MG TAB PO SCH (08:21)
[2020-07-12 08:23] VITALS: BP 117/70; PULSE 85
[2020-07-12] MEDS: LITHIUM CARBONATE 300 MG CAP PO SCH (08:50)
[2020-07-12] MEDS ORDERED: QUEtiapine 100 MG TAB PO SCH (09:00)
--- NOTE | 2020-07-12 13:00 | DS ---
DISCHARGE SUMMARY DATE OF SERVICE: 07/12/2019 ADMISSION AND DISCHARGE DIAGNOSES: 1. Schizoaffective disorder, bipolar type. 2. Cannabis use disorder. 3. Nicotine dependence. HISTORY OF PRESENTING ILLNESS: The patient is a 29-year-old male he presented to the ED from half-way. He had become self- abusive, striking his head repeatedly on a sink and in an effort to kill himself. He reported auditory hallucinations. He had a CT scan that showed a frontal scalp hematoma. Urine drug screen was positive for marijuana. The patient had been recently discharged from this facility and had received Haldol Decanoate 150 mg IM on 06/26/2020 prior to his discharge. He was admitted here from 06/11 to . Discharge medications included Haldol 3 mg twice a day, Seroquel 300 mg a day and Ativan 1 mg twice a day. He returned to half-way. He was not given Ativan while in half-way. He was admitted for further evaluation. MENTAL STATUS EXAM: The patient had normal psychomotor activity. Speech was fluent and non-pressured. His mood was down. Affect a labile. He denied thoughts of harm to self or others at the time of the interview. He was not reporting hallucinations. He did show orthodox preoccupation. He was oriented and alert. COURSE OF HOSPITALIZATION: The patient was admitted for comprehensive medical psychiatric and psychosocial evaluation. We engaged the patient in individual and group therapeutic activities. The patient was started on Prolixin 2.5 mg twice a day, Seroquel 300 mg at bedtime, lithium 300 mg twice a day and Inderal 10 mg 3 times a day. The plan was to initiate Prolixin Decanoate. His Prolixin dose was titrated up to 4 mg twice a day. On July 05, he received Prolixin Decanoate 37.5 mg a day. Seroquel was reduced to 200 mg a day. He continued on lithium 300 mg twice a day. For the most part, the patient would come out in the day area. He would wander about. He attended groups occasionally, though typically might attend one group in a day and then not attend the next day. He was very focused on medications and was adamant about the idea that Ativan was the one medication that helped his anxiety. The patient understood that he would be going back to half-way as he has a court hearing coming up and needs to address his legal issues while he is in half-way. He was concerned about what medication options he had. When he did return to half-way, the patient was concerned about restlessness which he felt he had with Haldol and was concerned that he might have that with Prolixin. He requested that his Prolixin be discontinued. His Prolixin was stopped. He was started on Cogentin 1 mg twice a day. He was willing to start an additional dose of Seroquel in the morning time in addition to his 200 mg in the evening. He felt that based on his experience with medications that that might help him especially while he is in half-way in terms of managing anxiety. He had a lithium level on July 10 of 0.4 and on July 12 of 0.4. He was able to cooperate with discharge planning. CONDITION AT DISCHARGE: Patient was stable. His mood was somewhat improved. He had a quiet manner overall. He was not showing any significant behavior disturbance throughout his hospitalization. He tolerated his psychotropic medication. He voiced no thoughts of harm or suicide during his hospital stay. RECOMMENDATIONS AND FOLLOWUP: Patient is discharged to half-way. The patient understands that he has a court hearing coming up next Wednesday. Discharge medications include: [place] carbonate 300 mg twice a day, Seroquel 100 mg in the morning, 200 mg in the evening time and Cogentin 1 mg twice a day. [facility]. He does anticipate that with the court hearing he is likely to be released from half-way and understands that he would coordinate with [facility] at that point. MMODL / IJN: [id number] /
--- NOTE | 2020-07-14 09:57 | P.HPMEDMHU ---
History of Present Illness H&P Date: 07/04/20 Chief Complaint: Medical management This is a 29-year-old male came into the hospital brought in by parachute officer for suicidal ideation and thought, patient has small bruise on the forehead, he has been hitting his head on the sink to kill himself, awake and alert denies any headache dizziness, patient refuses any dressing over the wound, his past history significant for bipolar disorder has been on hold all and Seroquel, his significant medical history is for chronic intermittent asthma which is been in remission, patient does smoke a pack a day also smoke elizabeth yasmeen, in emergency department computed tomography scan of the brain is negative the small superficial frontal scalp hematoma was noted Review of Systems All systems: negative Past Medical History Past Medical History: Asthma Additional Past Medical History / Comment(s): aspergers, delusional disorder History of Any Multi-Drug Resistant Organisms: None Reported Past Surgical History: No Surgical Hx Reported Past Anesthesia/Blood Transfusion Reactions: No Reported Reaction Past Psychological History: Anxiety, Bipolar Smoking Status: Current every day smoker Past Alcohol Use History: Occasional Past Drug Use History: Marijuana Medications and Allergies Home Medications Medication Instructions Recorded Confirmed Type Benztropine Mesylate [Cogentin] 1 mg PO BID #60 tab 07/12/20 Rx [place] Carbonate 300 mg PO BID #60 cap 07/12/20 Rx Propranolol [Inderal] 10 mg PO TID #90 tab 07/12/20 Rx QUEtiapine [SEROquel] 100 mg PO DAILY #30 tab 07/12/20 Rx QUEtiapine [SEROquel] 200 mg PO HS #30 tab 07/12/20 Rx Allergies Allergy/AdvReac Type Severity Reaction Status Date / Time aripiprazole [From Abilify] Allergy Unknown Verified 07/01/20 18:27 divalproex sodium Allergy Unknown Verified 07/01/20 18:27 [From Depakote] paliperidone [From Invega] Allergy Unknown Verified 07/01/20 18:27 dextromethorphan AdvReac Hallucinati Verified 07/01/20 18:27 ons guaifenesin AdvReac Hallucinati Verified 07/01/20 18:27 ons lurasidone [From Latuda] AdvReac Suicidal Verified 07/01/20 18:27 Ideation Physical Exam Vitals: Vital Signs Temp Pulse Resp BP BP 07/04/20 08:26 98.0 F 98 16 127/87 07/03/20 20:27 98.4 F 07/03/20 16:01 101 H 118/75 - Constitutional Bruise on the forehead General appearance: average body habitus, cooperative, disheveled - EENT Small bruising on the forehead, mildly tender to touch no fluctuation Eyes: EOMI, PERRLA Ears: bilateral: normal - Neck Carotids: bilateral: upstroke normal - Respiratory Respiratory: bilateral: CTA - Cardiovascular Rhythm: regular Heart sounds: normal: S1, S2 - Gastrointestinal General gastrointestinal: soft - Integumentary Integumentary: normal turgor - Neurologic Neurologic: CNII-XII intact - Musculoskeletal Musculoskeletal: gait normal, generalized weakness, strength equal bilaterally - Psychiatric Psychiatric: A&O x's 3, appropriate affect, intact judgment & insight Cranial Nerve Examination - Cranial Nerves Cranial Nerve I- Olfactory: Intact Cranial Nerve II- Optic: Intact Cranial Nerve III- Oculomotor: Intact Cranial Nerve IV- Trochlear: Intact Cranial Nerve V- Trigeminal: Intact Cranial Nerve - Abducens: Intact Cranial Nerve VII- Facial: Intact Cranial Nerve VIII- Auditory: Intact Cranial Nerve IX- Glossopharyngeal: Intact Cranial Nerve X- Vagus: Intact Cranial Nerve XI- Accessory: Intact Cranial Nerve XII- Hypoglossal: Intact Results CBC & Chem 7: 07/03/20 08:21 07/03/20 08:21 CT Scan - head: report reviewed (Finding as noted above) Assessment and Plan Assessment: Small hematoma of the scalp Chronic intermittent stable asthma Suicidal ideation thought Bipolar disorder Plan: Continue to observe hematoma symptomatic conservative care If patient developed shortness of breath or wheezing can be started on as needed Ventolin as if a 2 puffs 4 times a day Continue psychiatric plan and care We'll continue to follow as needed Time with Patient: Greater than 30
== END 2020-07-12 15:27 | disposition other institution (70) | DRG 885 ==
LOC: EC 17:16 → 3MHU 07-02 09:55
PROVIDERS: ADMIT Psychiatry & Neurology Psychiatry; ATTEND Psychiatry & Neurology Psychiatry
PROC: 0HQ1XZZ Repair Face Skin, External Approach (ICD-10-PCS; principal; 2020-07-01)
DX: F25.0 Schizoaffective disorder, bipolar type (principal); F23 Brief psychotic disorder; R45.851 Suicidal ideations; S01.81XA Laceration without foreign body of other part of head, initial encounter; F17.200 Nicotine dependence, unspecified, uncomplicated; Z20.828 Contact with and (suspected) exposure to other viral communicable diseases; Z79.899 Other long term (current) drug therapy; Z88.8 Allergy status to other drugs, medicaments and biological substances; W22.8XXA Striking against or struck by other objects, initial encounter; F12.10 Cannabis abuse, uncomplicated; F41.9 Anxiety disorder, unspecified; F84.5 Asperger's syndrome; J45.909 Unspecified asthma, uncomplicated; T43.595A Adverse effect of other antipsychotics and neuroleptics, initial encounter; X58.XXXA Exposure to other specified factors, initial encounter; Z91.83 Wandering in diseases classified elsewhere
CPT/HCPCS: 12014; 70450; 80053; 80061; 80178; 80306; 81003; 82075; 83036; 85025; 87635; 99285

== ENCOUNTER 2021-01-21 09:19 | Inpatient (IN) | payer MEDICARE, MEDICAID ==
--- NOTE | 2021-01-21 10:01 | ED ---
Psych HPI - General Chief Complaint: Psychiatric Symptoms Stated Complaint: mental health Time Seen by Provider: 01/21/21 09:30 Source: patient, police, RN notes reviewed, old records reviewed Mode of arrival: ambulatory - History of Present Illness Initial Comments: This is a 30-year-old male with a history of bipolar disorder who is here on a pickup order for evaluation. He apparently stopped taking his medication. Per report patient did elope from the urinalysis on the 12th of this month without medications he apparently has been becoming agitated with staff at [facility]. He is currently here with police escort. - Related Data Home Medications Medication Instructions Recorded Confirmed Albuterol Inhaler [Ventolin Hfa 2 puff INHALATION RT-DAILY PRN 01/21/21 01/21/21 Inhaler] [place] Carbonate 600 mg PO HS 01/21/21 01/21/21 QUEtiapine [SEROquel] 200 mg PO HS 01/21/21 01/21/21 Previous Rx's Medication Instructions Recorded Benztropine Mesylate [Cogentin] 1 mg PO BID #60 tab 07/12/20 QUEtiapine [SEROquel] 100 mg PO DAILY #30 tab 07/12/20 Allergies Allergy/AdvReac Type Severity Reaction Status Date / Time aripiprazole [From Abilify] Allergy Unknown Verified 01/21/21 12:05 divalproex sodium Allergy Unknown Verified 01/21/21 12:05 [From Depakote] fluphenazine [From Prolixin] Allergy Hallucinati Verified 01/21/21 12:05 ons haloperidol [From Haldol] Allergy Hallucinati Verified 01/21/21 12:05 ons paliperidone [From Invega] Allergy Unknown Verified 01/21/21 12:05 dextromethorphan AdvReac Hallucinati Verified 01/21/21 12:05 ons guaifenesin AdvReac Hallucinati Verified 01/21/21 12:05 ons lurasidone [From Latuda] AdvReac Suicidal Verified 01/21/21 12:05 Ideation Review of Systems ROS Statement: Those systems with pertinent positive or pertinent negative responses have been documented in the HPI. ROS Other: All systems not noted in ROS Statement are negative. Past Medical History Past Medical History: Asthma Additional Past Medical History / Comment(s): aspergers, delusional disorder History of Any Multi-Drug Resistant Organisms: None Reported Past Surgical History: No Surgical Hx Reported Past Anesthesia/Blood Transfusion Reactions: No Reported Reaction Past Psychological History: Anxiety, Bipolar Smoking Status: Current every day smoker Past Alcohol Use History: Occasional Past Drug Use History: Marijuana General Exam - General Exam Comments Initial Comments: This is a well-developed sec appearing male who is awake and alert. He does demonstrate a flat affect he also believes his name is Avery. He does appear somewhat disheveled Limitations: no limitations General appearance: alert, in no apparent distress Head exam: Present: atraumatic, normocephalic, normal inspection Eye exam: Present: normal appearance, PERRL, EOMI. Absent: scleral icterus, conjunctival injection, periorbital swelling ENT exam: Present: normal exam, mucous membranes moist Neck exam: Present: normal inspection. Absent: tenderness, meningismus, lymphadenopathy Respiratory exam: Present: normal lung sounds bilaterally. Absent: respiratory distress, wheezes, rales, rhonchi, stridor Cardiovascular Exam: Present: regular rate, normal rhythm, normal heart sounds. Absent: systolic murmur, diastolic murmur, rubs, gallop, clicks GI/Abdominal exam: Present: soft, normal bowel sounds. Absent: distended, tenderness, guarding, rebound, rigid Extremities exam: Present: normal inspection, full ROM, normal capillary refill. Absent: tenderness, pedal edema, joint swelling, calf tenderness Back exam: Present: normal inspection Neurological exam: Present: alert, oriented X3, CN II-XII intact Psychiatric exam: Present: flat affect Skin exam: Present: warm, dry, intact, normal color. Absent: rash Course Vital Signs 01/21/21 09:19 Temperature 97.7 F Pulse Rate 75 Respiratory 18 Rate Blood Pressure 123/87 O2 Sat by Pulse 98 Oximetry Medical Decision Making - Medical Decision Making The patient was evaluated by psychiatric service she will be admitted for inpatient evaluation and treatment - Lab Data Lab Results 01/21/21 01/21/21 Range/Units 09:42 09:42 Urine Opiates Screen Not Detected (NotDetected) Ur Oxycodone Screen Not Detected (NotDetected) Urine Methadone Screen Not Detected (NotDetected) Ur Propoxyphene Screen Not Detected (NotDetected) Ur Barbiturates Screen Not Detected (NotDetected) U Tricyclic Antidepress Not Detected (NotDetected) Ur Phencyclidine Scrn Not Detected (NotDetected) Ur Amphetamines Screen Not Detected (NotDetected) U Methamphetamines Scrn Not Detected (NotDetected) U Benzodiazepines Scrn Not Detected (NotDetected) [place] <0.2 mmol/L Urine Cocaine Screen Not Detected (NotDetected) U Marijuana (THC) Screen Detected H (NotDetected) Disposition Clinical Impression: Schizophrenia Disposition: TRANSFER TO PSYCH HOSP/UNIT Condition: Stable Referrals: Bob Bradley MD [Primary Care Provider] - 1-2 days
[2021-01-21 10:43] LABS: Amphetamine Screen,Urine Not Detected (NotDetected); Barbiturate Screen,Urine Not Detected (NotDetected); Benzodiazepines Screen,Urine Not Detected (NotDetected); Cocaine Screen,Urine Not Detected (NotDetected); Methadone Screen, Urine Not Detected (NotDetected); Opiate Screen,Urine Not Detected (NotDetected); Oxycodone Screen, Urine Not Detected (NotDetected); Phencyclidine Screen,Urine Not Detected (NotDetected); Tricyclic Antidepressant,Urine Not Detected (NotDetected); Urn Cannabinoid Scrn Detected (NotDetected)
[2021-01-21] MEDS ORDERED: ALBUTEROL HFA INHALER INHALATION PRN (15:48)
[2021-01-21] MEDS ORDERED: MAGNESIUM HYDROXIDE 2,400 MG/10 ML CUP PO PRN (15:53)
[2021-01-21] MEDS ORDERED: ACETAMINOPHEN TAB 325 MG TAB PO PRN (15:53)
[2021-01-21] MEDS ORDERED: ZIPRASIDONE 20 MG VIAL IM PRN (15:53)
[2021-01-21] MEDS ORDERED: MAG HYDROX/AL HYDROX/SIMETH 30 ML CUP PO PRN (15:53)
[2021-01-21] MEDS ORDERED: LORazepam 2 MG/ML INJ IM PRN (15:55)
[2021-01-21] MEDS: NICOTINE 14MG/24HR PATCH TRANSDERM SCH (17:19)
[2021-01-21] MEDS: LORazepam 1 MG TAB PO PRN (17:42)
[2021-01-21] MEDS: BENZTROPINE MESYLATE 1 MG TAB PO SCH (21:21)
[2021-01-21] MEDS: QUEtiapine 100 MG TAB PO SCH (21:21)
[2021-01-21] MEDS: LITHIUM CARBONATE 300 MG CAP PO SCH (21:21)
[2021-01-22 07:31] LABS: Basophils # (A) 0.1 k/uL (0-0.2); Basophils % (A) 1 %; Eosinophils # (A) 0.3 k/uL (0-0.7); Eosinophils % (A) 5 %; HCT 43.2 % (39.0-53.0); HGB 14.3 gm/dL (13.0-17.5); Lymphocytes # (A) 1.7 k/uL (1.0-4.8); Lymphocytes % (A) 29 %; MCH 29.2 pg (25.0-35.0); MCHC 33.2 g/dL (31.0-37.0); MCV 87.8 fL (80.0-100.0); Mean Platelet Volume 7.8; Monocytes # (A) 0.4 k/uL (0-1.0); Monocytes % (A) 7 %; Neutrophils # (A) 3.3 k/uL (1.3-7.7); Neutrophils % (A) 58 %; Platelet Count 161 k/uL (150-450); RBC 4.92 m/uL (4.30-5.90); RDW 12.9 % (11.5-15.5); WBC 5.8 k/uL (3.8-10.6)
[2021-01-22 07:40] LABS: ALT 14 U/L (4-49); AST 23 U/L (17-59); African American GFR (CKD) >90 (>60 ml/min/1.73 sqM); Albumin 3.9 g/dL (3.5-5.0); Alkaline Phosphatase 53 U/L (38-126); Anion Gap 5 mmol/L; Blood Urea Nitrogen 10 mg/dL (9-20); Calcium 9.3 mg/dL (8.4-10.2); Carbon Dioxide 29 mmol/L (22-30); Chloride 107 mmol/L (98-107); Glucose 89 mg/dL (74-99); Non-African American GFR(CKD) >90 (>60 ml/min/1.73 sqM); Potassium 4.2 mmol/L (3.5-5.1); Sodium 141 mmol/L (137-145); Total Bilirubin 0.7 mg/dL (0.2-1.3); Total Protein 6.1 g/dL (6.3-8.2)
[2021-01-22] MEDS ORDERED: QUEtiapine 100 MG TAB PO SCH (09:00)
[2021-01-22] MEDS: BENZTROPINE MESYLATE 1 MG TAB PO SCH ×2 (09:22→23:52)
[2021-01-22] MEDS: NICOTINE 14MG/24HR PATCH TRANSDERM SCH (09:22)
--- NOTE | 2021-01-22 12:00 | CONS ---
CONSULTATION CHIEF COMPLAINT: Acute psychosis. HISTORY OF PRESENT ILLNESS: This is another admission for this 30-year-old white male, schizophrenic. He apparently stopped taking his medications or ran out of them and was admitted for acute psychosis. He has normally been on benztropine, Seroquel and lithium. REVIEW OF SYSTEMS: He denies any headaches, chest pain, abdominal pain, nausea, vomiting, blackouts, seizures, urinary complaints, dysuria, frequency, urgency, diarrhea, melena, hematochezia, diabetes, etc. PAST MEDICAL HISTORY, FAMILY HISTORY, PERSONAL HISTORY, SOCIAL HISTORY: Reviewed and revealed that he has apparently allergic to dextromethorphan, Abilify, Invega and Haldol. He has a history of asthma. He has had no surgery. He does smoke. He does not consume alcohol. PHYSICAL EXAMINATION: Blood pressure is 116/70, pulse 72, respirations 16. He is afebrile. In general he appeared to be slender, slightly disheveled, in no acute distress. Skin color is normal. Skin is warm, dry. Lymph nodes are not enlarged. Head, ears, eyes, nose, mouth and throat were normal neck veins not distended. Thyroid not enlarged. Chest is clear. Cardiac exam is normal. The. Abdomen is soft, nontender. It is flat. There are no masses. Extremities normal. Neurological he is intact. ADMITTING DIAGNOSES: 1. Acute psychosis. 2. Schizophrenia. RECOMMENDATIONS: None. MMODL / IJN: [id number] /
--- NOTE | 2021-01-22 12:55 | P.HP ---
Psychiatric H&P - . H&P Date: 01/22/21 History & Physical: Allergies Allergy/AdvReac Type Severity Reaction Status Date / Time aripiprazole [From Abilify] Allergy Unknown Verified 01/21/21 12:05 divalproex sodium Allergy Unknown Verified 01/21/21 12:05 [From Depakote] fluphenazine [From Prolixin] Allergy Hallucinati Verified 01/21/21 12:05 ons haloperidol [From Haldol] Allergy Hallucinati Verified 01/21/21 12:05 ons paliperidone [From Invega] Allergy Unknown Verified 01/21/21 12:05 dextromethorphan AdvReac Hallucinati Verified 01/21/21 12:05 ons guaifenesin AdvReac Hallucinati Verified 01/21/21 12:05 ons lurasidone [From Latuda] AdvReac Suicidal Verified 01/21/21 12:05 Ideation Vital Signs Temp 98.2 F 01/21/21 15:31 Pulse 70 01/21/21 15:31 Resp 14 01/21/21 15:31 BP 97/66 01/21/21 15:31 Pulse Ox 100 01/21/21 15:31 Intake & Output 01/21/21 01/22/21 01/22/21 18:59 06:59 18:59 Weight 81.647 kg Laboratory Last Values WBC 5.8 k/uL (3.8-10.6) 01/22/21 06:51 RBC 4.92 m/uL (4.30-5.90) 01/22/21 06:51 Hgb 14.3 gm/dL (13.0-17.5) 01/22/21 06:51 Hct 43.2 % (39.0-53.0) 01/22/21 06:51 MCV 87.8 fL (80.0-100.0) 01/22/21 06:51 MCH 29.2 pg (25.0-35.0) 01/22/21 06:51 MCHC 33.2 g/dL (31.0-37.0) 01/22/21 06:51 RDW 12.9 % (11.5-15.5) 01/22/21 06:51 Plt Count 161 k/uL (150-450) 01/22/21 06:51 MPV 7.8 01/22/21 06:51 Neutrophils % 58 % 01/22/21 06:51 Lymphocytes % 29 % 01/22/21 06:51 Monocytes % 7 % 01/22/21 06:51 Eosinophils % 5 % 01/22/21 06:51 Basophils % 1 % 01/22/21 06:51 Neutrophils # 3.3 k/uL (1.3-7.7) 01/22/21 06:51 Lymphocytes # 1.7 k/uL (1.0-4.8) 01/22/21 06:51 Monocytes # 0.4 k/uL (0-1.0) 01/22/21 06:51 Eosinophils # 0.3 k/uL (0-0.7) 01/22/21 06:51 Basophils # 0.1 k/uL (0-0.2) 01/22/21 06:51 Sodium 141 mmol/L (137-145) 01/22/21 06:51 Potassium 4.2 mmol/L (3.5-5.1) 01/22/21 06:51 Chloride 107 mmol/L (98-107) 01/22/21 06:51 Carbon Dioxide 29 mmol/L (22-30) 01/22/21 06:51 Anion Gap 5 mmol/L 01/22/21 06:51 BUN 10 mg/dL (9-20) 01/22/21 06:51 Creatinine 0.72 mg/dL (0.66-1.25) 01/22/21 06:51 Est GFR (CKD-EPI)AfAm >90 (>60 ml/min/1.73 sqM) 01/22/21 06:51 Est GFR (CKD-EPI)NonAf >90 (>60 ml/min/1.73 sqM) 01/22/21 06:51 Glucose 89 mg/dL (74-99) 01/22/21 06:51 Calcium 9.3 mg/dL (8.4-10.2) 01/22/21 06:51 Total Bilirubin 0.7 mg/dL (0.2-1.3) 01/22/21 06:51 AST 23 U/L (17-59) 01/22/21 06:51 ALT 14 U/L (4-49) 01/22/21 06:51 Alkaline Phosphatase 53 U/L (38-126) 01/22/21 06:51 Total Protein 6.1 g/dL (6.3-8.2) L 01/22/21 06:51 Albumin 3.9 g/dL (3.5-5.0) 01/22/21 06:51 TSH 1.710 mIU/L (0.465-4.680) 01/22/21 06:51 Urine Opiates Screen Not Detected (NotDetected) 01/21/21 09:42 Ur Oxycodone Screen Not Detected (NotDetected) 01/21/21 09:42 Urine Methadone Screen Not Detected (NotDetected) 01/21/21 09:42 Ur Propoxyphene Screen Not Detected (NotDetected) 01/21/21 09:42 Ur Barbiturates Screen Not Detected (NotDetected) 01/21/21 09:42 U Tricyclic Antidepress Not Detected (NotDetected) 01/21/21 09:42 Ur Phencyclidine Scrn Not Detected (NotDetected) 01/21/21 09:42 Ur Amphetamines Screen Not Detected (NotDetected) 01/21/21 09:42 U Methamphetamines Scrn Not Detected (NotDetected) 01/21/21 09:42 U Benzodiazepines Scrn Not Detected (NotDetected) 01/21/21 09:42 [place] <0.2 mmol/L 01/21/21 09:42 Urine Cocaine Screen Not Detected (NotDetected) 01/21/21 09:42 U Marijuana (THC) Screen Detected (NotDetected) H 01/21/21 09:42 01/22/21 12:33 IDENTIFYING DATA: Patient is a 30-year-old male who presented to the ER on a pickup order, has a chronic history of schizoaffective disorder. She was previously staying at [facility]. HPI: Patient presented to the hospital yesterday on a couple order. According to ER report patient has a chronic history of mental illness and apparently had stopped taking his medications and had eloped from [facility] where he was on probation. Patient eloped on January 13. He apparently was fairly agitated with staff there and when patient came to the ER he gave a urine drug screen which is positive for marijuana. Patient lithium level was below 0.2. Patient was previously on Seroquel and lithium on his last admission to the mental health unit. Patient was seen in his room today and agreeable to speak to director underwriter sales. He claims that he "ran from probation" for about a week and was off of his medications at that time. He states that he apparently broke a hole in the wall and was threatened by a staff member there to take his medications otherwise he would go to [facility] and she states that he "panicked and left". He states that he went to his father's place and was later picked up by the police and brought to the hospital. Patient was fairly groggy this morning however to take his Seroquel and his other medication. He claims that he slept fairly last night. He was mildly religiously preoccupied today when talking about his auditory hallucinations however he is denying any visual hallucinations. He appears to have fair impulse control today and is not irritable. He is denying any suicidal or homicidal ideations intent or plan. Patient admits to using marijuana and cigarettes. PAST PSYCHIATRIC HISTORY: Patient has had several admissions in the past for acute psychosis and has a history of schizoaffective. Patient was previously on Abilify, Invega, Seroquel and lithium, and also Haldol D. Patient was previously admitted to the mental health unit in June 2020. Patient used to follow up at [facility]. Patient is currently on an active treatment order until 03/11/2021. PMH: Asthma ALLERGIES: as per EMR CHEMICAL DEPENDENCY HISTORY: as per HPI FAMILY PSYCHIATRIC/SUBSTANCE USE HISTORY: Previous documentation reports that his father and brother who have autism. SOCIAL HISTORY: Patient apparently has no children born and raised in [facility] and according to previous documentation patient apparently earned his GED has no service history and is currently unemployed. Patient has had several incarcerations in the past and charges for probation violations and abuse. He recently ran away from [facility] where he was living. MENTAL STATUS EXAM: General Appearance: Patient appears to be well-built, stated age is alert, unpredictable, attempts to cooperate. Patient appears to have poor hygiene and grooming. Behavior: Patient is seated without any agitated behavior. Speech: Patient's speech is fluent and nonpressured. Mood/Affect: Patient reports their mood is "a bit better", affect is congruent and constricted Suicidality/Homicidality: Patient denies having any homicidal ideation intent or plan. Denies any suicidal ideations intent or plan Perceptions: Patient denies any visual hallucinations and denies any auditory bird llucinations Though content/process: Religiously preoccupied. Logical. Goal oriented Memory and concentration: AOX3, grossly intact for the purposes of this session Judgment and insight: poor, impulsive STRENGTHS/WEAKNESSES: strength is that patient is resilient. Weakness is that patient has poor judgment and is impulsive INTELLECT: average IMPRESSIONS: Schizoaffective disorder, bipolar type. Cannabis use disorder Nicotine dependence PLAN: -Patient is admitted under court order to [facility] for stabilization of psychiatric symptoms and safety. Patient has not signed medication consent and is placed in patient's chart. Patient has an active court order signed on 03/11/2021 -Medications : start lithium 600 mg qhs for mood stabilization. seroquel 200 mg qhs for insomnia/psychosis. -Ativan and Geodon PRN for agitation/aggression -Patient was counselled on substance abuse -Patient was informed of the risks, benefits and side effects of the medication and patient verbally consented however did not want to sign for medications today. -Internal Medicine consult to perform medical evaluation and physical. -NRT - nicotine patch -SW on board for discharge planning. Encourage patient to participate in groups to work on coping skills. Patient will likely be going back to [facility] upon discharge.
[2021-01-22 15:26] LABS: Chol/HDL Ratio 4.59; Cholesterol 156 mg/dL (0-200)
[2021-01-22 16:31] LABS: Hemoglobin A1C 4.5 % (4.0-6.0)
[2021-01-22] MEDS: LORazepam 1 MG TAB PO PRN (20:39)
[2021-01-22] MEDS ORDERED: IPRATROPIUM-ALBUTEROL 3 ML NEB INHALATION PRN (21:48)
[2021-01-22] MEDS: QUEtiapine 100 MG TAB PO SCH (23:53)
[2021-01-22] MEDS: LITHIUM CARBONATE 300 MG CAP PO SCH (23:53)
[2021-01-23] MEDS: NICOTINE 14MG/24HR PATCH TRANSDERM SCH (08:37)
[2021-01-23] MEDS: BENZTROPINE MESYLATE 1 MG TAB PO SCH ×2 (08:37→23:18)
--- NOTE | 2021-01-23 11:31 | P.PN ---
Progress Note - Text Progress Note Date: 01/23/21 Interval History: Patient was seen laying in his bed this morning and was directable and agreeable to speak with senior mortgage underwriter. He states that he is continuing to feel groggy and thanked senior mortgage underwriter for discontinuing his Seroquel this morning. He states that he was able to sleep throughout the night fairly well. He claims that he has been eating and showering well. He continues to have superficial insight which is chronic. He claims that he does not know where he is going to go once he is discharged and does not need to go back to [facility]. He states that he is not having any depression today. He states that he has not been going to any groups however we'll try to do so today. At this time patient denies any suicidal or homical ideations, intent or plan. Patient denies any auditory, visual hallucinations. Patient denies any side effects from the medications and has been compliant with meds. Mental Status Exam: General Appearance: Patient appears to be well-built, stated age is alert, attempts to cooperate. Patient appears to have poor hygiene and grooming. Behavior: Patient is seated without any agitated behavior. Improving mildly Speech: Patient's speech is fluent and nonpressured. Mood/Affect: Patient reports their mood is "better", affect is congruent and constricted Suicidality/Homicidality: Patient denies having any homicidal ideation intent or plan. Denies any suicidal ideations intent or plan Perceptions: Patient denies any visual hallucinations and denies any auditory hallucinations Though content/process: Religiously preoccupied, improving mildly. Logical. Goal oriented Memory and concentration: AOX3, grossly intact for the purposes of this session Judgment and insight: poor/impulsive, improving mildly Assessment Schizoaffective disorder, bipolar type. Cannabis use disorder Nicotine dependence Plan: -Patient continues to meet criteria for inpatient psychiatric admission for symptom stabilization and safety. Patient has not signed medication consent and was placed in patient's chart. -Medications: Continue with lithium 600 mg daily at bedtime for mood stabilization and Seroquel 200 mg daily at bedtime for insomnia/psychosis. Will consider decreasing Seroquel if patient remains lethargic. -When necessary Ativan and Haldol for agitation/aggression. -NRT - nicotine patch - on board for discharge planning. Encouraged the patient to participate in milieu. According to [facility] liaison, patient will have already served his time at [facility] under probation and will essentially be homeless by the time he is discharged from the hospital. factory process workers to contact guardian to see where patient can be discharged to. Likely discharge in 2-3 days.
[2021-01-23] MEDS: LORazepam 1 MG TAB PO PRN ×2 (14:15→23:18)
[2021-01-23] MEDS: QUEtiapine 100 MG TAB PO SCH (23:17)
[2021-01-23] MEDS: LITHIUM CARBONATE 300 MG CAP PO SCH (23:18)
[2021-01-24] MEDS: NICOTINE 14MG/24HR PATCH TRANSDERM SCH ×2 (08:29→16:25)
[2021-01-24] MEDS: BENZTROPINE MESYLATE 1 MG TAB PO SCH (08:29)
[2021-01-24] MEDS: LORazepam 1 MG TAB PO PRN ×2 (08:32→16:25)
--- NOTE | 2021-01-24 09:45 | P.PN ---
Progress Note - Text Progress Note Date: 01/24/21 Interval History: Patient was seen laying in his bed this morning and was directable and agreeable to speak with inspector automatic typewriter. He states that he is doing better overall today. He states that he was able to sleep fairly last night and took an Ativan this morning and is still feeling the effects of it. He states that she still needs to speak with his light armored vehicle officer to see if he needs to go to [facility] or not once he is discharged. She appeared to be fairly calm and directable during conversation today. He states that he was able to sleep throughout the night fairly well. He claims that he has been eating and showering well. He continues to have superficial insight which is chronic. He states that he is not having any depression today or anxiety. He states that he has not been going to any groups however we'll try to do so today. At this time patient denies any suicidal or homical ideations, intent or plan. Patient denies any auditory, visual hallucinations. Patient denies any side effects from the medications and has been compliant with meds. Mental Status Exam: General Appearance: Patient appears to be well-built, stated age is alert, attempts to cooperate. Patient appears to have improved hygiene and grooming. Behavior: Patient is seated without any agitated behavior. Improving mildly Speech: Patient's speech is fluent and nonpressured. Mood/Affect: Patient reports their mood is "good", affect is congruent and constricted Suicidality/Homicidality: Patient denies having any homicidal ideation intent or plan. Denies any suicidal ideations intent or plan Perceptions: Patient denies any visual hallucinations and denies any auditory hallucinations Though content/process: Religiously preoccupied, improving mildly. Logical. Goal oriented Memory and concentration: AOX3, grossly intact for the purposes of this session Judgment and insight: poor/impulsive, improving mildly Assessment Schizoaffective disorder, bipolar type. Cannabis use disorder Nicotine dependence Plan: -Patient continues to meet criteria for inpatient psychiatric admission for symptom stabilization and safety. Patient has not signed medication consent and was placed in patient's chart. -Medications: Continue with lithium 600 mg daily at bedtime for mood stabilization and Seroquel 200 mg daily at bedtime for insomnia/psychosis. consider decreasing seroquel if patient remains lethargic over the weekend. -When necessary Ativan and Haldol for agitation/aggression. -NRT - nicotine patch -SW on board for discharge planning. Encouraged the patient to participate in milieu. According to [facility] liaison, patient will have already served his time at [facility] under probation and will essentially be homeless by the time he is discharged from the hospital. bench worker apprentice to contact guardian to see where patient can be discharged to. Likely discharge wednesday
[2021-01-25] MEDS: LITHIUM CARBONATE 300 MG CAP PO SCH ×2 (00:33→23:55)
[2021-01-25] MEDS: BENZTROPINE MESYLATE 1 MG TAB PO SCH ×3 (00:33→23:56)
[2021-01-25] MEDS: QUEtiapine 100 MG TAB PO SCH ×2 (00:33→23:56)
[2021-01-25] MEDS: LORazepam 1 MG TAB PO PRN ×4 (00:37→23:56)
[2021-01-25] MEDS: NICOTINE 14MG/24HR PATCH TRANSDERM SCH (08:55)
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
[2021-01-26] MEDS: NICOTINE 14MG/24HR PATCH TRANSDERM SCH ×2 (00:26→08:23)
[2021-01-26] MEDS: BENZTROPINE MESYLATE 1 MG TAB PO SCH (08:23)
[2021-01-26] MEDS: LORazepam 1 MG TAB PO PRN ×2 (08:25→18:38)
--- NOTE | 2021-01-26 14:07 | P.PN ---
Progress Note - Text Progress Note Date: 01/26/21 Interval History: Patient requested to be seen in his room. This is a 30-year-old location male. He was admitted on a pickup order. According to his records he had stopped taking his medications and had a loop from that he will on house. He and treated for schizoaffective disorder. He indicated tolerating his medication regimen well. Patient reported his mood is stable. He denies having mood swings and racing. He reported that his tolerance for frustration is improving. Patient states that he has been known to have anger episodes. At this time patient denies any suicidal or homical ideations, intent or plan. Patient denies any auditory, visual hallucinations and denies any paranoia or delusions. Patient denies any side effects from the medications and has been compliant with meds. Mental Status Exam: General Appearance: Matches his stated age. Has a long year than a mustache. Cooperative Behavior: Patient is calmly seated without any agitated behavior. Speech: Patient's speech is fluent and nonpressured. Mood/Affect: Mood is improving mildly, affect is congruent and constricted. Suicidality/Homicidality: Patient denies having any suicidal or homicidal ideation intent or plan. Perceptions: Patient denies any visual hallucinations and denies any auditory hallucinations Though content/process: There is no evidence of any delusional thought content and thought process is linear and goal-directed. Memory and concentration: AOX3, grossly intact for the purposes of this session Judgment and insight: Improving mildly Assessment Schizoaffective disorder bipolar type Cannabis use disorder Nicotine use disorder Plan: [place] level is 0.5 on 01/26/2021 -Patient continues to meet criteria for inpatient psychiatric admission for symptom stabilization and safety. Patient has signed adult voluntary form and medication consent and was placed in patient's chart. -Medications: Continue current medications without any changes and monitor which include lithium and Seroquel -When necessary Ativan and Haldol for agitation/aggression. -NRT - nicotine patch -SW on board for discharge planning. Encouraged the patient to participate in milieu. Currently awaiting deferral with transactional attorney and court date.
[2021-01-27] MEDS: BENZTROPINE MESYLATE 1 MG TAB PO SCH ×2 (01:10→08:21)
[2021-01-27] MEDS: LITHIUM CARBONATE 300 MG CAP PO SCH (01:11)
[2021-01-27] MEDS: LORazepam 1 MG TAB PO PRN ×2 (01:11→14:11)
[2021-01-27] MEDS: QUEtiapine 100 MG TAB PO SCH (01:11)
[2021-01-27 01:15] VITALS: BP 123/90; PULSE 87; RESP 16; TEMP 97.8
[2021-01-27] MEDS: NICOTINE 14MG/24HR PATCH TRANSDERM SCH (08:21)
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
== END 2021-01-27 15:30 | disposition home or self-care (01) | DRG 885 ==
LOC: EC 09:19 → 3MHU 14:24
PROVIDERS: ADMIT Psychiatry & Neurology Psychiatry; ATTEND Psychiatry & Neurology Psychiatry
DX: F25.0 Schizoaffective disorder, bipolar type (principal); F12.10 Cannabis abuse, uncomplicated; F17.200 Nicotine dependence, unspecified, uncomplicated; F84.5 Asperger's syndrome; G47.00 Insomnia, unspecified; J45.909 Unspecified asthma, uncomplicated; Z79.899 Other long term (current) drug therapy
CPT/HCPCS: 36415; 80053; 80061; 80178; 80306; 82075; 83036; 84443; 85025; 99285

== ENCOUNTER 2021-04-03 17:59 | Inpatient (IN) | payer MEDICARE, MEDICAID ==
--- NOTE | 2021-04-03 19:21 | ED ---
General Adult HPI - General Chief complaint: Psychiatric Symptoms Stated complaint: Mental Health Receiver/Laborer Time Seen by Provider: 04/03/21 19:01 Source: patient, police, RN notes reviewed Mode of arrival: ambulatory Limitations: no limitations - History of Present Illness Initial comments: Patient is a 30-year-old male presenting to the emergency department for mental health evaluation. Patient was brought in by police pickup order. Patient originally states he is unclear why he is here. When further questioned patient admits that he has not taking his medications secondary to she does not feel they agree with him. He states patient has been on similar medications in the past [place] feel suicidal. Patient states he is doing great not being on his medications at this time. Patient denies suicidal or homicidal thoughts. Patient is unclear on whether or not he is missing appointments. Patient states they can call him whenever they wanted to. Patient denies physical complaints. Occasional alcohol use. Patient smokes marijuana, no other street drugs. Patient has been eating and sleeping well. - Related Data Previous Rx's Medication Instructions Recorded Albuterol Inhaler [Ventolin Hfa 2 puff INHALATION RT-DAILY PRN #1 01/27/21 Inhaler] puff Benztropine Mesylate [Cogentin] 1 mg PO BID PRN #60 tab 01/27/21 [place] Carbonate 600 mg PO HS 30 Days cap 01/27/21 Nicotine 14Mg/24Hr Patch [Habitrol] 1 patch TRANSDERM DAILY 14 Days 01/27/21 patch QUEtiapine [SEROquel] 200 mg PO HS 30 Days tab 01/27/21 Allergies Allergy/AdvReac Type Severity Reaction Status Date / Time aripiprazole [From Abilify] Allergy Unknown Verified 04/03/21 20:12 divalproex sodium Allergy Unknown Verified 04/03/21 20:12 [From Depakote] fluphenazine [From Prolixin] Allergy Hallucinati Verified 04/03/21 20:12 ons haloperidol [From Haldol] Allergy Hallucinati Verified 04/03/21 20:12 ons paliperidone [From Invega] Allergy Unknown Verified 04/03/21 20:12 dextromethorphan AdvReac Hallucinati Verified 04/03/21 20:12 ons guaifenesin AdvReac Hallucinati Verified 04/03/21 20:12 ons lurasidone [From Latuda] AdvReac Suicidal Verified 04/03/21 20:12 Ideation Review of Systems ROS Statement: Those systems with pertinent positive or pertinent negative responses have been documented in the HPI. ROS Other: All systems not noted in ROS Statement are negative. Constitutional: Denies: fever Eyes: Denies: eye pain ENT: Denies: ear pain Respiratory: Denies: cough Cardiovascular: Denies: chest pain Endocrine: Denies: fatigue Gastrointestinal: Denies: abdominal pain Genitourinary: Denies: dysuria Musculoskeletal: Denies: back pain Skin: Denies: rash Neurological: Denies: weakness Past Medical History Past Medical History: Asthma Additional Past Medical History / Comment(s): aspergers, delusional disorder History of Any Multi-Drug Resistant Organisms: None Reported Past Surgical History: No Surgical Hx Reported Past Anesthesia/Blood Transfusion Reactions: No Reported Reaction Past Psychological History: Anxiety, Bipolar Smoking Status: Current every day smoker Past Alcohol Use History: Daily Past Drug Use History: Marijuana General Exam Limitations: no limitations General appearance: alert, in no apparent distress Head exam: Present: atraumatic, normocephalic Eye exam: Present: normal appearance Neck exam: Present: normal inspection Respiratory exam: Present: normal lung sounds bilaterally Cardiovascular Exam: Present: regular rate, normal rhythm GI/Abdominal exam: Present: soft. Absent: tenderness Extremities exam: Present: normal inspection Neurological exam: Present: alert, normal gait Psychiatric exam: Present: normal affect, normal mood Skin exam: Present: normal color Course Vital Signs 04/03/21 18:06 Temperature 98.4 F Pulse Rate 90 Respiratory 18 Rate Blood Pressure 150/95 O2 Sat by Pulse 99 Oximetry Medical Decision Making - Lab Data Lab Results 04/03/21 04/04/21 Range/Units 19:23 00:47 Urine Opiates Screen Not Detected (NotDetected) Ur Oxycodone Screen Not Detected (NotDetected) Urine Methadone Screen Not Detected (NotDetected) Ur Propoxyphene Screen Not Detected (NotDetected) Ur Barbiturates Screen Not Detected (NotDetected) U Tricyclic Antidepress Not Detected (NotDetected) Ur Phencyclidine Scrn Not Detected (NotDetected) Ur Amphetamines Screen Not Detected (NotDetected) U Methamphetamines Scrn Not Detected (NotDetected) U Benzodiazepines Scrn Not Detected (NotDetected) Urine Cocaine Screen Not Detected (NotDetected) U Marijuana (THC) Screen Detected H (NotDetected) Coronavirus (PCR) Not Detected (Not Detectd) Disposition Clinical Impression: Psychosis Disposition: TRANSFER TO PSYCH HOSP/UNIT Is patient prescribed a controlled substance at d/c from ED?: No
[2021-04-03 19:50] LABS: Amphetamine Screen,Urine Not Detected (NotDetected); Barbiturate Screen,Urine Not Detected (NotDetected); Benzodiazepines Screen,Urine Not Detected (NotDetected); Cocaine Screen,Urine Not Detected (NotDetected); Methadone Screen, Urine Not Detected (NotDetected); Opiate Screen,Urine Not Detected (NotDetected); Oxycodone Screen, Urine Not Detected (NotDetected); Phencyclidine Screen,Urine Not Detected (NotDetected); Tricyclic Antidepressant,Urine Not Detected (NotDetected); Urn Cannabinoid Scrn Detected (NotDetected)
[2021-04-03] MEDS ORDERED: LORazepam 1 MG TAB PO STA (21:24)
[2021-04-04] MEDS ORDERED: MAGNESIUM HYDROXIDE 2,400 MG/10 ML CUP PO PRN (02:31)
[2021-04-04] MEDS ORDERED: HALOPERIDOL LACTATE 5 MG/ML 1 ML VIAL IM PRN (02:39)
[2021-04-04] MEDS ORDERED: haloperidoL 5 MG TAB PO PRN (02:39)
[2021-04-04] MEDS ORDERED: ALBUTEROL HFA INHALER INHALATION PRN (02:40)
[2021-04-04] MEDS ORDERED: LORazepam 1 MG TAB PO PRN (02:42)
--- NOTE | 2021-04-04 02:56 | P.PN ---
Progress Note - Text Progress Note Date: 04/04/21 Patient refused to be seen or examined.
[2021-04-04] MEDS: NICOTINE 14MG/24HR PATCH TRANSDERM SCH (08:20)
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
[2021-04-04] MEDS ORDERED: traZODone HCL 100 MG TAB PO PRN (11:21)
[2021-04-04] MEDS ORDERED: cloZAPine 25 MG TAB PO SCH (13:00)
[2021-04-04] MEDS ORDERED: QUEtiapine 100 MG TAB PO SCH (21:00)
[2021-04-04] MEDS ORDERED: QUEtiapine 200 MG TAB PO SCH (21:00)
--- NOTE | 2021-04-04 22:23 | P.PN ---
Progress Note - Text Progress Note Date: 04/04/21 The patient refused to be seen or examined.
[2021-04-04] MEDS: LITHIUM CARBONATE 300 MG CAP PO SCH (22:33)
[2021-04-05] MEDS: NICOTINE 14MG/24HR PATCH TRANSDERM SCH (09:21)
[2021-04-05] MEDS: LORazepam 1 MG TAB PO PRN (18:07)
--- NOTE | 2021-04-05 20:58 | P.PN ---
Progress Note - Text Progress Note Date: 04/05/21 Subjective: Patient was seen today as a cross coverage for Dr. Gonsales. The patient was evaluated, chart reviewed, case discussed with the treatment team. Patient was very guarded and restricted in discussing his psychiatric symptoms. He reports having a lot of complains again is to this hospital, and he doesn't want to take any medications except Seroquel. Reports other medications caused him to feel suicidal. He presents very irritable, responding to internal stimuli, and pa ranoid. No other history obtained as the patient was poor historian and not cooperative. According to the nursing station, the patient was very agitated, threatening, and psychotic. Objective: Vitals has been reviewed. Mental status examination; Appearance: The patient appears stated age, disheveled, no specific features. Gait/posture: Normal gait, Normal arm swinging: No abnormal movements. Attitude and behavior: not fully engaged, superficially cooperative, poor eye contact. Motor activity: increased psychomotor activity Speech: Normal rate, tone, but very tense. Mood: Anxious, irritable Affect: Restricted Thought form: poverty of thoughts Thought content: paranoid, denies suicidal thoughts, denies homicidal thoughts, denies intentions or plans. Perception: Not evaluated as the patient was not fully cooperative. Pt seems RIS Attention: No impairment. Orientation: Not evaluated as the patient was not fully cooperative. Insight: Patient has poor insight about his psychiatric disorder. Judgment: Patient has poor judgment about his psychiatric treatment. Assessment: Schizoaffective disorder, bipolar type. Cannabis use disorder Nicotine dependence Plan: Continue inpatient level of care due to patient needs further monitoring and stabilization, and he still meets criteria for inpatient level of care Precautions: Continue 15 minutes check for safety. Consider medical consultation if any acute medical issues arise. Provide the patient individual, group therapy, substance use disorder counseling to give better insight and learn coping skills. Medications: Continue lithium 600 mg at bedtime for mood stabilization. Patient states will not take it. Continue Seroquel and increase the dose to 300 mg at bedtime for mood stabilization and psychotic symptoms. Continue nicotine replacement therapy Continue as needed medications for psychiatric emergencies including Haldol for psychosis, agitation and Ativan for anxiety. Continue non-psychiatric medications for medical conditions as recommended by the medical team. Discharge patient to OUTPATIENT services upon a stabilization
[2021-04-05] MEDS ORDERED: QUEtiapine 100 MG TAB PO SCH (21:00)
[2021-04-05] MEDS: LITHIUM CARBONATE 300 MG CAP PO SCH (21:12)
[2021-04-06] MEDS: NICOTINE 14MG/24HR PATCH TRANSDERM SCH (07:55)
[2021-04-06] MEDS: LORazepam 1 MG TAB PO PRN ×2 (08:29→16:23)
[2021-04-06] MEDS: LITHIUM CARBONATE 300 MG CAP PO SCH (20:47)
[2021-04-06] MEDS: QUEtiapine 200 MG TAB PO SCH (20:55)
--- NOTE | 2021-04-06 22:35 | P.PN ---
Progress Note - Text Progress Note Date: 04/06/21 Subjective: Patient was seen today as a cross coverage for Dr. Gonsales. The patient was evaluated, chart reviewed, case discussed with the treatment team. Patient continues to present a very guarded, and paranoid. He refused to talk in his room or coming to the office and was only talking at the door of his room. He was very superficial and did not informative historian. He refused to answer most of the questions and was only focused on getting Seroquel 200 mg only. Patient refused to take 300 mg Seroquel last night and insisted to take only 200 mg. Reportedly the patient continued to have very irritable mood and not just to be responding to internal stimuli. Patient refused to take any other scheduled medications besides Seroquel Objective: Vitals has been reviewed. Mental status examination; Appearance: The patient appears stated age, disheveled, no specific features. Gait/posture: Normal gait, Normal arm swinging: No abnormal movements. Attitude and behavior: not fully engaged, superficially cooperative, poor eye contact. Motor activity: increased psychomotor activity Speech: Normal rate, tone, but very tense. Mood: Anxious, irritable Affect: Restricted Thought form: poverty of thoughts Thought content: paranoid, denies suicidal thoughts, denies homicidal thoughts, denies intentions or plans. Perception: Not evaluated as the patient was not fully cooperative. Pt seems RIS Attention: No impairment. Orientation: Not evaluated as the patient was not fully cooperative. Insight: Patient has poor insight about his psychiatric disorder. Judgment: Patient has poor judgment about his psychiatric treatment. Assessment: Schizoaffective disorder, bipolar type. Cannabis use disorder Nicotine dependence Plan: Continue inpatient level of care due to patient needs further monitoring and stabilization, and he still meets criteria for inpatient level of care Precautions: Continue 15 minutes check for safety. Consider medical consultation if any acute medical issues arise. Provide the patient individual, group therapy, substance use disorder counseling to give better insight and learn coping skills. Medications: Continue lithium 600 mg at bedtime for mood stabilization. Patient states will not take it. Continue Seroquel 200 mg at bedtime for mood stabilization and psychotic symptoms. Patient refused to take 300 mg last night Continue nicotine replacement therapy Continue as needed medications for psychiatric emergencies including Haldol for psychosis, agitation and Ativan for anxiety. Continue non-psychiatric medications for medical conditions as recommended by the medical team. Discharge patient to OUTPATIENT services upon a stabilization
[2021-04-07] MEDS: NICOTINE 14MG/24HR PATCH TRANSDERM SCH (08:53)
[2021-04-07] MEDS: LORazepam 1 MG TAB PO PRN (12:12)
--- NOTE | 2021-04-07 13:12 | P.PN ---
Progress Note - Text Progress Note Date: 04/07/21 Interval History: Patient was seen pacing the hallways and was agreeable to speak to jingle writer in the hallway today. Patient immediately only spoke to jingle writer about his medications. She claims that he does not want to be on any injections and was refusing closet pain and blood work. He states he only wants to be on Seroquel and lorazepam. He appeared to have poor impulse control and approach jingle writer in a threatening manner. He appeared to be irritable and yelling at times it jingle writer about his medications. He was very concrete and fixated on being on 200 mg of Seroquel and was resistant to any other medication options. Thing is to demonstrate very poor impulse control and poor insight and judgment. She was not endorsing any delusions or paranoia today. He refused to answer any questions about his suicide or homicide ideations or auditory hallucinations. Patient has been selectively taking some medications. Mental Status Exam: General Appearance: Patient appears to be well-built, stated age is alert, unpredictable, threatening posture. Patient appears to have poor hygiene and grooming. Behavior: Patient is seated without any agitated behavior. Threatening and agitated. Speech: Patient's speech is fluent and nonpressured. Loud at times. Mood/Affect: Patient reports their mood is "fine", affect is incongruent and constricted Suicidality/Homicidality: Unable to assess Perceptions: Unable to assess Though content/process: Demanding and threatening. Focused on his medications. Memory and concentration: AOX3, grossly intact for the purposes of this session Judgment and insight: Chronically poor, impulsive Assessment Schizoaffective disorder, bipolar type. Cannabis use disorder Nicotine dependence Plan: -Patient continues to meet criteria for inpatient psychiatric admission for symptom stabilization and safety. Patient has not signed adult voluntary form and medication consent and was placed in patient's chart. -Medications: Patient is continuing to refuse his lithium. Continue lithium 600 mg daily at bedtime for mood stabilization. increase Seroquel to 100mg daily + 200mg qhs for psychosis/mood stabilization. Due to severe akathisia and intolerability patient is not able to tolerate most other antipsychotics. -When necessary Ativan and Haldol for agitation/aggression. -NRT - nicotine patch -SW on board for discharge planning. Encouraged the patient to participate in milieu. Currently awaiting deferral with assistant attorney general and court date. Dr. Lemon from [facility] would like patient to go to half-way upon d/c.
[2021-04-07] MEDS: QUEtiapine 100 MG TAB PO SCH (14:05)
[2021-04-07] MEDS: QUEtiapine 200 MG TAB PO SCH (21:19)
[2021-04-07] MEDS: LITHIUM CARBONATE 300 MG CAP PO SCH (21:19)
[2021-04-08] MEDS: LORazepam 1 MG TAB PO PRN ×2 (01:42→11:08)
[2021-04-08] MEDS: NICOTINE 14MG/24HR PATCH TRANSDERM SCH (09:06)
[2021-04-08] MEDS: QUEtiapine 100 MG TAB PO SCH (09:06)
--- NOTE | 2021-04-08 10:41 | P.PN ---
Progress Note - Text Progress Note Date: 04/08/21 Interval History: Patient was seen pacing the hallways and was agreeable to speak to magnetic tape typewriter operator in the hallway today. Patient continues to have an intimidating pose and appears to be threatening. She stopped pacing when magnetic tape typewriter operator called his name and turned and states "what he wanted talk about today?". He continues to immediately only one to speak about his medications and states that he doesn't want to take Clozaril or any other injections because "it takes me about one month to start feeling s uicidal again". She was noted to be refusing his Seroquel and lithium yesterday and when asked about it he states that "stop messing with my medications". She was very demanding and concrete with magnetic tape typewriter operator and appears to have the fairly poor impulse control and irritability. He claims that he was agreeable today to take a smaller dose of Seroquel 25 mg this morning. he was not endorsing any delusi ons or paranoia today. He denies any thoughts of suicide or homicide ideations or auditory hallucinations. Patient has been selectively taking some medications. Mental Status Exam: General Appearance: Patient appears to be well-built, stated age is alert, unpredictable, threatening posture, improving mildly. Patient appears to have improving mildly hygiene and grooming. Behavior: Patient is seated without any agitated behavior. Threatening and intimidating, mildly improving today Speech: Patient's speech is fluent and nonpressured. [place] Mood/Affect: Patient reports their mood is "ok", affect is incongruent and constricted Suicidality/Homicidality: Denies Perceptions: Denies Though content/process: Demanding and threatening. Focused on his medications. Memory and concentration: AOX3, grossly intact for the purposes of this session Judgment and insight: Chronically poor Assessment Schizoaffective disorder, bipolar type. Cannabis use disorder Nicotine dependence Plan: -Patient continues to meet criteria for inpatient psychiatric admission for symptom stabilization and safety. Patient has not signed adult voluntary form and medication consent and was placed in patient's chart. -Medications: Patient is continuing to refuse his lithium. Continue lithium 600 mg daily at bedtime for mood stabilization. Changed Seroquel to 25 mg daily + 200mg qhs for psychosis/mood stabilization. Due to severe akathisia and intolerability patient is not able to tolerate most other antipsychotics. -When necessary Ativan and Haldol for agitation/aggression. -NRT - nicotine patch -SW on board for discharge planning. Encouraged the patient to participate in milieu. Patient did not defer yesterday with the first beater and will have court tomorrow. Looking into [facility] upon d/c once he is psychiatrically stabilized.
[2021-04-08] MEDS: QUEtiapine 25 MG TAB PO SCH (11:08)
[2021-04-08] MEDS: QUEtiapine 200 MG TAB PO SCH (21:14)
[2021-04-08] MEDS: LITHIUM CARBONATE 300 MG CAP PO SCH (21:14)
--- NOTE | 2021-04-09 09:18 | P.PN ---
Progress Note - Text Progress Note Date: 04/09/21 Interval History: Patient was seen pacing the hallways back and forth and was agreeable to speak to advertising copywriter in the hallway today. Patient continues to be standing in an intimidating pose towards advertising copywriter. He was speaking in a softer tone of voice. He spoke about his court being a "ceremony that I don't want to partake in". He claims that he "verbally deferred" however refused to sign any paperwork. He continues to be preoccupied with his medications and claims that he is a "[place] and citizen" and is not a citizen of the [place]. He claims that he only wants to take Seroquel and Ativan at this time. he was very demanding and concrete with advertising copywriter and appears to have the fairly poor impulse control and irritability. he was not endorsing any paranoia today. He denies any thoughts of suicide or homicide ideations or auditory hallucinations. Patient has been selectively taking some medications. Mental Status Exam: General Appearance: Patient appears to be well-built, stated age is alert, unpredictable, threatening posture, improving mildly. Patient appears to have improving mildly hygiene and grooming. Behavior: Patient is seated without any agitated behavior. Threatening and intimidating, mildly improving today Speech: Patient's speech is fluent and nonpressured. [place] Mood/Affect: Patient reports their mood is "fine", affect is incongruent and constricted Suicidality/Homicidality: Denies Perceptions: Denies Though content/process: Demanding and threatening. Focused on his medications. Memory and concentration: AOX3, grossly intact for the purposes of this session Judgment and insight: Chronically poor Assessment Schizoaffective disorder, bipolar type. Cannabis use disorder Nicotine dependence Plan: -Patient continues to meet criteria for inpatient psychiatric admission for symptom stabilization and safety. Patient has not signed adult voluntary form and medication consent and was placed in patient's chart. -Medications: Patient is continuing to refuse his lithium. Continue lithium 600 mg daily at bedtime for mood stabilization. Seroquel to 25 mg daily + 200mg qhs for psychosis/mood stabilization. Due to severe akathisia and intolerability patient is not able to tolerate most other antipsychotics. -When necessary Ativan and Haldol for agitation/aggression. -NRT - nicotine patch -SW on board for discharge planning. Encouraged the patient to participate in milieu. Patient will have his court hearing today at 1030am. [facility] d/c once he is psychiatrically stabilized.
[2021-04-09] MEDS: QUEtiapine 25 MG TAB PO SCH (09:46)
[2021-04-09] MEDS: NICOTINE 14MG/24HR PATCH TRANSDERM SCH (09:46)
[2021-04-09] MEDS: LORazepam 1 MG TAB PO PRN ×2 (12:35→22:37)
[2021-04-09] MEDS ORDERED: OLANZapine 10 MG VIAL IM PRN ×2 (13:43→13:48)
[2021-04-09] MEDS: OLANZapine 2.5 MG TAB PO SCH (16:08)
[2021-04-09] MEDS: OLANZapine 7.5 MG TAB PO SCH (22:02)
[2021-04-09] MEDS: LITHIUM CARBONATE 300 MG CAP PO SCH (22:02)
[2021-04-10] MEDS: OLANZapine 10 MG VIAL IM PRN ×2 (00:42→13:24)
[2021-04-10] MEDS: OLANZapine 2.5 MG TAB PO SCH (09:58)
[2021-04-10] MEDS: NICOTINE 14MG/24HR PATCH TRANSDERM SCH (10:00)
--- NOTE | 2021-04-10 13:00 | P.PN ---
Progress Note - Text Progress Note Date: 04/10/21 Clinical Problems: Schizoaffective disorder bipolar type, cannabis use disorder, tobacco use disorder Interim history: I reviewed the medical record, attempted to interview the patient and discussed his treatment and treatment plan during team meeting. He was irritable and minimally cooperative. He was guarded and suspicious to the point where he would not come into the office for the interview. He insisted that we speak in the hallway. He complained about the circumstances that led to this hospitalization. He denied the need for psychiatric treatment or the prescription of psychotropic medications. However, after the probate hearing yesterday he is compliant with the oral olanzapine. He is posed no management problems had no episodes of behavioral dyscontrol. He does not participate in therapeutic groups and activities. He spends his time alone not interacting with staff or peers. Mental status exam: He presented as a tall casually groomed 30-year-old male with long unkempt hair. He made eye contact and appeared to attend to the interview. He had a angry facial expression. He had psychomotor retardation but no abnormal involuntary movements. Her speech was not spontaneous and had normal rate and rhythm. His affect was irritable and angry. He denied suicidal ideation, wishes or homicidal ideation. He expressed feelings of hopelessness and helplessness regarding this, involuntary, hospitalization. He ruminated about the circumstances that this hospitalization. He was paranoid and guarded but did not express a clear paranoid ideation or paranoid delusional beliefs. His thinking was concrete but his associations were coherent, logical and goal directed. Assessment: He is chronically this he meant DL. He has no insight or understanding of his mental illness or need for treatment. However, he is posed no management problems and began compliant with medication following his probate hearing. Plan: Didn't inpatient treatment. Sick precautions. Continue olanzapine 2.5 mg daily and 7.5 mg at bedtime. Olanzapine IM if refuses the oral dose. Encourage compliance with lithium 600 mg at bedtime. Olanzapine and/or Haldol when necessary for agitation or aggression. Cogentin 1 mg by mouth twice a day when necessary for EPS. Encourage participation in therapeutic groups and activities. Evaluate clinical status response to treatment daily basis.
[2021-04-10] MEDS ORDERED: WATER FOR INJECTION, STERILE 10 ML IV ONE (13:18)
[2021-04-10] MEDS: LORazepam 1 MG TAB PO PRN (17:10)
[2021-04-10] MEDS: OLANZapine 7.5 MG TAB PO SCH (20:14)
[2021-04-10] MEDS: LITHIUM CARBONATE 300 MG CAP PO SCH (20:15)
[2021-04-10] MEDS: LORazepam 2 MG/ML INJ IM PRN (20:25)
[2021-04-11] MEDS: LORazepam 1 MG TAB PO PRN ×4 (01:10→23:01)
[2021-04-11] MEDS: OLANZapine 2.5 MG TAB PO SCH (08:35)
[2021-04-11] MEDS: NICOTINE 14MG/24HR PATCH TRANSDERM SCH (08:35)
[2021-04-11] MEDS: LORazepam 2 MG/ML INJ IM PRN ×2 (13:15→19:09)
--- NOTE | 2021-04-11 14:26 | P.PN ---
Progress Note - Text Progress Note Date: 04/11/21 Clinical Problems: Schizoaffective disorder bipolar type, cannabis use disorder, tobacco use disorder Interim history: I reviewed the medical record, attempted to interview the patient and discussed his treatment and treatment plan during team meeting. He was irritable and demanding. He insisted on being discharge "home." When I referred to "home" as his father's home he replied that "he is not my father." I will father is "up there." He became increasingly more irritable when I tried to explain that the guardian stated he cannot return. He talked about not liking the guardian and did not need guardian. He didn't stated that he would "go to a nursing home was "but has been waiting [facility] to find a nursing home for the last 6 months. During treatment team, [facility] liaison reported that the psychiatric doctor from [facility] is recommending placement at [facility]. He is compliant with prescribed olanzapine and denied side effects (he continues to refuse lithium). He received IM lorazepam yesterday evening and this afternoon for agitation and increased anger. He does not participate in therapeutic groups and activities. He spends his time alone not interacting with staff or peers. Mental status exam: He presented as a tall casually groomed 30-year-old male with long unkempt hair. He made eye contact and appeared to attend to the interview. He had a angry facial expression. He had psychomotor retardation but no abnormal involuntary movements. Her speech was spontaneous and had normal rate and rhythm. His affect was irritable and angry. He denied suicidal ideation, wishes or homicidal ideation. He expressed feelings of hopelessness and helplessness regarding this, involuntary, hospitalization. He ruminated about the this hospitalization, discharge and aftercare. He was paranoid and guarded but did not express a clear paranoid ideation. He suggested that he does not believe that his biological father is real father. His thinking was concrete and his associations were not coherent, logical and goal directed. Assessment: He is chronically and severely mentally ill. He has no insight or understanding of his mental illness or need for treatment. However, he is posed no major management problems and has been compliant with medication following his probate hearing. Plan: Continue inpatient treatment. Safety precautions. Continue olanzapine 2.5 mg daily and 7.5 mg at bedtime. Olanzapine IM if refuses the oral dose. Encourage compliance with lithium 600 mg at bedtime. Olanzapine and/or Haldol when necessary for agitation or aggression. Cogentin 1 mg by mouth twice a day when necessary for EPS. Encourage participation in therapeutic groups and activities. Evaluate clinical status response to treatment daily basis.
[2021-04-11] MEDS: OLANZapine 7.5 MG TAB PO SCH (21:01)
[2021-04-11] MEDS: LITHIUM CARBONATE 300 MG CAP PO SCH (21:05)
[2021-04-12] MEDS: BENZTROPINE MESYLATE 1 MG TAB PO PRN ×2 (00:17→20:49)
[2021-04-12] MEDS ORDERED: diphenhydrAMINE 50 MG CAP PO PRN (00:18)
[2021-04-12] MEDS: OLANZapine 2.5 MG TAB PO SCH (08:07)
[2021-04-12] MEDS: LORazepam 1 MG TAB PO PRN ×2 (08:08→20:40)
[2021-04-12] MEDS: NICOTINE 14MG/24HR PATCH TRANSDERM SCH (08:26)
[2021-04-12] MEDS: LORazepam 2 MG/ML INJ IM PRN ×2 (12:11→15:55)
[2021-04-12] MEDS ORDERED: QUEtiapine 400 MG TAB PO STA (14:43)
[2021-04-12] MEDS ORDERED: ZIPRASIDONE 20 MG CAP PO PRN (15:01)
[2021-04-12] MEDS ORDERED: OLANZapine 10 MG VIAL IM PRN ×2 (15:02)
[2021-04-12 15:34] VITALS: TEMP 97.9
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
[2021-04-12] MEDS: ZIPRASIDONE 20 MG VIAL IM PRN (15:55)
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
[2021-04-12] MEDS: LITHIUM CARBONATE 300 MG CAP PO SCH (20:39)
[2021-04-12] MEDS: OLANZapine 10 MG TAB PO SCH (20:41)
[2021-04-13] MEDS: LORazepam 1 MG TAB PO PRN ×4 (01:38→20:03)
[2021-04-13] MEDS: OLANZapine 2.5 MG TAB PO SCH (08:42)
[2021-04-13] MEDS: BENZTROPINE MESYLATE 1 MG TAB PO PRN ×2 (08:43→14:31)
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
[2021-04-13] MEDS: OLANZapine 10 MG TAB PO SCH (20:03)
[2021-04-13] MEDS: LITHIUM CARBONATE 300 MG CAP PO SCH (21:04)
[2021-04-13] MEDS: LORazepam 2 MG/ML INJ IM PRN (23:26)
[2021-04-14] MEDS: LORazepam 2 MG/ML INJ IM PRN ×3 (07:16→20:21)
[2021-04-14] MEDS: OLANZapine 2.5 MG TAB PO SCH (08:37)
[2021-04-14] MEDS: BENZTROPINE MESYLATE 1 MG TAB PO PRN ×2 (08:38→20:22)
[2021-04-14] MEDS ORDERED: OLANZapine 10 MG VIAL IM PRN (10:34)
[2021-04-14] MEDS ORDERED: LITHIUM CARBONATE 300 MG CAP PO SCH (10:45)
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
[2021-04-14] MEDS: ZIPRASIDONE 20 MG VIAL IM PRN (13:30)
[2021-04-14] MEDS ORDERED: clonazePAM 1 MG TAB PO SCH (15:00)
[2021-04-14] MEDS ORDERED: clonazePAM 0.5 MG TAB PO SCH (15:00)
[2021-04-14] MEDS: LORazepam 1 MG TAB PO PRN (18:33)
[2021-04-14] MEDS: OLANZapine 5 MG TAB PO SCH (20:21)
[2021-04-14] MEDS: LITHIUM CARBONATE 150 MG CAP PO SCH (20:21)
[2021-04-15] MEDS: ACETAMINOPHEN TAB 325 MG TAB PO PRN (00:23)
[2021-04-15] MEDS: LITHIUM CARBONATE 150 MG CAP PO SCH ×3 (08:34→20:44)
[2021-04-15] MEDS: OLANZapine 2.5 MG TAB PO SCH (08:34)
[2021-04-15] MEDS: LORazepam 1 MG TAB PO PRN ×3 (08:38→20:45)
[2021-04-15] MEDS ORDERED: clonazePAM 1 MG TAB PO SCH (09:00)
[2021-04-15] MEDS ORDERED: clonazePAM 0.5 MG TAB PO SCH (09:00)
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
[2021-04-15] MEDS ORDERED: OLANZapine 10 MG VIAL IM PRN (11:09)
[2021-04-15 14:26] VITALS: BMI 24.9
[2021-04-15] MEDS ORDERED: LORazepam 1 MG TAB PO SCH (15:00)
[2021-04-15] MEDS: OLANZapine 5 MG TAB PO SCH (20:44)
[2021-04-16] MEDS: OLANZapine 10 MG TAB PO SCH (08:34)
[2021-04-16] MEDS: LITHIUM CARBONATE 150 MG CAP PO SCH ×2 (08:34→20:38)
[2021-04-16] MEDS: LORazepam 1 MG TAB PO SCH ×3 (08:34→20:38)
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
[2021-04-16] MEDS: ACETAMINOPHEN TAB 325 MG TAB PO PRN (10:05)
[2021-04-16] MEDS: LORazepam 1 MG TAB PO PRN ×2 (14:51→21:39)
[2021-04-16] MEDS: OLANZapine 5 MG TAB PO SCH (20:38)
[2021-04-17] MEDS: LITHIUM CARBONATE 150 MG CAP PO SCH ×2 (08:07→20:10)
[2021-04-17] MEDS: LORazepam 1 MG TAB PO SCH ×3 (08:07→20:10)
[2021-04-17] MEDS: OLANZapine 10 MG TAB PO SCH (08:07)
[2021-04-17] MEDS: LORazepam 1 MG TAB PO PRN ×2 (08:50→19:26)
[2021-04-17] MEDS: BENZTROPINE MESYLATE 1 MG TAB PO PRN ×2 (08:59→23:29)
[2021-04-17] MEDS ORDERED: chlorproMAZINE 25 MG/ML 2 ML AMP IM PRN (10:04)
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
[2021-04-17] MEDS: ZIPRASIDONE 20 MG VIAL IM PRN (14:14)
[2021-04-17] MEDS: LORazepam 2 MG/ML INJ IM PRN ×2 (14:14→23:29)
[2021-04-17] MEDS: chlorproMAZINE 25 MG TAB PO SCH ×2 (15:10→20:10)
[2021-04-18] MEDS: LITHIUM CARBONATE 150 MG CAP PO SCH ×2 (07:32→19:33)
[2021-04-18] MEDS: LORazepam 1 MG TAB PO SCH ×2 (07:32→12:00)
[2021-04-18] MEDS: chlorproMAZINE 25 MG TAB PO SCH (07:32)
--- NOTE | 2021-04-18 10:22 | P.PN ---
Progress Note - Text Progress Note Date: 04/18/21 Interval History: Patient was seen pacing the hallways back and forth this morning and patient r eturned back to his room after receiving his medications. Patient was approached by race and sports book writer and safety security officer along with mental health thin film technician for an interview. Patient was noted to be in his room yelling at himself and was directable and agreeable to speak to race and sports book writer in the hallway today. Patient continues to have an intimidating and threatening posed. She continues to be preoccupied with his medications and not specifically which medications he is on an 1. He claims that he is not having any significant problems with the Thorazine at this time and keeps on referring to "the Thorazine shuffle". He claims that he does have some dry mouth however has been drinking water for it. He states that he has always talk to himself and feels mildly angry today. He did note mild improvement with medication since yesterday. He appears to be mildly less impulsive. He was asking about potential discharge on Wednesday. He claims that he is sleeping throughout the night. He was fairly religiously preoccupied today and was rambling and is tangential. He is denying any auditory or visual hallucinations. He is denying any homicidal or suicidal ideations intent or plan. Patient was agreeable to have his Thorazine increased today however after he walked away he turned around and appeared to be fairly upset with race and sports book writer. Mental Status Exam: General Appearance: Patient appears to be well-built, stated age is alert, unpredictable, threatening. Patient appears to have fair hygiene and grooming. Long hair and a stephens. Behavior: Patient is seated without any agitated behavior. Threatening and intimidating posture. Yelling at times Speech: Patient's speech is fluent and nonpressured. [place] Mood/Affect: Patient reports their mood is "a bit better", affect is incongruent and constricted Suicidality/Homicidality: Denies Perceptions: Denies Though content/process: Demanding, threatening. Focused on his medications and discharge. Religiously preoccupied. Memory and concentration: AOX3, grossly intact for the purposes of this session Judgment and insight: Chronically poor and impulsive Assessment Schizoaffective disorder, bipolar type. Cannabis use disorder Nicotine dependence Plan: -Patient continues to meet criteria for inpatient psychiatric admission for symptom stabilization and safety. Patient has not signed adult voluntary form and medication consent and was placed in patient's chart. -Medications: Continue with lithium 450 mg daily at bedtime for mood stabilization. Increased Thorazine 50 mg daily + 50 mg at 1pm + 100 mg at QHS PO and will have IM as back up if patient is refusing. Patient is court ordered at this time and will need to be taking both the lithium and Thorazine otherwise he will receive a IM dose. decreased Ativan scheduled 2mg daily + 2mg at 1pm. Cogentin 1 mg twice a day when necessary for muscle spasms. -When necessary Ativan and Geodon IM or PO for agitation/aggression. -NRT - nicotine patch -SW on board for discharge planning. Encouraged the patient to participate in milieu. Patient is currently on an active court order. Per Diem, social scientist, act team and guardian hold met up for a meeting yesterday with regards to patient's care and treatment planning going forward. Patient is still not psychiatrically stabilized therefore unsure as to where patient will be discharged to once he is ready.
[2021-04-18] MEDS: BENZTROPINE MESYLATE 1 MG TAB PO PRN (12:00)
[2021-04-18] MEDS ORDERED: chlorproMAZINE 25 MG TAB PO SCH (13:00)
[2021-04-18] MEDS: chlorproMAZINE 100 MG TAB PO SCH (19:33)
[2021-04-18] MEDS: LORazepam 1 MG TAB PO PRN ×2 (19:34→23:57)
[2021-04-19] MEDS: LORazepam 1 MG TAB PO SCH ×2 (08:17→11:46)
[2021-04-19] MEDS: LITHIUM CARBONATE 150 MG CAP PO SCH ×2 (08:17→19:40)
[2021-04-19] MEDS ORDERED: chlorproMAZINE 25 MG TAB PO SCH (09:00)
--- NOTE | 2021-04-19 10:08 | P.PN ---
Progress Note - Text Progress Note Date: 04/19/21 Interval History: Patient was seen coming out of his room today and was agreeable to streaked wr iter in the hallway. Firing Pin Gauger spoke with patient with a security at his side. Patient continues to be fairly demanding about his medications and refuses to have them increased. He claims that he is not feeling "suicidal" with the Thorazine at this time however believes that he may feel this way in a week. He continues to ramble at times was mildly delusional. He continues to be fairly fixated on his medications and his discharge plan. He appeared to have be agreeable to take his Thorazine twice a day at 100 mg however claims that he does not want to get up to "over 200 mg". He claims that he is feeling less impulsive today and claims of slept throughout the night. He is denying any auditory or visual hallucinations. He is denying any homicidal or suicidal ideations intent or plan. Patient walked away from medical technical writer early in the conversation however was seen a couple minutes later pushing his door to his room in agitation and speaking to himself in the hallway and appeared to be ag gressive. He approached medical technical writer once again and demanded not to have his medications increased and swore at medical technical writer when he couldnt promise to have his meds increased. Mental Status Exam: General Appearance: Patient appears to be well-built, stated age is alert, unpredictable, threatening. Patient appears to have fair hygiene and grooming. Long hair and a stephens. Behavior: Patient is seated without any agitated behavior. Threatening and intimidating posture. Yelling at times Speech: Patient's speech is fluent and nonpressured. [place] Mood/Affect: Patient reports their mood is "ok", affect is incongruent and agitated at times Suicidality/Homicidality: Denies Perceptions: Denies Though content/process: Demanding, threatening. Focused on his medications and discharge. Religiously preoccupied, improving mildly Memory and concentration: AOX3, grossly intact for the purposes of this session Judgment and insight: Chronically poor and impulsive Assessment Schizoaffective disorder, bipolar type. Cannabis use disorder Nicotine dependence Plan: -Patient continues to meet criteria for inpatient psychiatric admission for symptom stabilization and safety. Patient has not signed adult voluntary form and medication consent and was placed in patient's chart. -Medications: Continue with lithium 450 mg daily at bedtime for mood stabilization. changed Thorazine 100 mg BID for psychosis/agitation and will have IM as back up if patient is refusing. Patient is court ordered at this time and will need to be taking both the lithium and Thorazine otherwise he will receive a IM dose. Ativan scheduled 2mg daily + 2mg at 1pm. Cogentin 1 mg twice a day when necessary for muscle spasms. -When necessary Ativan and Geodon IM or PO for agitation/aggression. -NRT - nicotine patch -SW on board for discharge planning. Encouraged the patient to participate in milieu. Patient is currently on an active court order. Firing Pin Gauger, health and social care teacher, act team and guardian hold met up for a meeting with regards to patient's care and treatment planning going forward. Patient is still not psychiatrically stabilized therefore unsure as to where patient will be discharged to once he is ready.
[2021-04-19] MEDS ORDERED: chlorproMAZINE 25 MG/ML 2 ML AMP IM PRN (10:10)
[2021-04-19] MEDS ORDERED: WATER FOR INJECTION, STERILE 10 ML IV ONE (11:53)
[2021-04-19] MEDS ORDERED: chlorproMAZINE 25 MG TAB PO ONE (12:00)
[2021-04-19] MEDS: ZIPRASIDONE 20 MG VIAL IM PRN (12:04)
[2021-04-19] MEDS: chlorproMAZINE 100 MG TAB PO SCH (19:39)
[2021-04-19] MEDS: LORazepam 1 MG TAB PO PRN (19:40)
[2021-04-20] MEDS: LORazepam 1 MG TAB PO PRN ×2 (00:45→19:05)
[2021-04-20] MEDS: LORazepam 1 MG TAB PO SCH ×2 (08:44→12:59)
[2021-04-20] MEDS: chlorproMAZINE 100 MG TAB PO SCH ×2 (08:44→21:21)
[2021-04-20] MEDS: LITHIUM CARBONATE 150 MG CAP PO SCH ×2 (08:44→21:21)
--- NOTE | 2021-04-20 11:47 | P.PN ---
Progress Note - Text Progress Note Date: 04/20/21 Interval History: Patient was seen wandering the hallways and was agreeable to speak to senior underwriter in the hallway. Metal Forger'S Assistant spoke with patient with a security at his side. Patient today appeared to be calmer in his demeanor with a senior underwriter. He appeared to be more flexible and more cooperative during the conversation. He was also less demanding about his medications however did state that the Thorazine has been "helping out of bed". He claims that it is a older medication and claims that he does not want to get up to 800 mg which is the maximum dose. He states that he feels less angry and agitated today. He also states that his mood has been improving mildly. He asked questions about his Ativan and what the maximum dose of it is. Did state that at times he feels fairly lethargic however he states that he still talks to himself in his room. He is denying any auditory or visual hallucinations today and denying any suicidal or homicidal ideations intent or plan. Mental Status Exam: General Appearance: Patient appears to be well-built, stated age is alert, unpredictable, improving mildly. Patient appears to have fair hygiene and grooming. Long hair and a stephens. Behavior: Patient is seated without any agitated behavior. Threatening and intimidating posture, proving mildly Speech: Patient's speech is fluent and nonpressured. [place] Mood/Affect: Patient reports their mood is "a bit better", affect is incongruent and peers to be less aggressive today Suicidality/Homicidality: Denies Perceptions: Denies Though content/process: Demanding, Focused on his medications and discharge. Religiously preoccupied, improving mildly Memory and concentration: AOX3, grossly intact for the purposes of this session Judgment and insight: Chronically poor and impulsive, mildly improving Assessment Schizoaffective disorder, bipolar type. Cannabis use disorder Nicotine dependence Plan: -Patient continues to meet criteria for inpatient psychiatric admission for symptom stabilization and safety. Patient has not signed adult voluntary form and medication consent and was placed in patient's chart. -Medications: Continue with lithium 450 mg daily at bedtime for mood stabilization. Thorazine 100 mg BID for psychosis/agitation and will have IM as back up if patient is refusing. Patient is court ordered at this time and will need to be taking both the lithium and Thorazine otherwise he will receive a IM dose. Ativan scheduled 2mg daily + 2mg at 1pm. Cogentin 1 mg twice a day when necessary for muscle spasms. -When necessary Ativan and Geodon IM or PO for agitation/aggression. -NRT - nicotine patch -SW on board for discharge planning. Encouraged the patient to participate in milieu. Patient is currently on an active court order. Metal Forger'S Assistant, social security specialist, act team and guardian hold met up for a meeting with regards to patient's care and treatment planning going forward. Patient is still not psychiatrically stabilized therefore unsure as to where patient will be discharged to once he is ready.
[2021-04-21] MEDS: LORazepam 1 MG TAB PO PRN ×3 (00:52→23:48)
[2021-04-21] MEDS: LORazepam 1 MG TAB PO SCH ×2 (08:20→19:37)
[2021-04-21] MEDS: LITHIUM CARBONATE 150 MG CAP PO SCH ×2 (08:20→21:20)
[2021-04-21] MEDS: chlorproMAZINE 100 MG TAB PO SCH (08:20)
--- NOTE | 2021-04-21 10:44 | P.PN ---
Progress Note - Text Progress Note Date: 04/21/21 Interval History: Patient was seen wandering the hallways and was agreeable to speak to global technical writer in the hallway. Portfolio Assistant spoke with patient with a security at his side. Patient appears to be less confrontational today and more cooperative during the conversation. He continues to state that he does not want his Thorazine increased and states that there may be a positive side to the medication. He was agreeable to have his Ativan increased as he admitted to pacing the hallways and not being able to sleep without being given Ativan. He was mildly delusional however continues to state that "I always talk to myself". Mild druze preoccupation today. He appears to be less impulsive and less threatening. He was asking about potential discharge and following up with [facility]. He is denying any auditory or visual hallucinations today and denying any suicidal or homicidal ideations intent or plan. Mental Status Exam: General Appearance: Patient appears to be well-built, stated age is alert, less threatening today. Patient appears to have fair hygiene and grooming. Long hair and a stephens. Behavior: Patient is seated without any agitated behavior. intimidating posture, proving mildly Speech: Patient's speech is fluent and nonpressured. [place] Mood/Affect: Patient reports their mood is "better", affect is incongruent and constricted Suicidality/Homicidality: Denies Perceptions: Denies Though content/process: Focused on his medications and discharge. Religiously preoccupied, improving mildly Memory and concentration: AOX3, grossly intact for the purposes of this session Judgment and insight: Chronically poor and impulsive, mildly improving Assessment Schizoaffective disorder, bipolar type. Cannabis use disorder Nicotine dependence Plan: -Patient continues to meet criteria for inpatient psychiatric admission for symptom stabilization and safety. Patient has not signed adult voluntary form and medication consent and was placed in patient's chart. -Medications: Continue with lithium 450 mg daily at bedtime for mood stabilization. Thorazine 100 mg BID for psychosis/agitation and will have IM as back up if patient is refusing. Patient is court ordered at this time and will need to be taking both the lithium and Thorazine otherwise he will receive a IM dose. Changed Ativan scheduled 2mg daily + 2mg QHS. Cogentin 1 mg twice a day when necessary for muscle spasms. -When necessary Ativan and Geodon IM or PO for agitation/aggression. -check lithium, basic met panel and cbc with diff tomorrow morning. -NRT - nicotine patch -SW on board for discharge planning. Encouraged the patient to participate in milieu. Patient is currently on an active court order. Patient is improving psychiatrically. psychiatric social worker supervisor to recheck a guardian to prepare for discharge in the next 1-2 days.
[2021-04-21] MEDS: chlorproMAZINE 25 MG TAB PO SCH (21:20)
[2021-04-22 06:51] LABS: African American GFR (CKD) >90 (>60 ml/min/1.73 sqM); Anion Gap 7 mmol/L; Blood Urea Nitrogen 12 mg/dL (9-20); Calcium 9.2 mg/dL (8.4-10.2); Carbon Dioxide 26 mmol/L (22-30); Chloride 106 mmol/L (98-107); Glucose 87 mg/dL (74-99); Non-African American GFR(CKD) >90 (>60 ml/min/1.73 sqM); Potassium 3.9 mmol/L (3.5-5.1); Sodium 139 mmol/L (137-145)
[2021-04-22 06:59] LABS: Basophils % (A) 1 %; Eosinophils # (A) 0.4 k/uL (0-0.7); Eosinophils % (A) 7 %; HGB 13.7 gm/dL (13.0-17.5); Lymphocytes # (A) 1.7 k/uL (1.0-4.8); Lymphocytes % (A) 28 %; MCH 30.2 pg (25.0-35.0); MCHC 34.3 g/dL (31.0-37.0); MCV 88.2 fL (80.0-100.0); Mean Platelet Volume 7.7; Monocytes # (A) 0.5 k/uL (0-1.0); Monocytes % (A) 8 %; Neutrophils # (A) 3.3 k/uL (1.3-7.7); Neutrophils % (A) 55 %; Platelet Count 179 k/uL (150-450); RBC 4.53 m/uL (4.30-5.90); RDW 12.7 % (11.5-15.5)
[2021-04-22 07:53] LABS: Lithium 0.7 mmol/L
[2021-04-22] MEDS: LITHIUM CARBONATE 150 MG CAP PO SCH ×2 (08:41→21:34)
[2021-04-22] MEDS: LORazepam 1 MG TAB PO SCH ×2 (08:42→21:34)
[2021-04-22] MEDS: chlorproMAZINE 25 MG TAB PO SCH ×3 (08:43→21:34)
[2021-04-22] MEDS ORDERED: chlorproMAZINE 25 MG/ML 2 ML AMP IM PRN (11:09)
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
[2021-04-22] MEDS: LORazepam 1 MG TAB PO PRN (17:41)
[2021-04-23] MEDS: chlorproMAZINE 25 MG TAB PO SCH (10:22)
[2021-04-23] MEDS: LORazepam 1 MG TAB PO SCH ×4 (10:22→21:00)
[2021-04-23] MEDS: LITHIUM CARBONATE 150 MG CAP PO SCH ×2 (10:22→20:52)
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
[2021-04-23] MEDS ORDERED: chlorproMAZINE 25 MG/ML 2 ML AMP IM STA (12:47)
[2021-04-23] MEDS ORDERED: LORazepam 2 MG/ML INJ IM STA (12:48)
[2021-04-23] MEDS: LORazepam 1 MG TAB PO PRN ×2 (12:54→23:35)
[2021-04-23] MEDS: chlorproMAZINE 100 MG TAB PO SCH (14:15)
--- NOTE | 2021-04-23 19:32 | P.PN ---
Progress Note - Text Progress Note Date: 04/06/21 The patient refused to be seen or evaluated.
[2021-04-23] MEDS ORDERED: chlorproMAZINE 100 MG TAB PO SCH (21:00)
[2021-04-24] MEDS: LITHIUM CARBONATE 150 MG CAP PO SCH ×2 (08:53→19:51)
[2021-04-24] MEDS: LORazepam 1 MG TAB PO SCH ×3 (08:53→20:13)
[2021-04-24] MEDS: chlorproMAZINE 100 MG TAB PO SCH ×4 (08:53→19:51)
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
[2021-04-24] MEDS ORDERED: diphenhydrAMINE 50 MG/ML 1 ML VIAL IM STA (19:32)
[2021-04-24] MEDS: ZIPRASIDONE 20 MG VIAL IM PRN (19:32)
[2021-04-24] MEDS: LORazepam 2 MG/ML INJ IM PRN (19:34)
[2021-04-24] MEDS: BENZTROPINE MESYLATE 1 MG TAB PO PRN (19:51)
[2021-04-25] MEDS: chlorproMAZINE 100 MG TAB PO SCH ×2 (08:25→21:16)
[2021-04-25] MEDS: LITHIUM CARBONATE 150 MG CAP PO SCH ×2 (08:25→21:15)
[2021-04-25] MEDS: LORazepam 1 MG TAB PO SCH ×3 (08:26→21:18)
--- NOTE | 2021-04-25 08:27 | P.PN ---
Progress Note - Text Progress Note Date: 04/25/21 Interval History: Patient was seen sitting in the hallway eating his breakfast and filling out a order for his next meal. Patient was approached by junior underwriter today with security at his side for an interview. Patient acknowledged rider however refused to answer any questions simply stating "I don't want to talk about it let me out". Whenever junior underwriter attempted to ask patient questions he would reply with the same answer. He appeared to be mildly calmer today. Patient has been receiving several when necessary medications at nighttime for sleep including Geodon IM. Mental Status Exam: General Appearance: Patient appears to be well-built, stated age is alert, threatening. Patient appears to have fair hygiene and grooming. Long hair and a stephens. Behavior: Patient is seated without any agitated behavior. intimidating posture. demanding Speech: Patient's speech is fluent and nonpressured. [place] Mood/Affect: Unable to assess Suicidality/Homicidality: Unable to assess Perceptions: Unable to assess Though content/process: Focused on discharge. [place]. Memory and concentration: Unable to assess Judgment and insight: Chronically poor and impulsive Assessment Schizoaffective disorder, bipolar type. Cannabis use disorder Nicotine dependence Plan: -Patient continues to meet criteria for inpatient psychiatric admission for symptom stabilization and safety. Patient has not signed adult voluntary form and medication consent and was placed in patient's chart. -Medications: Continue with lithium 450 mg daily at bedtime for mood stabilization. increased Thorazine 150 mg daily + 150mg at 2 pm + 150 mg QHS for psychosis/agitation and will have IM as back up if patient is refusing starting tomorrow. Patient is court ordered at this time and will need to be taking both the lithium and Thorazine otherwise he will receive a IM dose. Ativan scheduled 2mg daily + 2mg at 1400 + 2mg QHS. Cogentin 1 mg twice a day when necessary for muscle spasms. Added grams of trazodone daily at bedtime for insomnia. -When necessary Ativan and Geodon IM or PO for agitation/aggression. -lithium level - 0.7 drawn on 04/22 -NRT - nicotine patch -SW on board for discharge planning. Encouraged the patient to participate in milieu. Patient is currently on an active court order. contact worker lithography to continue working with guardian. Continuing to optimize patients medications as he is not psychiatrically improved or at his baseline.
[2021-04-25] MEDS: BENZTROPINE MESYLATE 1 MG TAB PO PRN (09:30)
[2021-04-25] MEDS ORDERED: chlorproMAZINE 100 MG TAB PO ONE (14:00)
[2021-04-25] MEDS: LORazepam 1 MG TAB PO PRN (17:10)
[2021-04-25] MEDS: traZODone HCL 100 MG TAB PO SCH (21:54)
[2021-04-26] MEDS: LORazepam 1 MG TAB PO SCH ×3 (08:35→20:05)
[2021-04-26] MEDS: chlorproMAZINE 100 MG TAB PO SCH ×3 (08:35→20:04)
[2021-04-26] MEDS: LITHIUM CARBONATE 150 MG CAP PO SCH ×2 (08:36→20:05)
[2021-04-26] MEDS: LORazepam 1 MG TAB PO PRN (11:25)
[2021-04-26] MEDS: BENZTROPINE MESYLATE 1 MG TAB PO PRN ×2 (11:25→23:47)
[2021-04-26] MEDS: ZIPRASIDONE 20 MG VIAL IM PRN (16:25)
[2021-04-26] MEDS: traZODone HCL 100 MG TAB PO SCH (20:04)
[2021-04-26] MEDS: MAG HYDROX/AL HYDROX/SIMETH 30 ML CUP PO PRN (22:26)
[2021-04-27] MEDS: CALCIUM CARBONATE 500 MG CHEWABLE PO PRN (00:01)
[2021-04-27] MEDS: LITHIUM CARBONATE 150 MG CAP PO SCH ×2 (08:37→20:23)
[2021-04-27] MEDS: LORazepam 1 MG TAB PO SCH ×5 (08:37→20:27)
[2021-04-27] MEDS: chlorproMAZINE 100 MG TAB PO SCH ×2 (08:37→15:04)
[2021-04-27] MEDS: BENZTROPINE MESYLATE 1 MG TAB PO PRN (15:05)
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
[2021-04-27] MEDS: traZODone HCL 100 MG TAB PO SCH (20:22)
[2021-04-27] MEDS: BENZTROPINE MESYLATE 1 MG TAB PO SCH (20:23)
[2021-04-27] MEDS: QUEtiapine 100 MG TAB PO SCH (20:23)
[2021-04-28] MEDS: LORazepam 1 MG TAB PO PRN (03:18)
[2021-04-28] MEDS: LITHIUM CARBONATE 150 MG CAP PO SCH ×2 (08:38→22:33)
[2021-04-28] MEDS: BENZTROPINE MESYLATE 1 MG TAB PO SCH ×2 (08:38→22:33)
[2021-04-28] MEDS: LORazepam 1 MG TAB PO SCH ×3 (08:39→22:33)
[2021-04-28] MEDS: traZODone HCL 100 MG TAB PO SCH (22:33)
[2021-04-28] MEDS: QUEtiapine 100 MG TAB PO SCH (22:33)
[2021-04-29] MEDS: LORazepam 1 MG TAB PO SCH ×2 (07:54→07:57)
[2021-04-29] MEDS: BENZTROPINE MESYLATE 1 MG TAB PO SCH ×2 (07:54→21:26)
[2021-04-29] MEDS: LITHIUM CARBONATE 150 MG CAP PO SCH ×2 (07:54→21:25)
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
[2021-04-29] MEDS: QUEtiapine 100 MG TAB PO SCH (21:25)
[2021-04-30] MEDS: BENZTROPINE MESYLATE 1 MG TAB PO SCH ×2 (08:23→23:20)
[2021-04-30] MEDS: LITHIUM CARBONATE 150 MG CAP PO SCH ×2 (08:23→23:20)
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
[2021-04-30] MEDS: LORazepam 1 MG TAB PO PRN ×2 (16:19→23:21)
[2021-04-30] MEDS: QUEtiapine 100 MG TAB PO SCH (23:21)
[2021-05-01] MEDS: BENZTROPINE MESYLATE 1 MG TAB PO SCH ×2 (08:27→23:20)
[2021-05-01] MEDS: LITHIUM CARBONATE 150 MG CAP PO SCH ×2 (08:27→23:21)
--- NOTE | 2021-05-01 11:44 | P.PN ---
Progress Note - Text Progress Note Date: 05/01/21 Interval History: Patient was seen lying in his bed this morning and was agreeable to speech jennifer raya in the hallway. Office Administration sought patient with security at his side. Patient appeared to be just waking up from sleep. He states he is doing better overall. He continues to be delusional at times and spoke about God and other profits. He did appear to be more directable today and calmer and more appropriately with commercial underwriter. He continues to be religiously preoccupied. He is denying any depress ion or any anxiety today. He claims that he wants to be discharged to the [facility] because the other hotel he stayed up before was too expensive. He claims that he has $20,000 in his account. He asked commercial underwriter to speak with the guardian. He claims that he is able to sleep at night and has a fair appetite. He is agreeable to continue on with the Seroquel at nighttime. He is denying any auditory or visual hallucinations at this time and denying any suicidal or homicidal ideations intent or plan. Mental Status Exam: General Appearance: Patient appears to be well-built, more appropriate today and attempts to cooperate. Patient appears to have fair hygiene and grooming. Long hair and a stephens. Behavior: Patient is seated without any agitated behavior. Less demanding. More cooperative. Speech: Patient's speech is fluent and nonpressured. Mood/Affect: Patient claims his mood is "okay" and affect is congruent and concrete. Suicidality/Homicidality: Denies Perceptions: Denies Though content/process: Religiously preoccupied. Delusional. Rambles at times. Memory and concentration: Alert and oriented 3 today. fair Concentration. Judgment and insight: Chronically poor, improving mildly Assessment Schizoaffective disorder, bipolar type. Cannabis use disorder Nicotine dependence Plan: -Patient continues to meet criteria for inpatient psychiatric admission for symptom stabilization and safety. Patient has not signed adult voluntary form and medication consent and was placed in patient's chart. -Medications: Continue with lithium 450 mg daily at bedtime for mood stabilization. Continue Seroquel 300 mg daily at bedtime for mood stabilization/psychosis. Cogentin 1 mg twice a day when necessary for muscle spasms. -When necessary Ativan and Geodon IM or PO for agitation/aggression. -lithium level - 0.7 drawn on 04/22 -NRT - nicotine patch - on board for discharge planning. Encouraged the patient to participate in milieu. Patient is currently on an active court order. forming process line worker to continue working with guardian on discharge planning. Patient will likely be discharged to a hotel versus a residential in 2-3 days.
[2021-05-01] MEDS: QUEtiapine 100 MG TAB PO SCH (23:21)
[2021-05-01] MEDS: LORazepam 1 MG TAB PO PRN (23:29)
[2021-05-02] MEDS: BENZTROPINE MESYLATE 1 MG TAB PO SCH ×2 (08:24→23:05)
[2021-05-02] MEDS: LITHIUM CARBONATE 150 MG CAP PO SCH ×2 (08:25→23:05)
[2021-05-02 08:27] VITALS: BP 134/82; PULSE 96; RESP 16
[2021-05-02] MEDS: LORazepam 1 MG TAB PO PRN (10:52)
--- NOTE | 2021-05-02 12:49 | P.PN ---
Progress Note - Text Progress Note Date: 05/02/21 Interval History: Patient was seen lying in his bed this morning and was agreeable to speech jennifer elver in the hallway. Airline Transport Pilot saw patient with security at his side. Patient appeared to be just waking up from sleep. He states he is doing better overall. Patient did appear to be mildly irritable this morning however was directable during conversation. He continues to be chronically delusional speaking about spirits and profits. He also was religiously preoccupied. He claims that he does talk to himself however believes that it is "normal to do that". He claims that his mood is "fine" and is denying any anxiety today. He is denying any depression. He claims that he wants to be discharged to the [facility] and claims that he will let [facility] come and see him at the room. He claims that he is able to sleep at night and has a fair appetite. He is agreeable to continue on with the Seroquel at nighttime. He is denying any auditory or visual hallucinations at this time and denying any suicidal or homicidal ideations intent or plan. Mental Status Exam: General Appearance: Patient appears to be well-built, more appropriate today and attempts to cooperate. Patient appears to have fair hygiene and grooming. Long hair and a stephens. Behavior: Patient is seated without any agitated behavior. Less demanding. More cooperative and more directable today Speech: Patient's speech is fluent and nonpressured. Mood/Affect: Patient claims his mood is "fine" and affect is congruent and concrete Suicidality/Homicidality: Denies Perceptions: Denies Though content/process: Religiously preoccupied. Delusional. Rambles at times. Proving mildly Memory and concentration: Alert and oriented 3 today. fair Concentration. Judgment and insight: Chronically poor, improving mildly Assessment Schizoaffective disorder, bipolar type. Cannabis use disorder Nicotine dependence Plan: -Patient continues to meet criteria for inpatient psychiatric admission for symptom stabilization and safety. Patient has not signed adult voluntary form and medication consent and was placed in patient's chart. -Medications: Continue with lithium 450 mg daily at bedtime for mood stabilization. Continue Seroquel 300 mg daily at bedtime for mood stabilization/psychosis. Consider increasing Seroquel over the weekend. Cogentin 1 mg twice a day when necessary for muscle spasms. -When necessary Ativan and Geodon IM or PO for agitation/aggression. -lithium level - 0.7 drawn on 04/22, repeat tomorrow morning -NRT - nicotine patch - on board for discharge planning. Encouraged the patient to participate in milieu. Patient is currently on an active court order. perinatal social worker to continue working with guardian on discharge planning. Patient will likely be discharged to a hotel versus a jail. Will call for a meeting with kay and ACT team/[facility] for wednesday to discuss further discharge planning.
[2021-05-02] MEDS: QUEtiapine 100 MG TAB PO SCH (23:04)
[2021-05-03] MEDS: BENZTROPINE MESYLATE 1 MG TAB PO SCH ×2 (09:23→23:40)
[2021-05-03] MEDS: LITHIUM CARBONATE 150 MG CAP PO SCH ×2 (09:23→23:40)
[2021-05-03] MEDS: LORazepam 1 MG TAB PO PRN (09:24)
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
[2021-05-03] MEDS: QUEtiapine 400 MG TAB PO SCH (23:40)
[2021-05-04] MEDS: BENZTROPINE MESYLATE 1 MG TAB PO SCH ×2 (08:34→22:56)
[2021-05-04] MEDS: LITHIUM CARBONATE 150 MG CAP PO SCH ×2 (08:34→22:56)
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
[2021-05-04] MEDS ORDERED: WATER FOR INJECTION, STERILE 10 ML IV ONE (17:24)
[2021-05-04] MEDS: ZIPRASIDONE 20 MG VIAL IM PRN (17:25)
[2021-05-04] MEDS: LORazepam 2 MG/ML INJ IM PRN (17:26)
[2021-05-04] MEDS: QUEtiapine 400 MG TAB PO SCH (22:56)
[2021-05-05] MEDS: BENZTROPINE MESYLATE 1 MG TAB PO SCH ×2 (08:26→23:01)
[2021-05-05] MEDS: LITHIUM CARBONATE 150 MG CAP PO SCH (08:26)
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
[2021-05-05] MEDS: LITHIUM CARBONATE 300 MG CAP PO SCH (23:01)
[2021-05-05] MEDS: QUEtiapine 400 MG TAB PO SCH (23:01)
[2021-05-06] MEDS: BENZTROPINE MESYLATE 1 MG TAB PO SCH ×2 (08:24→22:30)
--- NOTE | 2021-05-06 11:31 | P.PN ---
Progress Note - Text Progress Note Date: 05/06/21 Interval History: Patient was seen lying in his bed this morning and was agreeable to speech jennifer raya in the hallway. Medical Center Manager saw patient with security at his side. Patient appeared to be just waking up from sleep in. He states that he is still feeling tired in the morning however was agreeable to have his Cogentin decreased to just once a day at nighttime and was informed that this was probably adding to his tiredness. He states that he is doing better overall and appeared to be less irritable today and calmer more directable with commercial loan underwriter. He was agreeable to the plan of potential discharge tomorrow to [facility] He claims that he still wants to go to the [facility]. He was less delusional today and less religiously preoccupied. He appears to have mildly improving insight into his condition and need for treatment. He claims that he is able to sleep at night and has a fair appetite. He is denying any auditory or visual hallucinations at this time and denying any suicidal or homicidal ideations intent or plan. Mental Status Exam: General Appearance: Patient appears to be well-built, more appropriate today and attempts to cooperate. Patient appears to have fair hygiene and grooming. Long hair and a stephens. Behavior: Patient is seated without any agitated behavior. More cooperative and more directable today. Less intimidating Speech: Patient's speech is fluent and nonpressured. Mood/Affect: Patient claims his mood is "better" and affect is congruent and concrete Suicidality/Homicidality: Denies Perceptions: Denies Though content/process: Less Religiously preoccupied. Delusions chronic and improving. More future oriented. Memory and concentration: Alert and oriented 3 today. fair Concentration. Judgment and insight: Chronically poor, improving mildly Assessment Schizoaffective disorder, bipolar type. Cannabis use disorder Nicotine dependence Plan: -Patient continues to meet criteria for inpatient psychiatric admission for symptom stabilization and safety. Patient has not signed adult voluntary form and medication consent and was placed in patient's chart. -Medications: lithium 900 mg daily at bedtime for mood stabilization. Seroquel 400 mg daily at bedtime for mood stabilization/psychosis. decrease Cogentin 1 mg qhs when necessary for muscle spasms. -When necessary Ativan and Geodon IM or PO for agitation/aggression. -lithium level - 0.7 on 10/19, repeated and was 0.5 on 05/03 -NRT - nicotine patch - on board for discharge planning. Encouraged the patient to participate in milieu. Patient is currently on an active court order. bunker worker to continue working with guardian on discharge planning. Patient will likely be discharged to a hotel either [facility] or [facility]. Had meeting with kay and LLOYD team/[facility] yesterday to discuss patients case and discharge planning and all agreed to this plan. Will aim for discharge tomorrow.
[2021-05-06] MEDS: MAG HYDROX/AL HYDROX/SIMETH 30 ML CUP PO PRN (20:23)
[2021-05-06] MEDS: QUEtiapine 400 MG TAB PO SCH (22:30)
[2021-05-06] MEDS: LITHIUM CARBONATE 300 MG CAP PO SCH (22:30)
[2021-05-07] MEDS: CALCIUM CARBONATE 500 MG CHEWABLE PO PRN (00:28)
[2021-05-07] MEDS: BENZTROPINE MESYLATE 1 MG TAB PO SCH (08:56)
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
== END 2021-05-07 14:35 | disposition home or self-care (01) | DRG 885 ==
LOC: EC 17:59 → 3MHU 04-04 02:28
PROVIDERS: ADMIT Psychiatry & Neurology Psychiatry; ATTEND Psychiatry & Neurology Psychiatry
DX: F25.0 Schizoaffective disorder, bipolar type (principal); F84.5 Asperger's syndrome; J45.909 Unspecified asthma, uncomplicated; F12.10 Cannabis abuse, uncomplicated; F17.210 Nicotine dependence, cigarettes, uncomplicated; R45.850 Homicidal ideations; T43.96XA Underdosing of unspecified psychotropic drug, initial encounter; Y04.0XXA Assault by unarmed brawl or fight, initial encounter; Z79.899 Other long term (current) drug therapy; F41.9 Anxiety disorder, unspecified; Z20.822 Contact with and (suspected) exposure to COVID-19; Z78.1 Physical restraint status; Z91.128 Patient's intentional underdosing of medication regimen for other reason; Z88.8 Allergy status to other drugs, medicaments and biological substances
CPT/HCPCS: 80048; 80178; 80306; 82075; 85025; 87635

== ENCOUNTER 2021-07-22 14:37 | Emergency (ER) | payer MEDICARE, OTHER ==
[2021-07-22 14:57] VITALS: TEMP 98.1
--- NOTE | 2021-07-22 15:16 | ED ---
General Adult HPI - General Source: patient, police, RN notes reviewed, old records reviewed Mode of arrival: ambulatory Limitations: no limitations, altered mental status <Milind Justin - Last Filed: 07/22/21 20:15> <Milind An - Last Filed: 07/23/21 01:45> - General Chief complaint: Psychiatric Symptoms Stated complaint: Mental Health Time Seen by Provider: 07/22/21 14:55 - History of Present Illness Initial comments: This is a 30-year-old male who presents to the emergency department in police custody because of a court order. Patient has not showed up for appointments and not been taking his medication and so they brought him into the emergency department to have him admitted to the psychiatric floor. Patient admits that he has not been taking his medication but he states it's not his fall. Patient states that God has remained him and his There is no one and has been that way for a couple years. Patient states his original parents are no longer his parents he states that they are mighty is now his parents. Patient denies any drug use besides marijuana he states he drinks daily between 3 and 424 ounce beers. Patient denies any physical complaints today. Patient denies any pain. Patient denies any shortness of breath per patient denies any fever chills. (Milind Justin) - Related Data Previous Rx's Medication Instructions Recorded Acetaminophen Tab [Tylenol] 650 mg PO Q4HR PRN tab 05/07/21 Albuterol Inhaler [Ventolin Hfa 2 puff INHALATION RT-DAILY PRN #1 05/07/21 Inhaler] each Benztropine Mesylate [Cogentin] 1 mg PO HS 30 Days #30 tab 05/07/21 Calcium Carbonate [Tums] 500 mg PO QID PRN 30 Days tab 05/07/21 [place] Carbonate 900 mg PO HS 30 Days cap 05/07/21 QUEtiapine [SEROquel] 400 mg PO HS 30 Days tab 05/07/21 Allergies Allergy/AdvReac Type Severity Reaction Status Date / Time aripiprazole [From Abilify] Allergy Unknown Verified 07/22/21 16:16 divalproex sodium Allergy Unknown Verified 07/22/21 16:16 [From Depakote] fluphenazine [From Prolixin] Allergy Hallucinati Verified 07/22/21 16:16 ons haloperidol [From Haldol] Allergy Hallucinati Verified 07/22/21 16:16 ons paliperidone [From Invega] Allergy Unknown Verified 07/22/21 16:16 dextromethorphan AdvReac Hallucinati Verified 07/22/21 16:16 ons guaifenesin AdvReac Hallucinati Verified 07/22/21 16:16 ons lurasidone [From Latuda] AdvReac Suicidal Verified 07/22/21 16:16 Ideation Review of Systems ROS Other: All systems not noted in ROS Statement are negative. <Milind Justin - Last Filed: 07/22/21 20:15> ROS Other: All systems not noted in ROS Statement are negative. <Milind An - Last Filed: 07/23/21 01:45> ROS Statement: Those systems with pertinent positive or pertinent negative responses have been documented in the HPI. Past Medical History Past Medical History: Asthma Additional Past Medical History / Comment(s): aspergers, delusional disorder History of Any Multi-Drug Resistant Organisms: None Reported Past Surgical History: No Surgical Hx Reported Past Anesthesia/Blood Transfusion Reactions: No Reported Reaction Past Psychological History: Anxiety, Bipolar Smoking Status: Current every day smoker Past Alcohol Use History: Abuse Past Drug Use History: Unable to Obtain <Milind Justin - Last Filed: 07/22/21 20:15> General Exam Limitations: no limitations, altered mental status <Milind Justin - Last Filed: 07/22/21 20:15> - General Exam Comments Initial Comments: GENERAL: Patient is well-developed and well-nourished. Patient is nontoxic and well- hydrated and is in no acute distress. ENT: Neck is soft and supple. No significant lymphadenopathy is noted. Oropharynx is clear. Moist mucous membranes. Neck has full range of motion without eliciting any pain. EYES: The sclera were anicteric and conjunctiva were pink and moist. Extraocular movements were intact and pupils were equal round and reactive to light. Eyelids were unremarkable. PULMONARY: Unlabored respirations. Good breath sounds bilaterally. No audible rales rhonchi or wheezing was noted. CARDIOVASCULAR: There is a regular rate and rhythm without any murmurs gallops or rubs. ABDOMEN: Soft and nontender with normal bowel sounds. SKIN: Skin is clear with no lesions or rashes and otherwise unremarkable. NEUROLOGIC: Patient is alert and oriented x3. Cranial nerves II through XII are grossly intact. Motor and sensory are also intact. Normal speech, volume and content. Symmetrical smile. MUSCULOSKELETAL: Normal extremities with adequate strength and full range of motion. LYMPHATICS: No significant lymphadenopathy is noted PSYCHIATRIC: Patient believes that his been remained by God Almjessica. Patient has admitted that he has not taken his medication for about a month and a half (Milind Justin) Course <Milind An - Last Filed: 07/23/21 01:45> Vital Signs 07/22/21 07/22/21 07/22/21 14:55 19:00 22:00 Temperature 98.1 F Pulse Rate 80 88 Respiratory 18 18 16 Rate Blood Pressure 148/97 138/89 O2 Sat by Pulse 98 97 Oximetry 07/23/21 00:00 Temperature Pulse Rate Respiratory 16 Rate Blood Pressure O2 Sat by Pulse Oximetry - Reevaluation(s) Reevaluation #1: 07/23/21 01:45 Medical record is reviewed (Milind An) Reevaluation #2: 07/23/21 01:45 Seen and evaluated by psychiatry (Milind An) Medical Decision Making - Lab Data Result diagrams: 07/22/21 17:23 07/22/21 17:23 <Milind Justin - Last Filed: 07/22/21 20:15> - Lab Data Result diagrams: 07/22/21 17:23 07/22/21 17:23 <Milind An - Last Filed: 07/23/21 01:45> - Medical Decision Making EPS evaluated the patient and determined the patient needed to be transferred to a different facility. Dr. An will be taking over the care of this patient at 9 PM (Milind Justin) 30 male to ER under court ordered psychiatric evaluation. Patient to be transferred for inpatient psychiatric treatment (Milind An) - Lab Data Lab Results 07/22/21 07/22/21 07/22/21 Range/Units 15:55 15:55 17:23 WBC 5.7 (3.8-10.6) k/uL RBC 4.90 (4.30-5.90) m/uL Hgb 15.1 (13.0-17.5) gm/dL Hct 44.0 (39.0-53.0) % MCV 89.8 (80.0-100.0) fL MCH 30.8 (25.0-35.0) pg MCHC 34.3 (31.0-37.0) g/dL RDW 12.2 (11.5-15.5) % Plt Count 160 (150-450) k/uL MPV 7.8 Neutrophils % 67 % Lymphocytes % 21 % Monocytes % 6 % Eosinophils % 3 % Basophils % 1 % Neutrophils # 3.8 (1.3-7.7) k/uL Lymphocytes # 1.2 (1.0-4.8) k/uL Monocytes # 0.4 (0-1.0) k/uL Eosinophils # 0.2 (0-0.7) k/uL Basophils # 0.0 (0-0.2) k/uL Sodium (137-145) mmol/L Potassium (3.5-5.1) mmol/L Chloride (98-107) mmol/L Carbon Dioxide (22-30) mmol/L Anion Gap mmol/L BUN (9-20) mg/dL Creatinine (0.66-1.25) mg/dL Est GFR (CKD-EPI)AfAm (>60 ml/min/1.73 sqM) Est GFR (CKD-EPI)NonAf (>60 ml/min/1.73 sqM) Glucose (74-99) mg/dL Calcium (8.4-10.2) mg/dL Total Bilirubin (0.2-1.3) mg/dL AST (17-59) U/L ALT (4-49) U/L Alkaline Phosphatase (38-126) U/L Total Protein (6.3-8.2) g/dL Albumin (3.5-5.0) g/dL TSH (0.465-4.680) mIU/L Urine Color Light Yellow Urine Appearance Clear (Clear) Urine pH 7.0 (5.0-8.0) Ur Specific [place] 1.004 (1.001-1.035) Urine Protein Negative (Negative) Urine Glucose (UA) Negative (Negative) Urine Ketones Negative (Negative) Urine Blood Negative (Negative) Urine Nitrite Negative (Negative) Urine Bilirubin Negative (Negative) Urine Urobilinogen <2.0 (<2.0) mg/dL Ur Leukocyte Esterase Negative (Negative) Urine Opiates Screen Not Detected (NotDetected) Ur Oxycodone Screen Not Detected (NotDetected) Urine Methadone Screen Not Detected (NotDetected) Ur Propoxyphene Screen Not Detected (NotDetected) Ur Barbiturates Screen Not Detected (NotDetected) U Tricyclic Antidepress Not Detected (NotDetected) Ur Phencyclidine Scrn Not Detected (NotDetected) Ur Amphetamines Screen Not Detected (NotDetected) U Methamphetamines Scrn Not Detected (NotDetected) U Benzodiazepines Scrn Not Detected (NotDetected) [place] mmol/L Urine Cocaine Screen Not Detected (NotDetected) U Marijuana (THC) Screen Detected H (NotDetected) Coronavirus (PCR) (Not Detectd) 07/22/21 07/22/21 07/22/21 Range/Units 17:23 17:23 17:23 WBC (3.8-10.6) k/uL RBC (4.30-5.90) m/uL Hgb (13.0-17.5) gm/dL Hct (39.0-53.0) % MCV (80.0-100.0) fL MCH (25.0-35.0) pg MCHC (31.0-37.0) g/dL RDW (11.5-15.5) % Plt Count (150-450) k/uL MPV Neutrophils % % Lymphocytes % % Monocytes % % Eosinophils % % Basophils % % Neutrophils # (1.3-7.7) k/uL Lymphocytes # (1.0-4.8) k/uL Monocytes # (0-1.0) k/uL Eosinophils # (0-0.7) k/uL Basophils # (0-0.2) k/uL Sodium 141 (137-145) mmol/L Potassium 3.9 (3.5-5.1) mmol/L Chloride 107 (98-107) mmol/L Carbon Dioxide 22 (22-30) mmol/L Anion Gap 12 mmol/L BUN 10 (9-20) mg/dL Creatinine 0.57 L (0.66-1.25) mg/dL Est GFR (CKD-EPI)AfAm >90 (>60 ml/min/1.73 sqM) Est GFR (CKD-EPI)NonAf >90 (>60 ml/min/1.73 sqM) Glucose 93 (74-99) mg/dL Calcium 9.2 (8.4-10.2) mg/dL Total Bilirubin 1.1 (0.2-1.3) mg/dL AST 47 (17-59) U/L ALT 29 (4-49) U/L Alkaline Phosphatase 74 (38-126) U/L Total Protein 7.7 (6.3-8.2) g/dL Albumin 4.9 (3.5-5.0) g/dL TSH 1.010 (0.465-4.680) mIU/L Urine Color Urine Appearance (Clear) Urine pH (5.0-8.0) Ur Specific [place] (1.001-1.035) Urine Protein (Negative) Urine Glucose (UA) (Negative) Urine Ketones (Negative) Urine Blood (Negative) Urine Nitrite (Negative) Urine Bilirubin (Negative) Urine Urobilinogen (<2.0) mg/dL Ur Leukocyte Esterase (Negative) Urine Opiates Screen (NotDetected) Ur Oxycodone Screen (NotDetected) Urine Methadone Screen (NotDetected) Ur Propoxyphene Screen (NotDetected) Ur Barbiturates Screen (NotDetected) U Tricyclic Antidepress (NotDetected) Ur Phencyclidine Scrn (NotDetected) Ur Amphetamines Screen (NotDetected) U Methamphetamines Scrn (NotDetected) U Benzodiazepines Scrn (NotDetected) [place] <0.2 mmol/L Urine Cocaine Screen (NotDetected) U Marijuana (THC) Screen (NotDetected) Coronavirus (PCR) Not Detected (Not Detectd) Disposition Time of Disposition: 20:14 <Milind Justin - Last Filed: 07/22/21 20:15> <Milind An - Last Filed: 07/23/21 01:45> Clinical Impression: History of medication noncompliance, Psychosis Disposition: TRANSFER TO PSYCH HOSP/UNIT Referrals: None,Stated [Primary Care Provider] - 1-2 days
[2021-07-22 16:18] LABS: Amphetamine Screen,Urine Not Detected (NotDetected); Barbiturate Screen,Urine Not Detected (NotDetected); Benzodiazepines Screen,Urine Not Detected (NotDetected); Cocaine Screen,Urine Not Detected (NotDetected); Methadone Screen, Urine Not Detected (NotDetected); Opiate Screen,Urine Not Detected (NotDetected); Oxycodone Screen, Urine Not Detected (NotDetected); Phencyclidine Screen,Urine Not Detected (NotDetected); Tricyclic Antidepressant,Urine Not Detected (NotDetected); Urn Cannabinoid Scrn Detected (NotDetected)
[2021-07-22 17:33] LABS: Basophils % (A) 1 %; Eosinophils # (A) 0.2 k/uL (0-0.7); Eosinophils % (A) 3 %; HGB 15.1 gm/dL (13.0-17.5); Lymphocytes # (A) 1.2 k/uL (1.0-4.8); Lymphocytes % (A) 21 %; MCH 30.8 pg (25.0-35.0); MCHC 34.3 g/dL (31.0-37.0); MCV 89.8 fL (80.0-100.0); Mean Platelet Volume 7.8; Monocytes # (A) 0.4 k/uL (0-1.0); Monocytes % (A) 6 %; Neutrophils # (A) 3.8 k/uL (1.3-7.7); Neutrophils % (A) 67 %; Platelet Count 160 k/uL (150-450); RDW 12.2 % (11.5-15.5); WBC 5.7 k/uL (3.8-10.6)
[2021-07-22 17:44] LABS: ALT 29 U/L (4-49); AST 47 U/L (17-59); African American GFR (CKD) >90 (>60 ml/min/1.73 sqM); Albumin 4.9 g/dL (3.5-5.0); Alkaline Phosphatase 74 U/L (38-126); Anion Gap 12 mmol/L; Blood Urea Nitrogen 10 mg/dL (9-20); Calcium 9.2 mg/dL (8.4-10.2); Carbon Dioxide 22 mmol/L (22-30); Chloride 107 mmol/L (98-107); Glucose 93 mg/dL (74-99); Non-African American GFR(CKD) >90 (>60 ml/min/1.73 sqM); Potassium 3.9 mmol/L (3.5-5.1); Sodium 141 mmol/L (137-145); Total Bilirubin 1.1 mg/dL (0.2-1.3); Total Protein 7.7 g/dL (6.3-8.2)
[2021-07-22] MEDS ORDERED: LORazepam 1 MG TAB PO STA (17:59)
[2021-07-22 21:13] VITALS: BP 138/89; PULSE 88
[2021-07-22] MEDS ORDERED: ALBUTEROL HFA INHALER INHALATION PRN (22:12)
[2021-07-22] MEDS ORDERED: ACETAMINOPHEN TAB 325 MG TAB PO PRN (22:12)
[2021-07-22] MEDS ORDERED: CALCIUM CARBONATE 500 MG CHEWABLE PO PRN (22:12)
[2021-07-22] MEDS ORDERED: QUEtiapine 400 MG TAB PO SCH (22:15)
[2021-07-22] MEDS ORDERED: LITHIUM CARBONATE 150 MG CAP PO SCH (22:15)
[2021-07-22] MEDS ORDERED: BENZTROPINE MESYLATE 1 MG TAB PO SCH (22:15)
[2021-07-23 00:09] VITALS: RESP 16
[2021-07-23 00:20] LABS: Appearance,Urine Clear (Clear); Bilirubin,Urine Negative (Negative); Blood,Urine Negative (Negative); Color,Urine Light Yellow; Glucose,Urine (UA) Negative (Negative); Ketones,Urine Negative (Negative); Leukocyte Esterase,Urine Negative (Negative); Nitrite,Urine Negative (Negative); Protein,Urine Negative (Negative); Specific Gravity,Urine 1.004 (1.001-1.035); Urobilinogen,Urine <2.0 mg/dL (<2.0)
[2021-07-23 00:34] LABS: Lithium <0.2 mmol/L
[2021-07-23] MEDS ORDERED: LORazepam 1 MG TAB PO STA (02:00)
[2021-07-23] MEDS ORDERED: NICOTINE 14MG/24HR PATCH TRANSDERM SCH (09:00)
== END 2021-07-23 03:35 ==
LOC: EC 14:37
DX: F29 Unspecified psychosis not due to a substance or known physiological condition (principal); F17.200 Nicotine dependence, unspecified, uncomplicated; J45.909 Unspecified asthma, uncomplicated; Z91.14 Patient's other noncompliance with medication regimen; Z20.822 Contact with and (suspected) exposure to COVID-19; Z88.1 Allergy status to other antibiotic agents; Z88.8 Allergy status to other drugs, medicaments and biological substances
CPT/HCPCS: 36415; 80053; 80178; 80306; 81003; 82075; 84443; 85025; 87635; 93005; 99285

== ENCOUNTER 2021-10-11 01:11 | Emergency (ER) | payer MEDICARE, OTHER ==
[2021-10-11] MEDS ORDERED: ZIPRASIDONE 20 MG VIAL IM PRN (01:45)
[2021-10-11] MEDS ORDERED: ZIPRASIDONE 20 MG VIAL IM STA (01:50)
--- NOTE | 2021-10-11 01:51 | ED ---
Psych HPI <AshArianMicheal - Last Filed: 10/21/21 15:36> - General Source: police, RN notes reviewed, old records reviewed Mode of arrival: ambulatory Limitations: altered mental status - History of Present Illness MD Complaint: feels depressed, altered mental status -: unknown Associated Psychiatric Symptoms: depression, suicidal ideation History of same: Yes Quality: constant Improves With: none Worsens With: none Context: recent alcohol abuse Associated Symptoms: confusion Treatments Prior to Arrival: placed on mental health hold, physical restraints, chemical restraints <Milind An - Last Filed: 11/06/21 23:38> - General Chief Complaint: Psychiatric Symptoms Stated Complaint: Mental health Time Seen by Provider: 10/11/21 01:34 - History of Present Illness Initial Comments: This is a 31-year-old male to the emergency department for evaluation. Patient won't psychiatric illness patient presenting for psychiatric illness night. Patient will be evaluated for psychiatric illness here in the emergency department, currently denying drug or alcohol abuse (Milind An) - Related Data Home Medications Medication Instructions Recorded Confirmed Famotidine [Pepcid] 20 mg PO DAILY PRN 10/11/21 10/11/21 [place] Carbonate 150 mg PO HS 10/11/21 10/11/21 [place] Carbonate 600 mg PO HS 10/11/21 10/11/21 QUEtiapine [SEROquel] 800 mg PO HS 10/11/21 10/11/21 Previous Rx's Medication Instructions Recorded Acetaminophen Tab [Tylenol] 650 mg PO Q4HR PRN tab 05/07/21 Albuterol Inhaler [Ventolin Hfa 2 puff INHALATION RT-DAILY PRN #1 05/07/21 Inhaler] each Benztropine Mesylate [Cogentin] 1 mg PO HS 30 Days #30 tab 05/07/21 Calcium Carbonate [Tums] 500 mg PO QID PRN 30 Days tab 05/07/21 Allergies Allergy/AdvReac Type Severity Reaction Status Date / Time aripiprazole [From Abilify] Allergy Unknown Verified 10/11/21 12:21 divalproex sodium Allergy Unknown Verified 10/11/21 12:21 [From Depakote] fluphenazine [From Prolixin] Allergy Hallucinati Verified 10/11/21 12:21 ons haloperidol [From Haldol] Allergy Hallucinati Verified 10/11/21 12:21 ons paliperidone [From Invega] Allergy Unknown Verified 10/11/21 12:21 dextromethorphan AdvReac Hallucinati Verified 10/11/21 12:21 ons guaifenesin AdvReac Hallucinati Verified 10/11/21 12:21 ons lurasidone [From Latuda] AdvReac Suicidal Verified 10/11/21 12:21 Ideation Review of Systems ROS Other: All systems not noted in ROS Statement are negative. <Micheal Aleman - Last Filed: 10/21/21 15:36> ROS Other: All systems not noted in ROS Statement are negative. <Milind An - Last Filed: 11/06/21 23:38> ROS Statement: Those systems with pertinent positive or pertinent negative responses have been documented in the HPI. Past Medical History Past Medical History: Asthma Additional Past Medical History / Comment(s): aspergers, delusional disorder History of Any Multi-Drug Resistant Organisms: None Reported Past Surgical History: No Surgical Hx Reported Past Anesthesia/Blood Transfusion Reactions: No Reported Reaction Past Psychological History: Anxiety, Bipolar Smoking Status: Current every day smoker Past Alcohol Use History: Abuse Past Drug Use History: Unable to Obtain <Milind An - Last Filed: 11/06/21 23:38> General Exam Limitations: no limitations General appearance: alert, in no apparent distress Head exam: Present: atraumatic, normocephalic, normal inspection Eye exam: Present: normal appearance, PERRL, EOMI. Absent: scleral icterus, conjunctival injection, periorbital swelling ENT exam: Present: normal exam, mucous membranes moist Neck exam: Present: normal inspection. Absent: tenderness, meningismus, lymphadenopathy Respiratory exam: Present: normal lung sounds bilaterally. Absent: respiratory distress, wheezes, rales, rhonchi, stridor Cardiovascular Exam: Present: regular rate, normal rhythm, normal heart sounds. Absent: systolic murmur, diastolic murmur, rubs, gallop, clicks GI/Abdominal exam: Present: soft, normal bowel sounds. Absent: distended, tenderness, guarding, rebound, rigid Extremities exam: Present: normal inspection, full ROM, normal capillary refill. Absent: tenderness, pedal edema, joint swelling, calf tenderness Back exam: Present: normal inspection Neurological exam: Present: alert, oriented X3, CN II-XII intact Psychiatric exam: Present: normal affect, normal mood Skin exam: Present: warm, dry, intact, normal color. Absent: rash <Milind An - Last Filed: 11/06/21 23:38> Course <Milind An - Last Filed: 11/06/21 23:38> Vital Signs 10/11/21 10/13/21 10/13/21 01:40 06:00 09:00 Temperature 98.2 F Pulse Rate 113 H 76 76 Respiratory 18 20 20 Rate Blood Pressure 175/82 134/74 134/74 O2 Sat by Pulse 95 97 97 Oximetry 10/14/21 10/16/21 10/18/21 20:51 18:17 03:40 Temperature 97.9 F 98.0 F Pulse Rate 87 91 Respiratory 12 18 18 Rate Blood Pressure 130/90 145/97 O2 Sat by Pulse 99 99 Oximetry 10/18/21 10/18/21 10/19/21 12:00 17:14 05:14 Temperature Pulse Rate 88 Respiratory 18 18 16 Rate Blood Pressure 138/92 O2 Sat by Pulse 99 Oximetry 10/19/21 10/19/21 10/20/21 06:02 08:00 06:45 Temperature 98 F Pulse Rate 92 99 Respiratory 16 16 17 Rate Blood Pressure 136/81 143/93 O2 Sat by Pulse 99 97 Oximetry 10/20/21 14:00 Temperature 98.2 F Pulse Rate 99 Respiratory 18 Rate Blood Pressure 138/88 O2 Sat by Pulse 97 Oximetry - Reevaluation(s) Reevaluation #1: 10/11/21 05:32 Medical record is reviewed Medically clear for psychiatric evaluation (Milind An) Procedures - Restraint - Face to Face Restraint Occurrence 1 Patient's Immediate Situation: Endangers self safety, Endangers others' safety, Endangers staff safety Patient's Reaction to the Intervention: Uncooperative, Angry, Hostile, Belligerent, Anxious Patient's Medical & Behavioral Condition: Awake, Anxious, Agitated Need to Continue or Terminate Restraint or Seclusion: Continue Face to Face Eval of Restraint Date: 10/11/21 Face to Face Eval of Restraint Time: 01:35 <Milind An - Last Filed: 11/06/21 23:38> Medical Decision Making - Lab Data Result diagrams: 10/12/21 02:35 10/12/21 02:35 <Micheal Aleman - Last Filed: 10/21/21 15:36> - Lab Data Result diagrams: 10/12/21 02:35 10/12/21 02:35 <Milind An - Last Filed: 11/06/21 23:38> - Medical Decision Making Patient was pending psychiatric evaluation upon sobriety. Originally presented for acute psychosis. History of mental illness multiple admissions. Was determined to be inpatient psychiatry admission standards. They're actively looking for placement for the patient. I completed this certification. I spoke to patient regarding admission and he was in agreement. He did require restraints less likely but currently is resting comfortably. His no acute complaints. He was petitioned originally and brought in for evaluation as he is not compliant with medications and has been agitated. Psychiatric certification was completed by myself. Disposition is pending placement. Patient requires inpatient psychiatry. (Micheal Aleman) 31 male will be transferred for inpatient psychiatric evaluation and treatment (Milind An) - Lab Data Lab Results 10/11/21 10/12/21 10/12/21 Range/Units 02:20 02:35 02:35 WBC 6.8 (3.8-10.6) k/uL RBC 5.07 (4.30-5.90) m/uL Hgb 16.1 (13.0-17.5) gm/dL Hct 45.4 (39.0-53.0) % MCV 89.5 (80.0-100.0) fL MCH 31.8 (25.0-35.0) pg MCHC 35.5 (31.0-37.0) g/dL RDW 14.1 (11.5-15.5) % Plt Count 265 (150-450) k/uL MPV 6.9 Neutrophils % 61 % Lymphocytes % 26 % Monocytes % 7 % Eosinophils % 3 % Basophils % 1 % Neutrophils # 4.1 (1.3-7.7) k/uL Lymphocytes # 1.8 (1.0-4.8) k/uL Monocytes # 0.5 (0-1.0) k/uL Eosinophils # 0.2 (0-0.7) k/uL Basophils # 0.1 (0-0.2) k/uL Sodium 137 (137-145) mmol/L Potassium 3.7 (3.5-5.1) mmol/L Chloride 103 (98-107) mmol/L Carbon Dioxide 23 (22-30) mmol/L Anion Gap 11 mmol/L BUN 15 (9-20) mg/dL Creatinine 0.79 (0.66-1.25) mg/dL Est GFR (CKD-EPI)AfAm >90 (>60 ml/min/1.73 sqM) Est GFR (CKD-EPI)NonAf >90 (>60 ml/min/1.73 sqM) Glucose 121 H (74-99) mg/dL Calcium 9.2 (8.4-10.2) mg/dL Total Bilirubin 1.9 H (0.2-1.3) mg/dL AST 60 H (17-59) U/L ALT 72 H (4-49) U/L Alkaline Phosphatase 93 (38-126) U/L Total Protein 8.0 (6.3-8.2) g/dL Albumin 4.8 (3.5-5.0) g/dL Urine Color Colorless Urine Appearance Clear (Clear) Urine pH 7.0 (5.0-8.0) Ur Specific [place] 1.004 (1.001-1.035) Urine Protein Negative (Negative) Ur Protein Confirm Not Reportable Urine Glucose (UA) Negative (Negative) Urine Ketones Negative (Negative) Urine Blood Negative (Negative) Urine Nitrite Negative (Negative) Urine Bilirubin Negative (Negative) Ur Bilirubin Confirm Not Reportable Urine Urobilinogen <2.0 (<2.0) mg/dL Ur Leukocyte Esterase Negative (Negative) Urine Opiates Screen Not Detected (NotDetected) Ur Oxycodone Screen Not Detected (NotDetected) Urine Methadone Screen Not Detected (NotDetected) Ur Propoxyphene Screen Not Detected (NotDetected) Ur Barbiturates Screen Not Detected (NotDetected) U Tricyclic Antidepress Not Detected (NotDetected) Ur Phencyclidine Scrn Not Detected (NotDetected) Ur Amphetamines Screen Not Detected (NotDetected) U Methamphetamines Scrn Not Detected (NotDetected) U Benzodiazepines Scrn Not Detected (NotDetected) Urine Cocaine Screen Not Detected (NotDetected) U Marijuana (THC) Screen Detected H (NotDetected) Coronavirus (PCR) (Not Detectd) 10/12/21 Range/Units 02:35 WBC (3.8-10.6) k/uL RBC (4.30-5.90) m/uL Hgb (13.0-17.5) gm/dL Hct (39.0-53.0) % MCV (80.0-100.0) fL MCH (25.0-35.0) pg MCHC (31.0-37.0) g/dL RDW (11.5-15.5) % Plt Count (150-450) k/uL MPV Neutrophils % % Lymphocytes % % Monocytes % % Eosinophils % % Basophils % % Neutrophils # (1.3-7.7) k/uL Lymphocytes # (1.0-4.8) k/uL Monocytes # (0-1.0) k/uL Eosinophils # (0-0.7) k/uL Basophils # (0-0.2) k/uL Sodium (137-145) mmol/L Potassium (3.5-5.1) mmol/L Chloride (98-107) mmol/L Carbon Dioxide (22-30) mmol/L Anion Gap mmol/L BUN (9-20) mg/dL Creatinine (0.66-1.25) mg/dL Est GFR (CKD-EPI)AfAm (>60 ml/min/1.73 sqM) Est GFR (CKD-EPI)NonAf (>60 ml/min/1.73 sqM) Glucose (74-99) mg/dL Calcium (8.4-10.2) mg/dL Total Bilirubin (0.2-1.3) mg/dL AST (17-59) U/L ALT (4-49) U/L Alkaline Phosphatase (38-126) U/L Total Protein (6.3-8.2) g/dL Albumin (3.5-5.0) g/dL Urine Color Urine Appearance (Clear) Urine pH (5.0-8.0) Ur Specific [place] (1.001-1.035) Urine Protein (Negative) Ur Protein Confirm Urine Glucose (UA) (Negative) Urine Ketones (Negative) Urine Blood (Negative) Urine Nitrite (Negative) Urine Bilirubin (Negative) Ur Bilirubin Confirm Urine Urobilinogen (<2.0) mg/dL Ur Leukocyte Esterase (Negative) Urine Opiates Screen (NotDetected) Ur Oxycodone Screen (NotDetected) Urine Methadone Screen (NotDetected) Ur Propoxyphene Screen (NotDetected) Ur Barbiturates Screen (NotDetected) U Tricyclic Antidepress (NotDetected) Ur Phencyclidine Scrn (NotDetected) Ur Amphetamines Screen (NotDetected) U Methamphetamines Scrn (NotDetected) U Benzodiazepines Scrn (NotDetected) Urine Cocaine Screen (NotDetected) U Marijuana (THC) Screen (NotDetected) Coronavirus (PCR) Not Detected (Not Detectd) Disposition <Micheal Aleman - Last Filed: 10/21/21 15:36> Is patient prescribed a controlled substance at d/c from ED?: No <Milind An - Last Filed: 11/06/21 23:38> Clinical Impression: Encounter for psychiatric assessment, Acute psychosis, Cannabis use disorder, mild, abuse, Schizoaffective disorder, bipolar type, Bipolar affective disorder, current episode manic with psychotic symptoms, Delusional disorder Disposition: TRANSFER TO PSYCH HOSP/UNIT Condition: Fair Referrals: None,Stated [Primary Care Provider] - 1-2 days
[2021-10-11 03:26] LABS: Phencyclidine Screen,Urine Not Detected (NotDetected); Urn Cannabinoid Scrn Detected (NotDetected)
[2021-10-11 03:27] LABS: Amphetamine Screen,Urine Not Detected (NotDetected); Barbiturate Screen,Urine Not Detected (NotDetected); Benzodiazepines Screen,Urine Not Detected (NotDetected); Cocaine Screen,Urine Not Detected (NotDetected); Methadone Screen, Urine Not Detected (NotDetected); Opiate Screen,Urine Not Detected (NotDetected); Oxycodone Screen, Urine Not Detected (NotDetected); Tricyclic Antidepressant,Urine Not Detected (NotDetected)
[2021-10-11] MEDS ORDERED: ALBUTEROL HFA INHALER INHALATION PRN (07:21)
[2021-10-11] MEDS ORDERED: LORazepam 1 MG TAB PO STA (09:17)
[2021-10-11] MEDS: LITHIUM CARBONATE 300 MG CAP PO SCH ×3 (22:47→22:56)
[2021-10-11] MEDS: BENZTROPINE MESYLATE 1 MG TAB PO SCH ×3 (22:47→22:55)
[2021-10-11] MEDS: QUEtiapine 400 MG TAB PO SCH ×3 (22:47→22:56)
[2021-10-12 01:53] LABS: Appearance,Urine Clear (Clear); Bilirubin,Urine Negative (Negative); Blood,Urine Negative (Negative); Color,Urine Colorless; Glucose,Urine (UA) Negative (Negative); Ketones,Urine Negative (Negative); Leukocyte Esterase,Urine Negative (Negative); Nitrite,Urine Negative (Negative); Protein,Urine Negative (Negative); Specific Gravity,Urine 1.004 (1.001-1.035); Urobilinogen,Urine <2.0 mg/dL (<2.0)
[2021-10-12] MEDS ORDERED: LORazepam 1 MG TAB PO STA ×4 (02:10→23:30)
[2021-10-12 03:00] LABS: Basophils # (A) 0.1 k/uL (0-0.2); Basophils % (A) 1 %; Eosinophils # (A) 0.2 k/uL (0-0.7); Eosinophils % (A) 3 %; HCT 45.4 % (39.0-53.0); HGB 16.1 gm/dL (13.0-17.5); Lymphocytes # (A) 1.8 k/uL (1.0-4.8); Lymphocytes % (A) 26 %; MCH 31.8 pg (25.0-35.0); MCHC 35.5 g/dL (31.0-37.0); MCV 89.5 fL (80.0-100.0); Mean Platelet Volume 6.9; Monocytes # (A) 0.5 k/uL (0-1.0); Monocytes % (A) 7 %; Neutrophils # (A) 4.1 k/uL (1.3-7.7); Neutrophils % (A) 61 %; Platelet Count 265 k/uL (150-450); RBC 5.07 m/uL (4.30-5.90); RDW 14.1 % (11.5-15.5); WBC 6.8 k/uL (3.8-10.6)
[2021-10-12 03:13] LABS: ALT 72 U/L (4-49); AST 60 U/L (17-59); African American GFR (CKD) >90 (>60 ml/min/1.73 sqM); Albumin 4.8 g/dL (3.5-5.0); Alkaline Phosphatase 93 U/L (38-126); Anion Gap 11 mmol/L; Blood Urea Nitrogen 15 mg/dL (9-20); Calcium 9.2 mg/dL (8.4-10.2); Carbon Dioxide 23 mmol/L (22-30); Chloride 103 mmol/L (98-107); Glucose 121 mg/dL (74-99); Non-African American GFR(CKD) >90 (>60 ml/min/1.73 sqM); Potassium 3.7 mmol/L (3.5-5.1); Sodium 137 mmol/L (137-145); Total Bilirubin 1.9 mg/dL (0.2-1.3)
[2021-10-13] MEDS: CALCIUM CARBONATE 500 MG CHEWABLE PO PRN (05:29)
[2021-10-13] MEDS ORDERED: LORazepam 1 MG TAB PO STA (16:17)
[2021-10-13] MEDS: BENZTROPINE MESYLATE 1 MG TAB PO SCH (23:10)
[2021-10-13] MEDS: LITHIUM CARBONATE 300 MG CAP PO SCH (23:10)
[2021-10-13] MEDS: QUEtiapine 400 MG TAB PO SCH (23:10)
[2021-10-14] MEDS: LORazepam 1 MG TAB PO STA ×2 (04:55→04:56)
[2021-10-14] MEDS ORDERED: LORazepam 2 MG/ML INJ IM PRN (11:27)
[2021-10-14] MEDS ORDERED: HALOPERIDOL LACTATE 5 MG/ML 1 ML VIAL IM PRN (11:28)
[2021-10-14] MEDS ORDERED: LORazepam 1 MG TAB PO PRN (11:28)
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
[2021-10-14] MEDS: CALCIUM CARBONATE 500 MG CHEWABLE PO PRN (20:48)
[2021-10-14] MEDS ORDERED: QUEtiapine 100 MG TAB PO SCH (21:00)
[2021-10-14] MEDS: BENZTROPINE MESYLATE 1 MG TAB PO SCH (23:10)
[2021-10-14] MEDS: LITHIUM CARBONATE 150 MG CAP PO SCH (23:10)
[2021-10-15] MEDS ORDERED: HALOPERIDOL LACTATE 5 MG/ML 1 ML VIAL IM PRN (06:30)
[2021-10-15] MEDS ORDERED: LORazepam 2 MG/ML INJ IM PRN (06:31)
[2021-10-15] MEDS: LORazepam 1 MG TAB PO PRN ×2 (06:38→16:12)
--- NOTE | 2021-10-15 13:32 | P.PN ---
Progress Note - Text Progress Note Date: 10/15/21 Interval History: Patient was seen today for psychiatric follow-up regarding patient's schizoaff ective disorder. Patients nurse states that patient has been doing better today and is less impulsive and more cooperative. Patient was seen lying in the bed and agreeable to speak to designer/writer today. He states that he was just waking up and feels "okay today". He continues to want to speak about his medications and states that he will not be taking Seroquel 800 mg dosage. He states that he wants to start at 100 mg. He claims that he is more likely to take medications now however was under the impression that he was being transferred to another hospital. He states that he slept fairly last night and has been eating fairly. Denying any depression or anxiety today. At this time patient denies any suicidal or homical ideations, intent or plan. Patient denies any auditory, visual hallucinations and denies any paranoia or delusions. Patient has not been taking his medications. Mental Status Exam: General Appearance: Patient appears to be well-built, stated age is alert, unpredictable, attempts to cooperate. Patient appears to have poor hygiene and grooming. Long hair. Behavior: Patient is seated without any agitated behavior. Threatening and agitated. Speech: Patient's speech is fluent and nonpressured. Mood/Affect: Patient reports their mood is "ok", affect is congruent and constricted Suicidality/Homicidality: Patient denies having any homicidal ideation intent or plan. Denies any suicidal ideations intent or plan Perceptions: Patient denies any visual hallucinations and denies any auditory hallucinations Though content/process: Religiously preoccupied. more logical today. Memory and concentration: AOX3, grossly intact for the purposes of this session Judgment and insight: poor/impulsive, improving mildly IMPRESSIONS: Schizoaffective disorder, bipolar type Cannabis use disorder Nicotine dependence PLAN: -At this time patient DOES meet criteria for inpatient psychiatric admission. Continue looking for psych placement. -Would recommend the following medication changes/additions: Seroquel 100 mg daily at bedtime as per patient's request and titrate up afterwards. lithium 450 mg daily at bedtime for mood stabilization. d/c Cogentin. -When medically stable, patient is eligible for transfer to a psych bed when found and available. -Communicated plan to patient's nurse -Will continue to follow along -Please contact with any questions.
[2021-10-15] MEDS ORDERED: QUEtiapine 100 MG TAB PO SCH (21:00)
[2021-10-15] MEDS: LITHIUM CARBONATE 150 MG CAP PO SCH (21:38)
[2021-10-15] MEDS: CALCIUM CARBONATE 500 MG CHEWABLE PO PRN (21:39)
[2021-10-16] MEDS: LORazepam 1 MG TAB PO PRN ×2 (12:10→18:12)
--- NOTE | 2021-10-16 13:15 | P.PN ---
Progress Note - Text Progress Note Date: 10/16/21 Interval History: Patient was seen today for psychiatric follow-up regarding patient's schizoaff ective disorder. Patients nurse states that patient has been doing better today and is less impulsive. Patient was seen lying in the bed and agreeable to speak to quality analyst/technical writer today. Patient appeared to be just waking up from his sleep. He states that he is doing "fine" and denies any overnight concerns. He states that he did take the Seroquel and lithium last night. He was requesting to be put back on Cogentin for unknown reasons and possible side effects. He continues to ask about potential discharge or which hospital he will be going to. Deputy Building Guard spoke with him further about his medications and also about the involuntary process. Patient believed that he was already on a mental health order. He states that he is not having any depression today and appeared to be less irritable and less impulsive. He was agreeable to take a higher dose of Seroquel tonight. He states that he slept fairly last night and has been eating fairly. At this time patient denies any suicidal or homical ideations, intent or plan. Patient denies any auditory, visual hallucinations and denies any paranoia or delusions. Patient has not been taking his medications. Mental Status Exam: General Appearance: Patient appears to be well-built, stated age is alert, less unpredictable, directable. Patient appears to have poor hygiene and grooming. Long hair. Behavior: Patient is seated without any agitated behavior. Threatening, improving Speech: Patient's speech is fluent and nonpressured. Mood/Affect: Patient reports their mood is "fine", affect is congruent and constricted Suicidality/Homicidality: Patient denies having any homicidal ideation intent or plan. Denies any suicidal ideations intent or plan Perceptions: Patient denies any visual hallucinations and denies any auditory hallucinations Though content/process: Religiously preoccupied. more logical today. Memory and concentration: AOX3, grossly intact for the purposes of this session Judgment and insight: poor/impulsive, improving mildly IMPRESSIONS: Schizoaffective disorder, bipolar type Cannabis use disorder Nicotine dependence PLAN: -At this time patient DOES meet criteria for inpatient psychiatric admission. Continue looking for psych bed placement. -quality analyst/technical writer completed second cert and will be faxed with paperwork to the courts to commence the involuntary process and seek court order. -Would recommend the following medication changes/additions: increase Seroquel 200 mg daily at bedtime. lithium 450 mg daily at bedtime for mood stabilization. Start Cogentin 1 mg daily at bedtime for EPS prophylaxis. -When medically stable, patient is eligible for transfer to a psych bed when found and available. -Communicated plan to patient's nurse -Will continue to follow along -Please contact with any questions.
[2021-10-16] MEDS ORDERED: QUEtiapine 200 MG TAB PO SCH (21:00)
[2021-10-16] MEDS: LITHIUM CARBONATE 150 MG CAP PO SCH (21:43)
[2021-10-16] MEDS: BENZTROPINE MESYLATE 1 MG TAB PO SCH (21:43)
[2021-10-17] MEDS: LORazepam 1 MG TAB PO PRN ×3 (00:33→20:02)
--- NOTE | 2021-10-17 13:00 | P.PN ---
Progress Note - Text Progress Note Date: 10/17/21 Interval History: Patient was seen today for psychiatric follow-up regarding patient's schizoaff ective disorder. Patients nurse states that patient has been doing better today and is less impulsive. Patient was seen lying in the bed and agreeable to speak to bid writer today. Patient again appeared to be just waking up from his sleep. He denied any overnight complaints. He states that he is still ok taking his meds and requested to have his seroquel increased to 300 mg qhs. He was not endorsing any delusions today. He was asking about potential discharge and when he can speak with the deputy commonwealth's attorney. he states that he plans on signing the deferral. He states that he slept fairly last night and has been eating fairly. At this time patient denies any suicidal or homical ideations, intent or plan. Patient denies any auditory, visual hallucinations and denies any paranoia or delusions. Patient has not been taking his medications. Mental Status Exam: General Appearance: Patient appears to be well-built, stated age is alert, less unpredictable, directable. Patient appears to have improving hygiene and grooming. Long hair. Behavior: Patient is laying in bed, not agitated. improving Speech: Patient's speech is fluent and nonpressured. Mood/Affect: Patient reports their mood is "ok", affect is congruent and constricted Suicidality/Homicidality: Patient denies having any homicidal ideation intent or plan. Denies any suicidal ideations intent or plan Perceptions: Patient denies any visual hallucinations and denies any auditory hallucinations Though content/process: more logical today. superficial and focused on discharge. Memory and concentration: AOX3, grossly intact for the purposes of this session Judgment and insight: poor/impulsive, improving mildly IMPRESSIONS: Schizoaffective disorder, bipolar type Cannabis use disorder Nicotine dependence PLAN: -At this time patient DOES meet criteria for inpatient psychiatric admission. Continue looking for psych bed placement. -bid writer completed second cert which was faxed to the courts. Currently awaiting deferral and hearing date. -Would recommend the following medication changes/additions: increase Seroquel 300 mg daily at bedtime. lithium 450 mg daily at bedtime for mood stabilization. Cogentin 1 mg daily at bedtime for EPS prophylaxis. -When medically stable, patient is eligible for transfer to a psych bed when found and available. -Communicated plan to patient's nurse -Will continue to follow along -Please contact with any questions.
[2021-10-17] MEDS: QUEtiapine 100 MG TAB PO SCH (20:02)
[2021-10-17] MEDS: LITHIUM CARBONATE 150 MG CAP PO SCH (20:02)
[2021-10-17] MEDS: BENZTROPINE MESYLATE 1 MG TAB PO SCH (20:02)
[2021-10-17] MEDS: CALCIUM CARBONATE 500 MG CHEWABLE PO PRN (20:48)
[2021-10-18] MEDS: BENZTROPINE MESYLATE 1 MG TAB PO SCH (00:35)
[2021-10-18] MEDS: LITHIUM CARBONATE 150 MG CAP PO SCH (00:35)
[2021-10-18] MEDS: QUEtiapine 100 MG TAB PO SCH (00:36)
[2021-10-18] MEDS: LORazepam 1 MG TAB PO PRN ×3 (03:37→23:05)
[2021-10-18] MEDS: CALCIUM CARBONATE 500 MG CHEWABLE PO PRN ×2 (05:57→19:37)
--- NOTE | 2021-10-18 13:08 | P.PN ---
Progress Note - Text Interval History: Patient was seen today for psychiatric follow-up regarding patient's schizoaffective disorder. Patient was seen lying in the bed and agreeable to speak to law writer today. Patient appeared to be just waking up from his sleep. He denied any overnight complaints. States that he was told he would be discharged if he took seroquel 3 days in a row, and is asking for discahrge today. When told that he would not be discharged today, patient replied, "I feel grieved." At this time patient denies any suicidal or homicidal ideations, intent or plan. Patient denies any auditory, visual hallucinations and denies any paranoia or delusions. He did take all his medications last night. Mental Status Exam: General Appearance: Patient appears to be well-built, stated age is alert. Long hair. Behavior: Patient is laying in bed, not agitated Speech: Patient's speech is fluent and nonpressured. Mood/Affect: constricted affect Suicidality/Homicidality: Patient denies having any homicidal ideation intent or plan. Denies any suicidal ideations intent or plan Perceptions: Patient denies any visual hallucinations and denies any auditory hallucinations Though content/process: superficial and focused on discharge. Memory and concentration: AOX3, grossly intact for the purposes of this session Judgment and insight: poor IMPRESSIONS: Schizoaffective disorder, bipolar type Cannabis use disorder Nicotine dependence PLAN: -At this time patient DOES meet criteria for inpatient psychiatric admission. Continue looking for psych bed placement. -Currently awaiting deferral and hearing date. -Continue Seroquel 300 mg daily at bedtime, lithium 450 mg daily at bedtime for mood stabilization, Cogentin 1 mg daily at bedtime for EPS prophylaxis. -When medically stable, patient is eligible for transfer to a psych bed when found and available. -Will continue to follow along
[2021-10-19] MEDS: QUEtiapine 100 MG TAB PO SCH (01:57)
[2021-10-19] MEDS: LITHIUM CARBONATE 150 MG CAP PO SCH (01:57)
[2021-10-19] MEDS: BENZTROPINE MESYLATE 1 MG TAB PO SCH (01:57)
[2021-10-19] MEDS: CALCIUM CARBONATE 500 MG CHEWABLE PO PRN ×3 (02:32→21:09)
--- NOTE | 2021-10-19 13:32 | P.PN ---
Progress Note - Text Interval History: Patient was seen today for psychiatric follow-up regarding patient's schizoaffective disorder. Patient was seen lying in the bed and agreeable to speak to technical document writer today. Patient stated that he expected to be discharged yesterday. At this time patient denies any suicidal or homicidal ideations, intent or plan. Patient denies any auditory, visual hallucinations. He did take all his medications last night. Mental Status Exam: General Appearance: Patient appears to be well-built, stated age is alert. Long hair. Behavior: Cooperative Speech: Patient's speech is fluent and nonpressured. Mood/Affect: constricted affect Suicidality/Homicidality: Patient denies having any homicidal ideation intent or plan. Denies any suicidal ideations intent or plan Perceptions: Patient denies any visual hallucinations and denies any auditory hallucinations Though content/process: goal directed Memory and concentration: AOX3, grossly intact for the purposes of this session Judgment and insight: poor IMPRESSIONS: Schizoaffective disorder, bipolar type Cannabis use disorder Nicotine dependence PLAN: -At this time patient DOES meet criteria for inpatient psychiatric admission. Continue looking for psych bed placement. -Currently awaiting deferral and hearing date. -Continue Seroquel 300 mg daily at bedtime, lithium 450 mg daily at bedtime for mood stabilization, Cogentin 1 mg daily at bedtime for EPS prophylaxis. -When medically stable, patient is eligible for transfer to a psych bed when found and available. -Will continue to follow along
[2021-10-19] MEDS: LORazepam 1 MG TAB PO PRN ×2 (14:21→21:09)
[2021-10-20] MEDS: LITHIUM CARBONATE 150 MG CAP PO SCH (01:16)
[2021-10-20] MEDS: BENZTROPINE MESYLATE 1 MG TAB PO SCH (01:16)
[2021-10-20] MEDS: QUEtiapine 100 MG TAB PO SCH (01:16)
[2021-10-20] MEDS ORDERED: MAG HYDROX/AL HYDROX/SIMETH 30 ML CUP PO PRN (01:21)
[2021-10-20] MEDS: LORazepam 1 MG TAB PO PRN ×2 (03:38→13:19)
[2021-10-20] MEDS: CALCIUM CARBONATE 500 MG CHEWABLE PO PRN (03:39)
--- NOTE | 2021-10-20 06:59 | ED ---
Medical Decision Making - Medical Decision Making Patient reevaluated by myself, Dr. San. Chart reviewed. Petition reviewed. Patient does have psychiatric recommendation for admission. Patient omits to previously not taking his medications. Patient does request medication for his chronic burn. Positive clinical certificate completed. - Lab Data Result diagrams: 10/12/21 02:35 10/12/21 02:35 Lab Results 10/11/21 10/12/21 10/12/21 Range/Units 02:20 02:35 02:35 WBC 6.8 (3.8-10.6) k/uL RBC 5.07 (4.30-5.90) m/uL Hgb 16.1 (13.0-17.5) gm/dL Hct 45.4 (39.0-53.0) % MCV 89.5 (80.0-100.0) fL MCH 31.8 (25.0-35.0) pg MCHC 35.5 (31.0-37.0) g/dL RDW 14.1 (11.5-15.5) % Plt Count 265 (150-450) k/uL MPV 6.9 Neutrophils % 61 % Lymphocytes % 26 % Monocytes % 7 % Eosinophils % 3 % Basophils % 1 % Neutrophils # 4.1 (1.3-7.7) k/uL Lymphocytes # 1.8 (1.0-4.8) k/uL Monocytes # 0.5 (0-1.0) k/uL Eosinophils # 0.2 (0-0.7) k/uL Basophils # 0.1 (0-0.2) k/uL Sodium 137 (137-145) mmol/L Potassium 3.7 (3.5-5.1) mmol/L Chloride 103 (98-107) mmol/L Carbon Dioxide 23 (22-30) mmol/L Anion Gap 11 mmol/L BUN 15 (9-20) mg/dL Creatinine 0.79 (0.66-1.25) mg/dL Est GFR (CKD-EPI)AfAm >90 (>60 ml/min/1.73 sqM) Est GFR (CKD-EPI)NonAf >90 (>60 ml/min/1.73 sqM) Glucose 121 H (74-99) mg/dL Calcium 9.2 (8.4-10.2) mg/dL Total Bilirubin 1.9 H (0.2-1.3) mg/dL AST 60 H (17-59) U/L ALT 72 H (4-49) U/L Alkaline Phosphatase 93 (38-126) U/L Total Protein 8.0 (6.3-8.2) g/dL Albumin 4.8 (3.5-5.0) g/dL Urine Color Colorless Urine Appearance Clear (Clear) Urine pH 7.0 (5.0-8.0) Ur Specific [place] 1.004 (1.001-1.035) Urine Protein Negative (Negative) Ur Protein Confirm Not Reportable Urine Glucose (UA) Negative (Negative) Urine Ketones Negative (Negative) Urine Blood Negative (Negative) Urine Nitrite Negative (Negative) Urine Bilirubin Negative (Negative) Ur Bilirubin Confirm Not Reportable Urine Urobilinogen <2.0 (<2.0) mg/dL Ur Leukocyte Esterase Negative (Negative) Urine Opiates Screen Not Detected (NotDetected) Ur Oxycodone Screen Not Detected (NotDetected) Urine Methadone Screen Not Detected (NotDetected) Ur Propoxyphene Screen Not Detected (NotDetected) Ur Barbiturates Screen Not Detected (NotDetected) U Tricyclic Antidepress Not Detected (NotDetected) Ur Phencyclidine Scrn Not Detected (NotDetected) Ur Amphetamines Screen Not Detected (NotDetected) U Methamphetamines Scrn Not Detected (NotDetected) U Benzodiazepines Scrn Not Detected (NotDetected) Urine Cocaine Screen Not Detected (NotDetected) U Marijuana (THC) Screen Detected H (NotDetected) Coronavirus (PCR) (Not Detectd) 10/12/21 Range/Units 02:35 WBC (3.8-10.6) k/uL RBC (4.30-5.90) m/uL Hgb (13.0-17.5) gm/dL Hct (39.0-53.0) % MCV (80.0-100.0) fL MCH (25.0-35.0) pg MCHC (31.0-37.0) g/dL RDW (11.5-15.5) % Plt Count (150-450) k/uL MPV Neutrophils % % Lymphocytes % % Monocytes % % Eosinophils % % Basophils % % Neutrophils # (1.3-7.7) k/uL Lymphocytes # (1.0-4.8) k/uL Monocytes # (0-1.0) k/uL Eosinophils # (0-0.7) k/uL Basophils # (0-0.2) k/uL Sodium (137-145) mmol/L Potassium (3.5-5.1) mmol/L Chloride (98-107) mmol/L Carbon Dioxide (22-30) mmol/L Anion Gap mmol/L BUN (9-20) mg/dL Creatinine (0.66-1.25) mg/dL Est GFR (CKD-EPI)AfAm (>60 ml/min/1.73 sqM) Est GFR (CKD-EPI)NonAf (>60 ml/min/1.73 sqM) Glucose (74-99) mg/dL Calcium (8.4-10.2) mg/dL Total Bilirubin (0.2-1.3) mg/dL AST (17-59) U/L ALT (4-49) U/L Alkaline Phosphatase (38-126) U/L Total Protein (6.3-8.2) g/dL Albumin (3.5-5.0) g/dL Urine Color Urine Appearance (Clear) Urine pH (5.0-8.0) Ur Specific [place] (1.001-1.035) Urine Protein (Negative) Ur Protein Confirm Urine Glucose (UA) (Negative) Urine Ketones (Negative) Urine Blood (Negative) Urine Nitrite (Negative) Urine Bilirubin (Negative) Ur Bilirubin Confirm Urine Urobilinogen (<2.0) mg/dL Ur Leukocyte Esterase (Negative) Urine Opiates Screen (NotDetected) Ur Oxycodone Screen (NotDetected) Urine Methadone Screen (NotDetected) Ur Propoxyphene Screen (NotDetected) Ur Barbiturates Screen (NotDetected) U Tricyclic Antidepress (NotDetected) Ur Phencyclidine Scrn (NotDetected) Ur Amphetamines Screen (NotDetected) U Methamphetamines Scrn (NotDetected) U Benzodiazepines Scrn (NotDetected) Urine Cocaine Screen (NotDetected) U Marijuana (THC) Screen (NotDetected) Coronavirus (PCR) Not Detected (Not Detectd) Disposition Clinical Impression: Encounter for psychiatric assessment, Acute psychosis Disposition: TRANSFER TO PSYCH HOSP/UNIT Is patient prescribed a controlled substance at d/c from ED?: No Referrals: None,Stated [Primary Care Provider] - 1-2 days Time of Disposition: 06:59
[2021-10-20 07:21] VITALS: PULSE 99
[2021-10-20] MEDS ORDERED: FAMOTIDINE 20 MG TAB PO SCH (09:00)
[2021-10-20 15:48] VITALS: BP 138/88; RESP 18; TEMP 98.2
[2021-10-20] MEDS ORDERED: LORazepam 1 MG TAB PO STA (17:31)
== END 2021-10-20 17:50 ==
LOC: EC 01:11
DX: F12.10 Cannabis abuse, uncomplicated (principal); F25.0 Schizoaffective disorder, bipolar type; J45.909 Unspecified asthma, uncomplicated; R45.851 Suicidal ideations; F17.200 Nicotine dependence, unspecified, uncomplicated; Z88.8 Allergy status to other drugs, medicaments and biological substances; Z20.822 Contact with and (suspected) exposure to COVID-19
CPT/HCPCS: 99285; 96372; 82075; 36415; 94640; 80053; 85025; 81003; 80306; 87635; J2060; J3486